=== PATIENT | male | born 1955 | race Caucasian/White ===

== ENCOUNTER 2016-08-01 23:56 | Inpatient (IN) | payer OTHER ==
[~2016-08-01] VITALS: Ht 175.3 cm; Wt 117.5 kg
[~2016-08-01 23:56] MED LIST: ARIP5TAB4 PO; ASPI81TA31 PO; ATOR10TA PO; Acetaminophen PO; CLOT15CR36 TOP; FURO20TA4 PO; ISOS60TA4 PO; METO25TA6 PO; POTA10CA43 PO
[2016-08-02] MEDS ORDERED: IV NORMAL SALINE 500 ML BAG IV ONE (00:15)
[2016-08-02] MEDS ORDERED: MORPHINE SULFATE 2 MG/1 ML DISP.SYRIN IV ONE (00:15)
[2016-08-02] MEDS ORDERED: ASPIRIN 325 MG TABLET PO ONE (00:15)
[2016-08-02 00:48] LABS: CALCIUM 8.4 mg/dL (8.5-10.1); CREATININE 1.1 mg/dL (0.6-1.3); POTASSIUM 3.6 mmol/L (3.5-5.1)
[2016-08-02] MEDS ORDERED: ASPIRIN 325 MG TABLET ONE (00:49)
[2016-08-02] MEDS ORDERED: MORPHINE SULFATE 2 MG/1 ML DISP.SYRIN ONE (00:50)
[2016-08-02 00:52] LABS: BASOPHILS % (AUTO) 0.6 % (0.0-2.0); EOSINOPHILS # (AUTO) 0.2 K/uL (0.0-0.7); EOSINOPHILS % (AUTO) 2.6 % (0.0-7.0); HEMATOCRIT 33.6 % (40.0-50.0); HEMOGLOBIN 11.3 g/dL (14.0-18.0); LYMPHOCYTES # (AUTO) 2.1 K/uL (0.8-4.8); MEAN CORPUSCULAR HGB CONC 34 g/dL (32.0-37.0); MEAN CORPUSCULAR VOLUME 83.6 fL (82.0-92.0); MONOCYTES # (AUTO) 0.7 K/uL (0.1-1.30); MONOCYTES % (AUTO) 9.7 % (0.0-11.0); NEUTROPHILS # (AUTO) 4.6 K/uL (1.8-8.9); NEUTROPHILS % (AUTO) 60.1 % (38.5-71.5); PLATELET COUNT (AUTO) 393 K/uL (150-450); RED BLOOD CELL COUNT(AUTO) 4.02 MIL/uL (4.70-6.10); WHITE BLOOD COUNT (AUTO) 7.6 K/uL (4.0-11.2)
[2016-08-02 01:01] LABS: BILIRUBIN,DIRECT 0.1 mg/dL (0.0-0.2); BILIRUBIN,TOTAL 0.2 mg/dL (0.2-1.0); TOTAL PROTEIN, SERUM 6.7 g/dL (6.4-8.2)
[2016-08-02] MEDS ORDERED: FUROSEMIDE 20 MG/2 ML VIAL IV ONE (01:15)
[2016-08-02] MEDS ORDERED: NITROGLYCERIN OINT 1 GM PACKET TP ONE ×2 (01:15→01:40)
[2016-08-02] MEDS ORDERED: FUROSEMIDE 40 MG/4 ML VIAL ONE (01:40)
--- NOTE | 2016-08-02 01:46 | NUR ---
Pt. admitted to TELE, under care of Dr. Law Belongs List completed
--- NOTE | 2016-08-02 02:18 | NUR ---
Urine Output 1200 ml
--- NOTE | 2016-08-02 02:50 | NUR ---
Urine Output 1000 ml
--- NOTE | 2016-08-02 03:00 | NUR ---
RECEIVED FROM ER VIA [facility]. USHERED TO ROOM AND PLACED COMFORTABLY ON BED. ABLE TO MAKE NEEDS KNOWN. NO COMPLAINTS OF CHEST PAIN AT THIS TIME. TELE WITH SINUS RHYTHM. ABLE TO PROVIDE HISTORY. BODY ASSESSMENT DONE. NEEDS ATTENDED. CALL LIGHT WITHIN REACH. WILL CONTINUE TO MONITOR.
[2016-08-02 03:21] VITALS: BP 157/97
[2016-08-02] MEDS ORDERED: MAGNESIUM HYDROXIDE 30 ML LIQUID UDC PO PRN (03:30)
[2016-08-02] MEDS ORDERED: ZOLPIDEM 5 MG TABLET PO PRN (03:30)
[2016-08-02] MEDS ORDERED: ONDANSETRON 4 MG/2 ML VIAL IV PRN (03:30)
[2016-08-02] MEDS: HYDROCODONE/APAP 5-325MG TABLET PO PRN ×4 (03:58→18:06)
[2016-08-02 04:00] VITALS: BP 154/87
[2016-08-02] MEDS ORDERED: HYDROCODONE/APAP 5-325MG TABLET ONE (04:04)
--- NOTE | 2016-08-02 06:20 | NUR ---
ABLE TO REST WELL DURING THE SHIFT. NEEDS ATTENDED. NO ACUTE DISTRESS NOTED. ABLE TO CHANGE DRESSINGS AND PICTURES TAKEN. TELE WITH SINUS RHYTHM. NO COMPLAINTS OF CHEST PAIN DURING THE SHIFT. CALL LIGHT WITHIN REACH
--- NOTE | 2016-08-02 07:00 | NUR ---
PATIENT RECEIVED IN ROOM ALERT AWAKE IN NO ACUTE DISTRESS. NO C/O PAIN AT THIS TIME. URINAL EMPTIED VOIDED 500CC. URINE YELLOW AND CLEAR. RLE ELEVATED ON PILLOWS WITH DRESSING C/D/I. CALL LIGHT AT REACH.
[2016-08-02] MEDS: ASPIRIN 81 MG TAB.CHEW PO SCH (08:08)
[2016-08-02] MEDS: PANTOPRAZOLE SODIUM 40 MG TABLET.DR PO SCH (08:09)
[2016-08-02] MEDS: METOPROLOL TARTRATE 25 MG TABLET PO SCH ×2 (12:00→20:30)
[2016-08-02] MEDS: ISOSORBIDE MONONITRATE 60 MG TAB.SR.24H PO SCH (12:01)
[2016-08-02 12:29] VITALS: BP 164/104
--- NOTE | 2016-08-02 13:29 | NUR ---
WOUND CARE CONSULT RECEIVED, WOUND CARE WILL DEFER TO PODIATRY DR MURRAY AT THIS TIME FOR TREATMENT. PATIENT WITH CURRENT FEDERICO AT 22. WOUND CARE WILL ASSIST IF REQUESTED. DR MURRAY AWARE OF PATIENT CONSULT.
[2016-08-02 15:54] VITALS: BP 136/87
[2016-08-02] MEDS ORDERED: LIDOCAINE 5% OINT 35.44 GM TUBE TOP PRN (16:00)
[2016-08-02] MEDS ORDERED: MORPHINE SULFATE 4 MG/1 ML DISP.SYRIN IV ONE (16:00)
--- NOTE | 2016-08-02 16:30 | NUR ---
UNABLE TO START IV. DR LISA NOTIFIED. N.O TO DC IV MORPHINE.
[2016-08-02] MEDS ORDERED: MORPHINE SULFATE 2 MG/1 ML DISP.SYRIN IV PRN (17:00)
[2016-08-02 20:00] VITALS: BP 148/90
[2016-08-02] MEDS ORDERED: HYDROMORPHONE HCL 2 MG TABLET PO PRN (20:15)
[2016-08-02] MEDS: ATORVASTATIN 40 MG TABLET PO SCH (20:30)
--- NOTE | 2016-08-02 21:29 | NUR ---
CLINICAL PHARMACY NOTE-VANCOMYCIN DOSING PER PHARMACY TO START VANCOMYCIN DOSING ON THIS PATIENT FOR CELLULITIS BUN 21 SCR 1.1 WBC 7.6 VANCOMYCIN 2 GRAM IV EVERY 14 HRS FOR EXPECTED TROUGH AROUND 15. WILL FOLLOW IN AM.
[2016-08-02] MEDS: PIPERACILLIN/TAZOBACTAM/D5W 3.375 G in PREMIXED 1 EACH IV SCH (21:49)
[2016-08-02] MEDS ORDERED: VANCOMYCIN IV 2,000 MG in IV DEXTROSE 5% 500 ML IV SCH (23:00)
[2016-08-03 05:00] VITALS: BP 169/104
[2016-08-03] MEDS: HYDROMORPHONE 1 MG/1 ML DISP.SYRIN IV PRN ×4 (05:21→19:51)
[2016-08-03] MEDS: PIPERACILLIN/TAZOBACTAM/D5W 3.375 G in PREMIXED 1 EACH IV SCH ×3 (05:21→21:26)
[2016-08-03] MEDS: PANTOPRAZOLE SODIUM 40 MG TABLET.DR PO SCH (06:07)
[2016-08-03 07:10] LABS: BASOPHILS % (AUTO) 0.3 % (0.0-2.0); EOSINOPHILS # (AUTO) 0.2 K/uL (0.0-0.7); EOSINOPHILS % (AUTO) 1.8 % (0.0-7.0); HEMATOCRIT 34.3 % (40.0-50.0); HEMOGLOBIN 11.6 g/dL (14.0-18.0); LYMPHOCYTES # (AUTO) 0.8 K/uL (0.8-4.8); LYMPHOCYTES % (AUTO) 8.8 % (20.5-51.5); MEAN CORPUSCULAR HEMOGLOBIN 28.8 uug (27.0-31.0); MEAN CORPUSCULAR HGB CONC 34 g/dL (32.0-37.0); MEAN CORPUSCULAR VOLUME 84.7 fL (82.0-92.0); MONOCYTES # (AUTO) 0.7 K/uL (0.1-1.30); MONOCYTES % (AUTO) 7.3 % (0.0-11.0); NEUTROPHILS # (AUTO) 7.7 K/uL (1.8-8.9); NEUTROPHILS % (AUTO) 81.8 % (38.5-71.5); PLATELET COUNT (AUTO) 375 K/uL (150-450); RED BLOOD CELL COUNT(AUTO) 4.05 MIL/uL (4.70-6.10); RED CELL DISTRIBUTION WIDTH 15.4 % (11.5-14.5); WHITE BLOOD COUNT (AUTO) 9.4 K/uL (4.0-11.2)
[2016-08-03 07:17] LABS: ALBUMIN 2.9 g/dL (3.4-5.0); BILIRUBIN,TOTAL 0.3 mg/dL (0.2-1.0); CALCIUM 8.8 mg/dL (8.5-10.1); MAGNESIUM 2.2 mg/dL (1.8-2.4); TOTAL PROTEIN, SERUM 6.9 g/dL (6.4-8.2)
[2016-08-03] MEDS: ISOSORBIDE MONONITRATE 60 MG TAB.SR.24H PO SCH (09:09)
[2016-08-03] MEDS: ASPIRIN 81 MG TAB.CHEW PO SCH (09:09)
[2016-08-03] MEDS: SILVER SULFADIAZINE 1% CREAM 50 GM TP SCH (09:10)
[2016-08-03] MEDS: METOPROLOL TARTRATE 25 MG TABLET PO SCH (09:10)
--- NOTE | 2016-08-03 10:00 | NUR ---
wound care provided. wound is draining sarosangunous fluid with odor. wound is red, pink and yellow in color. pt was premedicated with dilaudid as pt reports the wound to be very tender to touch. SS cream applied, ABD pad applied and wound is wrapped with kerlix. Feet are elevated on the pillows.
[2016-08-03] MEDS ORDERED: METOPROLOL TARTRATE 25 MG TABLET PO ONE (10:04)
[2016-08-03 11:50] VITALS: BP 135/74
--- NOTE | 2016-08-03 12:35 | NUR ---
INDUSTRIAL ECOLOGY TECHNICIAN TREATMENT ORDERS FOR RIGHT LOWER LEG ULCER CLARIFIED WITH DR MURRAY AT THIS TIME.
[2016-08-03] MEDS: VANCOMYCIN IV 2,000 MG in IV DEXTROSE 5% 500 ML IV SCH (12:50)
--- NOTE | 2016-08-03 13:41 | NUR ---
Clinical Pharmacy Note: Vancomycin Dosing per Pharmacy Subjective: Vancomycin IV to continue on this patient for cellulitis RLE. 60Yo ht 5' 9'' wt 310 lb Objective: BUN 13/Scr 1.0 WBC 9.4 Temperature 98.2 Assessment/Plan: Since srcr has decreased from 1.1 to 1.0 today, will change dose of vancomycin 2000mg IVPB Q14hr to vancomycin 2000mg IVPB q13hr for predicted vancomycin trough level of 15.5 mcg/ml at steady state. Third dose of this regimen is due on 06/03 at 0100. Will draw a vancomycin trough level prior to the 4th dose of vancomycin (not ordered yet). Will monitor renal function and adjust vancomycin dose, if needed, should renal function change significantly. Will follow daily.
[2016-08-03 15:50] VITALS: BP 113/72
[2016-08-03 20:00] VITALS: BP 133/78
[2016-08-03] MEDS: ATORVASTATIN 40 MG TABLET PO SCH (20:21)
[2016-08-03] MEDS: METOPROLOL TARTRATE 50 MG TABLET PO SCH (20:24)
--- NOTE | 2016-08-03 20:45 | NUR ---
PT'S A/A/O X4 DENIED OF PAIN OR ANY DISCOMFORT.CLEAN AND DRY AT THE RIGHT LEG WOUND:ELEVATED W/PILLOW ,UPDATED THE PLAN OF CARE TO PT;HE VERBALIZED UNDERSTANDING AND COOPERATIVE NOTED.KEPT COMFORT.CALL-LIGHT WITHIN REACH.
[2016-08-03] MEDS ORDERED: METOPROLOL TARTRATE 25 MG TABLET PO SCH (21:00)
[2016-08-04] MEDS: VANCOMYCIN IV 2,000 MG in IV DEXTROSE 5% 500 ML IV SCH ×2 (01:00→14:56)
[2016-08-04] MEDS: HYDROMORPHONE 1 MG/1 ML DISP.SYRIN IV PRN ×6 (01:10→20:50)
[2016-08-04 04:00] VITALS: BP 148/80
[2016-08-04] MEDS: PIPERACILLIN/TAZOBACTAM/D5W 3.375 G in PREMIXED 1 EACH IV SCH ×3 (05:16→22:21)
[2016-08-04] MEDS: PANTOPRAZOLE SODIUM 40 MG TABLET.DR PO SCH (06:14)
--- NOTE | 2016-08-04 06:30 | NUR ---
PT'S COMFORTABLE ON BED;DENIED OF PAIN OR ANY DISCOMFORT.NO DISTRESS NOTED IN THE SHIFT.PAIN'S CONTROLLED( ORDER).
[2016-08-04] MEDS: METOPROLOL TARTRATE 50 MG TABLET PO SCH ×2 (09:15→20:52)
[2016-08-04] MEDS: ISOSORBIDE MONONITRATE 60 MG TAB.SR.24H PO SCH (09:15)
[2016-08-04] MEDS: ASPIRIN 81 MG TAB.CHEW PO SCH (09:16)
[2016-08-04] MEDS: SILVER SULFADIAZINE 1% CREAM 50 GM TP SCH (11:17)
[2016-08-04 11:34] VITALS: BP 147/80
--- NOTE | 2016-08-04 15:20 | NUR ---
Clinical Pharmacy Note: Vancomycin Dosing per Pharmacy Subjective: Vancomycin IV to continue on this patient for cellulitis RLE. 60Yo ht 5' 9'' wt 310 lb Objective: BUN 13/Scr 1.0(08/03) WBC 9.4 (08/03) Temperature 98.3 Vancomycin trough 17 today at 1330 Assessment/Plan: Since trough level is within the therapeutic range, will continue vancomycin 2000mg IVPB q13hr for now. Will monitor renal function and adjust vancomycin dose, if needed, should renal function change significantly. Will follow daily.
[2016-08-04 15:29] VITALS: BP 104/58
[2016-08-04] MEDS: ATORVASTATIN 40 MG TABLET PO SCH (20:51)
[2016-08-04 22:38] VITALS: BP 127/69
[2016-08-05] MEDS: HYDROMORPHONE 1 MG/1 ML DISP.SYRIN IV PRN ×2 (01:36→05:39)
[2016-08-05] MEDS: VANCOMYCIN IV 2,000 MG in IV DEXTROSE 5% 500 ML IV SCH ×2 (02:27→15:03)
[2016-08-05 05:27] VITALS: BP 138/72
[2016-08-05] MEDS: PIPERACILLIN/TAZOBACTAM/D5W 3.375 G in PREMIXED 1 EACH IV SCH ×3 (05:39→21:50)
[2016-08-05] MEDS: PANTOPRAZOLE SODIUM 40 MG TABLET.DR PO SCH (06:00)
--- NOTE | 2016-08-05 07:00 | NUR ---
RECIEVED PT. AWAKE, VERBALLY RESPONSIVE, AGITATED AND IRRITABLE, ARGUMENTATIVE,
[2016-08-05 07:58] LABS: BASOPHILS # (AUTO) 0.1 K/uL (0.0-0.2); BASOPHILS % (AUTO) 0.6 % (0.0-2.0); EOSINOPHILS # (AUTO) 0.3 K/uL (0.0-0.7); EOSINOPHILS % (AUTO) 3.2 % (0.0-7.0); HEMATOCRIT 36.7 % (40.0-50.0); HEMOGLOBIN 12.2 g/dL (14.0-18.0); LYMPHOCYTES # (AUTO) 1.5 K/uL (0.8-4.8); MEAN CORPUSCULAR HEMOGLOBIN 28.3 uug (27.0-31.0); MEAN CORPUSCULAR HGB CONC 33 g/dL (32.0-37.0); MEAN CORPUSCULAR VOLUME 85.1 fL (82.0-92.0); MONOCYTES # (AUTO) 1.1 K/uL (0.1-1.30); NEUTROPHILS # (AUTO) 7.1 K/uL (1.8-8.9); NEUTROPHILS % (AUTO) 70.2 % (38.5-71.5); PLATELET COUNT (AUTO) 378 K/uL (150-450); RED BLOOD CELL COUNT(AUTO) 4.31 MIL/uL (4.70-6.10); RED CELL DISTRIBUTION WIDTH 15.4 % (11.5-14.5); WHITE BLOOD COUNT (AUTO) 10.1 K/uL (4.0-11.2)
[2016-08-05] MEDS: SILVER SULFADIAZINE 1% CREAM 50 GM TP SCH (09:00)
[2016-08-05 09:15] LABS: ALBUMIN 3.1 g/dL (3.4-5.0); BILIRUBIN,TOTAL 0.3 mg/dL (0.2-1.0); CALCIUM 9.3 mg/dL (8.5-10.1); MAGNESIUM 2.2 mg/dL (1.8-2.4); PHOSPHOROUS 3.2 mg/dL (2.5-4.9); POTASSIUM 3.9 mmol/L (3.5-5.1); TOTAL PROTEIN, SERUM 7.5 g/dL (6.4-8.2)
[2016-08-05] MEDS: ASPIRIN 81 MG TAB.CHEW PO SCH (10:21)
[2016-08-05] MEDS: METOPROLOL TARTRATE 50 MG TABLET PO SCH ×2 (10:22→20:29)
[2016-08-05] MEDS: ISOSORBIDE MONONITRATE 60 MG TAB.SR.24H PO SCH (10:23)
[2016-08-05 11:38] VITALS: BP 149/86
--- NOTE | 2016-08-05 12:27 | NUR ---
Clinical Pharmacy Note: Vancomycin Dosing per Pharmacy Subjective: Vancomycin IV to continue on this patient for cellulitis RLE. 60Yo ht 5' 9'' wt 310 lb Objective: BUN 13/Scr 1.0 WBC 10.1 Temperature 97.9 Vancomycin trough 17 (on 08/04 at 1330) Assessment/Plan: Will continue same dose of vancomycin 2000mg IVPB q13hr for today (srcr stable). Will monitor renal function and adjust vancomycin dose, if needed, should renal function change significantly. Will follow daily.
--- NOTE | 2016-08-05 13:00 | NUR ---
RT. FOOT WOUND CARE DONE,
[2016-08-05] MEDS: ACETAMINOPHEN 325 MG TABLET PO PRN ×2 (13:13→18:06)
[2016-08-05 15:09] VITALS: BP 147/82
[2016-08-05] MEDS: ATORVASTATIN 40 MG TABLET PO SCH (20:29)
[2016-08-05] MEDS: LACTOBACILLUS RHAMNOSUS GG 1 EACH CAPSULE PO SCH (20:30)
[2016-08-05 20:49] VITALS: BP 131/73
[2016-08-05] MEDS ORDERED: HYDROCODONE/APAP 5-325MG TABLET ONE ×2 (22:10→22:21)
[2016-08-06] MEDS: VANCOMYCIN IV 2,000 MG in IV DEXTROSE 5% 500 ML IV SCH ×2 (05:01→17:38)
[2016-08-06 05:29] VITALS: BP 116/83
--- NOTE | 2016-08-06 07:00 | NUR ---
PT IS SITTING IN BED COMFORTABLY. NO S/S OF RESPIRATORY DISTRESS NOTED. IV INTACT/PATENT. ALL SAFETY NEEDS ARE MET. WILL CONTINUE TO MONITOR.
[2016-08-06] MEDS: PIPERACILLIN/TAZOBACTAM/D5W 3.375 G in PREMIXED 1 EACH IV SCH ×3 (07:06→21:54)
[2016-08-06] MEDS: PANTOPRAZOLE SODIUM 40 MG TABLET.DR PO SCH (07:06)
[2016-08-06] MEDS: ASPIRIN 81 MG TAB.CHEW PO SCH (09:48)
[2016-08-06] MEDS: LACTOBACILLUS RHAMNOSUS GG 1 EACH CAPSULE PO SCH ×2 (09:49→20:47)
[2016-08-06] MEDS: METOPROLOL TARTRATE 50 MG TABLET PO SCH ×2 (09:49→20:48)
[2016-08-06] MEDS: ISOSORBIDE MONONITRATE 60 MG TAB.SR.24H PO SCH (09:49)
[2016-08-06] MEDS: SILVER SULFADIAZINE 1% CREAM 50 GM TP SCH (09:50)
[2016-08-06] MEDS: HYDROMORPHONE 1 MG/1 ML DISP.SYRIN IV PRN ×4 (10:00→20:49)
[2016-08-06 11:14] VITALS: BP 139/80
--- NOTE | 2016-08-06 12:34 | NUR ---
Clinical Pharmacy Note: Vancomycin Dosing per Pharmacy Subjective: Vancomycin IV to continue on this patient for cellulitis RLE. 60Yo ht 5' 9'' wt 310 lb Objective: BUN 13/Scr 1.0 (08/05) WBC 10.1 (08/05) Temperature 98.6 Vancomycin trough 17 (on 08/04 at 1330) Assessment/Plan: Will continue same dose of vancomycin 2000mg IVPB q13hr for today. Will monitor renal function and adjust vancomycin dose, if needed, should renal function change significantly. Will follow daily.
[2016-08-06 15:35] VITALS: BP 100/56
[2016-08-06] MEDS ORDERED: METOPROLOL TARTRATE 25 MG TABLET PO SCH (17:00)
[2016-08-06 20:00] VITALS: BP 116/65
[2016-08-06] MEDS: ATORVASTATIN 40 MG TABLET PO SCH (20:47)
[2016-08-06] MEDS: ARIPIPRAZOLE 5 MG TABLET PO SCH (20:55)
[2016-08-06] MEDS ORDERED: ATORVASTATIN 10 MG TABLET PO SCH (21:00)
--- NOTE | 2016-08-06 21:30 | NUR ---
PT SEEN BY DR. RAMIREZ.
[2016-08-07] MEDS: HYDROMORPHONE 1 MG/1 ML DISP.SYRIN IV PRN ×7 (01:38→23:56)
[2016-08-07 04:00] VITALS: BP 135/83
--- NOTE | 2016-08-07 05:18 | NUR ---
PT IN BED, SLEPT INTERMITTENTLY. ON PAIN MANAGEMENT FOR R LEG PAIN, AND WAS HELPFUL. SAFETY NEEDS PROVIDED. CALL LIGHT WITHIN REACH.
[2016-08-07] MEDS: PIPERACILLIN/TAZOBACTAM/D5W 3.375 G in PREMIXED 1 EACH IV SCH ×3 (05:37→23:56)
[2016-08-07] MEDS: PANTOPRAZOLE SODIUM 40 MG TABLET.DR PO SCH (06:44)
[2016-08-07] MEDS: VANCOMYCIN IV 2,000 MG in IV DEXTROSE 5% 500 ML IV SCH ×2 (06:56→21:13)
--- NOTE | 2016-08-07 07:38 | NUR ---
WOUND TX DONE. PROCEDURE SHIRA WELL.
--- NOTE | 2016-08-07 08:00 | NUR ---
pt is in no acute distress. Discussed plan of care with patient re: proper pain management and fall precautions. Pt agreeable with plan of care. Call light is within reach. Dressing intact on nanci legs. IV on left ac intact.
[2016-08-07] MEDS: FUROSEMIDE 20 MG TABLET PO SCH (08:11)
[2016-08-07] MEDS: ISOSORBIDE MONONITRATE 60 MG TAB.SR.24H PO SCH (08:12)
[2016-08-07] MEDS: POTASSIUM CHLORIDE 10 MEQ CAPSULE.SA PO SCH (08:12)
[2016-08-07] MEDS: LACTOBACILLUS RHAMNOSUS GG 1 EACH CAPSULE PO SCH ×2 (08:12→20:23)
[2016-08-07] MEDS: METOPROLOL TARTRATE 50 MG TABLET PO SCH ×2 (08:12→21:13)
[2016-08-07] MEDS: ASPIRIN 81 MG TAB.CHEW PO SCH (08:14)
[2016-08-07] MEDS: SILVER SULFADIAZINE 1% CREAM 50 GM TP SCH (08:22)
[2016-08-07] MEDS ORDERED: ISOSORBIDE MONONITRATE 60 MG TAB.SR.24H PO SCH (09:00)
[2016-08-07] MEDS ORDERED: ASPIRIN 81 MG TAB.CHEW PO SCH (09:00)
--- NOTE | 2016-08-07 11:05 | NUR ---
Clinical Pharmacy Note: Vancomycin Dosing per Pharmacy Subjective: Vancomycin IV to continue on this patient for cellulitis RLE. 60Yo ht 5' 9'' wt 310 lb Objective: BUN 13/Scr 1.0 (08/05) WBC 10.1 (08/05) Temperature 98.3 Vancomycin trough 17 (on 08/04 at 1330) Assessment/Plan: Patient on vancomycin 2000mg IVPB q13hr. No labs past few days. Will check vancomycin trough level before 2000 dose tonight (ordered for tonight 1930) to ensure level still within therapeutic range. Pharmacy shall review the level when available & adjust the dose if needed. Will follow daily.
[2016-08-07 12:10] VITALS: BP 145/80
[2016-08-07 16:00] VITALS: BP 102/54
--- NOTE | 2016-08-07 18:25 | NUR ---
Pt is in no acute distress. Plan of care effective. Pain managed with medications and no fall noted this shift. Call light is within reach.
[2016-08-07 19:00] VITALS: BP 136/73
--- NOTE | 2016-08-07 20:15 | NUR ---
called for oweno trough to be drawn
[2016-08-07] MEDS: ARIPIPRAZOLE 5 MG TABLET PO SCH (20:23)
[2016-08-07] MEDS: ATORVASTATIN 40 MG TABLET PO SCH (20:23)
--- NOTE | 2016-08-07 20:29 | NUR ---
vanco trough drawn by lab
[2016-08-08] MEDS: HYDROMORPHONE 1 MG/1 ML DISP.SYRIN IV PRN ×5 (03:11→21:29)
[2016-08-08 05:11] VITALS: BP 136/70
[2016-08-08] MEDS: PIPERACILLIN/TAZOBACTAM/D5W 3.375 G in PREMIXED 1 EACH IV SCH ×4 (06:26→21:34)
[2016-08-08] MEDS: PANTOPRAZOLE SODIUM 40 MG TABLET.DR PO SCH (06:26)
[2016-08-08] MEDS: LACTOBACILLUS RHAMNOSUS GG 1 EACH CAPSULE PO SCH ×2 (08:27→21:28)
[2016-08-08] MEDS: ASPIRIN 81 MG TAB.CHEW PO SCH (08:27)
[2016-08-08] MEDS: ISOSORBIDE MONONITRATE 60 MG TAB.SR.24H PO SCH (08:27)
[2016-08-08] MEDS: FUROSEMIDE 20 MG TABLET PO SCH (08:27)
[2016-08-08] MEDS: POTASSIUM CHLORIDE 10 MEQ CAPSULE.SA PO SCH (08:27)
[2016-08-08] MEDS: SILVER SULFADIAZINE 1% CREAM 50 GM TP SCH (08:28)
[2016-08-08] MEDS: METOPROLOL TARTRATE 50 MG TABLET PO SCH ×2 (08:28→21:29)
[2016-08-08] MEDS: VANCOMYCIN IV 2,000 MG in IV DEXTROSE 5% 500 ML IV SCH (08:31)
--- NOTE | 2016-08-08 10:49 | NUR ---
mateuszco 08/02/16 @404 and [facility] 08/05/16@ 3080 taken out of pyxis by digital marketing apprentice.
[2016-08-08 12:02] VITALS: BP 141/89
[2016-08-08 15:35] VITALS: BP 105/61
[2016-08-08] MEDS: DOXYCYCLINE HYCLATE 100 MG TABLET PO SCH (17:36)
[2016-08-08 19:00] VITALS: BP 137/84
[2016-08-08] MEDS: ATORVASTATIN 40 MG TABLET PO SCH (21:28)
[2016-08-08] MEDS: ARIPIPRAZOLE 5 MG TABLET PO SCH (21:28)
[2016-08-09] MEDS: HYDROMORPHONE 1 MG/1 ML DISP.SYRIN IV PRN ×8 (00:34→22:19)
[2016-08-09 05:00] VITALS: BP 150/85
[2016-08-09] MEDS: PIPERACILLIN/TAZOBACTAM/D5W 3.375 G in PREMIXED 1 EACH IV SCH (05:35)
[2016-08-09] MEDS: DOXYCYCLINE HYCLATE 100 MG TABLET PO SCH (05:35)
[2016-08-09] MEDS: PANTOPRAZOLE SODIUM 40 MG TABLET.DR PO SCH (06:30)
--- NOTE | 2016-08-09 07:03 | NUR ---
no significant change in condition, PRN pain med given as requested Q3H, assessment done as needed. call light within reach.
[2016-08-09] MEDS: POTASSIUM CHLORIDE 10 MEQ CAPSULE.SA PO SCH (08:02)
[2016-08-09] MEDS: METOPROLOL TARTRATE 50 MG TABLET PO SCH ×2 (08:02→21:22)
[2016-08-09] MEDS: LACTOBACILLUS RHAMNOSUS GG 1 EACH CAPSULE PO SCH ×2 (08:02→21:21)
[2016-08-09] MEDS: ISOSORBIDE MONONITRATE 60 MG TAB.SR.24H PO SCH (08:06)
[2016-08-09] MEDS: ASPIRIN 81 MG TAB.CHEW PO SCH (08:07)
[2016-08-09] MEDS: FUROSEMIDE 20 MG TABLET PO SCH (08:07)
--- NOTE | 2016-08-09 10:31 | NUR ---
Patient noted irritable and agitated this morning. Patient took all medications but becomes agitated when protocols are followed. Patient also does not like two nurse in the room. RN doing orientation with new RN. Patient insists only one nurse does the care and was able to change mind about observation.
[2016-08-09] MEDS: SILVER SULFADIAZINE 1% CREAM 50 GM TP SCH (11:21)
[2016-08-09 11:40] VITALS: BP 104/56
[2016-08-09] MEDS ORDERED: DOSING PER PHARMACY-COLISTIN IV XX PRN (13:45)
[2016-08-09] MEDS: MEROPENEM 1 G in IV NORMAL SALINE 100 ML IV SCH ×2 (14:00→22:19)
[2016-08-09] MEDS: COLISTIMETHATE SODIUM 150 MG in IV DEXTROSE 5% 100 ML IV SCH ×3 (14:15→21:23)
--- NOTE | 2016-08-09 14:50 | NUR ---
Pt refused IV antibiotics and requested to have IV antibiotics to run through PICC line. PICC requested and scheduled to come at 2029.
--- NOTE | 2016-08-09 15:58 | NUR ---
Waiting for PICC line nurse to come and assess patient. Waiting to hang IV antibiotics.
--- NOTE | 2016-08-09 16:27 | NUR ---
PICC line nurse Job Dao to arrive at 2030.
[2016-08-09 16:34] VITALS: BP 110/60
[2016-08-09 16:39] VITALS: BP 131/64
[2016-08-09] MEDS: LINEZOLID 600 MG TABLET PO SCH ×2 (16:46→21:24)
[2016-08-09 20:00] VITALS: BP 109/55
--- NOTE | 2016-08-09 20:30 | NUR ---
MIDLINE INSERTED BY PICC LINE NURSE IN PT'S GILL, WITH GOOD BLOOD RETURN.
[2016-08-09] MEDS: ARIPIPRAZOLE 5 MG TABLET PO SCH (21:21)
[2016-08-09] MEDS: ATORVASTATIN 40 MG TABLET PO SCH (21:22)
[2016-08-10] MEDS: HYDROMORPHONE 1 MG/1 ML DISP.SYRIN IV PRN ×7 (02:14→21:48)
[2016-08-10 05:40] VITALS: BP 141/88
[2016-08-10] MEDS: MEROPENEM 1 G in IV NORMAL SALINE 100 ML IV SCH ×3 (05:43→21:47)
[2016-08-10] MEDS: PANTOPRAZOLE SODIUM 40 MG TABLET.DR PO SCH (06:38)
[2016-08-10 07:02] LABS: BASOPHILS % (AUTO) 0.5 % (0.0-2.0); EOSINOPHILS # (AUTO) 0.3 K/uL (0.0-0.7); EOSINOPHILS % (AUTO) 3.4 % (0.0-7.0); HEMATOCRIT 36.6 % (40.0-50.0); HEMOGLOBIN 12.1 g/dL (14.0-18.0); LYMPHOCYTES # (AUTO) 1.8 K/uL (0.8-4.8); LYMPHOCYTES % (AUTO) 19.3 % (20.5-51.5); MEAN CORPUSCULAR HEMOGLOBIN 28.1 uug (27.0-31.0); MEAN CORPUSCULAR HGB CONC 33 g/dL (32.0-37.0); MONOCYTES # (AUTO) 0.8 K/uL (0.1-1.30); MONOCYTES % (AUTO) 8.6 % (0.0-11.0); NEUTROPHILS # (AUTO) 6.3 K/uL (1.8-8.9); NEUTROPHILS % (AUTO) 68.2 % (38.5-71.5); PLATELET COUNT (AUTO) 341 K/uL (150-450); RED BLOOD CELL COUNT(AUTO) 4.31 MIL/uL (4.70-6.10); RED CELL DISTRIBUTION WIDTH 15.2 % (11.5-14.5); WHITE BLOOD COUNT (AUTO) 9.2 K/uL (4.0-11.2)
[2016-08-10 07:06] LABS: CALCIUM 9.1 mg/dL (8.5-10.1); CREATININE 1.2 mg/dL (0.6-1.3); MAGNESIUM 1.9 mg/dL (1.8-2.4); PHOSPHOROUS 3.1 mg/dL (2.5-4.9)
[2016-08-10] MEDS: LACTOBACILLUS RHAMNOSUS GG 1 EACH CAPSULE PO SCH ×2 (08:37→20:30)
[2016-08-10] MEDS: POTASSIUM CHLORIDE 10 MEQ CAPSULE.SA PO SCH (08:37)
[2016-08-10] MEDS: ASPIRIN 81 MG TAB.CHEW PO SCH (08:37)
[2016-08-10] MEDS: METOPROLOL TARTRATE 50 MG TABLET PO SCH ×2 (08:37→20:29)
[2016-08-10] MEDS: FUROSEMIDE 20 MG TABLET PO SCH (08:38)
[2016-08-10] MEDS: LINEZOLID 600 MG TABLET PO SCH ×2 (08:38→20:33)
[2016-08-10] MEDS: ISOSORBIDE MONONITRATE 60 MG TAB.SR.24H PO SCH (08:38)
[2016-08-10] MEDS: COLISTIMETHATE SODIUM 150 MG in IV DEXTROSE 5% 100 ML IV SCH ×2 (08:57→20:28)
--- NOTE | 2016-08-10 08:57 | NUR ---
informed of patient sodium level of 133. No new orders.
[2016-08-10] MEDS: SILVER SULFADIAZINE 1% CREAM 50 GM TP SCH (09:59)
--- NOTE | 2016-08-10 10:52 | NUR ---
Pt alert oriented able to verbalized needs. v/s checked and WNL. All meds given. Wound care done. pt tolerating well, denies distress and discomfort. pain medication given. will continue to monitor
[2016-08-10 11:24] VITALS: BP 110/56
[2016-08-10 15:50] VITALS: BP 92/50
--- NOTE | 2016-08-10 16:03 | NUR ---
Case management is working on discharge plan for the patient. Will go to correction facility. Continuing IV antibiotics for the day. Patient aware of plan of care at this time and is agreeable.
[2016-08-10 20:00] VITALS: BP 111/62
[2016-08-10] MEDS: ATORVASTATIN 40 MG TABLET PO SCH (20:29)
[2016-08-10] MEDS: ARIPIPRAZOLE 5 MG TABLET PO SCH (20:30)
--- NOTE | 2016-08-10 21:30 | NUR ---
PT'S A/A/O X 4 ON BED REST AND HAD VISITED AT THIS TIME AND MD INFORMED A CONSENT TO PT FOR DEBRIDEMENT RIGHT LOWER EXTREMITY ULCERATION AT THIS TIME;PT VERBALIZED UNDERSTANDING ABOUT THE RISK AND BENEFIT. PERFORMED A PROCEDURE ~ 45 MINUTES AND SENT A SPECIMEN FOR WOUND C/S AT THIS TIME,MINIMAL BLOOD LOSS NOTED,APPLIED DRY D/S AND ELEVATED WITH PILLOWS.KEPT COMFORT TO PT.
[2016-08-10] MEDS ORDERED: LIDOCAINE 4% TOPICAL 50 ML BOTTLE TP ONE (22:00)
[2016-08-10] MEDS ORDERED: LIDOCAINE 4% TOPICAL 50 ML BOTTLE ONE (22:15)
[2016-08-10] MEDS ORDERED: LIDOCAINE 2% (UROJET) 10 ML JELLY MM PRN (22:30)
[2016-08-10] MEDS ORDERED: LIDOCAINE 2% 100 MG/5 ML SYRINGE ONE (22:33)
[2016-08-10] MEDS ORDERED: MORPHINE SULFATE 2 MG/1 ML DISP.SYRIN IV ONE (22:45)
[2016-08-10] MEDS ORDERED: MORPHINE SULFATE 2 MG/1 ML DISP.SYRIN ONE (22:46)
[2016-08-11] MEDS: HYDROMORPHONE 1 MG/1 ML DISP.SYRIN IV PRN ×8 (00:45→22:54)
[2016-08-11 04:39] VITALS: BP 117/75
[2016-08-11] MEDS: MEROPENEM 1 G in IV NORMAL SALINE 100 ML IV SCH ×3 (05:31→21:21)
--- NOTE | 2016-08-11 06:30 | NUR ---
PT'S ALREADY GOT AM CARE W/MEMBERSHIP ADVISOR'S ASSISTANCE;PT TOLERATED WELL W/ASSISTANCE:CLEAN AND DRY AT THE RIGHT LEG WOUND SITE W/D/S WAS ON.NO DISTRESS NOTED IN THE SHIFT.KEPT CONTACT ISOLATION;PT VERBALIZED UNDERSTANDING.
[2016-08-11] MEDS: PANTOPRAZOLE SODIUM 40 MG TABLET.DR PO SCH (06:43)
--- NOTE | 2016-08-11 07:37 | NUR ---
PT IS LAYING IN BED COMFORTABLY. NO S/S OF RESPIRATORY DISTRESS NOTED.MIDLINE INTACT/PATENT.ALL SAFETY NEEDS ARE MET. NO PAIN NOTED.
[2016-08-11 07:41] LABS: CALCIUM 9.3 mg/dL (8.5-10.1); CREATININE 1.1 mg/dL (0.6-1.3); POTASSIUM 4.1 mmol/L (3.5-5.1)
[2016-08-11] MEDS: SILVER SULFADIAZINE 1% CREAM 50 GM TP SCH (09:05)
[2016-08-11] MEDS: METOPROLOL TARTRATE 50 MG TABLET PO SCH ×2 (09:10→21:20)
[2016-08-11] MEDS: FUROSEMIDE 20 MG TABLET PO SCH (09:10)
[2016-08-11] MEDS: ASPIRIN 81 MG TAB.CHEW PO SCH (09:11)
[2016-08-11] MEDS: ISOSORBIDE MONONITRATE 60 MG TAB.SR.24H PO SCH (09:11)
[2016-08-11] MEDS: POTASSIUM CHLORIDE 10 MEQ CAPSULE.SA PO SCH (09:11)
[2016-08-11] MEDS: LACTOBACILLUS RHAMNOSUS GG 1 EACH CAPSULE PO SCH ×2 (09:11→21:20)
[2016-08-11] MEDS: LINEZOLID 600 MG TABLET PO SCH ×2 (09:12→21:21)
[2016-08-11] MEDS: COLISTIMETHATE SODIUM 150 MG in IV DEXTROSE 5% 100 ML IV SCH ×2 (09:31→21:32)
[2016-08-11 12:20] VITALS: BP 106/59
[2016-08-11 16:55] VITALS: BP 128/67
[2016-08-11 20:00] VITALS: BP 123/75
[2016-08-11] MEDS: ATORVASTATIN 40 MG TABLET PO SCH (21:20)
[2016-08-11] MEDS: ARIPIPRAZOLE 5 MG TABLET PO SCH (21:20)
[2016-08-12] MEDS: HYDROMORPHONE 1 MG/1 ML DISP.SYRIN IV PRN ×7 (02:03→20:51)
[2016-08-12 04:44] VITALS: BP 137/74
[2016-08-12] MEDS: MEROPENEM 1 G in IV NORMAL SALINE 100 ML IV SCH ×2 (06:18→14:47)
[2016-08-12] MEDS: PANTOPRAZOLE SODIUM 40 MG TABLET.DR PO SCH (06:18)
[2016-08-12] MEDS: COLISTIMETHATE SODIUM 150 MG in IV DEXTROSE 5% 100 ML IV SCH ×2 (09:14→20:51)
[2016-08-12] MEDS: POTASSIUM CHLORIDE 10 MEQ CAPSULE.SA PO SCH (09:14)
[2016-08-12] MEDS: FUROSEMIDE 20 MG TABLET PO SCH (09:14)
[2016-08-12] MEDS: ISOSORBIDE MONONITRATE 60 MG TAB.SR.24H PO SCH (09:23)
[2016-08-12] MEDS: METOPROLOL TARTRATE 50 MG TABLET PO SCH ×2 (09:23→20:58)
[2016-08-12] MEDS: ASPIRIN 81 MG TAB.CHEW PO SCH (09:23)
[2016-08-12] MEDS: LACTOBACILLUS RHAMNOSUS GG 1 EACH CAPSULE PO SCH ×2 (09:23→20:57)
[2016-08-12] MEDS: SILVER SULFADIAZINE 1% CREAM 50 GM TP SCH (09:26)
[2016-08-12] MEDS: LINEZOLID 600 MG TABLET PO SCH ×2 (09:26→21:04)
[2016-08-12 11:57] VITALS: BP 110/61
[2016-08-12 16:58] VITALS: BP 92/49
[2016-08-12 20:00] VITALS: BP 117/71
[2016-08-12] MEDS: ATORVASTATIN 40 MG TABLET PO SCH (20:57)
[2016-08-12] MEDS: ARIPIPRAZOLE 5 MG TABLET PO SCH (21:05)
[2016-08-13] MEDS: HYDROMORPHONE 1 MG/1 ML DISP.SYRIN IV PRN ×8 (00:19→23:33)
[2016-08-13 06:06] VITALS: BP 129/71
[2016-08-13] MEDS: PANTOPRAZOLE SODIUM 40 MG TABLET.DR PO SCH (06:31)
[2016-08-13 06:57] LABS: CALCIUM 9.5 mg/dL (8.5-10.1); CREATININE 1.1 mg/dL (0.6-1.3)
--- NOTE | 2016-08-13 07:30 | NUR ---
patient upset, wanted to speak to charge nurse, wanted his leg dressing with marc bandage. called x 3 consecutively for the change, quieted down after he himself use his own marc bandage in room. breakfast served, didnt bother patient while having breakfast. no respiratory distress noted.
[2016-08-13 07:44] LABS: BASOPHILS # (AUTO) 0.2 K/uL (0.0-0.2); BASOPHILS % (AUTO) 2.5 % (0.0-2.0); EOSINOPHILS # (AUTO) 0.3 K/uL (0.0-0.7); EOSINOPHILS % (AUTO) 3.4 % (0.0-7.0); HEMATOCRIT 36.7 % (40.0-50.0); HEMOGLOBIN 11.8 g/dL (14.0-18.0); LYMPHOCYTES # (AUTO) 1.6 K/uL (0.8-4.8); MEAN CORPUSCULAR HEMOGLOBIN 27.3 uug (27.0-31.0); MEAN CORPUSCULAR HGB CONC 32 g/dL (32.0-37.0); MEAN CORPUSCULAR VOLUME 84.6 fL (82.0-92.0); MONOCYTES # (AUTO) 0.9 K/uL (0.1-1.30); MONOCYTES % (AUTO) 9.3 % (0.0-11.0); NEUTROPHILS # (AUTO) 6.5 K/uL (1.8-8.9); NEUTROPHILS % (AUTO) 67.8 % (38.5-71.5); RED BLOOD CELL COUNT(AUTO) 4.34 MIL/uL (4.70-6.10); RED CELL DISTRIBUTION WIDTH 14.8 % (11.5-14.5); WHITE BLOOD COUNT (AUTO) 9.5 K/uL (4.0-11.2)
[2016-08-13 07:46] LABS: PLATELET COUNT (AUTO) 241 K/uL (150-450)
[2016-08-13] MEDS: POTASSIUM CHLORIDE 10 MEQ CAPSULE.SA PO SCH (08:43)
[2016-08-13] MEDS: LACTOBACILLUS RHAMNOSUS GG 1 EACH CAPSULE PO SCH ×2 (08:43→20:46)
[2016-08-13] MEDS: COLISTIMETHATE SODIUM 150 MG in IV DEXTROSE 5% 100 ML IV SCH ×2 (08:43→20:45)
[2016-08-13] MEDS: FUROSEMIDE 20 MG TABLET PO SCH (08:43)
[2016-08-13] MEDS: ASPIRIN 81 MG TAB.CHEW PO SCH (08:43)
[2016-08-13] MEDS: ISOSORBIDE MONONITRATE 60 MG TAB.SR.24H PO SCH (08:44)
[2016-08-13] MEDS: METOPROLOL TARTRATE 50 MG TABLET PO SCH ×2 (08:45→20:45)
--- NOTE | 2016-08-13 09:20 | NUR ---
med pass done, refused to have dressing change for now. wanted dressing change done exactly 1000. patient easily apprehensive and defensive. stated , "I can change your policy if med s not given in 5 minutes after a call or dressing change not done when requested." Made aware will abide by md order and hospital policy.
[2016-08-13] MEDS: LINEZOLID 600 MG TABLET PO SCH ×2 (09:28→20:45)
--- NOTE | 2016-08-13 09:36 | NUR ---
MED FOR COMPLAINTS OF LEFT LOWER LEG PAIN, AGREED TO HAVE DRESSING CHANGE IN 20 MINUTES.
--- NOTE | 2016-08-13 10:00 | NUR ---
dressing change done per patient meticulous requested. 2 clean bedpad for dressing change, multiple use of 4x4 gauze to dry skin and to dab silvadene cream to wound, without nurse finger touching the wound, abd pad x 2 applied, made aware will use kerlix wrap per md order which on this one he abide. elevated leg x 4 pillow as requested. calmed down after all requested provided, with pain med and dressing change and room arrangement. appreciative a after dressing change.
[2016-08-13] MEDS: SILVER SULFADIAZINE 1% CREAM 50 GM TP SCH (10:13)
[2016-08-13 12:01] VITALS: BP 108/60
[2016-08-13 12:04] LABS: BAND % (MANUAL) 5 % (0-10); BASOPHILS % (MANUAL) 1 % (0-2); EOSINOPHILS % (MANUAL) 6 % (0-8); LYMPHOCYTES % (MANUAL) 14 % (20-40); MONOCYTES % (MANUAL) 6 % (2-10); NEUTROPHILS % (MANUAL) 68 % (42-75)
[2016-08-13 12:05] LABS: ANISOCYTOSIS 1+; PLATELET ESTIMATE ADEQUATE; STOMATOCYTES 1+
--- NOTE | 2016-08-13 14:30 | NUR ---
DR ESPINO CALLED, MADE ORDER FOR SUPPLIES AND CONSENT FOR BEDSIDE, RIGHT LOWER ULCER DEBRIDEMENT.
[2016-08-13] MEDS ORDERED: LIDOCAINE HCL 1% 20 ML VIAL IJ STA (14:34)
[2016-08-13] MEDS ORDERED: LIDOCAINE HCL 1% 20 ML VIAL IJ PRN (15:45)
[2016-08-13] MEDS ORDERED: MORPHINE SULFATE 2 MG/1 ML DISP.SYRIN IV ONE (16:15)
[2016-08-13] MEDS ORDERED: KETOROLAC TROMETHAMINE 30 MG INJ IVP ONE (16:15)
--- NOTE | 2016-08-13 16:15 | NUR ---
DEBRIDEMENT AT BEDSIDE, TOLERATED FAIR. REDRESSED WITH SAME DRESSING ORDER. MED X 1 FOR ONE TIME PAIN MED AFTER DEBRIDEMENT.
--- NOTE | 2016-08-13 18:00 | NUR ---
RELIEF FROM PAIN MED VERBALIZED. COMFORTABLE. DRESSING IN PLACE., REMAINS ELEVATED X 4 PILLOWS
[2016-08-13 20:32] VITALS: BP 144/93
[2016-08-13] MEDS: ATORVASTATIN 40 MG TABLET PO SCH (20:46)
[2016-08-13] MEDS: ARIPIPRAZOLE 5 MG TABLET PO SCH (20:46)
[2016-08-14] MEDS: HYDROMORPHONE 1 MG/1 ML DISP.SYRIN IV PRN ×7 (02:33→22:16)
[2016-08-14 02:35] VITALS: BP 125/82
[2016-08-14 04:00] VITALS: BP 116/67
[2016-08-14] MEDS: PANTOPRAZOLE SODIUM 40 MG TABLET.DR PO SCH (06:33)
[2016-08-14] MEDS: ISOSORBIDE MONONITRATE 60 MG TAB.SR.24H PO SCH (08:26)
[2016-08-14] MEDS: METOPROLOL TARTRATE 50 MG TABLET PO SCH ×2 (08:26→22:17)
[2016-08-14] MEDS: ASPIRIN 81 MG TAB.CHEW PO SCH (08:26)
[2016-08-14] MEDS: LACTOBACILLUS RHAMNOSUS GG 1 EACH CAPSULE PO SCH ×2 (08:26→22:17)
[2016-08-14] MEDS: POTASSIUM CHLORIDE 10 MEQ CAPSULE.SA PO SCH (08:26)
[2016-08-14] MEDS: COLISTIMETHATE SODIUM 150 MG in IV DEXTROSE 5% 100 ML IV SCH ×2 (08:26→23:01)
[2016-08-14] MEDS: FUROSEMIDE 20 MG TABLET PO SCH (08:27)
[2016-08-14] MEDS: SILVER SULFADIAZINE 1% CREAM 50 GM TP SCH (08:27)
[2016-08-14] MEDS: LINEZOLID 600 MG TABLET PO SCH ×2 (09:42→21:00)
[2016-08-14 09:48] LABS: CALCIUM 9.7 mg/dL (8.5-10.1); CREATININE 1.2 mg/dL (0.6-1.3); PHOSPHOROUS 3.9 mg/dL (2.5-4.9); POTASSIUM 4.3 mmol/L (3.5-5.1)
[2016-08-14 09:49] LABS: BASOPHILS # (AUTO) 0.1 K/uL (0.0-0.2); BASOPHILS % (AUTO) 0.6 % (0.0-2.0); EOSINOPHILS # (AUTO) 0.3 K/uL (0.0-0.7); EOSINOPHILS % (AUTO) 3.1 % (0.0-7.0); HEMOGLOBIN 13.4 g/dL (14.0-18.0); LYMPHOCYTES # (AUTO) 1.8 K/uL (0.8-4.8); LYMPHOCYTES % (AUTO) 18.5 % (20.5-51.5); MEAN CORPUSCULAR HEMOGLOBIN 27.1 uug (27.0-31.0); MEAN CORPUSCULAR HGB CONC 32 g/dL (32.0-37.0); MONOCYTES # (AUTO) 0.7 K/uL (0.1-1.30); MONOCYTES % (AUTO) 6.8 % (0.0-11.0); NEUTROPHILS # (AUTO) 6.7 K/uL (1.8-8.9); RED CELL DISTRIBUTION WIDTH 14.8 % (11.5-14.5); WHITE BLOOD COUNT (AUTO) 9.6 K/uL (4.0-11.2)
[2016-08-14 09:50] LABS: HEMATOCRIT 42.4 % (40.0-50.0); RED BLOOD CELL COUNT(AUTO) 4.93 MIL/uL (4.70-6.10)
[2016-08-14 09:51] LABS: PLATELET COUNT (AUTO) 378 K/uL (150-450)
[2016-08-14 12:19] VITALS: BP 90/58
[2016-08-14 15:52] VITALS: BP 103/66
--- NOTE | 2016-08-14 18:59 | NUR ---
DRESSING CHANGED, ALL SAFETY AND COMFORT MEASURES MAINTAINED THROUGHOUT SHIFT, MEDICATED FOR PAIN ORDERED, CALL LIGHT IN REACH
[2016-08-14 20:00] VITALS: BP 158/70
[2016-08-14] MEDS: ATORVASTATIN 40 MG TABLET PO SCH (22:13)
[2016-08-14] MEDS: ARIPIPRAZOLE 5 MG TABLET PO SCH (22:16)
[2016-08-15] MEDS: HYDROMORPHONE 1 MG/1 ML DISP.SYRIN IV PRN ×7 (01:26→21:57)
[2016-08-15 05:08] VITALS: BP 121/71
--- NOTE | 2016-08-15 05:59 | NUR ---
PATIENT ALERT ORIENTED, PATIENT ON HIS LAP TOP MOST OF THE NIGHT, RIGHT LEG ELEVATED WITH PILLOW, DRESSING INTACT, ON PAIN MANAGEMENT, PAIN MEDICATION EFFECTIVE, PATIENT EASILY GET AGITATED, ATTEND ALL NEEDS. NO SOB, NO CHEST PAIN NOTED.
[2016-08-15] MEDS: PANTOPRAZOLE SODIUM 40 MG TABLET.DR PO SCH (06:03)
[2016-08-15 06:14] LABS: BASOPHILS # (AUTO) 0.1 K/uL (0.0-0.2); BASOPHILS % (AUTO) 0.9 % (0.0-2.0); EOSINOPHILS # (AUTO) 0.3 K/uL (0.0-0.7); EOSINOPHILS % (AUTO) 2.6 % (0.0-7.0); HEMATOCRIT 37.5 % (40.0-50.0); LYMPHOCYTES # (AUTO) 1.4 K/uL (0.8-4.8); LYMPHOCYTES % (AUTO) 14.1 % (20.5-51.5); MEAN CORPUSCULAR HGB CONC 32 g/dL (32.0-37.0); MEAN CORPUSCULAR VOLUME 84.3 fL (82.0-92.0); MONOCYTES # (AUTO) 0.9 K/uL (0.1-1.30); MONOCYTES % (AUTO) 8.8 % (0.0-11.0); NEUTROPHILS # (AUTO) 7.4 K/uL (1.8-8.9); NEUTROPHILS % (AUTO) 73.6 % (38.5-71.5); PLATELET COUNT (AUTO) 336 K/uL (150-450); RED BLOOD CELL COUNT(AUTO) 4.45 MIL/uL (4.70-6.10); RED CELL DISTRIBUTION WIDTH 14.7 % (11.5-14.5); WHITE BLOOD COUNT (AUTO) 10.1 K/uL (4.0-11.2)
[2016-08-15 06:45] LABS: CALCIUM 9.4 mg/dL (8.5-10.1); CREATININE 1.2 mg/dL (0.6-1.3); MAGNESIUM 1.9 mg/dL (1.8-2.4); PHOSPHOROUS 3.8 mg/dL (2.5-4.9)
[2016-08-15] MEDS: LACTOBACILLUS RHAMNOSUS GG 1 EACH CAPSULE PO SCH ×2 (08:01→20:28)
[2016-08-15] MEDS: ASPIRIN 81 MG TAB.CHEW PO SCH (08:02)
[2016-08-15] MEDS: FUROSEMIDE 20 MG TABLET PO SCH (08:02)
[2016-08-15] MEDS: POTASSIUM CHLORIDE 10 MEQ CAPSULE.SA PO SCH (08:02)
[2016-08-15] MEDS: LINEZOLID 600 MG TABLET PO SCH ×2 (08:04→20:30)
[2016-08-15] MEDS: ISOSORBIDE MONONITRATE 60 MG TAB.SR.24H PO SCH (08:07)
[2016-08-15] MEDS: METOPROLOL TARTRATE 50 MG TABLET PO SCH ×2 (08:08→20:30)
[2016-08-15] MEDS: SILVER SULFADIAZINE 1% CREAM 50 GM TP SCH (08:19)
[2016-08-15] MEDS: COLISTIMETHATE SODIUM 150 MG in IV DEXTROSE 5% 100 ML IV SCH ×2 (09:42→20:28)
[2016-08-15 11:29] VITALS: BP 100/60
[2016-08-15 15:40] VITALS: BP 118/57
--- NOTE | 2016-08-15 18:47 | NUR ---
pt awake in bed, no signs of distress. MIDLINE IN TACT AND PATENT DRESSING CHANGED, RLE DRESSING CHANGED AND KEPT DRY AND INTACT THROUGHOUT SHIFT, CONTACT PRECAUTIONS MAINTAINED, ALL SAFETY AND COMFORT MEASURES MAINTAINED, CALL LIGHT IN REACH
[2016-08-15 20:00] VITALS: BP 126/68
[2016-08-15] MEDS: ARIPIPRAZOLE 5 MG TABLET PO SCH (20:28)
[2016-08-15] MEDS: ATORVASTATIN 40 MG TABLET PO SCH (20:29)
[2016-08-15] MEDS ORDERED: HYDROMORPHONE 1 MG/1 ML DISP.SYRIN ONE (22:02)
[2016-08-16] MEDS: HYDROMORPHONE 1 MG/1 ML DISP.SYRIN IV PRN ×7 (02:13→23:04)
[2016-08-16] MEDS ORDERED: HYDROMORPHONE 1 MG/1 ML DISP.SYRIN ONE ×2 (02:19→04:51)
[2016-08-16 04:00] VITALS: BP 127/65
[2016-08-16] MEDS: PANTOPRAZOLE SODIUM 40 MG TABLET.DR PO SCH (06:21)
--- NOTE | 2016-08-16 07:32 | NUR ---
PATIENT RESTING COMFORTABLY IN BED. CONTACT PRECAUTIONS MAINTAINED. ALL SAFETY AND COMFORT MEASURES ATTENDED TO. CALL LIGHT IN REACH.
[2016-08-16] MEDS: LACTOBACILLUS RHAMNOSUS GG 1 EACH CAPSULE PO SCH ×2 (08:47→20:06)
[2016-08-16] MEDS: POTASSIUM CHLORIDE 10 MEQ CAPSULE.SA PO SCH (08:48)
[2016-08-16] MEDS: METOPROLOL TARTRATE 50 MG TABLET PO SCH ×2 (08:48→20:07)
[2016-08-16] MEDS: ASPIRIN 81 MG TAB.CHEW PO SCH (08:48)
[2016-08-16] MEDS: FUROSEMIDE 20 MG TABLET PO SCH (08:48)
[2016-08-16] MEDS: ISOSORBIDE MONONITRATE 60 MG TAB.SR.24H PO SCH (08:48)
[2016-08-16] MEDS: SILVER SULFADIAZINE 1% CREAM 50 GM TP SCH (08:53)
[2016-08-16] MEDS: LINEZOLID 600 MG TABLET PO SCH ×2 (09:39→20:16)
[2016-08-16] MEDS: COLISTIMETHATE SODIUM 150 MG in IV DEXTROSE 5% 100 ML IV SCH ×2 (09:39→20:06)
[2016-08-16 11:08] LABS: BASOPHILS % (AUTO) 0.3 % (0.0-2.0); EOSINOPHILS # (AUTO) 0.3 K/uL (0.0-0.7); EOSINOPHILS % (AUTO) 3.2 % (0.0-7.0); HEMATOCRIT 36.5 % (40.0-50.0); HEMOGLOBIN 11.8 g/dL (14.0-18.0); LYMPHOCYTES # (AUTO) 1.1 K/uL (0.8-4.8); LYMPHOCYTES % (AUTO) 13.2 % (20.5-51.5); MEAN CORPUSCULAR HEMOGLOBIN 27.3 uug (27.0-31.0); MEAN CORPUSCULAR HGB CONC 32 g/dL (32.0-37.0); MEAN CORPUSCULAR VOLUME 84.7 fL (82.0-92.0); MONOCYTES # (AUTO) 0.7 K/uL (0.1-1.30); MONOCYTES % (AUTO) 7.6 % (0.0-11.0); NEUTROPHILS # (AUTO) 6.5 K/uL (1.8-8.9); NEUTROPHILS % (AUTO) 75.7 % (38.5-71.5); PLATELET COUNT (AUTO) 354 K/uL (150-450); RED BLOOD CELL COUNT(AUTO) 4.31 MIL/uL (4.70-6.10); RED CELL DISTRIBUTION WIDTH 14.9 % (11.5-14.5); WHITE BLOOD COUNT (AUTO) 8.6 K/uL (4.0-11.2)
[2016-08-16 11:23] VITALS: BP 132/76
[2016-08-16 11:24] LABS: CALCIUM 9.1 mg/dL (8.5-10.1); CREATININE 1.1 mg/dL (0.6-1.3); MAGNESIUM 1.9 mg/dL (1.8-2.4); PHOSPHOROUS 3.5 mg/dL (2.5-4.9); POTASSIUM 3.8 mmol/L (3.5-5.1)
[2016-08-16 15:36] VITALS: BP 120/70
--- NOTE | 2016-08-16 18:46 | NUR ---
DRESSING CHANGED AT 1320, DRY AND INTACT, ALL SAFETY AND COMFORT MEASURES MAINTAINED THROUGHOUT SHIFT. MEDICATED FOR PAIN ORDERED, CALL LIGHT IN REACH. CONTACT PRECAUTIONS MAINTAINED.
[2016-08-16 19:44] VITALS: BP 107/68
[2016-08-16] MEDS: ARIPIPRAZOLE 5 MG TABLET PO SCH (20:06)
[2016-08-16] MEDS: ATORVASTATIN 40 MG TABLET PO SCH (20:06)
[2016-08-17] MEDS: HYDROMORPHONE 1 MG/1 ML DISP.SYRIN IV PRN ×6 (02:10→21:27)
[2016-08-17 04:00] VITALS: BP 145/78
[2016-08-17] MEDS: PANTOPRAZOLE SODIUM 40 MG TABLET.DR PO SCH (06:47)
[2016-08-17] MEDS: ASPIRIN 81 MG TAB.CHEW PO SCH (08:54)
[2016-08-17] MEDS: FUROSEMIDE 20 MG TABLET PO SCH (08:54)
[2016-08-17] MEDS: LACTOBACILLUS RHAMNOSUS GG 1 EACH CAPSULE PO SCH ×2 (08:54→20:49)
[2016-08-17] MEDS: POTASSIUM CHLORIDE 10 MEQ CAPSULE.SA PO SCH (08:54)
[2016-08-17] MEDS: COLISTIMETHATE SODIUM 150 MG in IV DEXTROSE 5% 100 ML IV SCH ×2 (08:55→20:48)
[2016-08-17] MEDS: ISOSORBIDE MONONITRATE 60 MG TAB.SR.24H PO SCH (08:58)
[2016-08-17] MEDS: METOPROLOL TARTRATE 50 MG TABLET PO SCH ×2 (08:58→20:50)
[2016-08-17] MEDS: LINEZOLID 600 MG TABLET PO SCH (09:00)
--- NOTE | 2016-08-17 09:10 | NUR ---
pt. is verbally abusive, refused all his meds, including ivpb, ms sarah tillman charge nurse notified and she said wait for ariela tillman to give your meds.
[2016-08-17 11:14] VITALS: BP 143/82
[2016-08-17 15:42] VITALS: BP 111/63
[2016-08-17] MEDS: SILVER SULFADIAZINE 1% CREAM 50 GM TP SCH (16:00)
--- NOTE | 2016-08-17 16:18 | NUR ---
right foot wound care done
--- NOTE | 2016-08-17 18:29 | NUR ---
pt. is calm and cooperative at this time
--- NOTE | 2016-08-17 19:00 | NUR ---
PATIENT ALERT ORIENTED ABLE TO MAKE NEEDS KNOWN, NO COMPLAIN OF PAIN AT THIS TIME,
[2016-08-17 20:00] VITALS: BP 125/67
[2016-08-17] MEDS: ATORVASTATIN 40 MG TABLET PO SCH (20:50)
[2016-08-17] MEDS: ARIPIPRAZOLE 5 MG TABLET PO SCH (20:52)
[2016-08-18] MEDS: HYDROMORPHONE 1 MG/1 ML DISP.SYRIN IV PRN ×7 (00:28→22:33)
[2016-08-18] MEDS: LINEZOLID 600 MG TABLET PO SCH ×3 (00:39→20:54)
[2016-08-18 05:42] VITALS: BP 106/71
[2016-08-18] MEDS: PANTOPRAZOLE SODIUM 40 MG TABLET.DR PO SCH (06:38)
[2016-08-18] MEDS: FUROSEMIDE 20 MG TABLET PO SCH (08:11)
[2016-08-18] MEDS: ASPIRIN 81 MG TAB.CHEW PO SCH (08:13)
[2016-08-18] MEDS: POTASSIUM CHLORIDE 10 MEQ CAPSULE.SA PO SCH (08:13)
[2016-08-18] MEDS: LACTOBACILLUS RHAMNOSUS GG 1 EACH CAPSULE PO SCH ×2 (08:13→20:44)
[2016-08-18] MEDS: METOPROLOL TARTRATE 50 MG TABLET PO SCH ×2 (08:17→20:44)
[2016-08-18] MEDS: ISOSORBIDE MONONITRATE 60 MG TAB.SR.24H PO SCH (08:17)
[2016-08-18] MEDS: SILVER SULFADIAZINE 1% CREAM 50 GM TP SCH (10:16)
[2016-08-18] MEDS: COLISTIMETHATE SODIUM 150 MG in IV DEXTROSE 5% 100 ML IV SCH ×2 (10:16→20:44)
[2016-08-18 11:50] VITALS: BP 111/60
--- NOTE | 2016-08-18 14:48 | NUR ---
The patient will be done with his antibiotics tomorrow. This clerical associate offered to find a winter custodial for him but he declined and stated that he would like to be discharged to himself once medically cleared. Tried to provide him with a Homeless Resource Addendum: 08/18/16 at 1502 by RAUL PIRES [facility] but he declined and stated that he has enough resources from the [employer].
[2016-08-18 16:05] VITALS: BP 118/67
--- NOTE | 2016-08-18 19:00 | NUR ---
PATIENT SEATED IN BED, NO COMPLAIN OF PAIN AT THIS TIME, NO CHEST PAIN, NO SOB, RIGHT LEG DRESSING INTACT, CALL LIGHT WITHIN REACH.
[2016-08-18 20:00] VITALS: BP 131/64
[2016-08-18] MEDS: ATORVASTATIN 40 MG TABLET PO SCH (20:43)
[2016-08-18] MEDS: ARIPIPRAZOLE 5 MG TABLET PO SCH (20:43)
[2016-08-19] MEDS: HYDROMORPHONE 1 MG/1 ML DISP.SYRIN IV PRN ×5 (02:30→17:43)
[2016-08-19 04:18] VITALS: BP 135/89
--- NOTE | 2016-08-19 05:29 | NUR ---
PATIENT AWAKE, UP MOST OF THE NIGHT, PATIENT ON HIS LAPTOP OR WATCHED TELEVISION, RIGHT LEG DRESSING INTACT, LEGS ELEVATED WITH PILLOW WHILE IN BED, CONTINUE ON PAIN MANAGEMENT EVERY THREE HOURS, WITH HELP WITH THE PAIN, NO SOB, NO CHEST PAIN NOTED. NO S/S OF DISTRESS.
[2016-08-19] MEDS: PANTOPRAZOLE SODIUM 40 MG TABLET.DR PO SCH (06:02)
[2016-08-19] MEDS: FUROSEMIDE 20 MG TABLET PO SCH (08:59)
[2016-08-19] MEDS: LACTOBACILLUS RHAMNOSUS GG 1 EACH CAPSULE PO SCH (08:59)
[2016-08-19] MEDS: METOPROLOL TARTRATE 50 MG TABLET PO SCH (08:59)
[2016-08-19] MEDS: ASPIRIN 81 MG TAB.CHEW PO SCH (08:59)
[2016-08-19] MEDS: ISOSORBIDE MONONITRATE 60 MG TAB.SR.24H PO SCH (08:59)
[2016-08-19] MEDS: POTASSIUM CHLORIDE 10 MEQ CAPSULE.SA PO SCH (08:59)
[2016-08-19] MEDS: LINEZOLID 600 MG TABLET PO SCH (09:10)
[2016-08-19] MEDS: SILVER SULFADIAZINE 1% CREAM 50 GM TP SCH (10:11)
[2016-08-19] MEDS: COLISTIMETHATE SODIUM 150 MG in IV DEXTROSE 5% 100 ML IV SCH (10:11)
[2016-08-19 11:13] VITALS: BP 138/90
[2016-08-19 15:10] VITALS: BP 113/69
--- NOTE | 2016-08-19 16:29 | NUR ---
Patient refusing discharge photos at this time. Patient is being discharged. Patient refusing to go to a senior care at this time.
--- NOTE | 2016-08-19 16:32 | NUR ---
Discharge Plan: Provided patient with a resource packet with [facility] and [facility], as well as a bus token. Patient was thankful and agreeable with discharge plan.
--- NOTE | 2016-08-19 17:08 | NUR ---
Patient educated regarding discharge plans. Patient becoming increasingly irritated. Refused to sign discharge paperwork. Continues to refuse photography of wound.
[2016-08-19 18:00] VITALS: BP 130/65
--- NOTE | 2016-08-19 18:43 | NUR ---
Patient discharged from unit. Assisted by nursing staff. Patient went willingly but continued to refuse signing and photographs. In no noted distress. Ambulating around room. Belongings returned. Patient states, "I will most likely go to a facility once I leave. Patient initially refused removal of midline but with redirecting from charge nurse agreed to remove.
== END 2016-08-19 18:20 | disposition home or self-care (01) | DRG 198 ==
LOC: ER 23:56 → TELE 08-02 01:44 → MED 08-02 12:30
PROVIDERS: ADMIT Nurse Practitioner Acute Care; ATTEND Internal Medicine
PROC: 05H533Z Insertion of Infusion Device into Right Subclavian Vein, Percutaneous Approach (ICD-10-PCS; principal; 2016-08-02)
PROC: 0JBN0ZZ Excision of Right Lower Leg Subcutaneous Tissue and Fascia, Open Approach (ICD-10-PCS; 2016-08-10)
DX: I25.119 Atherosclerotic heart disease of native coronary artery with unspecified angina pectoris (principal); N17.0 Acute kidney failure with tubular necrosis; E44.0 Moderate protein-calorie malnutrition; L03.115 Cellulitis of right lower limb; I50.32 Chronic diastolic (congestive) heart failure; E87.1 Hypo-osmolality and hyponatremia; E66.01 Morbid (severe) obesity due to excess calories; L97.919 Non-pressure chronic ulcer of unspecified part of right lower leg with unspecified severity; D63.8 Anemia in other chronic diseases classified elsewhere; I10 Essential (primary) hypertension; Z59.0 Homelessness; K21.9 Gastro-esophageal reflux disease without esophagitis; E87.6 Hypokalemia; M94.0 Chondrocostal junction syndrome [Tietze]; I89.0 Lymphedema, not elsewhere classified; Z85.72 Personal history of non-Hodgkin lymphomas; Z92.21 Personal history of antineoplastic chemotherapy; Z91.19 Patient's noncompliance with other medical treatment and regimen; Z83.3 Family history of diabetes mellitus; Z82.49 Family history of ischemic heart disease and other diseases of the circulatory system; Z76.5 Malingerer [conscious simulation]; B35.1 Tinea unguium; I87.8 Other specified disorders of veins; Z87.891 Personal history of nicotine dependence; F10.21 Alcohol dependence, in remission; F31.9 Bipolar disorder, unspecified; Z68.38 Body mass index [BMI] 38.0-38.9, adult; E78.5 Hyperlipidemia, unspecified; Z74.09 Other reduced mobility; R73.9 Hyperglycemia, unspecified; I87.2 Venous insufficiency (chronic) (peripheral); I25.2 Old myocardial infarction; M41.9 Scoliosis, unspecified; Z16.35 Resistance to multiple antimicrobial drugs
CPT/HCPCS: 36415; 36569; 70030-TC; 71010; 83735; 84100; 85002; 85025; 85730; 87070; 87077; 93005; A4217; A4663; J0770; J1170; J1885; J1940; J2001; J2185; J2270; J2405; J2543; J3370; J3490; J7030; J7040; J7050; J7060

== ENCOUNTER 2016-09-03 01:06 | Emergency (ER) | payer OTHER ==
[~2016-09-03] VITALS: Ht 175.3 cm; Wt 140.6 kg
[~2016-09-03 01:06] MED LIST changes: -CLOT15CR36 TOP
--- NOTE | 2016-09-03 03:33 | NUR ---
Patient given written and verbal discharge instructions. Patient verbalizes understanding of instructions. Patient is ambulatory with steady gait. Refuses offer of skilled nursing placement. Patient given list of available shelters in surrounding area.
== END 2016-09-03 03:34 | disposition home or self-care (01) ==
LOC: ER 01:08
DX: J06.9 Acute upper respiratory infection, unspecified (principal); I10 Essential (primary) hypertension; I25.10 Atherosclerotic heart disease of native coronary artery without angina pectoris; K21.9 Gastro-esophageal reflux disease without esophagitis; R05 Cough; I25.2 Old myocardial infarction; F31.9 Bipolar disorder, unspecified; Z59.0 Homelessness; Z79.82 Long term (current) use of aspirin
CPT/HCPCS: 71010; A4663

== ENCOUNTER 2016-09-12 18:26 | Emergency (ER) | payer OTHER ==
[~2016-09-12] VITALS: Ht 177.8 cm; Wt 133.8 kg
[2016-09-12] MEDS ORDERED: SILVER SULFADIAZINE 1% CREAM 50 GM TP ONE (19:00)
[2016-09-12] MEDS ORDERED: SILVER SULFADIAZINE 1% CREAM 25 GM TUBE TP ONE ×2 (19:11→19:24)
--- NOTE | 2016-09-12 19:34 | NUR ---
Patient given written and verbal discharge instructions. Patient verbalizes understanding of instructions. Patient is ambulatory with steady gait. Refuses offer of group home placement. Patient given list of available shelters in surrounding area.
== END 2016-09-12 19:35 | disposition home or self-care (01) ==
LOC: ER 18:41
DX: Z76.0 Encounter for issue of repeat prescription (principal); L97.919 Non-pressure chronic ulcer of unspecified part of right lower leg with unspecified severity; I25.10 Atherosclerotic heart disease of native coronary artery without angina pectoris; I10 Essential (primary) hypertension; I25.2 Old myocardial infarction; F31.9 Bipolar disorder, unspecified; K21.9 Gastro-esophageal reflux disease without esophagitis; Z79.82 Long term (current) use of aspirin; Z59.0 Homelessness
CPT/HCPCS: 87070; A4217; A4663

== ENCOUNTER 2016-09-18 22:09 | Emergency (ER) | payer OTHER ==
[~2016-09-18] VITALS: Ht 175.3 cm; Wt 136.1 kg
[2016-09-18] MEDS ORDERED: SILVER SULFADIAZINE 1% CREAM 25 GM TUBE TP ONE ×2 (23:15→23:24)
--- NOTE | 2016-09-18 23:53 | NUR ---
Patient discharged to home in stable conditon. Written and verbal after care instructions given. Patient verbalizes understanding of instructions. Ambulated from ER with stable gait. All belongings with patient.
--- NOTE | 2016-09-18 23:53 | NUR ---
Dressing applied to right lower extremity. CMS WNL. No further distress noted.
[2016-09-18 23:56] VITALS: BP 117/72
== END 2016-09-18 23:56 | disposition home or self-care (01) ==
LOC: ER 22:09
DX: Z48.01 Encounter for change or removal of surgical wound dressing (principal); L03.115 Cellulitis of right lower limb; I25.10 Atherosclerotic heart disease of native coronary artery without angina pectoris; I10 Essential (primary) hypertension; K21.9 Gastro-esophageal reflux disease without esophagitis; I25.2 Old myocardial infarction
CPT/HCPCS: 99282; A4217; A4663

== ENCOUNTER 2016-10-01 01:16 | Emergency (ER) | payer OTHER ==
[~2016-10-01] VITALS: Ht 175.3 cm; Wt 136.1 kg
[2016-10-01] MEDS ORDERED: SILVER SULFADIAZINE 1% CREAM 25 GM TUBE TP ONE (01:53)
--- NOTE | 2016-10-01 01:58 | NUR ---
Patient discharged to home in stable conditon. Written and verbal after care instructions given. Patient verbalizes understanding of instructions. Wound care provided to RLE stasis ulcer. Patient ambulated from ER with stable gait. All belongings with patient.
[2016-10-01] MEDS ORDERED: SILVER SULFADIAZINE 1% CREAM 50 GM TP ONE (02:00)
[2016-10-01 02:06] VITALS: BP 134/76
== END 2016-10-01 02:07 | disposition home or self-care (01) ==
LOC: ER 01:19
DX: Z48.01 Encounter for change or removal of surgical wound dressing (principal); I10 Essential (primary) hypertension; I25.10 Atherosclerotic heart disease of native coronary artery without angina pectoris; K21.9 Gastro-esophageal reflux disease without esophagitis; F31.9 Bipolar disorder, unspecified; I25.2 Old myocardial infarction
CPT/HCPCS: A4217; A4663

== ENCOUNTER 2016-10-04 19:04 | Emergency (ER) | payer OTHER ==
[~2016-10-04] VITALS: Ht 9 cm; Wt 127.0 kg
[2016-10-04] MEDS ORDERED: SILVER SULFADIAZINE 1% CREAM 25 GM TUBE TP ONE (19:46)
[2016-10-04] MEDS ORDERED: SILVER SULFADIAZINE 1% CREAM 50 GM TP ONE (20:00)
--- NOTE | 2016-10-04 20:30 | NUR ---
Patient presents to ER requesting wound dressing changed. He states he was at the "[facility]" where he usually changes his own dressing when he observed excessive wind which is the reason he did not change the bandage. To room 3A, SIDNEY performed MSE. Dressing changed as per ERMD and patient recommendation.
--- NOTE | 2016-10-04 20:34 | NUR ---
Patient given written and verbal discharge instructions. Patient verbalizes understanding of instructions. Patient is ambulatory with steady gait. Refuses offer of [facility] placement. Patient given list of available shelters in surrounding area.
== END 2016-10-04 20:38 | disposition home or self-care (01) ==
LOC: ER 19:04
DX: Z48.01 Encounter for change or removal of surgical wound dressing (principal); F31.9 Bipolar disorder, unspecified; I10 Essential (primary) hypertension; K21.9 Gastro-esophageal reflux disease without esophagitis; Z59.0 Homelessness; Z79.82 Long term (current) use of aspirin
CPT/HCPCS: 99283; A4217; A4663 ×2

== ENCOUNTER 2016-10-12 16:56 | Emergency (ER) | payer OTHER ==
[~2016-10-12] VITALS: Ht 182.9 cm; Wt 127.0 kg
--- NOTE | 2016-10-12 17:15 | NUR ---
DR OLIVARES AT THE BEDSIDE FOR EVAL AND EXAM.
[2016-10-12] MEDS ORDERED: SILVER SULFADIAZINE 1% CREAM 25 GM TUBE TP ONE (17:29)
[2016-10-12] MEDS ORDERED: SILVER SULFADIAZINE 1% CREAM 50 GM TP ONE (17:30)
[2016-10-12 17:53] VITALS: BP 156/70
--- NOTE | 2016-10-12 18:02 | NUR ---
Patient discharged in stable conditon. Written and verbal after care instructions given. Patient verbalizes understanding of instructions.
== END 2016-10-12 18:02 | disposition home or self-care (01) ==
LOC: ER 16:56
DX: Z48.00 Encounter for change or removal of nonsurgical wound dressing (principal); I10 Essential (primary) hypertension; K21.9 Gastro-esophageal reflux disease without esophagitis; F31.9 Bipolar disorder, unspecified; Z59.0 Homelessness; Z91.018 Allergy to other foods
CPT/HCPCS: 99283; A4217; A4663

== ENCOUNTER 2016-10-19 20:45 | Emergency (ER) | payer OTHER ==
[~2016-10-19] VITALS: Ht 172.7 cm; Wt 108.9 kg
[2016-10-20] MEDS ORDERED: SILVER SULFADIAZINE 1% CREAM 50 GM TP ONE (03:30)
[2016-10-20] MEDS ORDERED: SILVER SULFADIAZINE 1% CREAM 25 GM TUBE TP ONE (03:36)
--- NOTE | 2016-10-20 04:10 | NUR ---
Patient given written and verbal discharge instructions. Patient verbalizes understanding of instructions. Patient is ambulatory with steady gait. Refuses offer of snf placement. Patient given list of available shelters in surrounding area.
== END 2016-10-20 04:11 | disposition home or self-care (01) ==
LOC: ER 20:48
DX: Z48.00 Encounter for change or removal of nonsurgical wound dressing (principal); L97.919 Non-pressure chronic ulcer of unspecified part of right lower leg with unspecified severity; I10 Essential (primary) hypertension; K21.9 Gastro-esophageal reflux disease without esophagitis; I25.10 Atherosclerotic heart disease of native coronary artery without angina pectoris; F31.9 Bipolar disorder, unspecified; E78.5 Hyperlipidemia, unspecified; Z79.82 Long term (current) use of aspirin; Z59.0 Homelessness; Z91.018 Allergy to other foods
CPT/HCPCS: 99283; A4217; A4663

== ENCOUNTER 2016-10-20 22:05 | Emergency (ER) | payer OTHER ==
[~2016-10-20] VITALS: Ht 172.7 cm; Wt 108.9 kg
--- NOTE | 2016-10-21 00:30 | NUR ---
Pt walked into ER for request for dressing change on right lower leg. Pt states "It is to windy outside to change."
[2016-10-21] MEDS ORDERED: SILVER SULFADIAZINE 1% CREAM 25 GM TUBE TP ONE (01:45)
[2016-10-21] MEDS ORDERED: SILVER SULFADIAZINE 1% CREAM 50 GM TP ONE (02:30)
--- NOTE | 2016-10-21 02:55 | NUR ---
Patient discharged to home in stable conditon. Written and verbal after care instructions given. Patient verbalizes understanding of instructions. Walked out of ER with steady gait
[2016-10-21 03:02] VITALS: BP 160/82
== END 2016-10-21 03:03 | disposition home or self-care (01) ==
LOC: ER 22:14
DX: Z48.00 Encounter for change or removal of nonsurgical wound dressing (principal); L97.919 Non-pressure chronic ulcer of unspecified part of right lower leg with unspecified severity; I10 Essential (primary) hypertension; K21.9 Gastro-esophageal reflux disease without esophagitis; E78.5 Hyperlipidemia, unspecified; F31.9 Bipolar disorder, unspecified; I25.10 Atherosclerotic heart disease of native coronary artery without angina pectoris; Z79.82 Long term (current) use of aspirin; Z59.0 Homelessness; Z91.018 Allergy to other foods
CPT/HCPCS: A4217; A4663

== ENCOUNTER 2016-11-12 21:39 | Emergency (ER) | payer OTHER ==
[~2016-11-12] VITALS: Ht 172.7 cm; Wt 108.9 kg
--- NOTE | 2016-11-12 21:48 | NUR ---
PT WALKED INTO ER C/O DRESSING CHANGE FOR WOUND IN RIGHT AND LEFT LOWER EXTREMITIES... PT IS ALERT, ORIENTED X 4, NO RESP DISTRESS NOTED OR REPORTED... MD AT BEDSIDE...
[2016-11-12] MEDS ORDERED: SILVER SULFADIAZINE 1% CREAM 25 GM TUBE TP ONE ×2 (22:13→23:10)
[2016-11-12] MEDS ORDERED: HYDROCODONE/APAP 10-325 MG TABLET PO ONE (22:45)
[2016-11-12] MEDS ORDERED: HYDROCODONE/APAP 10-325 MG TABLET ONE (22:51)
[2016-11-12 23:04] LABS: BASOPHILS # (AUTO) 0.1 K/uL (0.0-8.0); BASOPHILS % (AUTO) 0.8 % (0.0-2.0); EOSINOPHILS # (AUTO) 0.2 K/uL (0.0-0.7); HEMATOCRIT 38.7 % (40-50); HEMOGLOBIN 12.8 G/DL (14.0-18.0); LYMPHOCYTES # (AUTO) 1.9 K/UL (0.8-4.8); LYMPHOCYTES % (AUTO) 18.1 % (20.5-51.5); MEAN CORPUSCULAR HEMOGLOBIN 29.3 UUG (27.0-31.0); MEAN CORPUSCULAR HGB CONC 33 g/dL (32.0-37.0); MONOCYTES # (AUTO) 0.8 K/UL (0.1-1.30); MONOCYTES % (AUTO) 7.8 % (0.0-11.0); NEUTROPHILS # (AUTO) 7.4 K/UL (1.8-8.9); NEUTROPHILS % (AUTO) 71.3 % (38.5-71.5); PLATELET COUNT (AUTO) 426 K/UL (150-450); RED BLOOD CELL COUNT(AUTO) 4.34 MIL/UL (4.7-6.1); RED CELL DISTRIBUTION WIDTH 16.2 % (11.5-14.5); WHITE BLOOD COUNT (AUTO) 10.4 K/UL (4.0-11.2)
[2016-11-12 23:11] LABS: ALBUMIN 3.4 g/dL (3.4-5.0); BILIRUBIN,TOTAL 0.3 mg/dL (0.2-1.0); CALCIUM 9.2 mg/dL (8.5-10.1); CREATININE 1.1 mg/dL (0.6-1.3); POTASSIUM 3.6 mmol/L (3.5-5.1)
--- NOTE | 2016-11-12 23:40 | NUR ---
Patient discharged to home in stable conditon. Written and verbal after care instructions given. Patient verbalizes understanding of instructions. pt walked out of ER unassisted with belongings at side...
[2016-11-12] MEDS ORDERED: SILVER SULFADIAZINE 1% CREAM 50 GM TP ONE (23:45)
[2016-11-12 23:48] VITALS: BP 152/36
== END 2016-11-12 23:59 | disposition home or self-care (01) ==
LOC: ER 21:39
DX: L98.499 Non-pressure chronic ulcer of skin of other sites with unspecified severity (principal); I89.0 Lymphedema, not elsewhere classified; I10 Essential (primary) hypertension; Z79.82 Long term (current) use of aspirin; K21.9 Gastro-esophageal reflux disease without esophagitis; E78.5 Hyperlipidemia, unspecified; F31.9 Bipolar disorder, unspecified; Z59.0 Homelessness; Z91.018 Allergy to other foods
CPT/HCPCS: 36415; 80053; 85025; 87070; 99284; A4217; A4663

== ENCOUNTER 2016-11-19 05:57 | Emergency (ER) | payer OTHER ==
[~2016-11-19] VITALS: Ht 172.7 cm; Wt 108.9 kg
[~2016-11-19 05:57] MED LIST changes: +ABILIFY PO; +ABILIFY5 MG PO; -ARIP5TAB4 PO; -ASPI81TA31 PO; +ASPIRIN LOW DOS81 MG PO; +ASPIRIN81 M1 PO; -ATOR10TA PO; +AUGMENTIN 875-1 EACH PO; +BACTRIM 400-801 EACH PO; +BACTRIM DS TAB1 EACH PO; +CLINDAMYCIN HC300 MG PO; +CULTURELLE1 EACH PO; +FISH OIL 1,0001 CAP PO; -FURO20TA4 PO; +FUROSEMIDE20 MG PO; +Gentamicin Sulfate TOP; +HYDROCHLOROTH12.5 M1 PO; -ISOS60TA4 PO; +ISOSORBIDE MONO60 MG PO; +Isosorbide Mononitrate PO; +KEFLEX500 MG PO; +LEVAQUIN500 MG PO; +LIPITOR10 MG PO; +LISINOPRIL; +LOTRISONE15 GM TOP; -METO25TA6 PO; +METOPROLOL TART25 MG PO; +MULTI-VITAMIN1 EAC4 PO; +Metoprolol Tartrate PO; +NORCO 5-325 TA1 EACH PO; -POTA10CA43 PO; +POTASSIUM CHLO10 MEQ PO; +Silver Sulfadiazine TP; +VANCO 1.51.5 GM/500 IV; +VITAMIN C125 MG PO; +ZINC SULFATE220 MG PO; +ZOSYN 3.373.375 GM/5 IV
[2016-11-19] MEDS ORDERED: SILVER SULFADIAZINE 1% CREAM 50 GM TP ONE (07:00)
[2016-11-19] MEDS ORDERED: HYDROMORPHONE 1 MG/1 ML DISP.SYRIN IM ONE (07:00)
[2016-11-19] MEDS ORDERED: diphenhydrAMINE 50 MG/1 ML VIAL IM ONE (07:00)
[2016-11-19] MEDS ORDERED: HYDROMORPHONE 1 MG/1 ML DISP.SYRIN ONE (07:12)
[2016-11-19] MEDS ORDERED: diphenhydrAMINE 50 MG/1 ML VIAL ONE (07:12)
[2016-11-19] MEDS ORDERED: SILVER SULFADIAZINE 1% CREAM 25 GM TUBE TP ONE ×2 (07:18→07:19)
--- NOTE | 2016-11-19 07:33 | NUR ---
Pt to room, c/o increased green drainage large stasis ulcer RLE and increased yellowish-clear drainage to stasis ulcer LLE. Pt seen by MD. Wound cultures collected and sent. Pt medicated for pain, will monitor for effects of medication. Wounds cleansed, silvadine and dry bulky drsg applied. Pt resting in position of comfort for self.
--- NOTE | 2016-11-19 07:36 | NUR ---
Report and care endorsed to FISH [place]
--- NOTE | 2016-11-19 08:18 | NUR ---
PT D/C'D HOME, ACI GIVEN. PT AMBULATED W/O DIFF/TOOK ALL BELONGINGS.
[2016-11-19 08:45] VITALS: BP 122/68; PULSE 68; RESP 18; O2SAT 97
[2016-11-29] MEDS ORDERED: SSD TOP (20:41)
[2016-11-29] MEDS ORDERED: METOPROLOL TART50 MG PO (20:41)
[2016-11-29] MEDS ORDERED: LISINOPRIL40 MG PO (20:41)
[2016-11-29] MEDS ORDERED: CRESTOR40 MG PO (20:41)
[2016-11-29] MEDS ORDERED: GABAPENTIN600 MG PO (20:42)
[2016-12-04] MEDS ORDERED: ASCOCID-500500 MG PO (15:59)
[2016-12-04] MEDS ORDERED: LACTINEX1 TAB.CHEW PO (15:59)
[2016-12-04] MEDS ORDERED: ZINC SULFATE220 M1 PO (15:59)
[2016-12-04] MEDS ORDERED: NORCO 10-325 T1 EACH PO (15:59)
[2016-12-04] MEDS ORDERED: DIFLUCAN200 MG PO (15:59)
== END 2016-11-19 08:20 | disposition home or self-care (01) ==
LOC: ER 06:01
DX: L97.919 Non-pressure chronic ulcer of unspecified part of right lower leg with unspecified severity (principal); I10 Essential (primary) hypertension; F31.9 Bipolar disorder, unspecified; K21.9 Gastro-esophageal reflux disease without esophagitis; E78.5 Hyperlipidemia, unspecified; Z79.82 Long term (current) use of aspirin; Z59.0 Homelessness; Z91.018 Allergy to other foods
CPT/HCPCS: 36415; 80048; 85025; 87070; 96372 ×2; 99284; A4217 ×2; A4663; J1170; J1200

== ENCOUNTER 2016-11-29 20:06 | Inpatient (IN) | payer OTHER ==
[~2016-11-29] VITALS: Ht 175.3 cm; Wt 139.3 kg
[~2016-11-29 20:06] MED LIST changes: -ABILIFY PO; -ABILIFY5 MG PO; +ARIP5TAB10 PO; +ASPI81TA31 PO; -ASPIRIN LOW DOS81 MG PO; -ASPIRIN81 M1 PO; +ATOR10TA PO; -AUGMENTIN 875-1 EACH PO; -BACTRIM 400-801 EACH PO; -BACTRIM DS TAB1 EACH PO; -CLINDAMYCIN HC300 MG PO; -CULTURELLE1 EACH PO; -FISH OIL 1,0001 CAP PO; +FURO20TA4 PO; -FUROSEMIDE20 MG PO; -Gentamicin Sulfate TOP; -HYDROCHLOROTH12.5 M1 PO; +ISOS60TA4 PO; -ISOSORBIDE MONO60 MG PO; -Isosorbide Mononitrate PO; -KEFLEX500 MG PO; -LEVAQUIN500 MG PO; -LIPITOR10 MG PO; -LISINOPRIL; -LOTRISONE15 GM TOP; +METO25TA6 PO; -METOPROLOL TART25 MG PO; -MULTI-VITAMIN1 EAC4 PO; -Metoprolol Tartrate PO; -NORCO 5-325 TA1 EACH PO; +POTA10CA43 PO; -POTASSIUM CHLO10 MEQ PO; -Silver Sulfadiazine TP; -VANCO 1.51.5 GM/500 IV; -VITAMIN C125 MG PO; -ZINC SULFATE220 MG PO; -ZOSYN 3.373.375 GM/5 IV
--- NOTE | 2016-11-29 20:28 | NUR ---
PT WALKED INTO ER C/O CHRONIC BILAT LE PAIN, NOW WORSE WITH MORE DRAINAGE, PT IS ALERT, ORIENTED X 4, NO RESP DISTRESS NOTED OR REPORTED UPON ASSESSMENT... MD AT BEDSIDE..
[2016-11-29] MEDS ORDERED: SILV25CR5 TOP (20:41)
[2016-11-29] MEDS ORDERED: LISI40TA4 PO (20:41)
[2016-11-29] MEDS ORDERED: ROSU40TA PO (20:41)
[2016-11-29] MEDS ORDERED: METO50TA3 PO (20:41)
[2016-11-29] MEDS ORDERED: SILVADINE CREAM TOP (20:41)
[2016-11-29] MEDS ORDERED: GABA600T2 PO (20:42)
[2016-11-29] MEDS ORDERED: SULFAMETH/TRIMETH 800/160 MG TABLET PO ONE (21:15)
[2016-11-29] MEDS ORDERED: HYDROCODONE/APAP 10-325 MG TABLET PO ONE (21:15)
[2016-11-29 21:25] LABS: BASOPHILS % (AUTO) 0.4 % (0.0-2.0); EOSINOPHILS # (AUTO) 0.2 K/uL (0.0-0.7); EOSINOPHILS % (AUTO) 2.1 % (0.0-7.0); HEMATOCRIT 38.5 % (40-50); HEMOGLOBIN 12.9 G/DL (14.0-18.0); LYMPHOCYTES # (AUTO) 1.8 K/UL (0.8-4.8); MEAN CORPUSCULAR HEMOGLOBIN 30.2 UUG (27.0-31.0); MEAN CORPUSCULAR HGB CONC 34 g/dL (32.0-37.0); MEAN CORPUSCULAR VOLUME 89.7 FL (82.0-92.0); MONOCYTES # (AUTO) 0.8 K/UL (0.1-1.30); MONOCYTES % (AUTO) 7.7 % (0.0-11.0); NEUTROPHILS # (AUTO) 7.5 K/UL (1.8-8.9); NEUTROPHILS % (AUTO) 72.8 % (38.5-71.5); PLATELET COUNT (AUTO) 419 K/UL (150-450); RED BLOOD CELL COUNT(AUTO) 4.29 MIL/UL (4.7-6.1); WHITE BLOOD COUNT (AUTO) 10.3 K/UL (4.0-11.2)
[2016-11-29 21:31] LABS: CREATININE 1.4 mg/dL (0.6-1.3); POTASSIUM 3.5 mmol/L (3.5-5.1)
[2016-11-29] MEDS ORDERED: HYDROCODONE/APAP 10-325 MG TABLET ONE (21:34)
[2016-11-29] MEDS ORDERED: SULFAMETH/TRIMETH 800/160 MG TABLET ONE (21:34)
[2016-11-29 21:37] LABS: BILIRUBIN,TOTAL 0.2 mg/dL (0.2-1.0); TOTAL PROTEIN, SERUM 7.8 g/dL (6.4-8.2)
[2016-11-29] MEDS ORDERED: SILVER SULFADIAZINE 1% CREAM 50 GM TP ONE (22:15)
[2016-11-29] MEDS ORDERED: SILVER SULFADIAZINE 1% CREAM 25 GM TUBE TP ONE (22:18)
--- NOTE | 2016-11-29 23:15 | NUR ---
per ermd [facility] contacted, per naval aircrewman operator, will have Toby holt paged....
--- NOTE | 2016-11-29 23:18 | NUR ---
Call placed to [facility], Dr. Babcock will be paged.
--- NOTE | 2016-11-30 00:12 | NUR ---
Pt. admitted to med surg , under care of Dr. Crespo, Belongs List completed, pt is alert, oriented x 4, no resp distrsess noted or reported upon transfer assessment... pt transferred via gurney...
--- NOTE | 2016-11-30 00:20 | NUR ---
RECEIVED FROM ER VIA [facility], USHERED TO ROOM AND PLACED COMFORTABLY ON BED. ALERT AND ORIENTED. ABLE TO MAKE NEEDS KNOWN. ABLE TO PROVIDE HISTORY. BODY ASSESSMENT DONE. REFUSED DRESSING CHANGED, STATED THAT DRESSINGS WERE CHANGED RECENTLY IN ER. SAFETY INITIATED. NEEDS ATTENDED. WITH COMPLAINTS OF 8/10 PAIN OF BLE. WILL REVIEW MEDICATIONS ORDERED, WILL ADMINISTER. INSTRUCTED HOW TO USE CALL LIGHT WHEN IN NEED OF ASSISTANCE. CALL LIGHT WITHIN REACH. WILL CONTINUE TO MONITOR
[2016-11-30] MEDS ORDERED: ONDANSETRON 4 MG/2 ML VIAL IV PRN (00:30)
[2016-11-30] MEDS ORDERED: TEMAZEPAM 15 MG CAPSULE PO PRN (00:30)
[2016-11-30] MEDS ORDERED: ENOXAPARIN SODIUM 40 MG/0.4 ML DISP.SYRIN SQ SCH (00:30)
[2016-11-30] MEDS ORDERED: ACETAMINOPHEN 325 MG TABLET PO PRN (00:30)
--- NOTE | 2016-11-30 00:30 | NUR ---
PATIENT REPORTED PAIN 8/10 IN LOWER EXTREMITIES. ADMINISTERED MORPHINE 2 MG FOR PAIN.
[2016-11-30] MEDS ORDERED: ENOXAPARIN SODIUM 40 MG/0.4 ML DISP.SYRIN SQ ONE (00:44)
[2016-11-30] MEDS: MORPHINE SULFATE 2 MG/1 ML DISP.SYRIN IV PRN ×7 (00:45→20:27)
[2016-11-30] MEDS ORDERED: MORPHINE SULFATE 2 MG/1 ML DISP.SYRIN ONE ×2 (00:53→04:30)
[2016-11-30 04:00] VITALS: BP 115/78
--- NOTE | 2016-11-30 04:23 | NUR ---
PATIENT REPORTED PAIN OF 10/10 IN THE LOWER EXTREMITIES, ADMINISTERED MORPHINE 2 MG IVP FOR PAIN.
--- NOTE | 2016-11-30 05:59 | NUR ---
PATIENT SLEEP INTERMITTENTLY, NO ACUTE DISTRESS, FREQUENTLY ASKS FOR PAIN MEDICATIONS ORDERED FOR BILATERAL LOWER EXTREMITIES PAIN. STATED RELIEF. ALL DUE MEDS GIVEN ORDERED. NEEDS ATTENDED. SLEEP COMFORTABLE AT ALL TIMES. CALL LIGHT IS WITHIN REACH.
[2016-11-30] MEDS: PANTOPRAZOLE SODIUM 40 MG TABLET.DR PO SCH (07:52)
[2016-11-30 08:00] VITALS: BP 109/67
[2016-11-30] MEDS: METOPROLOL TARTRATE 50 MG TABLET PO SCH ×2 (08:59→17:00)
[2016-11-30] MEDS ORDERED: APP TOP SCH (09:00)
[2016-11-30] MEDS ORDERED: SILVER SULFADIAZINE 1% CREAM 50 GM TP SCH (09:00)
[2016-11-30] MEDS: ASPIRIN 81 MG TAB.CHEW PO SCH (09:09)
[2016-11-30] MEDS: POTASSIUM CHLORIDE 10 MEQ CAPSULE.SA PO SCH (09:09)
[2016-11-30] MEDS: ISOSORBIDE MONONITRATE 60 MG TAB.SR.24H PO SCH (09:10)
[2016-11-30] MEDS: FUROSEMIDE 20 MG TABLET PO SCH (09:10)
[2016-11-30] MEDS: VANCOMYCIN IV 2,000 MG in IV DEXTROSE 5% 500 ML IV SCH (10:02)
[2016-11-30 11:08] VITALS: BP 101/51
[2016-11-30 15:40] VITALS: BP 114/66
--- NOTE | 2016-11-30 16:01 | NUR ---
Clinical Pharmacy Note: Vancomycin pharmacy to dose Subjective: To start vancomycin in this 61 yr old gentleman for indication of cellulitis Objective: weight 139 kg height 175cm BMI 45 BUN 31 Scr 1.4 Wbc 10.3 Temp 97.7 Assessment/Plan Will start scheduled regimen of 2gm q17hr for expected trough of 15.73. Will order trough before 4th scheduled dose (not ordered yet). If renal function were to change or becomes unstable, will stop regimen and dose by level. Will continue to monitor.
--- NOTE | 2016-11-30 18:54 | NUR ---
NO CHANGES NOTED. WOUND CARE IS DONE. ALL SAFETY NEEDS ARE MET.
[2016-11-30 20:00] VITALS: BP 94/60
[2016-11-30] MEDS: ATORVASTATIN 10 MG TABLET PO SCH (21:27)
[2016-11-30] MEDS: ARIPIPRAZOLE 5 MG TABLET PO SCH (21:27)
[2016-11-30] MEDS: DOCUSATE SODIUM 250 MG CAPSULE PO SCH (21:27)
[2016-11-30] MEDS: ENOXAPARIN SODIUM 40 MG/0.4 ML DISP.SYRIN SQ SCH (21:28)
[2016-11-30] MEDS ORDERED: HYDROMORPHONE 4 MG/1 ML DISP.SYRIN IV ONE (22:45)
[2016-11-30] MEDS ORDERED: LIDOCAINE 0.5% MPF 50 ML VIAL INJ ONE (22:45)
[2016-11-30] MEDS ORDERED: HYDROMORPHONE 4 MG/1 ML DISP.SYRIN IV PRN (22:45)
--- NOTE | 2016-11-30 22:45 | NUR ---
VISITED PT AT THIS TIME; DISCUSSED THE PLAN OF CARE TO PT AND PERFORMED DEBRIDEMENT BILATERAL EXTREMITIES ULCERATION;PT AGREED.PROCEDURE'S WELL,APPLIED SILVADENE ORDER;ELEVATED BOTH LEGS W/ 3 PILLOWS.NEW ORDER'S GIVEN;CARRIED IT OUT AND UPDATED THE PLAN OF CARE TO PT;PT VERBALIZED UNDERSTANDING AND COOPERATIVE W/ASSISTANCE.KEPT COMFORT.CALL-LIGHT WITHIN REACH.
[2016-11-30 23:00] VITALS: BP 117/80
[2016-11-30] MEDS ORDERED: HYDROMORPHONE 2 MG/1 ML DISP.SYRIN ONE (23:16)
[2016-12-01] MEDS: METRONIDAZOLE 250 MG TABLET PO SCH ×5 (00:05→23:59)
[2016-12-01] MEDS ORDERED: METRONIDAZOLE 250 MG TABLET ONE ×2 (00:15→06:02)
--- NOTE | 2016-12-01 01:40 | NUR ---
PT'S SLEEPING WELL ON BED,UNLABORED BREATHING NOTED.KEPT CALL-LIGHT WITHIN REACH.ENDORSED TO NIKO/RN TO CONTINUE CARE.
[2016-12-01] MEDS: VANCOMYCIN IV 2,000 MG in IV DEXTROSE 5% 500 ML IV SCH ×2 (01:42→18:19)
[2016-12-01] MEDS: MORPHINE SULFATE 2 MG/1 ML DISP.SYRIN IV PRN ×5 (04:25→19:54)
[2016-12-01 04:57] VITALS: BP 129/75
[2016-12-01] MEDS: PANTOPRAZOLE SODIUM 40 MG TABLET.DR PO SCH (06:10)
--- NOTE | 2016-12-01 06:49 | NUR ---
PATIENT SLEPT INTERMITTENTLY THROUGHOUT THE NIGHT. NO ACUTE DISTRESS NOTED. 2L O2 NC. FREQUENTLY ASKS FOR PAIN MEDICATION MORPHINE 2 MG IVP ORDERED. STATED RELIEF. ALL MEDS GIVEN ORDERED. NEEDS MET. CALL LIGHT WITHIN REACH.
[2016-12-01 06:59] LABS: BASOPHILS % (AUTO) 0.5 % (0.0-2.0); EOSINOPHILS # (AUTO) 0.2 K/uL (0.0-0.7); EOSINOPHILS % (AUTO) 2.3 % (0.0-7.0); HEMOGLOBIN 12.1 G/DL (14.0-18.0); LYMPHOCYTES # (AUTO) 0.9 K/UL (0.8-4.8); LYMPHOCYTES % (AUTO) 9.8 % (20.5-51.5); MEAN CORPUSCULAR HEMOGLOBIN 31.1 UUG (27.0-31.0); MEAN CORPUSCULAR HGB CONC 34 g/dL (32.0-37.0); MEAN CORPUSCULAR VOLUME 90.5 FL (82.0-92.0); MONOCYTES % (AUTO) 11.5 % (0.0-11.0); NEUTROPHILS # (AUTO) 6.7 K/UL (1.8-8.9); NEUTROPHILS % (AUTO) 75.9 % (38.5-71.5); PLATELET COUNT (AUTO) 316 K/UL (150-450); RED BLOOD CELL COUNT(AUTO) 3.87 MIL/UL (4.7-6.1); WHITE BLOOD COUNT (AUTO) 8.8 K/UL (4.0-11.2)
[2016-12-01 07:17] LABS: BILIRUBIN,TOTAL 0.4 mg/dL (0.2-1.0); CREATININE 1.2 mg/dL (0.6-1.3); MAGNESIUM 2.3 mg/dL (1.8-2.4); PHOSPHOROUS 3.3 mg/dL (2.5-4.9); POTASSIUM 3.7 mmol/L (3.5-5.1); TOTAL PROTEIN, SERUM 7.8 g/dL (6.4-8.2)
[2016-12-01] MEDS ORDERED: SILVER SULFADIAZINE 1% CREAM 50 GM TP SCH ×2 (07:31→09:00)
--- NOTE | 2016-12-01 08:00 | NUR ---
AWAKE ALERT COOPERATE AT THIS TIME NO SOB STATE PAIN MEDICINE HELP TO RELIEF PAIN EAT BREAKFAST MOD AMT RESTING WELL WITH CALL RILEY IN REACH
[2016-12-01] MEDS: POTASSIUM CHLORIDE 10 MEQ CAPSULE.SA PO SCH (08:29)
[2016-12-01] MEDS: ZINC SULFATE 220 MG CAPSULE PO SCH (08:29)
[2016-12-01] MEDS: METOPROLOL TARTRATE 50 MG TABLET PO SCH ×2 (08:29→17:27)
[2016-12-01] MEDS: FUROSEMIDE 20 MG TABLET PO SCH (08:29)
[2016-12-01] MEDS: ASPIRIN 81 MG TAB.CHEW PO SCH (08:29)
[2016-12-01] MEDS: ASCORBIC ACID 500 MG TABLET PO SCH ×2 (08:29→21:00)
[2016-12-01] MEDS: FLUCONAZOLE 200 MG TABLET PO SCH (08:29)
[2016-12-01] MEDS: ISOSORBIDE MONONITRATE 60 MG TAB.SR.24H PO SCH (08:30)
[2016-12-01] MEDS ORDERED: SODIUM HYPOCHLORITE 0.125% 473 ML BOTTLE TP SCH (09:00)
[2016-12-01] MEDS: CIPROFLOXACIN IV 400 MG in PREMIXED 1 EACH IV SCH ×2 (09:00→21:00)
--- NOTE | 2016-12-01 10:00 | NUR ---
IV LINE INFILTRATE START ON LT HAND #[id number]
[2016-12-01 12:08] VITALS: BP 110/65
--- NOTE | 2016-12-01 12:30 | NUR ---
WOUND CARE DSG CHANGE WILL DO TONIGHT ORDER
--- NOTE | 2016-12-01 14:27 | NUR ---
Clinical Pharmacy Note: Vancomycin pharmacy to dose Subjective: To continue vancomycin in this 61 yr old gentleman for indication of cellulitis Objective: weight 139 kg height 175cm BMI 45 BUN 21 Scr 1.2 Wbc 8.8 Temp 97.7 Assessment/Plan Will continue scheduled regimen of 2gm q17hr for expected trough of 15.73. Will order trough before 4th scheduled dose (due tomorrow 12/02 @1130). Will check level and readjust as appropriate. Will continue to monitor.
[2016-12-01 16:00] VITALS: BP 107/71
--- NOTE | 2016-12-01 17:30 | NUR ---
RESTING WELL HEMODYNAMIC STATUS STABLE PAIN UNDER CONTROL NO RESPIRATORY DISTRESS SAFETY MEASURE PROVIDED CALL LIGHT WITHIN REACH AND REMIND TO CALL WHEN NEEDED
[2016-12-01 20:00] VITALS: BP 141/88
[2016-12-01] MEDS: SODIUM HYPOCHLORITE 0.125% 473 ML BOTTLE TP SCH (21:00)
[2016-12-01] MEDS: DOCUSATE SODIUM 250 MG CAPSULE PO SCH (21:00)
[2016-12-01] MEDS: ARIPIPRAZOLE 5 MG TABLET PO SCH (21:00)
[2016-12-01] MEDS: ENOXAPARIN SODIUM 40 MG/0.4 ML DISP.SYRIN SQ SCH (21:00)
[2016-12-01] MEDS: SILVER SULFADIAZINE 1% CREAM 50 GM TP SCH (21:00)
[2016-12-01] MEDS: ATORVASTATIN 10 MG TABLET PO SCH (21:00)
--- NOTE | 2016-12-02 00:01 | NUR ---
Mid-line this shift by FISH [place]. Pre-medicated; then, changed lower leg dressings. Cleansed with Dakin Solution; applied Silvadene; ABD bandages; then, Kerlix wrapped. Up & about in room, connie well.
[2016-12-02 05:32] VITALS: BP 106/52
[2016-12-02] MEDS: METRONIDAZOLE 250 MG TABLET PO SCH ×4 (06:00→23:58)
[2016-12-02] MEDS: PANTOPRAZOLE SODIUM 40 MG TABLET.DR PO SCH (06:30)
--- NOTE | 2016-12-02 08:00 | NUR ---
NO SIGNS OF DISTRESS, CONTINUE WITH PAIN MANAGEMENT ORDERED. MIDLINE RIGHT UPPER ARM INTACT AND PATENT. CONTINUE WITH PRECAUTION
[2016-12-02] MEDS: MORPHINE SULFATE 2 MG/1 ML DISP.SYRIN IV PRN ×5 (08:08→22:11)
[2016-12-02] MEDS: FUROSEMIDE 20 MG TABLET PO SCH (08:09)
[2016-12-02] MEDS: ASCORBIC ACID 500 MG TABLET PO SCH ×2 (08:10→20:56)
[2016-12-02] MEDS: ZINC SULFATE 220 MG CAPSULE PO SCH (08:10)
[2016-12-02] MEDS: ISOSORBIDE MONONITRATE 60 MG TAB.SR.24H PO SCH (08:10)
[2016-12-02] MEDS: METOPROLOL TARTRATE 50 MG TABLET PO SCH ×2 (08:10→16:30)
[2016-12-02] MEDS: POTASSIUM CHLORIDE 10 MEQ CAPSULE.SA PO SCH (08:10)
[2016-12-02] MEDS: FLUCONAZOLE 200 MG TABLET PO SCH (08:11)
[2016-12-02] MEDS: ASPIRIN 81 MG TAB.CHEW PO SCH (08:11)
[2016-12-02] MEDS: CIPROFLOXACIN IV 400 MG in PREMIXED 1 EACH IV SCH ×2 (08:38→20:55)
[2016-12-02 11:42] VITALS: BP 126/73
--- NOTE | 2016-12-02 13:00 | NUR ---
LEG DRESSING FELL OFF, NEW DRESSING APPLIED. NOTED WOUND WITH MODERATE AMOUNT OF SEROUS DRAINAGE. ELEVATED WITH PILLOW CONTINUE WITH ISOLATION AND IV ANTIBIOTIC ORDERED
[2016-12-02] MEDS: VANCOMYCIN IV 2,000 MG in IV DEXTROSE 5% 500 ML IV SCH (14:32)
--- NOTE | 2016-12-02 15:00 | NUR ---
RESTING IN BED NEEDS ATTENDED, NO SIGNS OF AGITATION
[2016-12-02 16:33] VITALS: BP 117/67
--- NOTE | 2016-12-02 16:45 | NUR ---
Clinical Pharmacy Note: Vancomycin pharmacy to dose Subjective: To continue vancomycin in this 61 yr old gentleman for indication of cellulitis Objective: weight 139 kg height 175cm BMI 45 BUN 21(12/01) Scr 1.2(12/01) Wbc 8.8(12/01) Temp 97.7 Vancomycin trough 11.7 Assessment/Plan Since Vancomycin trough is under 15, will change dose to 2 grams every 14 hrs(first dose today at 1330) and draw trough by 4th dose(not ordered yet) for expected trough around 15. Will check level and readjust as appropriate. Will continue to monitor.
--- NOTE | 2016-12-02 18:39 | NUR ---
CONTINUE WITH PAIN MANAGEMENT AND WOUND CARE, AFEBRILE
[2016-12-02 20:00] VITALS: BP 119/70
[2016-12-02] MEDS: ARIPIPRAZOLE 5 MG TABLET PO SCH (20:56)
[2016-12-02] MEDS: ATORVASTATIN 10 MG TABLET PO SCH (20:56)
[2016-12-02] MEDS: ENOXAPARIN SODIUM 40 MG/0.4 ML DISP.SYRIN SQ SCH (20:58)
[2016-12-02] MEDS: DOCUSATE SODIUM 250 MG CAPSULE PO SCH (21:00)
[2016-12-02] MEDS: SODIUM HYPOCHLORITE 0.125% 473 ML BOTTLE TP SCH (21:02)
[2016-12-02] MEDS: SILVER SULFADIAZINE 1% CREAM 50 GM TP SCH (21:02)
[2016-12-03] MEDS: MORPHINE SULFATE 2 MG/1 ML DISP.SYRIN IV PRN ×7 (00:59→21:55)
[2016-12-03] MEDS: VANCOMYCIN IV 2,000 MG in IV DEXTROSE 5% 500 ML IV SCH ×2 (03:23→17:11)
[2016-12-03 04:00] VITALS: BP 115/74
[2016-12-03 05:00] VITALS: BP 115/74
[2016-12-03] MEDS: PANTOPRAZOLE SODIUM 40 MG TABLET.DR PO SCH (06:03)
[2016-12-03] MEDS: METRONIDAZOLE 250 MG TABLET PO SCH ×3 (06:03→17:11)
--- NOTE | 2016-12-03 08:30 | NUR ---
AWAKE ALERT COOPERATE AT THIS TIME NO PAIN OR SOB IV HL MIDLINE RT UPPER ARM INTACT EAT BREAKFAST WELL ANGEL LEG DSG INTACT STILL SWELLING KEEP UP OMN PILLOW INSTRUCTION
[2016-12-03] MEDS: ZINC SULFATE 220 MG CAPSULE PO SCH (09:08)
[2016-12-03] MEDS: FLUCONAZOLE 200 MG TABLET PO SCH (09:09)
[2016-12-03] MEDS: ISOSORBIDE MONONITRATE 60 MG TAB.SR.24H PO SCH (09:09)
[2016-12-03] MEDS: ASCORBIC ACID 500 MG TABLET PO SCH ×2 (09:09→21:52)
[2016-12-03] MEDS: POTASSIUM CHLORIDE 10 MEQ CAPSULE.SA PO SCH (09:09)
[2016-12-03] MEDS: ASPIRIN 81 MG TAB.CHEW PO SCH (09:09)
[2016-12-03] MEDS: FUROSEMIDE 20 MG TABLET PO SCH (09:09)
[2016-12-03] MEDS: METOPROLOL TARTRATE 50 MG TABLET PO SCH ×2 (09:10→17:12)
[2016-12-03] MEDS: CIPROFLOXACIN IV 400 MG in PREMIXED 1 EACH IV SCH ×2 (10:13→22:12)
[2016-12-03 11:55] VITALS: BP 117/73
--- NOTE | 2016-12-03 15:00 | NUR ---
DR LISA SEE PATIENT TODAY D/C PLANNING POSS TOMORROW PATIENT WAS AWARE
[2016-12-03] MEDS ORDERED: Z GUARD REMEDY PASTE 57 GM TUBE TOP PRN (15:30)
[2016-12-03 15:47] VITALS: BP 132/77
--- NOTE | 2016-12-03 16:29 | NUR ---
Clinical Pharmacy Note: Vancomycin pharmacy to dose Subjective: To continue vancomycin in this 61 yr old gentleman for indication of cellulitis Objective: weight 139 kg height 175cm BMI 45 BUN 21(12/01) Scr 1.2(12/01) Wbc 8.8(12/01) Temp 97.9 Vancomycin trough 11.7 Assessment/Plan Will continue vancomycin 2 grams every 14 hrs(first dose today at 1330) and draw trough by 4th dose(ordered and due tomorrow am @0700) for expected trough around 15. Will check level and readjust as appropriate. Will continue to monitor.
--- NOTE | 2016-12-03 18:00 | NUR ---
STABLE HEMODYNAMIC ,PAIN UNDER CONTROL SAFETY MEASURE PROVIDED CALL RILEY IN REACH AND INSTRUCTION TO CALL WHEN NEEDED
[2016-12-03 20:00] VITALS: BP 120/67
[2016-12-03] MEDS: ATORVASTATIN 10 MG TABLET PO SCH (21:51)
[2016-12-03] MEDS: DOCUSATE SODIUM 250 MG CAPSULE PO SCH (21:51)
[2016-12-03] MEDS: ARIPIPRAZOLE 5 MG TABLET PO SCH (21:52)
[2016-12-03] MEDS: ACIDOPHILUS/BULGARICUS CHEW TAB PO SCH (21:52)
[2016-12-03] MEDS: ENOXAPARIN SODIUM 40 MG/0.4 ML DISP.SYRIN SQ SCH (21:58)
[2016-12-03] MEDS: SODIUM HYPOCHLORITE 0.125% 473 ML BOTTLE TP SCH (22:24)
[2016-12-03] MEDS: SILVER SULFADIAZINE 1% CREAM 50 GM TP SCH (22:25)
--- NOTE | 2016-12-03 22:30 | NUR ---
Pt. complained of 8/10 bilateral lower extremities pain - Morphine given/IV. Pt. complained that medication was late and behavior was nasty/unacceptable. Pt. has diagnosis of Bipolar. Pt. encourage in positive/constructive behavior.
--- NOTE | 2016-12-03 22:30 | NUR ---
Pt. verbalized pain relief and resting comfortably.
[2016-12-04] MEDS: MORPHINE SULFATE 2 MG/1 ML DISP.SYRIN IV PRN ×6 (00:42→17:13)
[2016-12-04] MEDS: METRONIDAZOLE 250 MG TABLET PO SCH ×3 (00:51→12:57)
[2016-12-04 04:32] VITALS: BP 125/73
--- NOTE | 2016-12-04 06:14 | NUR ---
pt continue to have pain in the leg, morphine q 3 hrs given ATC,dressing chaged by pt himself. ambulates, midline intact kept tko for antibiotics.all needs attended,call light at reached.vss,afebrile.
[2016-12-04] MEDS: PANTOPRAZOLE SODIUM 40 MG TABLET.DR PO SCH (06:37)
--- NOTE | 2016-12-04 07:30 | NUR ---
RECEIVED REPORT FROM ASSISTANT VICE PRESIDENT NURSE, PATIENT STANDING AT BEDSIDE, GAIT IS STABLE, PATIENT IS HYPERVERBAL ABOUT CARE NEEDS
[2016-12-04] MEDS: FLUCONAZOLE 200 MG TABLET PO SCH (08:28)
[2016-12-04] MEDS: ACIDOPHILUS/BULGARICUS CHEW TAB PO SCH (08:28)
[2016-12-04] MEDS: POTASSIUM CHLORIDE 10 MEQ CAPSULE.SA PO SCH (08:29)
[2016-12-04] MEDS: ASPIRIN 81 MG TAB.CHEW PO SCH (08:29)
[2016-12-04] MEDS: FUROSEMIDE 20 MG TABLET PO SCH (08:29)
[2016-12-04] MEDS: ISOSORBIDE MONONITRATE 60 MG TAB.SR.24H PO SCH (08:29)
[2016-12-04] MEDS: ASCORBIC ACID 500 MG TABLET PO SCH (08:29)
[2016-12-04] MEDS: METOPROLOL TARTRATE 50 MG TABLET PO SCH (08:30)
[2016-12-04] MEDS: VANCOMYCIN IV 2,000 MG in IV DEXTROSE 5% 500 ML IV SCH (08:40)
[2016-12-04] MEDS: ZINC SULFATE 220 MG CAPSULE PO SCH (08:40)
[2016-12-04] MEDS: CIPROFLOXACIN IV 400 MG in PREMIXED 1 EACH IV SCH (11:09)
[2016-12-04 13:17] VITALS: BP 127/69
[2016-12-04] MEDS ORDERED: HYDR-548 PO (15:59)
[2016-12-04] MEDS ORDERED: ASCO500T9 PO (15:59)
[2016-12-04] MEDS ORDERED: ZINC220C8 PO (15:59)
[2016-12-04] MEDS ORDERED: ACID1TAB4 PO (15:59)
[2016-12-04] MEDS ORDERED: FLUC200T PO (15:59)
--- NOTE | 2016-12-04 16:00 | NUR ---
Clinical Pharmacy Note: Vancomycin pharmacy to dose Subjective: To continue vancomycin in this 61 yr old gentleman for indication of cellulitis Objective: weight 139 kg height 175cm BMI 45 BUN 21(12/01) Scr 1.2(12/01) Wbc 8.8(12/01) Temp 98 Vancomycin trough level 14.5 Assessment/Plan Since vancomycin trough level 14.5 mcg/ml, will continue same dose of vancomycin 2 grams every 14 hrs for now. MD aware of C&S result. Per MD he is discharging patient today on PO antibiotic. Will follow up in am.
[2016-12-04 16:40] VITALS: BP 125/70
--- NOTE | 2016-12-04 17:15 | NUR ---
The patient will be discharged today to himself per his insistence. Offered placement to long-term but he refused stating he has a lot of errands to do. He would like to have dinner first and then be discharged. He stated that he will follow-up with his PCP although he has a history of non-compliance. His RN, Latosha, is aware of his discharge plan.
--- NOTE | 2016-12-04 19:50 | NUR ---
PT WAS DISCHARGED ORDERED, LEFT ON STABLE CONDITION. PER PREVIOUS NURSE, PRESCRIPTION WAS GIVEN, ID BAND REMOVED. GUANACO AND HERVE RN ESCORTED PT TO THE LOBBY VIA WHEELCHAIR. ALL BELONGINGS TAKEN BY PT.
== END 2016-12-04 19:50 | disposition home or self-care (01) | DRG 197 ==
LOC: ER 20:10 → MED 11-30 00:07
PROVIDERS: ADMIT Internal Medicine; ATTEND Internal Medicine
PROC: 0JBP0ZZ Excision of Left Lower Leg Subcutaneous Tissue and Fascia, Open Approach (ICD-10-PCS; principal; 2016-11-30)
PROC: 0JBN0ZZ Excision of Right Lower Leg Subcutaneous Tissue and Fascia, Open Approach (ICD-10-PCS; principal; 2016-11-30)
PROC: 0JBQ0ZZ Excision of Right Foot Subcutaneous Tissue and Fascia, Open Approach (ICD-10-PCS; principal; 2016-11-30)
PROC: 0JBR0ZZ Excision of Left Foot Subcutaneous Tissue and Fascia, Open Approach (ICD-10-PCS; principal; 2016-11-30)
DX: I83.218 Varicose veins of right lower extremity with both ulcer of other part of lower extremity and inflammation (principal); N17.0 Acute kidney failure with tubular necrosis; L03.115 Cellulitis of right lower limb; L03.116 Cellulitis of left lower limb; Z68.42 Body mass index [BMI] 45.0-49.9, adult; L97.919 Non-pressure chronic ulcer of unspecified part of right lower leg with unspecified severity; E66.01 Morbid (severe) obesity due to excess calories; M41.9 Scoliosis, unspecified; I83.228 Varicose veins of left lower extremity with both ulcer of other part of lower extremity and inflammation; K21.9 Gastro-esophageal reflux disease without esophagitis; I10 Essential (primary) hypertension; Z59.0 Homelessness; E78.5 Hyperlipidemia, unspecified; I25.10 Atherosclerotic heart disease of native coronary artery without angina pectoris; I87.8 Other specified disorders of veins; L97.929 Non-pressure chronic ulcer of unspecified part of left lower leg with unspecified severity; E87.6 Hypokalemia; D63.8 Anemia in other chronic diseases classified elsewhere; Z82.49 Family history of ischemic heart disease and other diseases of the circulatory system; Z85.72 Personal history of non-Hodgkin lymphomas; Z83.3 Family history of diabetes mellitus; Z87.891 Personal history of nicotine dependence; Z91.19 Patient's noncompliance with other medical treatment and regimen; F31.9 Bipolar disorder, unspecified; B35.1 Tinea unguium; E78.1 Pure hyperglyceridemia; I89.0 Lymphedema, not elsewhere classified; L97.819 Non-pressure chronic ulcer of other part of right lower leg with unspecified severity; L97.829 Non-pressure chronic ulcer of other part of left lower leg with unspecified severity; Z74.09 Other reduced mobility; B96.5 Pseudomonas (aeruginosa) (mallei) (pseudomallei) as the cause of diseases classified elsewhere; B95.61 Methicillin susceptible Staphylococcus aureus infection as the cause of diseases classified elsewhere
CPT/HCPCS: 36415; 83735; 84100; 85025; 85610; 87070; 87077; A4217; A4663; J0744; J1170; J1650; J2270; J3370; J3490; J7040; J7060

== ENCOUNTER 2016-12-22 19:07 | Emergency (ER) | payer OTHER ==
[~2016-12-22] VITALS: Ht 175.3 cm; Wt 137.0 kg
[~2016-12-22 19:07] MED LIST changes: +ACID1TAB4 PO; +ASCO500T9 PO; -Acetaminophen PO; +FLUC200T PO; +GABA600T2 PO; +HYDR-548 PO; +LISI40TA4 PO; -METO25TA6 PO; +METO50TA3 PO; +SILV25CR5 TOP; +SILVADINE CREAM TOP; +ZINC220C8 PO
[2016-12-22] MEDS: HYDROCODONE/APAP 10-325 MG TABLET PO ONE (19:49)
[2016-12-22] MEDS ORDERED: HYDROCODONE/APAP 10-325 MG TABLET ONE (19:58)
--- NOTE | 2016-12-22 20:50 | NUR ---
Patient discharged to home in stable conditon. Written and verbal after care instructions given. Patient verbalizes understanding of instructions.
== END 2016-12-22 20:50 | disposition home or self-care (01) ==
LOC: ER 19:09
DX: M79.89 Other specified soft tissue disorders (principal); I89.0 Lymphedema, not elsewhere classified; I83.009 Varicose veins of unspecified lower extremity with ulcer of unspecified site; I80.8 Phlebitis and thrombophlebitis of other sites; I10 Essential (primary) hypertension; K21.9 Gastro-esophageal reflux disease without esophagitis; F31.9 Bipolar disorder, unspecified; E78.5 Hyperlipidemia, unspecified; Z59.0 Homelessness; Z79.82 Long term (current) use of aspirin; Z91.018 Allergy to other foods
CPT/HCPCS: A4663

== ENCOUNTER 2017-01-01 06:45 | Emergency (ER) | payer OTHER ==
[~2017-01-01] VITALS: Ht 177.8 cm; Wt 113.4 kg
--- NOTE | 2017-01-01 07:25 | NUR ---
DR OLIVARES AT THE BEDSIDE FOR EVAL AND EXAM.
[2017-01-01] MEDS ORDERED: SILVER SULFADIAZINE 1% CREAM 50 GM TP ONE ×2 (07:30)
[2017-01-01] MEDS ORDERED: HYDROCODONE/APAP 10-325 MG TABLET PO ONE (07:30)
--- NOTE | 2017-01-01 08:06 | NUR ---
Patient given written and verbal discharge instructions. Patient verbalizes understanding of instructions. Patient is ambulatory with steady gait. Refuses offer of intermediate placement. Patient given list of available shelters in surrounding area.
[2017-01-01 08:11] VITALS: BP 144/77
== END 2017-01-01 08:12 | disposition home or self-care (01) ==
LOC: ER 06:45
DX: L97.919 Non-pressure chronic ulcer of unspecified part of right lower leg with unspecified severity (principal); I10 Essential (primary) hypertension; K21.9 Gastro-esophageal reflux disease without esophagitis; F31.9 Bipolar disorder, unspecified; E78.5 Hyperlipidemia, unspecified; Z59.0 Homelessness; Z91.018 Allergy to other foods; Z79.82 Long term (current) use of aspirin
CPT/HCPCS: A4217; A4663

== ENCOUNTER 2017-01-01 21:26 | Emergency (ER) | payer OTHER ==
[~2017-01-01] VITALS: Ht 175.3 cm; Wt 136.1 kg
[~2017-01-01 21:26] MED LIST changes: +HYDROCODONE/APAP 10-325 MG TABLET ONE; +SILVER SULFADIAZINE 1% CREAM 25 GM TUBE TP ONE
--- NOTE | 2017-01-01 21:50 | NUR ---
patient requested dressing change on right lower extremity, pt is alert, oriented x 4, no resp distress noted or reported upon assessment... md at bedside...
[2017-01-01] MEDS ORDERED: SILVER SULFADIAZINE 1% CREAM 50 GM TP ONE (22:45)
[2017-01-01] MEDS ORDERED: HYDROCODONE/APAP 10-325 MG TABLET PO ONE (22:45)
[2017-01-01] MEDS ORDERED: HYDROCODONE/APAP 10-325 MG TABLET ONE (23:00)
[2017-01-01] MEDS ORDERED: SILVER SULFADIAZINE 1% CREAM 25 GM TUBE TP ONE (23:00)
[2017-01-02 00:22] VITALS: BP 143/88
== END 2017-01-02 00:23 | disposition home or self-care (01) ==
LOC: ER 21:27
DX: I89.0 Lymphedema, not elsewhere classified (principal); L97.921 Non-pressure chronic ulcer of unspecified part of left lower leg limited to breakdown of skin; L97.911 Non-pressure chronic ulcer of unspecified part of right lower leg limited to breakdown of skin; E78.5 Hyperlipidemia, unspecified; F31.9 Bipolar disorder, unspecified; I10 Essential (primary) hypertension; K21.9 Gastro-esophageal reflux disease without esophagitis; Z79.82 Long term (current) use of aspirin; Z91.018 Allergy to other foods; Z59.0 Homelessness
CPT/HCPCS: A4217; A4663

== ENCOUNTER 2017-01-24 22:46 | Inpatient (IN) | payer OTHER ==
[~2017-01-24] VITALS: Ht 177.8 cm; Wt 137.9 kg
[~2017-01-24 22:46] MED LIST changes: -HYDROCODONE/APAP 10-325 MG TABLET ONE; -SILVER SULFADIAZINE 1% CREAM 25 GM TUBE TP ONE
[2017-01-24] MEDS ORDERED: IV NORMAL SALINE 1000 ML BAG IV ONE (23:30)
[2017-01-24] MEDS ORDERED: SILVER SULFADIAZINE 1% CREAM 50 GM TP ONE (23:45)
[2017-01-24] MEDS ORDERED: SILVER SULFADIAZINE 1% CREAM 25 GM TUBE TP ONE (23:57)
[2017-01-25 00:01] LABS: CREATININE 1.3 mg/dL (0.6-1.3); POTASSIUM 3.7 mmol/L (3.5-5.1)
[2017-01-25 00:03] LABS: BASOPHILS # (AUTO) 0.2 K/uL (0.0-8.0); BASOPHILS % (AUTO) 1.5 % (0.0-2.0); EOSINOPHILS # (AUTO) 0.2 K/uL (0.0-0.7); EOSINOPHILS % (AUTO) 1.8 % (0.0-7.0); HEMATOCRIT 36.5 % (40-50); LYMPHOCYTES # (AUTO) 2.2 K/UL (0.8-4.8); LYMPHOCYTES % (AUTO) 19.2 % (20.5-51.5); MEAN CORPUSCULAR HEMOGLOBIN 30.3 UUG (27.0-31.0); MEAN CORPUSCULAR HGB CONC 33 g/dL (32.0-37.0); MEAN CORPUSCULAR VOLUME 92.5 FL (82.0-92.0); MONOCYTES % (AUTO) 8.9 % (0.0-11.0); NEUTROPHILS # (AUTO) 7.8 K/UL (1.8-8.9); NEUTROPHILS % (AUTO) 68.6 % (38.5-71.5); PLATELET COUNT (AUTO) 351 K/UL (150-450); RED BLOOD CELL COUNT(AUTO) 3.94 MIL/UL (4.7-6.1); WHITE BLOOD COUNT (AUTO) 11.4 K/UL (4.0-11.2)
[2017-01-25 00:06] LABS: BILIRUBIN,DIRECT 0.1 mg/dL (0.0-0.2); BILIRUBIN,TOTAL 0.2 mg/dL (0.2-1.0); TOTAL PROTEIN, SERUM 7.6 g/dL (6.4-8.2)
--- NOTE | 2017-01-25 00:08 | NUR ---
Epic panel paged for Dr. Serrato for admission
--- NOTE | 2017-01-25 00:10 | NUR ---
Dr. Serrato and primary RN, Bravo notified of pt's lactic acid of 2.2
[2017-01-25] MEDS ORDERED: VANCOMYCIN IV 1,000 MG in IV DEXTROSE 5% 250 ML IV ONE (00:15)
[2017-01-25] MEDS ORDERED: PIPERACILLIN SODIUM/TAZOBACTAM 3.375 G in IV DEXTROSE 5% 50 ML IV ONE (00:15)
--- NOTE | 2017-01-25 00:15 | NUR ---
lactic acid elevated. Dr. Serrato aware, not code sepsis at this time.
[2017-01-25] MEDS ORDERED: ONDANSETRON IV *ER 4 MG/2 ML VIAL IV ONE (00:30)
[2017-01-25] MEDS ORDERED: HYDROMORPHONE 1 MG/1 ML DISP.SYRIN IV ONE (00:30)
[2017-01-25] MEDS ORDERED: PIPERACILLIN/TAZOBACTAM/D5W 50 ML IV ONE (00:35)
[2017-01-25] MEDS ORDERED: HYDROMORPHONE 1 MG/1 ML DISP.SYRIN ONE (00:41)
[2017-01-25] MEDS ORDERED: ONDANSETRON 4 MG/2 ML VIAL ONE (00:41)
[2017-01-25] MEDS ORDERED: IV NS 1000 ML 1,000 ML IV PRN (01:09)
[2017-01-25] MEDS ORDERED: VANCOMYCIN IV 1 G in PREMIXED 0 EACH IV SCH (01:15)
[2017-01-25] MEDS ORDERED: Z GUARD REMEDY PASTE 57 GM TUBE TOP PRN (01:15)
[2017-01-25] MEDS ORDERED: ONDANSETRON 4 MG/2 ML VIAL IV PRN (01:15)
[2017-01-25] MEDS ORDERED: MORPHINE SULFATE 2 MG/1 ML DISP.SYRIN IM PRN (01:15)
[2017-01-25] MEDS ORDERED: ACETAMINOPHEN 325 MG TABLET PO PRN (01:15)
[2017-01-25] MEDS ORDERED: MAGNESIUM HYDROXIDE 30 ML LIQUID UDC PO PRN (01:15)
[2017-01-25] MEDS ORDERED: VANCOMYCIN 1000 MG VIAL ONE (01:18)
--- NOTE | 2017-01-25 01:26 | NUR ---
Pt. admitted to tele 224 , under care of Dr. Mireles Belongs List completed. Report called to FISH Echevarria
[2017-01-25 01:39] LABS: *BILIRUBIN,URIN NEGATIVE (NEGATIVE); *BLOOD, URINE Trace-lysed (NEGATIVE); *CLARITY,URINE CLEAR (CLEAR); *COLOR,URINE YELLOW (YELLOW); *KETONES,URINE NEGATIVE (NEGATIVE); *PROTEIN,URINE NEGATIVE (NEGATIVE); *UROBILINOGEN,URINE 0.2 E.U./dl (NORMAL); LEUKOCYTE ESTERASE ,URINE NEGATIVE (NEGATIVE); NITRITE, URINE NEGATIVE (NEGATIVE); UGLUCOSE NEGATIVE (NEGATIVE)
[2017-01-25 01:46] LABS: RBC,URINE 0-3 /HPF (0-3); WBC,URINE 0-3 /HPF (0-3)
[2017-01-25 01:47] LABS: BACTERIA,URINE FEW /HPF (NONE SEEN); SQUAMOUS EPITHELIAL CELL,UR FEW /HPF (NONE SEEN)
--- NOTE | 2017-01-25 02:03 | NUR ---
[facility] no acute distress at this time.
[2017-01-25 02:09] VITALS: BP 132/71
--- NOTE | 2017-01-25 02:20 | NUR ---
ADMITTED PT TO TELE, PT IS ALERT AND ORIENTED. RESP IS EVEN AND UNLABORED NO SOB NO ACUTE DISTRESS NOTED. PT ON TELE MONITORING WITH SR. PT WITH BILATERAL LE CELLULITIS AND WOUND CURRENTLY COVERED WITH ABDOMINAL DRESSING AND BANDAGES. PT ORIENTED TO FLOOR AND CALL LIGHT. ACKNOWLEDGED UNDERSTANDING. PT WITH IV ON LEFT FA, PATENT AND INTACT, WITH IV VANCOMYCIN RUNNING. WILL CONT TO MONITOR.
--- NOTE | 2017-01-25 03:00 | NUR ---
IV VANCOMYCIN 1GRAM FINISHED INFUSING. NO ASE NOTED. IV IS PATENT AND INTACT.
[2017-01-25] MEDS: MORPHINE SULFATE 2 MG/1 ML DISP.SYRIN IV PRN ×6 (03:24→21:59)
[2017-01-25] MEDS: HYDROCODONE/APAP 5-325MG TABLET PO PRN (05:51)
[2017-01-25] MEDS ORDERED: HYDROCODONE/APAP 5-325MG TABLET ONE (06:03)
--- NOTE | 2017-01-25 06:27 | NUR ---
PT IN BED, RESTING COMFORTABLY C BOTH LE ELEVATED. RESP IS EVEN AND UNLABORED. NO SOB. NO ACUTE DISTRESS. PT WITH LOWER EXTREMITY PAIN MANAGED WITH PRN PAIN MEDICATION. IV ON L FA PATENT AND INTACT C FLUIDS INFUSING. CALL LIGHT WITH IN REACH.
[2017-01-25] MEDS ORDERED: VANCOMYCIN IV 1 G in PREMIXED 0 EACH IV ONE (08:30)
[2017-01-25] MEDS ORDERED: SILVER SULFADIAZINE 1% CREAM 50 GM TP SCH (09:00)
[2017-01-25] MEDS ORDERED: Medication Not On Formulary EA (Gabapentin 600 MG) PO SCH (09:00)
[2017-01-25] MEDS ORDERED: Medication Not On Formulary EA (Lisinopril 40 MG) PO SCH (09:00)
[2017-01-25] MEDS ORDERED: FLUCONAZOLE 200 MG TABLET PO SCH (09:00)
[2017-01-25] MEDS: ASPIRIN 81 MG TAB.CHEW PO SCH (09:46)
[2017-01-25] MEDS: ASCORBIC ACID 500 MG TABLET PO SCH ×2 (09:46→20:38)
[2017-01-25] MEDS: PANTOPRAZOLE SODIUM 40 MG TABLET.DR PO SCH (09:46)
[2017-01-25] MEDS: ACIDOPHILUS/BULGARICUS CHEW TAB PO SCH ×2 (09:46→20:38)
[2017-01-25] MEDS: GABAPENTIN 300 MG CAPSULE PO SCH (09:47)
[2017-01-25] MEDS: ZINC SULFATE 220 MG CAPSULE PO SCH (09:47)
[2017-01-25] MEDS: LISINOPRIL 20 MG TABLET PO SCH (09:47)
[2017-01-25] MEDS: ISOSORBIDE MONONITRATE 60 MG TAB.SR.24H PO SCH (09:48)
[2017-01-25] MEDS: METOPROLOL TARTRATE 50 MG TABLET PO SCH ×2 (09:48→17:00)
[2017-01-25] MEDS ORDERED: PIPERACILLIN/TAZOBACTAM/D5W 50 ML IV SCH (10:00)
--- NOTE | 2017-01-25 10:03 | NUR ---
WOUND CARE CONSULT CAR TOP BOLTER RECEIVED CONSULT FOR BILATERAL LOWER EXTREMITY WOUNDS. WOUND CARE WILL DEFER TO IRON CASTER DR ALLISON MURRAY AT THE TIME. PATIENT WITH CURRENT FEDERICO AT 20.
--- NOTE | 2017-01-25 10:30 | NUR ---
Patient seen by Sol Mathias SEPHORA OPERATIONS CONSULTANT, detailed report given. See new orders.
[2017-01-25 10:38] LABS: BILIRUBIN,TOTAL 0.2 mg/dL (0.2-1.0); CREATININE 1.2 mg/dL (0.6-1.3); MAGNESIUM 2.2 mg/dL (1.8-2.4); POTASSIUM 3.7 mmol/L (3.5-5.1); TOTAL PROTEIN, SERUM 7.4 g/dL (6.4-8.2)
[2017-01-25 10:40] LABS: BASOPHILS % (AUTO) 0.4 % (0.0-2.0); EOSINOPHILS # (AUTO) 0.2 K/uL (0.0-0.7); EOSINOPHILS % (AUTO) 1.7 % (0.0-7.0); HEMATOCRIT 37.1 % (40-50); HEMOGLOBIN 12.1 G/DL (14.0-18.0); LYMPHOCYTES # (AUTO) 1.3 K/UL (0.8-4.8); MEAN CORPUSCULAR HEMOGLOBIN 30.2 UUG (27.0-31.0); MEAN CORPUSCULAR HGB CONC 33 g/dL (32.0-37.0); MEAN CORPUSCULAR VOLUME 92.7 FL (82.0-92.0); MONOCYTES # (AUTO) 0.8 K/UL (0.1-1.30); MONOCYTES % (AUTO) 6.8 % (0.0-11.0); NEUTROPHILS # (AUTO) 9.5 K/UL (1.8-8.9); NEUTROPHILS % (AUTO) 80.1 % (38.5-71.5); PLATELET COUNT (AUTO) 333 K/UL (150-450); RED BLOOD CELL COUNT(AUTO) 4.01 MIL/UL (4.7-6.1); WHITE BLOOD COUNT (AUTO) 11.8 K/UL (4.0-11.2)
[2017-01-25 10:46] LABS: THYROID STIMULATING HORMONE 1.096 mIU/mL (0.358-3.740)
[2017-01-25 11:04] VITALS: BP 145/78
--- NOTE | 2017-01-25 11:50 | NUR ---
Patient seen by Dr. De ID. Detailed report given.
--- NOTE | 2017-01-25 12:00 | NUR ---
IV TO LEFT ARM INFILTRATED. UNABLE TO GET IV SITE AT THIS TIME.
[2017-01-25] MEDS: SILVER SULFADIAZINE 1% CREAM 25 GM TUBE TP SCH (12:47)
--- NOTE | 2017-01-25 13:56 | NUR ---
CLINICAL PHARMACY NOTE: VANCOMYCIN PHARMACY TO DOSE Subjective: To start vancomycin in this 61 y/o gentleman for indication of suspected infection Objective: height: 177 cm weight 142 kg BMI 45 BUN 26 Scr 1.3 wbc 11.4 temp 98.1 1gm vanco given in ER 01/25 @ 0100 Assessment/Plan Due to pt weight, dosed another 1gm vanco this am at 0830 in addition to pt's 1gm dose in ER earlier in morning. Will start regimen of 2gm q16hrs for expected trough of 14.68. First dose is scheduled for tonight at 2000. Will order trough before 4th scheduled dose (not ordered yet). Will follow renal function as well and adjust if were to become unstable. Will continue to monitor
[2017-01-25 15:05] VITALS: BP 96/54
--- NOTE | 2017-01-25 18:22 | NUR ---
END OF SHIFT NOTE: PATIENT IN NO ACUTE DISTRESS THROUGHOUT SHIFT. PAIN MANAGED WITH MEDICATION PRESCRIBED. VSS. NEEDS MET BY STAFF. DRESSING TO BLE C/D/I. IV SITE INTACT AND PATENT.
--- NOTE | 2017-01-25 19:25 | NUR ---
PT IN BED, RESTING COMFORTABLY C BOTH LE ELEVATED. RESP IS EVEN AND UNLABORED. NO SOB. NO ACUTE DISTRESS. CALL LIGHT WITH IN REACH. WILL CONT TO MONITOR.
[2017-01-25] MEDS: ATORVASTATIN 10 MG TABLET PO SCH (20:38)
[2017-01-25] MEDS: PIPERACILLIN/TAZOBACTAM/D5W 50 ML IV SCH (20:38)
[2017-01-25] MEDS: ARIPIPRAZOLE 5 MG TABLET PO SCH (20:38)
[2017-01-25 20:58] VITALS: BP 90/55
[2017-01-25] MEDS: VANCOMYCIN IV 2,000 MG in IV DEXTROSE 5% 500 ML IV SCH (20:58)
[2017-01-26] MEDS: MORPHINE SULFATE 2 MG/1 ML DISP.SYRIN IV PRN ×6 (00:53→23:39)
[2017-01-26] MEDS: PIPERACILLIN/TAZOBACTAM/D5W 50 ML IV SCH ×5 (02:45→20:49)
--- NOTE | 2017-01-26 03:20 | NUR ---
WOUND CARE PROVIDED PER ORDER AND TOLERATED WELL. DRESSING IS CLEAN DRY AND INTACT.
[2017-01-26 04:00] VITALS: BP 111/62
[2017-01-26] MEDS: PANTOPRAZOLE SODIUM 40 MG TABLET.DR PO SCH (06:09)
--- NOTE | 2017-01-26 06:46 | NUR ---
PT IN BED, RESTING COMFORTABLY C BOTH LE ELEVATED. RESP IS EVEN AND UNLABORED. NO SOB. NO ACUTE DISTRESS. PAIN MANAGED WITH PRN MEDICATIONS. DRESSING ON BOTH LE IS DRY CLEAN AND INTACT. CALL LIGHT WITH IN REACH. WILL CONT TO MONITOR.
[2017-01-26 06:49] LABS: BASOPHILS % (AUTO) 0.4 % (0.0-2.0); EOSINOPHILS # (AUTO) 0.2 K/uL (0.0-0.7); HEMOGLOBIN 10.9 G/DL (14.0-18.0); LYMPHOCYTES % (AUTO) 10.3 % (20.5-51.5); MEAN CORPUSCULAR HEMOGLOBIN 30.8 UUG (27.0-31.0); MEAN CORPUSCULAR HGB CONC 33 g/dL (32.0-37.0); MEAN CORPUSCULAR VOLUME 92.6 FL (82.0-92.0); MONOCYTES # (AUTO) 0.9 K/UL (0.1-1.30); MONOCYTES % (AUTO) 8.9 % (0.0-11.0); NEUTROPHILS % (AUTO) 78.4 % (38.5-71.5); PLATELET COUNT (AUTO) 268 K/UL (150-450); WHITE BLOOD COUNT (AUTO) 10.1 K/UL (4.0-11.2)
[2017-01-26 06:57] LABS: CREATININE 1.2 mg/dL (0.6-1.3); MAGNESIUM 2.4 mg/dL (1.8-2.4); PHOSPHOROUS 3.3 mg/dL (2.5-4.9); POTASSIUM 3.5 mmol/L (3.5-5.1)
[2017-01-26 07:00] LABS: HEMATOCRIT 32.8 % (40-50); RED BLOOD CELL COUNT(AUTO) 3.54 MIL/UL (4.7-6.1)
--- NOTE | 2017-01-26 07:15 | NUR ---
PT IS SLEEPING IN BED COMFORTABLY. NO S/S OF RESPIRATORY DISTRESS NOTED. NO PAIN NOTED.
--- NOTE | 2017-01-26 08:51 | NUR ---
CHECKED PT'S IV NO READDRESS NOTED, NS WENT THROUGH. AFTER ADMINISTERING PAIN MEDICATION ALONG WITH NS FLUSH, STARTED HANGING ZOSYN, WHEN ATTEMPTED TO CONNECT THE TUBING TO THE IV SITE PT CLAIMS "THIS IV IS NO GOOD, REMOVE THE IV." IV REMOVED, PT REFUSED TO HAVE ZOSYN OF NOW. WHEN ADVISED THE PT THAT IV WILL BE ATTEMPTED TO START "I'VE BEEN POKED EVERYWHERE". REFUSING IV TO BE STARTED. ADVISED JOSE HERNANDEZ. OK FOR MIDLINE PER JOSE HERNANDEZ. ADVISED NURSE WIDE AREA NETWORK ENGINEER. NURSE WIDE AREA NETWORK ENGINEER PAGE THE MIDLINE NURSE. PER THE PT "I DON'T WANT TO HAVE THE SAME MIDLINE NURSE THAT I HAD IN [place]". ADVISED THE NURSE WIDE AREA NETWORK ENGINEER THAT THE PT MIGHT REFUSE TO HAVE MIDLINE. Addendum: 01/26/17 at 1036 by GHASSAN SANDS RN ADVISED THE PROVIDER AND PHARMACIST THAT MORNING DOSE OF ZOSYN IS SKIPPED DUE TO ABSENCE OF IV. WILL CONTINUE TO MONITOR. ALSO, PER JOSE HERNANDEZ "NO FOR INCREASE OF NORCO PO", WILL ADVISE THE PT.
[2017-01-26] MEDS: ZINC SULFATE 220 MG CAPSULE PO SCH (09:39)
[2017-01-26] MEDS: ACIDOPHILUS/BULGARICUS CHEW TAB PO SCH ×2 (09:39→20:42)
[2017-01-26] MEDS: GABAPENTIN 300 MG CAPSULE PO SCH (09:39)
[2017-01-26] MEDS: ASPIRIN 81 MG TAB.CHEW PO SCH (09:39)
[2017-01-26] MEDS: ASCORBIC ACID 500 MG TABLET PO SCH ×2 (09:39→20:42)
[2017-01-26] MEDS: METOPROLOL TARTRATE 50 MG TABLET PO SCH ×2 (09:40→17:10)
[2017-01-26] MEDS: ISOSORBIDE MONONITRATE 60 MG TAB.SR.24H PO SCH (09:40)
[2017-01-26] MEDS: SILVER SULFADIAZINE 1% CREAM 25 GM TUBE TP SCH (09:41)
[2017-01-26] MEDS: LISINOPRIL 20 MG TABLET PO SCH (09:41)
[2017-01-26 10:30] LABS: IRON, SERUM 34 ug/dL (50-175)
[2017-01-26 11:12] VITALS: BP 133/74
[2017-01-26] MEDS: VANCOMYCIN IV 2,000 MG in IV DEXTROSE 5% 500 ML IV SCH (12:00)
--- NOTE | 2017-01-26 12:22 | NUR ---
AWAITING ON MIDLINE NURSE TO ESTABLISH THE LINE SO PT CAN RECEIVE HIS ANTIBIOTICS. PROVIDER IS AWARE, NO NEW ORDERS
[2017-01-26] MEDS: HYDROCODONE/APAP 5-325MG TABLET PO PRN (13:34)
[2017-01-26] MEDS: FERROUS SULFATE 325 MG TABEC PO SCH (14:53)
--- NOTE | 2017-01-26 15:06 | NUR ---
PT RECEIVED LEFT UA MIDLINE. MIDLINE IS INTACT/PATENT
[2017-01-26 15:12] VITALS: BP 107/52
--- NOTE | 2017-01-26 15:39 | NUR ---
CLINICAL PHARMACY NOTE: VANCOMYCIN PHARMACY TO DOSE Subjective: To continue vancomycin in this 61 y/o gentleman for indication of suspected infection Objective: height: 177 cm weight 142 kg BMI 45 BUN 18 Scr 1.2 wbc 10.1 temp 98.3 1gm vanco given in ER 01/25 @ 0100 Assessment/Plan Renal function seems stable, will continue regimen of 2gm q16hrs for expected trough of 14.68. second dose was given today at 1200. Will order trough before 4th scheduled dose (not ordered yet). Will follow renal function as well and adjust if were to become unstable. Will continue to monitor
--- NOTE | 2017-01-26 19:30 | NUR ---
RECEIVED PATIENT LAYING IN BED COMFORTABLY.A&O X'S 4. ABLE TO MAKE NEEDS KNOWN. BRP. NO ACUTE DISTRESS NOTED. SAFETY INITIATED. CALL LIGHT WITHIN REACH. PATIENT COMPLAINED OF PAIN IN BLE. WILL REVIEW MEDICATIONS. WILL GIVE MEDS ORDERED. NOTED BLE DRESSING. MIDLINE INTACT AND PATENT. WILL CONTINUE TO MONITOR.
--- NOTE | 2017-01-26 19:56 | NUR ---
PT IS LAYING IN BED, NO CHEST PAIN REPORTED. NO PAIN NOTED/REPORTED. NO S/S OF RESPIRATORY DISTRESS NOTED. MIDLINE INTACT/PATENT . ALL SAFETY NEEDS ARE MET.
[2017-01-26 20:00] VITALS: BP 125/63
[2017-01-26] MEDS: ARIPIPRAZOLE 5 MG TABLET PO SCH (20:42)
[2017-01-26] MEDS: ATORVASTATIN 10 MG TABLET PO SCH (20:42)
[2017-01-27] MEDS: MORPHINE SULFATE 2 MG/1 ML DISP.SYRIN IV PRN ×7 (02:50→22:06)
[2017-01-27] MEDS: PIPERACILLIN/TAZOBACTAM/D5W 50 ML IV SCH ×4 (02:51→19:58)
[2017-01-27] MEDS: VANCOMYCIN IV 2,000 MG in IV DEXTROSE 5% 500 ML IV SCH ×2 (04:46→22:35)
[2017-01-27 05:00] VITALS: BP 110/62
[2017-01-27] MEDS: PANTOPRAZOLE SODIUM 40 MG TABLET.DR PO SCH (06:00)
[2017-01-27] MEDS ORDERED: MORPHINE SULFATE 4 MG/1 ML DISP.SYRIN ONE ×2 (06:04→22:10)
--- NOTE | 2017-01-27 06:23 | NUR ---
NO CHANGES T/O SHIFT. NO ACUTE DISTRESS NOTED. FREQUENTLY ASKS FOR PAIN MEDS. MEDS GIVEN ORDERED. STATED RELIEF. DRESSING CHANGE IN BILATERAL LEGS AT 0300. O2 2L NC. APPLIED SILVADENE CREAM, ABD PADDING WRAPPED WITH MARQUEZ BANDAGE. CALL LIGHT WITHIN REACH. WILL CONTINUE TO MONITOR.
[2017-01-27 06:40] LABS: BILIRUBIN,TOTAL 0.3 mg/dL (0.2-1.0); CREATININE 1.2 mg/dL (0.6-1.3); MAGNESIUM 2.2 mg/dL (1.8-2.4); PHOSPHOROUS 3.1 mg/dL (2.5-4.9); POTASSIUM 3.4 mmol/L (3.5-5.1); TOTAL PROTEIN, SERUM 7.2 g/dL (6.4-8.2)
[2017-01-27 06:46] LABS: BASOPHILS % (AUTO) 0.2 % (0.0-2.0); EOSINOPHILS # (AUTO) 0.2 K/uL (0.0-0.7); EOSINOPHILS % (AUTO) 2.6 % (0.0-7.0); HEMATOCRIT 32.6 % (40-50); HEMOGLOBIN 11.1 G/DL (14.0-18.0); LYMPHOCYTES # (AUTO) 1.2 K/UL (0.8-4.8); LYMPHOCYTES % (AUTO) 13.7 % (20.5-51.5); MEAN CORPUSCULAR HEMOGLOBIN 31.4 UUG (27.0-31.0); MEAN CORPUSCULAR HGB CONC 34 g/dL (32.0-37.0); MEAN CORPUSCULAR VOLUME 92.1 FL (82.0-92.0); MONOCYTES # (AUTO) 0.8 K/UL (0.1-1.30); NEUTROPHILS # (AUTO) 6.8 K/UL (1.8-8.9); NEUTROPHILS % (AUTO) 74.5 % (38.5-71.5); PLATELET COUNT (AUTO) 320 K/UL (150-450); RED BLOOD CELL COUNT(AUTO) 3.54 MIL/UL (4.7-6.1); WHITE BLOOD COUNT (AUTO) 8.9 K/UL (4.0-11.2)
--- NOTE | 2017-01-27 07:25 | NUR ---
RECEIVED REPORT FROM OPHTHALMIC MEDICAL TECHNICIAN, PATIENT IN BED AWAKE, BED IN LOW POSITION, SIDE RAILS UPX2, NO EVIDENCE OF DISTRESS NOTED.
[2017-01-27] MEDS: ASCORBIC ACID 500 MG TABLET PO SCH ×2 (08:37→20:02)
[2017-01-27] MEDS: ASPIRIN 81 MG TAB.CHEW PO SCH (08:37)
[2017-01-27] MEDS: FERROUS SULFATE 325 MG TABEC PO SCH (08:37)
[2017-01-27] MEDS: ZINC SULFATE 220 MG CAPSULE PO SCH (08:37)
[2017-01-27] MEDS: ISOSORBIDE MONONITRATE 60 MG TAB.SR.24H PO SCH (08:38)
[2017-01-27] MEDS: ACIDOPHILUS/BULGARICUS CHEW TAB PO SCH ×2 (08:38→20:02)
[2017-01-27] MEDS: GABAPENTIN 300 MG CAPSULE PO SCH (08:38)
[2017-01-27] MEDS: METOPROLOL TARTRATE 50 MG TABLET PO SCH ×2 (08:39→16:01)
[2017-01-27] MEDS: LISINOPRIL 20 MG TABLET PO SCH (08:39)
[2017-01-27] MEDS: SILVER SULFADIAZINE 1% CREAM 25 GM TUBE TP SCH (09:16)
[2017-01-27] MEDS ORDERED: HYDROMORPHONE 1 MG/1 ML DISP.SYRIN IV PRN (09:45)
[2017-01-27] MEDS ORDERED: LIDOCAINE HCL 1% 20 ML VIAL IJ ONE (09:45)
[2017-01-27] MEDS ORDERED: HYDROMORPHONE 1 MG/1 ML DISP.SYRIN IV ONE (10:00)
[2017-01-27] MEDS ORDERED: POTASSIUM CHLORIDE 20 MEQ TAB.PRT.SR PO ONE (10:15)
[2017-01-27 11:04] VITALS: BP 147/74
--- NOTE | 2017-01-27 13:00 | NUR ---
DEBRIDEMENT COMPLETED BY PHYSICIAN, PATIENT HAS BEEN INTERMITTENTLY DOSING AFTER PAIN MEDICATION, NO EVIDENCE OF DISTRESS NOTED. NO SOB, VITALS WNL. PATIENT IS IN BED, BED IN LOW POSITION, WHEELS LOCKED.
[2017-01-27 15:18] VITALS: BP 118/62
--- NOTE | 2017-01-27 15:32 | NUR ---
CLINICAL PHARMACY NOTE: VANCOMYCIN PHARMACY TO DOSE Subjective: To continue vancomycin in this 61 y/o gentleman for indication of cellulitis Objective: height: 177 cm weight 142 kg BMI 45 BUN 15 Scr 1.2 wbc 8.9 temp 98.4 Assessment/Plan Renal function seems stable, will continue regimen of 2gm q16hrs for expected trough of 14.68. third dose was given today at 0446 Will order trough before 4th scheduled dose (ordered tonight at 1930). Will follow renal function as well and adjust if were to become unstable. Will continue to monitor
--- NOTE | 2017-01-27 18:50 | NUR ---
PATIENT IS IN BED, NO DISTRESS NOTED, BED IN LOW POSITION, SIDE RAILS UP X2, BED LOCKED. PATIENT SPOKE WITH DIETARY TODAY IN REGARDS TO MEALS. PATIENT WAS SERVED PORK ON HIS TRAY THIS MORNING, AND SHOULD NOT HAVE BEEN.
[2017-01-27] MEDS: ATORVASTATIN 10 MG TABLET PO SCH (20:02)
[2017-01-27] MEDS: ARIPIPRAZOLE 5 MG TABLET PO SCH (20:02)
[2017-01-27 20:31] VITALS: BP 126/69
--- NOTE | 2017-01-27 21:25 | NUR ---
CALLED DR. RAMIREZ FOR CHANGE OF PAIN MED DOSAGE PER PATIENT'S REQUEST. PT STATED "I AM A 325LB MAN AND THE PAIN MED I AM GETTING NOW IS FOR BABIES. I AM STILL IN PAIN".
--- NOTE | 2017-01-27 21:30 | NUR ---
DR. RAMIREZ GAVE NEW DOSAGE ORDERS FOR MORPHINE, NEW ORDERS CARRIED OUT.
[2017-01-28] MEDS ORDERED: MORPHINE SULFATE 4 MG/1 ML DISP.SYRIN ONE ×3 (00:58→06:59)
[2017-01-28] MEDS: MORPHINE SULFATE 2 MG/1 ML DISP.SYRIN IV PRN ×3 (01:04→06:54)
[2017-01-28] MEDS: PIPERACILLIN/TAZOBACTAM/D5W 50 ML IV SCH ×4 (01:58→20:37)
[2017-01-28 05:36] VITALS: BP 125/62
--- NOTE | 2017-01-28 06:07 | NUR ---
PT SLEPT INTERMITTENTLY, IN NO ACUTE DISTRESS. PAIN MANAGEMENT ORDERED. IV ANTIBIOTICS ADMINISTERED ORDERED, NO ADVERSE REACTION NOTED. DRESSING ON BILATERAL LOWER EXTREMITIES INTACT/CLEAN/DRY. CALL LIGHT WITHIN REACH, WILL CONTINUE TO MONITOR.
[2017-01-28 06:35] LABS: BASOPHILS % (AUTO) 0.4 % (0.0-2.0); EOSINOPHILS # (AUTO) 0.2 K/uL (0.0-0.7); EOSINOPHILS % (AUTO) 2.7 % (0.0-7.0); HEMOGLOBIN 11.1 G/DL (14.0-18.0); LYMPHOCYTES # (AUTO) 1.4 K/UL (0.8-4.8); LYMPHOCYTES % (AUTO) 16.3 % (20.5-51.5); MEAN CORPUSCULAR HEMOGLOBIN 30.4 UUG (27.0-31.0); MEAN CORPUSCULAR HGB CONC 33 g/dL (32.0-37.0); MEAN CORPUSCULAR VOLUME 92.6 FL (82.0-92.0); MONOCYTES # (AUTO) 0.8 K/UL (0.1-1.30); NEUTROPHILS # (AUTO) 6.1 K/UL (1.8-8.9); NEUTROPHILS % (AUTO) 71.6 % (38.5-71.5); PLATELET COUNT (AUTO) 373 K/UL (150-450); RED BLOOD CELL COUNT(AUTO) 3.67 MIL/UL (4.7-6.1); WHITE BLOOD COUNT (AUTO) 8.5 K/UL (4.0-11.2)
[2017-01-28 06:45] LABS: BILIRUBIN,TOTAL 0.5 mg/dL (0.2-1.0); CREATININE 1.2 mg/dL (0.6-1.3); MAGNESIUM 2.2 mg/dL (1.8-2.4); PHOSPHOROUS 3.5 mg/dL (2.5-4.9); POTASSIUM 3.7 mmol/L (3.5-5.1); TOTAL PROTEIN, SERUM 7.8 g/dL (6.4-8.2)
[2017-01-28] MEDS: PANTOPRAZOLE SODIUM 40 MG TABLET.DR PO SCH (06:50)
--- NOTE | 2017-01-28 07:10 | NUR ---
RECEIVED REPORT BY FACILITY SUPERVISOR NURSE, PATIENT IS IN BED SLEEPING, NO EVIDENCE OF DISTRESS NOTED, BED IN LOW POSITION, SIDE RAILS UP X2. NOC NURSE ADMINISTERED MORPHINE SEVERAL TIMES PER NIGHT. NO COMPLAINTS OF PAIN THIS MORNING.
[2017-01-28] MEDS: FERROUS SULFATE 325 MG TABEC PO SCH (08:10)
[2017-01-28] MEDS: ZINC SULFATE 220 MG CAPSULE PO SCH (08:10)
[2017-01-28] MEDS: ACIDOPHILUS/BULGARICUS CHEW TAB PO SCH ×2 (08:10→20:26)
[2017-01-28] MEDS: ASCORBIC ACID 500 MG TABLET PO SCH ×2 (08:10→20:26)
[2017-01-28] MEDS: GABAPENTIN 300 MG CAPSULE PO SCH (08:10)
[2017-01-28] MEDS: ASPIRIN 81 MG TAB.CHEW PO SCH (08:10)
[2017-01-28] MEDS: LISINOPRIL 20 MG TABLET PO SCH (08:11)
[2017-01-28] MEDS: METOPROLOL TARTRATE 50 MG TABLET PO SCH ×2 (08:11→17:03)
[2017-01-28] MEDS: ISOSORBIDE MONONITRATE 60 MG TAB.SR.24H PO SCH (08:11)
[2017-01-28] MEDS: SILVER SULFADIAZINE 1% CREAM 25 GM TUBE TP SCH (08:22)
--- NOTE | 2017-01-28 10:00 | NUR ---
Patient did not want wound care on his legs as he has pain and did not want to be disturbed. Patient went back to sleep after receiving pain medication.
[2017-01-28] MEDS: MORPHINE SULFATE 4 MG/1 ML DISP.SYRIN IV PRN ×5 (10:18→23:35)
[2017-01-28 12:13] VITALS: BP 96/51
--- NOTE | 2017-01-28 12:21 | NUR ---
CLINICAL PHARMACY NOTE: VANCOMYCIN PHARMACY TO DOSE Subjective: To continue vancomycin in this 61 y/o gentleman for indication of cellulitis Objective: height: 177 cm weight 142 kg BMI 45 BUN 15 Scr 1.2 wbc 8.5 temp 98.4 Vanco trough : 10.7 on 01/27 at 1930 Vanco trough: 16 on 01/28 at 1130 Assessment/Plan Since Vanco trough today is 16 mcg/ml, will continue same regimen of 2gm IV q16hrs for today. Next dose is due tomorrow at 0400 0. Will re-order trough in a couple of days to ensure appropriate level. Will follow renal function as well and adjust if were to become unstable. Will continue to monitor
[2017-01-28] MEDS: VANCOMYCIN IV 2,000 MG in IV DEXTROSE 5% 500 ML IV SCH (12:22)
--- NOTE | 2017-01-28 13:20 | NUR ---
Patient was asked if wound care could be perform, and patient continued to deny wound care and stated that it can be done within 24 hours, so there was still time.
--- NOTE | 2017-01-28 17:00 | NUR ---
New peripheral IV line inserted on right arm under ultrasound by supervisor wire rope fabrication as there was no blood return from Midline, and left arm appears to be mildly swollen. Patient was then given IV pain medication. Upon removal of attempt of Midline patient was in too much pain and was instructed to wait for a period of time for the pain medication to work, and was offered his dinner tray.
--- NOTE | 2017-01-28 19:30 | NUR ---
RECEIVED PATIENT LAYING COMFORTABLY IN BED. HOB ELEVATED. BILATERAL FOOT ELEVATED. NO ACUTE DISTRESS NOTED. PATIENT IS ON O2 2L NC. SAFETY INITIATED. CALL LIGHT WITHIN REACH WILL CONTINUE TO MONITOR.
[2017-01-28 20:00] VITALS: BP 129/68
[2017-01-28] MEDS: ARIPIPRAZOLE 5 MG TABLET PO SCH (20:26)
[2017-01-28] MEDS: ATORVASTATIN 10 MG TABLET PO SCH (20:26)
[2017-01-29] MEDS: PIPERACILLIN/TAZOBACTAM/D5W 50 ML IV SCH ×4 (01:42→21:00)
--- NOTE | 2017-01-29 01:59 | NUR ---
WOUND DRESSING CHANGE DONE
[2017-01-29] MEDS: MORPHINE SULFATE 4 MG/1 ML DISP.SYRIN IV PRN ×7 (02:40→21:54)
[2017-01-29 05:15] VITALS: BP 119/61
[2017-01-29] MEDS: PANTOPRAZOLE SODIUM 40 MG TABLET.DR PO SCH (06:04)
--- NOTE | 2017-01-29 06:07 | NUR ---
PATIENT SLEPT INTERMITTENTLY T/O SHIFT. NO ACUTE DISTRESS NOTED. COMFORT AND SAFETY MAINTAINED T/O SHIFT. PATIENT AMBULATORY BUT MILD TO MODERATE WEAKNESS IN THE LOWER EXTREMITIES.FREQUENTLY ASKS FOR PAIN MED. MEDS GIVEN. STATED RELIEF.ALL NEEDS MET. WOUND CARE PROVIDED TODAY.PATIENT IS ON 2L O2 NC.
[2017-01-29 07:38] LABS: BASOPHILS % (AUTO) 0.3 % (0.0-2.0); EOSINOPHILS # (AUTO) 0.2 K/uL (0.0-0.7); HEMATOCRIT 32.5 % (40-50); HEMOGLOBIN 10.8 G/DL (14.0-18.0); LYMPHOCYTES % (AUTO) 10.1 % (20.5-51.5); MEAN CORPUSCULAR HEMOGLOBIN 30.6 UUG (27.0-31.0); MEAN CORPUSCULAR HGB CONC 33 g/dL (32.0-37.0); MEAN CORPUSCULAR VOLUME 91.7 FL (82.0-92.0); MONOCYTES # (AUTO) 1.1 K/UL (0.1-1.30); MONOCYTES % (AUTO) 11.6 % (0.0-11.0); NEUTROPHILS # (AUTO) 7.4 K/UL (1.8-8.9); PLATELET COUNT (AUTO) 367 K/UL (150-450); RED BLOOD CELL COUNT(AUTO) 3.55 MIL/UL (4.7-6.1); WHITE BLOOD COUNT (AUTO) 9.7 K/UL (4.0-11.2)
[2017-01-29 08:05] LABS: BILIRUBIN,TOTAL 0.5 mg/dL (0.2-1.0); CREATININE 1.2 mg/dL (0.6-1.3); MAGNESIUM 2.3 mg/dL (1.8-2.4); PHOSPHOROUS 3.8 mg/dL (2.5-4.9); POTASSIUM 3.8 mmol/L (3.5-5.1); TOTAL PROTEIN, SERUM 7.4 g/dL (6.4-8.2)
[2017-01-29] MEDS: SILVER SULFADIAZINE 1% CREAM 25 GM TUBE TP SCH (09:00)
[2017-01-29] MEDS: ISOSORBIDE MONONITRATE 60 MG TAB.SR.24H PO SCH (09:02)
[2017-01-29] MEDS: ACIDOPHILUS/BULGARICUS CHEW TAB PO SCH ×2 (09:02→21:01)
[2017-01-29] MEDS: ASPIRIN 81 MG TAB.CHEW PO SCH (09:03)
[2017-01-29] MEDS: LISINOPRIL 20 MG TABLET PO SCH (09:03)
[2017-01-29] MEDS: ASCORBIC ACID 500 MG TABLET PO SCH ×2 (09:03→21:01)
[2017-01-29] MEDS: FERROUS SULFATE 325 MG TABEC PO SCH (09:03)
[2017-01-29] MEDS: GABAPENTIN 300 MG CAPSULE PO SCH (09:03)
[2017-01-29] MEDS: METOPROLOL TARTRATE 50 MG TABLET PO SCH ×2 (09:03→16:30)
[2017-01-29] MEDS: ZINC SULFATE 220 MG CAPSULE PO SCH (09:06)
[2017-01-29 12:02] VITALS: BP 113/60
[2017-01-29 15:19] VITALS: BP 100/55
--- NOTE | 2017-01-29 19:45 | NUR ---
PT RECEIVED IN BED, AWAKE. A/OX4. ABLE TO MAKE NEEDS KNOWN. V/S STABLE. NO ACUTE DISTRESS NOTED. NO COMPLAINTS OF PAIN AT THIS TIME. LEGS ELEVATED. DRESSING C/D/I. SAFETY MEASURES IMPLEMENTED. CALL LIGHT WITHIN REACH.
[2017-01-29 20:41] VITALS: BP 111/61
[2017-01-29] MEDS: ATORVASTATIN 10 MG TABLET PO SCH (21:01)
[2017-01-29] MEDS: ARIPIPRAZOLE 5 MG TABLET PO SCH (21:01)
[2017-01-30] MEDS: MORPHINE SULFATE 4 MG/1 ML DISP.SYRIN IV PRN ×3 (01:02→06:54)
[2017-01-30] MEDS: PIPERACILLIN/TAZOBACTAM/D5W 50 ML IV SCH ×2 (01:03→08:58)
[2017-01-30] MEDS ORDERED: SILVER SULFADIAZINE 1% CREAM 25 GM TUBE TP ONE (01:41)
[2017-01-30 04:00] VITALS: BP 110/59
--- NOTE | 2017-01-30 06:03 | NUR ---
END OF SHIFT NOTES. PT WAS AWAKE THROUGHOUT SHIFT. NEEDS ATTENDED. PT IN STABLE CONDITION. NO ACUTE DISTRESS NOTED. ADMINISTERED PAIN MEDICATIONS ORDERED. DRESSING CHANGE DONE ON BILATERAL EXTREMITY. DRESSINGS C/D/I. LEGS ELEVATED. SAFETY MAINTAINED THROUGHOUT SHIFT
[2017-01-30] MEDS: PANTOPRAZOLE SODIUM 40 MG TABLET.DR PO SCH (06:24)
[2017-01-30 07:30] LABS: BASOPHILS % (AUTO) 0.3 % (0.0-2.0); EOSINOPHILS # (AUTO) 0.2 K/uL (0.0-0.7); EOSINOPHILS % (AUTO) 2.4 % (0.0-7.0); HEMATOCRIT 33.5 % (40-50); LYMPHOCYTES % (AUTO) 11.1 % (20.5-51.5); MEAN CORPUSCULAR HEMOGLOBIN 30.4 UUG (27.0-31.0); MEAN CORPUSCULAR HGB CONC 33 g/dL (32.0-37.0); MEAN CORPUSCULAR VOLUME 92.7 FL (82.0-92.0); MONOCYTES # (AUTO) 0.8 K/UL (0.1-1.30); NEUTROPHILS # (AUTO) 7.3 K/UL (1.8-8.9); NEUTROPHILS % (AUTO) 77.2 % (38.5-71.5); PLATELET COUNT (AUTO) 377 K/UL (150-450); RED BLOOD CELL COUNT(AUTO) 3.62 MIL/UL (4.7-6.1); WHITE BLOOD COUNT (AUTO) 9.3 K/UL (4.0-11.2)
[2017-01-30 07:40] LABS: BILIRUBIN,TOTAL 0.4 mg/dL (0.2-1.0); CREATININE 1.2 mg/dL (0.6-1.3); MAGNESIUM 2.2 mg/dL (1.8-2.4); PHOSPHOROUS 3.8 mg/dL (2.5-4.9); POTASSIUM 3.7 mmol/L (3.5-5.1); TOTAL PROTEIN, SERUM 7.7 g/dL (6.4-8.2)
[2017-01-30 08:00] VITALS: BP 137/75
[2017-01-30] MEDS: ACIDOPHILUS/BULGARICUS CHEW TAB PO SCH (08:59)
[2017-01-30] MEDS: GABAPENTIN 300 MG CAPSULE PO SCH (08:59)
[2017-01-30] MEDS: LISINOPRIL 20 MG TABLET PO SCH (08:59)
[2017-01-30] MEDS: ASPIRIN 81 MG TAB.CHEW PO SCH (09:00)
[2017-01-30] MEDS: ISOSORBIDE MONONITRATE 60 MG TAB.SR.24H PO SCH (09:00)
[2017-01-30] MEDS: FERROUS SULFATE 325 MG TABEC PO SCH (09:00)
[2017-01-30] MEDS: ASCORBIC ACID 500 MG TABLET PO SCH (09:00)
[2017-01-30] MEDS: METOPROLOL TARTRATE 50 MG TABLET PO SCH (09:00)
[2017-01-30] MEDS: SILVER SULFADIAZINE 1% CREAM 25 GM TUBE TP SCH (09:03)
[2017-01-30] MEDS: ZINC SULFATE 220 MG CAPSULE PO SCH (09:03)
[2017-01-30 11:40] VITALS: BP 127/85
--- NOTE | 2017-01-30 12:11 | NUR ---
DC Note: The patient will be discharged today to himself. Offered placement to [facility] but he refused stating he has to go wash and will be transporting via bus. He stated that he will follow-up with his PCP, however per chart patient has a history of non-compliance. His RN, Kimo, is aware of his discharge plan. Addendum: 01/30/17 at 1213 by MARY WATSON Patient was provided with a homeless waiver packet/resource manual. Addendum: 01/30/17 at 1230 by MARY WATSON Patient's RNNatalia is aware.
--- NOTE | 2017-01-30 12:16 | NUR ---
Patient refusing to get pictures taken of his lower extremities, at the same time demanding to talk to Dr. Benavides regarding his pain prescription. Also requested to get Dr. Jose called. Patient informed that Dr. Jose is off for today. Patient educated on the importance to get picture taken for follow up care but definitely refused at this time. Stating get out of my room I'm not for pictures. Change rn and Dr. Benavides informed.
[2017-01-30] MEDS ORDERED: LEVO750T21 PO (12:17)
[2017-01-30] MEDS ORDERED: CEPH-570 PO (12:17)
[2017-01-30 13:40] VITALS: BP 127/85
--- NOTE | 2017-01-30 14:07 | NUR ---
At this time patient wheeled down to lobby dcd to self homeless as documented before. Iv line and ID band removed. all belonging and dcd package which include prescription for norco 10/325 as ordered by .and silvadene 400 gram topical included.
== END 2017-01-30 14:05 | disposition home or self-care (01) | DRG 720 ==
LOC: ER 22:46 → TELE 01-25 01:32 → MED 01-25 11:47
PROVIDERS: ADMIT Internal Medicine; ATTEND Internal Medicine
PROC: 05H633Z Insertion of Infusion Device into Left Subclavian Vein, Percutaneous Approach (ICD-10-PCS; principal; 2017-01-26)
PROC: 0JBQ0ZZ Excision of Right Foot Subcutaneous Tissue and Fascia, Open Approach (ICD-10-PCS; 2017-01-27)
PROC: 0JBP0ZZ Excision of Left Lower Leg Subcutaneous Tissue and Fascia, Open Approach (ICD-10-PCS; 2017-01-27)
PROC: 0JBR0ZZ Excision of Left Foot Subcutaneous Tissue and Fascia, Open Approach (ICD-10-PCS; 2017-01-27)
DX: A41.9 Sepsis, unspecified organism (principal); I11.0 Hypertensive heart disease with heart failure; E44.0 Moderate protein-calorie malnutrition; Z68.41 Body mass index [BMI] 40.0-44.9, adult; M41.9 Scoliosis, unspecified; I50.9 Heart failure, unspecified; E11.65 Type 2 diabetes mellitus with hyperglycemia; L03.115 Cellulitis of right lower limb; L03.116 Cellulitis of left lower limb; L97.311 Non-pressure chronic ulcer of right ankle limited to breakdown of skin; B35.1 Tinea unguium; F31.9 Bipolar disorder, unspecified; B96.5 Pseudomonas (aeruginosa) (mallei) (pseudomallei) as the cause of diseases classified elsewhere; B95.2 Enterococcus as the cause of diseases classified elsewhere; B95.61 Methicillin susceptible Staphylococcus aureus infection as the cause of diseases classified elsewhere; I87.2 Venous insufficiency (chronic) (peripheral); L97.811 Non-pressure chronic ulcer of other part of right lower leg limited to breakdown of skin; I89.0 Lymphedema, not elsewhere classified; L97.321 Non-pressure chronic ulcer of left ankle limited to breakdown of skin; E66.01 Morbid (severe) obesity due to excess calories; Z71.3 Dietary counseling and surveillance; Z59.0 Homelessness; I25.2 Old myocardial infarction; Z83.3 Family history of diabetes mellitus; Z82.49 Family history of ischemic heart disease and other diseases of the circulatory system; Z87.01 Personal history of pneumonia (recurrent); K21.9 Gastro-esophageal reflux disease without esophagitis; Z85.72 Personal history of non-Hodgkin lymphomas; M17.0 Bilateral primary osteoarthritis of knee; D50.9 Iron deficiency anemia, unspecified; E78.5 Hyperlipidemia, unspecified; E87.6 Hypokalemia; I25.119 Atherosclerotic heart disease of native coronary artery with unspecified angina pectoris; K59.00 Constipation, unspecified; Z87.828 Personal history of other (healed) physical injury and trauma; F41.9 Anxiety disorder, unspecified; Z79.899 Other long term (current) drug therapy; Z91.018 Allergy to other foods; E78.1 Pure hyperglyceridemia
CPT/HCPCS: 36415; 71010; 83550; 83605; 83735; 84100; 84443; 85025; 87040; 87070; 87077; 87086; 93005; A4217; A4663; J1170; J2270; J2405; J2543; J3370; J3490; J7030; J7060

== ENCOUNTER 2017-01-30 21:19 | Emergency (ER) | payer OTHER ==
[~2017-01-30] VITALS: Ht 175.3 cm; Wt 140.6 kg
[~2017-01-30 21:19] MED LIST changes: +CEPH-570 PO; -FLUC200T PO; +LEVO750T21 PO
--- NOTE | 2017-01-30 21:56 | NUR ---
Call placed to [facility], Dr. Castaneda will be paged.
[2017-01-30] MEDS ORDERED: SILVER SULFADIAZINE 1% CREAM 25 GM TUBE TP ONE (22:28)
[2017-01-30] MEDS ORDERED: SILVER SULFADIAZINE 1% CREAM 50 GM TP ONE (22:30)
--- NOTE | 2017-01-30 22:30 | NUR ---
Patient calm and cooperative during initial dressing change procedure. While discussing his wounds, specifically he stated "there are two different infections now," staff asked about what infections were present. This agitated the patient as he began complaining about the competency of nursing staff and stated "they could not tell me." Patient remained agitated during dressing change and began accusing staff of antagonizing him, ultimately requesting to speak to JUAND. SIDNEY notified.
--- NOTE | 2017-01-30 22:45 | NUR ---
SIDNEY stated OK to finish dressing change at this time. Patient stated "that Doctor did not supervise very well, he shouldn't have told you to come back in." SIDNEY notified, SIDNEY stated that he had informed the patient that staff would be returning to finish the dressing change, to which the patient acknowledged, and was unaware that this would cause further agitation. Patient stated he would complete his dressing change (which was nearly finished aside from a 3 inch area to be dressed). Patient exited the room and requested the ERMD's name, which was provided and identified on his discharge paperwork. Security contacted for safety due to patient's agitation, SIDNEY notified.
== END 2017-01-30 23:30 | disposition home or self-care (01) ==
LOC: ER 21:20
DX: L03.115 Cellulitis of right lower limb (principal); L03.116 Cellulitis of left lower limb; I89.0 Lymphedema, not elsewhere classified; L97.911 Non-pressure chronic ulcer of unspecified part of right lower leg limited to breakdown of skin; I11.0 Hypertensive heart disease with heart failure; I50.9 Heart failure, unspecified; E78.5 Hyperlipidemia, unspecified; K21.9 Gastro-esophageal reflux disease without esophagitis; I25.10 Atherosclerotic heart disease of native coronary artery without angina pectoris; I25.2 Old myocardial infarction; R73.03 Prediabetes; M17.0 Bilateral primary osteoarthritis of knee; E66.9 Obesity, unspecified; Z59.0 Homelessness
CPT/HCPCS: A4217; A4663

== ENCOUNTER 2017-02-14 00:01 | Inpatient (IN) | payer OTHER ==
[~2017-02-14] VITALS: Ht 175.3 cm; Wt 140.2 kg
[2017-02-14] MEDS ORDERED: SILVER SULFADIAZINE 1% CREAM 50 GM TP ONE (01:00)
[2017-02-14] MEDS ORDERED: SILVER SULFADIAZINE 1% CREAM 25 GM TUBE TP ONE (01:33)
--- NOTE | 2017-02-14 02:35 | NUR ---
Call placed to [facility], Dr. Mireles will be paged.
[2017-02-14] MEDS ORDERED: Z GUARD REMEDY PASTE 57 GM TUBE TOP PRN (03:00)
[2017-02-14] MEDS ORDERED: VANCOMYCIN IV 1 G in PREMIXED 0 EACH IV SCH (03:00)
[2017-02-14] MEDS ORDERED: HYDROMORPHONE 1 MG/1 ML DISP.SYRIN IV PRN ×2 (03:00→15:30)
[2017-02-14] MEDS ORDERED: ACETAMINOPHEN 325 MG TABLET PO PRN (03:00)
[2017-02-14] MEDS ORDERED: HYDROCODONE/APAP 5-325MG TABLET PO PRN (03:00)
[2017-02-14] MEDS ORDERED: MORPHINE SULFATE 2 MG/1 ML DISP.SYRIN IV PRN (03:00)
[2017-02-14] MEDS ORDERED: MAGNESIUM HYDROXIDE 30 ML LIQUID UDC PO PRN (03:00)
[2017-02-14] MEDS ORDERED: ONDANSETRON 4 MG/2 ML VIAL IV PRN (03:00)
[2017-02-14 03:40] VITALS: BP 137/66
--- NOTE | 2017-02-14 04:00 | NUR ---
RECEIVED PATIENT VIA GURNEY FROM ER. PATIENT IS A/O X4. C/O PAIN IN BILATERAL LOWER EXTREMITIES. DRESSINGS NOTED TO BILATERAL LOWER LEGS CLEAN, DRY AND INTACT. TX WAS DONE IN ER PRIOR TO ADMISSION TO THE FLOOR. PATIENT REFUSED FOR PICTURES TO BE TAKEN AT THIS TIME SINCE TX WAS JUST DONE AND LEGS ALREADY DRESSED. VSS. NO RESP. DISTRESS NOTED. PATIENT HAS NO IV ACCESS AT THIS TIME. IT WAS REPORTED DURING REPORT FROM ER THAT PATIENT WILL NEED EITHER A MID-LINE OR PICC INSERTION TODAY. PIPE BLANKS CUT OFF SAW OPERATOR NOTIFIED. PATIENT ORIENTED TO ROOM AND CALL LIGHT. MADE COMFORTABLE IN BED WITH BILATERAL LEGS ELEVATED ON 2 PILLOWS REQUESTED PER PATIENT. CALL LIGHT IN REACH. ALL NEEDS ATTENDED. WILL CONTINUE TO MONITOR.
--- NOTE | 2017-02-14 04:20 | NUR ---
RECEIVED MD ORDERS FROM DR. ALEJO. CALLED BACK TO CLARIFY ORDERS. ORDERED IV VANCO BUT PATIENT WAS ADMITTED TO THE FLOOR WITH NO IV ACCESS. INFORMED DR. ALEJO THAT ER STATED THE PLAN FOR HIM IS TO HAVE EITHER A PICC OR MID-LINE INSERTION TODAY. DOES NOT WANT TO ORDER ANYTHING AT THIS TIME. PRODUCTION STAFF WORKER NOTIFIED. BUT MD IS VERY AWARE THAT PATIENT IS NOT ABLE TO RECEIVE ANY IV MEDS AT THIS TIME. MD INFORMED THAT NEXT MD CUSTOMS AGENT THIS MORNING CAN FURTHER DECIDED ON TX PLAN. WILL CONTINUE TO MONITOR. ALL NEEDS ATTENDED.
[2017-02-14] MEDS ORDERED: HYDROCODONE/APAP 10-325 MG TABLET ONE (04:23)
[2017-02-14] MEDS: HYDROCODONE/APAP 10-325 MG TABLET PO PRN ×2 (04:24→09:32)
--- NOTE | 2017-02-14 04:25 | NUR ---
RECEIVED ORDER FOR PATIENT TO HAVE NORCO 10MG PO PRN FOR SEVERE PAIN. C/O 04/03 IN BILATERAL LE. WILL CONTINUE TO MONITOR.
--- NOTE | 2017-02-14 06:46 | NUR ---
PATIENT AWAKE, SITTING AT EDGE OF BED. NO C/O PAIN AT THIS TIME. CALL LIGHT IN REACH. ALL NEEDS ATTENDED.
[2017-02-14] MEDS: PANTOPRAZOLE SODIUM 40 MG TABLET.DR PO SCH (07:27)
--- NOTE | 2017-02-14 07:30 | NUR ---
RECEIVED REPORT FROM EMERGENCY DEPARTMENT DIRECTOR NURSE. PATIENT AT EDGE OF BED SITTING AND MAKING GOOD CONVERSATION, NO EVIDENCE OF DISTRESS NOTED.
[2017-02-14] MEDS ORDERED: Medication Not On Formulary EA (Gabapentin 600 MG) PO SCH (09:00)
[2017-02-14] MEDS ORDERED: SILVER SULFADIAZINE 1% CREAM 50 GM TP SCH (09:00)
[2017-02-14] MEDS: METOPROLOL TARTRATE 50 MG TABLET PO SCH ×2 (09:24→16:28)
[2017-02-14] MEDS: ACIDOPHILUS/BULGARICUS CHEW TAB PO SCH ×2 (09:25→20:57)
[2017-02-14] MEDS: ISOSORBIDE MONONITRATE 60 MG TAB.SR.24H PO SCH (09:25)
[2017-02-14] MEDS: GABAPENTIN 300 MG CAPSULE PO SCH (09:25)
[2017-02-14] MEDS: ASCORBIC ACID 500 MG TABLET PO SCH ×2 (09:25→20:57)
[2017-02-14] MEDS: ASPIRIN 81 MG TAB.CHEW PO SCH (09:25)
[2017-02-14] MEDS: SILVER SULFADIAZINE 1% CREAM 50 GM TP SCH (09:26)
[2017-02-14] MEDS: ZINC SULFATE 220 MG CAPSULE PO SCH (09:26)
[2017-02-14 11:52] VITALS: BP 122/70
--- NOTE | 2017-02-14 12:11 | NUR ---
CLINICAL PHARMACY NOTE: VANCOMYCIN PHARMACY TO DOSE Subjective: To start vancomycin for this previously admitted 61 y/o obese gentleman for ongoing cellulitis Objective: height 175 cm weight 139 kg BMI 45.5 BUN 16 (01/30) Scr 1.2 (01/30) Wbc --- temp 98 Assessment/Plan As patient was recently admitted and has also prior visits with similar renal fxn, will start pt based on previous regimen of 2gm q16hrs for estimated trough of 16. Will check labs in am and adjust if Scr varies significantly from last result on 01/30. Will otherwise check trough before 4th scheduled dose of regimen. will continue to follow
--- NOTE | 2017-02-14 13:00 | NUR ---
MIDLINE IV PLACED IN UPPER RIGHT ARM 18G
[2017-02-14] MEDS: VANCOMYCIN IV 2,000 MG in IV DEXTROSE 5% 500 ML IV SCH (13:50)
--- NOTE | 2017-02-14 15:00 | NUR ---
PATIENTS PAIN IS NOT RELIEVED BY THE 2MG MORPHINE WHICH HAD PREVIOUSLY BEEN ORDERED. CONTACTED DR LISA TO CHANGE PAIN MEDICATION. 1MG DILAUDID Q4HR PRN FOR SEVERE PAIN ORDERED.
[2017-02-14 15:42] VITALS: BP 104/62
[2017-02-14] MEDS: HYDROMORPHONE 2 MG/1 ML DISP.SYRIN IV PRN ×2 (16:30→20:51)
--- NOTE | 2017-02-14 17:00 | NUR ---
BANDAGES CHANGED AND WOUND CARE PERFORMED ON BOTH LOWER EXTREMITIES. PATIENT WAS IN PAIN, AND DID NOT WANT TO TAKE THE TIME TO ALLOW ME TO TAKE PHOTOS OF BOTH LEGS.
--- NOTE | 2017-02-14 18:42 | NUR ---
PATIENT IS IN BED INTERMITTENTLY SLEEPING/AWAKE. NO EVIDENCE OF DISTRESS NOTED AT THIS TIME, NO SHORTNESS OF BREATH, NO PAIN NOTED. BED IN LOW POSITION, SIDE RAILS UPX2.
--- NOTE | 2017-02-14 19:00 | NUR ---
RECEIVED PATIENT IN BED ASLEEP, NO SOB NO CHEST PAIN NOTED, CONT ON PAIN MANAGEMENT OF LEG CELLULITIS, MIDLINE ON R UPPER ARM PATENT, CONT TO MONITOR.
[2017-02-14 20:00] VITALS: BP 102/57
[2017-02-14] MEDS: ARIPIPRAZOLE 5 MG TABLET PO SCH (20:57)
[2017-02-14] MEDS: ATORVASTATIN 10 MG TABLET PO SCH (20:57)
[2017-02-15] MEDS: HYDROMORPHONE 2 MG/1 ML DISP.SYRIN IV PRN ×5 (00:29→18:28)
[2017-02-15] MEDS: VANCOMYCIN IV 2,000 MG in IV DEXTROSE 5% 500 ML IV SCH (04:29)
--- NOTE | 2017-02-15 04:30 | NUR ---
PATIENT REQUESTED PAIN MEDICATIONS BUT THEN REFUSED TO TAKE NOW, WANTED TO TAKE IT LATER ON. RESPECT PATIENT REQUEST.
[2017-02-15 05:30] VITALS: BP 120/71
[2017-02-15] MEDS: PANTOPRAZOLE SODIUM 40 MG TABLET.DR PO SCH (06:50)
--- NOTE | 2017-02-15 07:10 | NUR ---
RECEIVED REPORT FROM METER CHANGES RECORDS CLERK NURSE SHE WAS TAKING PATIENTS BLOOD PRESSURE DUE TO CONCERNS BY THE PATIENT THAT IT IS ELEVATED. BP WAS WITHIN NORMAL LIMITS, PATIENT REPORTS RELIEF OF DISCOMFORT BY REPOSITIONING.
--- NOTE | 2017-02-15 07:18 | NUR ---
PATIENT COMPLAIN OF CHEST HEAVINESS, V/S 130/75. PULSE 89, OXYGEN SAT 96% ROOM AIR, BUT THEN PATIENT SAID THAT CHEST HEAVINESS DOES NOT RADIATES TO LEFT ARM AND SHOULDER, AND RELIEVES WHEN HE SEAT UP, AND HE CLAIMED THAT IT MIGHT BE THE WAY HE SLEEP CAUSING THE CHEST HEAVINESS. CONT TO MONITOR, ENDORSE TO NEXT SHIFT. CONT ON PAIN MANAGEMENT, NO S/S OF DISTRESS.
--- NOTE | 2017-02-15 08:05 | NUR ---
PATIENT IS AT THE EDGE OF THE BED AGITATED AND HAS FLIGHT OF IDEAS AND PARANOID THOUGHT PATTERNS AEB STATING THAT "SOMEONE HAS BEEN PAID TO DELIBERATELY CAUSE ME PAIN" AND "A DIRTY NEEDLE WAS PLACED IN A NEW PACKAGE SO THAT I WOULD GET AN INFECTION". ALL OF PATIENTS REQUESTS FOR NEW BEDDING, FOOD MODIFICATIONS AND BELONGING BAGS HAVE BEEN MET.
[2017-02-15] MEDS: LEVOFLOXACIN 500 MG TABLET PO SCH (09:00)
[2017-02-15] MEDS: ASPIRIN 81 MG TAB.CHEW PO SCH (09:08)
[2017-02-15] MEDS: ASCORBIC ACID 500 MG TABLET PO SCH ×2 (09:09→21:08)
[2017-02-15] MEDS: METOPROLOL TARTRATE 50 MG TABLET PO SCH ×2 (09:09→17:36)
[2017-02-15] MEDS: ACIDOPHILUS/BULGARICUS CHEW TAB PO SCH ×2 (09:09→21:08)
[2017-02-15] MEDS: GABAPENTIN 300 MG CAPSULE PO SCH (09:09)
[2017-02-15] MEDS: ISOSORBIDE MONONITRATE 60 MG TAB.SR.24H PO SCH (09:09)
[2017-02-15] MEDS: ZINC SULFATE 220 MG CAPSULE PO SCH (09:09)
[2017-02-15] MEDS: SILVER SULFADIAZINE 1% CREAM 50 GM TP SCH ×2 (09:10→09:18)
--- NOTE | 2017-02-15 10:10 | NUR ---
Patient reported chest pain, vitals were recorded and WNL, Dr. Babcock notified, orders put in for STAT CBC, BMP, MAG, PHOS, Troponin, and Oxygen. Clinical Research Assistant was unable to draw blood, ER nurse unable to draw blood, but was able to put in an upper arm IV on left side. Midline service called, and reported that they will be here by 12noon.
[2017-02-15 12:12] VITALS: BP 95/51
--- NOTE | 2017-02-15 13:00 | NUR ---
PATIENT REFUSED TO HAVE A NEW MIDLINE INSERTED TO RETRIEVE BLOOD FOR TESTS ORDERED BY DR LISA. AFTER SEVERAL ATTEMPTS AND PATIENT'S NONCOMPLIANCE AND PULLING AWAY FROM NEEDLE STICKS MINIMAL BLOOD WAS RETRIEVED FOR TESTING. PATIENT CONTINUES TO HAVE PARANOID THOUGHTS AND EXPRESSIONS STATING THAT "YOU ARE ALL BEING PAID TO HURT ME".
[2017-02-15 14:27] LABS: BASOPHILS # (AUTO) 0.4 K/uL (0.0-8.0); EOSINOPHILS # (AUTO) 0.1 K/uL (0.0-0.7); EOSINOPHILS % (AUTO) 1.5 % (0.0-7.0); HEMATOCRIT 33.6 % (40-50); HEMOGLOBIN 11.1 G/DL (14.0-18.0); LYMPHOCYTES # (AUTO) 1.1 K/UL (0.8-4.8); LYMPHOCYTES % (AUTO) 11.1 % (20.5-51.5); MEAN CORPUSCULAR HEMOGLOBIN 30.6 UUG (27.0-31.0); MEAN CORPUSCULAR HGB CONC 33 g/dL (32.0-37.0); MEAN CORPUSCULAR VOLUME 92.9 FL (82.0-92.0); MONOCYTES # (AUTO) 0.9 K/UL (0.1-1.30); MONOCYTES % (AUTO) 8.8 % (0.0-11.0); NEUTROPHILS # (AUTO) 7.2 K/UL (1.8-8.9); NEUTROPHILS % (AUTO) 74.6 % (38.5-71.5); PLATELET COUNT (AUTO) 363 K/UL (150-450); RED BLOOD CELL COUNT(AUTO) 3.62 MIL/UL (4.7-6.1); WHITE BLOOD COUNT (AUTO) 9.7 K/UL (4.0-11.2)
[2017-02-15 14:31] LABS: CREATININE 0.9 mg/dL (0.6-1.3); MAGNESIUM 2.4 mg/dL (1.8-2.4); PHOSPHOROUS 3.4 mg/dL (2.5-4.9); POTASSIUM 4.1 mmol/L (3.5-5.1)
--- NOTE | 2017-02-15 14:52 | NUR ---
Clinical pharmacy note-Vancomycin dosing per pharmacy Subjective: To continue Vancomycin dosing on this patient for cellulitis Objective: BUN 22 Scr 0.9 WBC 9.7 Temp 98.7 Assessment/Plan: Since renal function changed significantly(scr 0.9 vs 1.2), will increase dose to 2 gram iv every 12hrs(second dose today at 1600) and draw trough by 4th dose(ordered for tomorrow at 1530) for expected trough around 14.58. Will monitor daily and follow.
[2017-02-15 15:52] VITALS: BP 112/61
[2017-02-15] MEDS ORDERED: VANCOMYCIN IV 2,000 MG in IV DEXTROSE 5% 500 ML IV SCH (16:00)
--- NOTE | 2017-02-15 16:00 | NUR ---
PATIENT REFUSED TO HAVE LEG WOUNDS CLEANSED, TREATED AND WRAPPED. PATIENT ASKED FOR ABD PADS FOR THE LEFT LEG THAT HAD FALLEN OFF, AND A NEW BANDAGE TO WRAP ON HIS OWN.
--- NOTE | 2017-02-15 18:05 | NUR ---
PATIENT REQUESTED PAIN MEDICATION SO THAT WOUND CARE COULD BE PERFORMED A HALF HOUR LATER. PATIENT WAS INFORMED THAT THIS WOULD GO INTO SHIFT CHANGE AND THAT IT WILL NEED TO BE DONE LATER IN THE EVENING BY THE ONCOMING SHIFT.
--- NOTE | 2017-02-15 18:48 | NUR ---
PATIENT HAD SEVERE PAIN IN LEFT ARM IV ALSO AND REQUESTED TO PULL IT OUT BECKI. INFECTIOUS DISEASE DOCTOR IS GOING TO CHANGE ALL IV MEDICATIONS TO PO
--- NOTE | 2017-02-15 19:00 | NUR ---
PATIENT AWAKE ALERT, ABLE TO MAKE NEEDS KNOWN NO SOB NO CHEST PAIN NOTED, TROPONIN LEVEL WNL, CONT ON PAIN MANAGEMENT, CALL LIGHT WITHIN REACH.
[2017-02-15 19:52] VITALS: BP 114/48
[2017-02-15] MEDS: ATORVASTATIN 10 MG TABLET PO SCH (21:08)
[2017-02-15] MEDS: ARIPIPRAZOLE 5 MG TABLET PO SCH (21:08)
[2017-02-15] MEDS: AMOXICILLIN TRIHYDRATE 500 MG CAPSULE PO SCH (21:08)
[2017-02-15] MEDS: HYDROCODONE/APAP 10-325 MG TABLET PO PRN (21:09)
--- NOTE | 2017-02-16 | NUR ---
PATIENT AWAKE VERBALLY RESPONSIVE, CONT ON PAIN MANAGEMENT, WOUND TREATMENT DONE ORDERED, WOUND WITH SEROANGENOUS DRAINING IN MODERATE AMOUNT. CONT TO MONITOR.
[2017-02-16] MEDS: HYDROCODONE/APAP 10-325 MG TABLET PO PRN ×6 (02:19→19:59)
[2017-02-16 05:09] VITALS: BP 123/64
[2017-02-16] MEDS: AMOXICILLIN TRIHYDRATE 500 MG CAPSULE PO SCH ×3 (05:40→22:28)
[2017-02-16] MEDS: ACIDOPHILUS/BULGARICUS CHEW TAB PO SCH ×3 (05:40→22:28)
[2017-02-16] MEDS: PANTOPRAZOLE SODIUM 40 MG TABLET.DR PO SCH (06:01)
--- NOTE | 2017-02-16 06:34 | NUR ---
PATIENT SLEPT ON AND OFF ALL NIGHT, MEDICATED FOR PAIN ORDERED WITH HELP AFTER ONE HOUR, CONSENT OBTAINED FOR WOUND DEBRIDEMENT, PATIENT HAS NO IV LINE AT THIS TIME, PO PAIN MEDS GIVEN ORDERED. NO SOB NO CHEST PAIN. CONT TO MONITOR.
--- NOTE | 2017-02-16 07:04 | NUR ---
PATIENT REFUSED GARAMYCIN OINT TO BE APPLIED TO HIS WOUND, PREFER SILVADENE CREAM, RESPECT PATIENT WISHES. ENDORSED TO NEXT SHIFT.
--- NOTE | 2017-02-16 07:20 | NUR ---
RECEIVED REPORT FROM CONDENSER TUBE TENDER. PATIENT AT THE BEDSIDE, COMPLAINING ABOUT "INTENTIONAL PAIN" CAUSED TO HIM WITH THE MIDLINE INSERTION. PATIENT WAS INFORMED THAT ALL OF HIS MEDICATIONS HAVE BEEN CHANGED TO po.
[2017-02-16] MEDS: METOPROLOL TARTRATE 50 MG TABLET PO SCH ×2 (08:34→17:00)
[2017-02-16] MEDS: LEVOFLOXACIN 500 MG TABLET PO SCH (08:34)
[2017-02-16] MEDS: ISOSORBIDE MONONITRATE 60 MG TAB.SR.24H PO SCH (08:34)
[2017-02-16] MEDS: ASCORBIC ACID 500 MG TABLET PO SCH ×2 (08:34→20:02)
[2017-02-16] MEDS: GABAPENTIN 300 MG CAPSULE PO SCH (08:35)
[2017-02-16] MEDS: ASPIRIN 81 MG TAB.CHEW PO SCH (08:35)
[2017-02-16] MEDS: ZINC SULFATE 220 MG CAPSULE PO SCH (08:35)
[2017-02-16] MEDS ORDERED: GENTAMICIN SULFATE 0.1% OINT 15 GM TUBE TOP SCH (09:00)
[2017-02-16] MEDS ORDERED: SODIUM HYPOCHLORITE 0.125% 473 ML BOTTLE TP SCH (09:00)
[2017-02-16 11:11] VITALS: BP 142/71
[2017-02-16] MEDS ORDERED: KETOROLAC TROMETHAMINE 30 MG INJ IM PRN (15:15)
[2017-02-16 15:24] VITALS: BP 112/74
[2017-02-16 15:26] LABS: BASOPHILS % (AUTO) 0.3 % (0.0-2.0); EOSINOPHILS # (AUTO) 0.2 K/uL (0.0-0.7); EOSINOPHILS % (AUTO) 2.2 % (0.0-7.0); HEMATOCRIT 33.8 % (40-50); HEMOGLOBIN 11.1 G/DL (14.0-18.0); LYMPHOCYTES # (AUTO) 1.4 K/UL (0.8-4.8); LYMPHOCYTES % (AUTO) 17.3 % (20.5-51.5); MEAN CORPUSCULAR HEMOGLOBIN 30.4 UUG (27.0-31.0); MEAN CORPUSCULAR HGB CONC 33 g/dL (32.0-37.0); MEAN CORPUSCULAR VOLUME 92.6 FL (82.0-92.0); MONOCYTES # (AUTO) 0.8 K/UL (0.1-1.30); MONOCYTES % (AUTO) 10.7 % (0.0-11.0); NEUTROPHILS # (AUTO) 5.5 K/UL (1.8-8.9); NEUTROPHILS % (AUTO) 69.5 % (38.5-71.5); PLATELET COUNT (AUTO) 445 K/UL (150-450); RED BLOOD CELL COUNT(AUTO) 3.64 MIL/UL (4.7-6.1); WHITE BLOOD COUNT (AUTO) 7.9 K/UL (4.0-11.2)
[2017-02-16 15:28] LABS: BILIRUBIN,TOTAL 0.2 mg/dL (0.2-1.0); MAGNESIUM 2.3 mg/dL (1.8-2.4); PHOSPHOROUS 3.4 mg/dL (2.5-4.9); POTASSIUM 4.5 mmol/L (3.5-5.1); TOTAL PROTEIN, SERUM 7.3 g/dL (6.4-8.2)
--- NOTE | 2017-02-16 17:43 | NUR ---
PATIENT WAS OFFERED TO CLEANSE AND CHANGE BILATERAL LEG BANDAGE MULTIPLE TIMES THROUGHOUT THE DAY, EACH RESPONSE WAS DIRECTED TOWARD THE NEED FOR A MIDLINE THAT WILL NOT "INTENTIONALLY HURT" HIM, SO THAT HE CAN BE MEDICATED. PATIENT ALSO REFUSED TO HAVE GENTAMICIN AND DAKIN'S USED ON WOUNDS. ORDERS REQUESTED FROM DR JUNG TO CHANGE TOPICAL OINTMENT, AND PATIENT REFUSED DUE TO NO IV PAIN MEDICATION ALTHOUGH HE WAS OFFERED 30MG TORADOL IM.
[2017-02-16 19:00] VITALS: BP 146/65
[2017-02-16] MEDS: ATORVASTATIN 10 MG TABLET PO SCH (20:02)
[2017-02-16] MEDS: ARIPIPRAZOLE 5 MG TABLET PO SCH (20:02)
[2017-02-17] MEDS: HYDROCODONE/APAP 10-325 MG TABLET PO PRN ×6 (00:01→22:56)
[2017-02-17] MEDS ORDERED: SILVER SULFADIAZINE 1% CREAM 25 GM TUBE TP ONE (00:33)
--- NOTE | 2017-02-17 01:30 | NUR ---
SOAKED AND SOILED DRESSING ON BILATERAL EXTREMITIES NOTED. CHANGED DRESSING, WOUND TX ORDERED. PATIENT TOLERATED PROCEDURE WELL, PATIENT IN NO ACUTE DISTRESS. WILL CONTINUE TO MONITOR.
[2017-02-17 04:00] VITALS: BP 165/81
[2017-02-17] MEDS: AMOXICILLIN TRIHYDRATE 500 MG CAPSULE PO SCH ×3 (05:00→21:45)
[2017-02-17] MEDS: ACIDOPHILUS/BULGARICUS CHEW TAB PO SCH ×3 (05:00→21:45)
--- NOTE | 2017-02-17 06:30 | NUR ---
PATIENT SLEPT INTERMITTENTLY, IN NO ACUTE DISTRESS. PAIN MANAGEMENT ORDERED. CALL LIGHT WITHIN REACH, BED ALARM ON. WILL CONTINUE TO MONITOR.
[2017-02-17] MEDS: PANTOPRAZOLE SODIUM 40 MG TABLET.DR PO SCH (06:35)
[2017-02-17] MEDS: HYDROMORPHONE 2 MG/1 ML DISP.SYRIN IV PRN (08:40)
[2017-02-17] MEDS: SILVER SULFADIAZINE 1% CREAM 50 GM TP SCH (09:00)
[2017-02-17] MEDS: LEVOFLOXACIN 500 MG TABLET PO SCH (09:00)
[2017-02-17] MEDS ORDERED: SODIUM HYPOCHLORITE 0.125% 473 ML BOTTLE TP SCH (09:00)
[2017-02-17] MEDS ORDERED: GENTAMICIN SULFATE 0.1% OINT 15 GM TUBE TOP SCH (09:00)
[2017-02-17] MEDS: METOPROLOL TARTRATE 50 MG TABLET PO SCH ×2 (09:00→17:30)
[2017-02-17] MEDS: ISOSORBIDE MONONITRATE 60 MG TAB.SR.24H PO SCH (09:00)
[2017-02-17] MEDS: ZINC SULFATE 220 MG CAPSULE PO SCH (09:12)
[2017-02-17] MEDS: ASCORBIC ACID 500 MG TABLET PO SCH ×2 (09:12→21:45)
[2017-02-17] MEDS: ASPIRIN 81 MG TAB.CHEW PO SCH (09:12)
[2017-02-17] MEDS: GABAPENTIN 300 MG CAPSULE PO SCH (09:14)
[2017-02-17 11:08] VITALS: BP 136/69
[2017-02-17 15:19] VITALS: BP 119/60
--- NOTE | 2017-02-17 20:00 | NUR ---
DR. MURRAY CALLED REGARDING PLAN FOR PATIENT'S INCISION AND DRAINAGE.
[2017-02-17] MEDS ORDERED: LIDOCAINE 1%-EPI 1:100,000 20 ML VIAL TP ONE (20:30)
--- NOTE | 2017-02-17 20:30 | NUR ---
DR. MURRAY SAW PATIENT REGARDING SCHEDULING INCISION AND DRAINAGE OF BILATERAL LEGS TOMORROW MORNING 02/18/17. CONSENT SIGNED AND PLACED IN PATIENT'S CHART.
[2017-02-17 20:43] VITALS: BP 129/60
[2017-02-17] MEDS: ATORVASTATIN 10 MG TABLET PO SCH (21:45)
[2017-02-17] MEDS: ARIPIPRAZOLE 5 MG TABLET PO SCH (21:45)
[2017-02-18] MEDS: HYDROCODONE/APAP 10-325 MG TABLET PO PRN ×4 (02:57→16:09)
[2017-02-18 04:57] VITALS: BP 103/60
[2017-02-18] MEDS: AMOXICILLIN TRIHYDRATE 500 MG CAPSULE PO SCH ×3 (05:03→21:03)
[2017-02-18] MEDS: ACIDOPHILUS/BULGARICUS CHEW TAB PO SCH ×3 (05:03→21:03)
--- NOTE | 2017-02-18 06:27 | NUR ---
PATIENT AWAKE MOST OF THE TIME THROUGHOUT THE SHIFT. PATIENT IS IN NO ACUTE DISTRESS. PAIN MANAGEMENT Q4H ORDERED. NO SIGNIFICANT CHANGE OF CONDITION THROUGHOUT THE SHIFT. CALL LIGHT WITHIN REACH, WILL CONTINUE TO MONITOR.
[2017-02-18] MEDS: PANTOPRAZOLE SODIUM 40 MG TABLET.DR PO SCH (06:36)
--- NOTE | 2017-02-18 08:33 | NUR ---
Prepped for DR Castellanos debridement of Edward LE's today - all equipments needed and ordered are set up. Discussed plan of care with pt re: pain mangement, fall precautions. pt agreeable with plan of care. Call light is within reach. Dressing intact on Edward leg.
[2017-02-18] MEDS: METOPROLOL TARTRATE 50 MG TABLET PO SCH ×2 (09:01→16:09)
[2017-02-18] MEDS: ASCORBIC ACID 500 MG TABLET PO SCH ×2 (09:01→20:13)
[2017-02-18] MEDS: ASPIRIN 81 MG TAB.CHEW PO SCH (09:02)
[2017-02-18] MEDS: ISOSORBIDE MONONITRATE 60 MG TAB.SR.24H PO SCH (09:02)
[2017-02-18] MEDS: LEVOFLOXACIN 500 MG TABLET PO SCH (09:02)
[2017-02-18] MEDS: ZINC SULFATE 220 MG CAPSULE PO SCH (09:02)
[2017-02-18] MEDS: GABAPENTIN 300 MG CAPSULE PO SCH (09:02)
[2017-02-18] MEDS: SILVER SULFADIAZINE 1% CREAM 50 GM TP SCH ×2 (09:08→23:20)
[2017-02-18 11:08] VITALS: BP 127/71
[2017-02-18 15:12] VITALS: BP 134/66
--- NOTE | 2017-02-18 16:30 | NUR ---
Asked pt if ok to change dressing- pt refused change. "Dr Thomson is going to do the debridement today. W will change the dressing after" New IV inserted earlier by Nursing pbx supervisor KATHARINA intact on right f/a 20gauge flushed and intact.
--- NOTE | 2017-02-18 18:30 | NUR ---
Pt is in no acute distress. Plan of care effective. Call light is within reach. Dr Thomson did not come this shift for the debribement.
[2017-02-18] MEDS: ARIPIPRAZOLE 5 MG TABLET PO SCH (20:13)
[2017-02-18] MEDS: ATORVASTATIN 10 MG TABLET PO SCH (20:13)
[2017-02-18 20:24] VITALS: BP 118/69
[2017-02-18] MEDS: HYDROMORPHONE 2 MG/1 ML DISP.SYRIN IV PRN (20:59)
--- NOTE | 2017-02-18 22:00 | NUR ---
DR. MURRAY CALLED FOR DEBRIDEMENT PROCEDURE ON PATIENT'S BILATERAL LOWER EXTREMITIES TO BE DONE TONIGHT. MD TELEPHONE ORDERS TAKEN AND CARRIED OUT. PREMEDICATED PATIENT BEFORE DEBRIDEMENT PROCEDURE. PT IS ALERT, IN NO ACUTE DISTRESS, VS STABLE.
[2017-02-18] MEDS ORDERED: LIDOCAINE HCL 1% 20 ML VIAL ONE (22:11)
[2017-02-18] MEDS ORDERED: HYDROCODONE/APAP 10-325 MG TABLET PO ONE (22:15)
[2017-02-18] MEDS ORDERED: HYDROMORPHONE 2 MG/1 ML DISP.SYRIN IV ONE (22:15)
[2017-02-18] MEDS ORDERED: HYDROMORPHONE 2 MG/1 ML DISP.SYRIN ONE (22:24)
[2017-02-18] MEDS ORDERED: HYDROCODONE/APAP 10-325 MG TABLET ONE (22:25)
[2017-02-18] MEDS ORDERED: LIDOCAINE 2%-EPI 1:100,000 20 ML VIAL MC ONE (22:30)
[2017-02-18] MEDS ORDERED: LIDOCAINE 1%-EPI MPF 1:200,000 30 ML VIAL MC ONE (22:30)
--- NOTE | 2017-02-18 22:30 | NUR ---
ASSISTED DR. MURRAY WITH WOUND DEBRIDEMENT PROCEDURE. PATIENT TOLERATED PROCEDURE WELL, IN NO ACUTE DISTRESS, NO SOB, NO CHEST PAIN.
--- NOTE | 2017-02-18 23:15 | NUR ---
POST DEBRIDEMENT PHOTOGRAPHS TAKEN AND PLACED IN CHART. WOUND DRESSING DONE ORDERED. PATIENT IS COOPERATIVE. WILL CONTINUE TO MONITOR.
[2017-02-19] MEDS: HYDROCODONE/APAP 10-325 MG TABLET PO PRN ×4 (04:37→20:50)
[2017-02-19 05:31] VITALS: BP 125/66
--- NOTE | 2017-02-19 05:49 | NUR ---
PT SLEPT INTERMITTENTLY, IN NO ACUTE DISTRESS, NO SOB, NO CHEST PAIN. DRESSING ON BILATERAL LOWER EXTREMITIES CLEAN/DRY/INTACT. PAIN MANAGEMENT ORDERED. CALL LIGHT WITHIN REACH. WILL CONTINUE TO MONITOR.
[2017-02-19] MEDS: ACIDOPHILUS/BULGARICUS CHEW TAB PO SCH ×3 (06:23→21:48)
[2017-02-19] MEDS: AMOXICILLIN TRIHYDRATE 500 MG CAPSULE PO SCH ×3 (06:23→21:48)
[2017-02-19] MEDS: PANTOPRAZOLE SODIUM 40 MG TABLET.DR PO SCH (06:23)
[2017-02-19] MEDS: HYDROMORPHONE 2 MG/1 ML DISP.SYRIN IV PRN ×5 (06:24→21:37)
[2017-02-19] MEDS: ASCORBIC ACID 500 MG TABLET PO SCH ×2 (08:45→20:49)
[2017-02-19] MEDS: LEVOFLOXACIN 500 MG TABLET PO SCH (08:45)
[2017-02-19] MEDS: GABAPENTIN 300 MG CAPSULE PO SCH (08:45)
[2017-02-19] MEDS: ZINC SULFATE 220 MG CAPSULE PO SCH (08:45)
[2017-02-19] MEDS: METOPROLOL TARTRATE 50 MG TABLET PO SCH ×2 (08:45→17:00)
[2017-02-19] MEDS: ASPIRIN 81 MG TAB.CHEW PO SCH (08:46)
[2017-02-19] MEDS: ISOSORBIDE MONONITRATE 60 MG TAB.SR.24H PO SCH (08:46)
--- NOTE | 2017-02-19 08:50 | NUR ---
Patient is in a pleasant and cooperative mood this morning. Pain med given. Scheduled meds given. Patient will try and rest, reports poor sleep last night.
[2017-02-19 11:50] VITALS: BP 115/59
[2017-02-19 16:12] VITALS: BP 116/62
--- NOTE | 2017-02-19 17:35 | NUR ---
Patient has been pleasant and cooperative all day. No noted distress. Pain well controlled by pain medications. Compliant and cooperative with all care.
--- NOTE | 2017-02-19 20:00 | NUR ---
RECEIVED PATIENT AWAKE IN BED. A/O X4. APPROPRIATE AND PLEASANT WHEN APPROACHED. C/O PAIN IN LOWER LEGS. DRESSING INTACT WITH MINIMAL DRAINAGE NOTED. VSS. CALL LIGHT IN REACH. ALL NEEDS ATTENDED. WILL CONTINUE TO MONITOR.
[2017-02-19] MEDS ORDERED: HYDROMORPHONE 1 MG/1 ML DISP.SYRIN IV PRN (20:30)
[2017-02-19 20:41] VITALS: BP 105/56
[2017-02-19] MEDS: ATORVASTATIN 10 MG TABLET PO SCH (20:49)
[2017-02-19] MEDS: ARIPIPRAZOLE 5 MG TABLET PO SCH (20:49)
[2017-02-19] MEDS: SILVER SULFADIAZINE 1% CREAM 50 GM TP SCH (21:48)
--- NOTE | 2017-02-19 23:00 | NUR ---
DRESSINGS NOTED TO BILATERAL LOWER EXTREMITIES CHANGED. PATIENT IS VERY DETAILED AND PARTICULAR IN HOW HIS DRESSINGS ARE CHANGED. WILL CONTINUE TO MONITOR.
[2017-02-20] MEDS: HYDROMORPHONE 2 MG/1 ML DISP.SYRIN IV PRN ×5 (01:52→16:04)
[2017-02-20] MEDS: HYDROCODONE/APAP 10-325 MG TABLET PO PRN ×2 (03:53→08:05)
[2017-02-20] MEDS: ACIDOPHILUS/BULGARICUS CHEW TAB PO SCH ×2 (05:59→13:10)
[2017-02-20] MEDS: AMOXICILLIN TRIHYDRATE 500 MG CAPSULE PO SCH ×2 (06:00→13:10)
[2017-02-20 06:01] VITALS: BP 125/62
[2017-02-20] MEDS: PANTOPRAZOLE SODIUM 40 MG TABLET.DR PO SCH (06:07)
--- NOTE | 2017-02-20 06:58 | NUR ---
PATIENT AWAKE IN BED. NO C/O PAIN AT THIS TIME. WAS PREVIOUSLY MEDICATED AT 0530. SLEPT AT INTERVALS. DRESSING INTACT. ALL NEEDS ATTENDED.
--- NOTE | 2017-02-20 07:58 | NUR ---
PATIENT RECEIVED IN ROOM ALERT AWAKE IN NO ACUTE DISTRESS. RESPIRATIONS EVEN AND UNLABORED. C/O PAIN TO BLE. CALL LIGHT AT REACH.
[2017-02-20] MEDS: GABAPENTIN 300 MG CAPSULE PO SCH (08:03)
[2017-02-20] MEDS: METOPROLOL TARTRATE 50 MG TABLET PO SCH (08:06)
[2017-02-20] MEDS: ISOSORBIDE MONONITRATE 60 MG TAB.SR.24H PO SCH (08:07)
[2017-02-20] MEDS: LEVOFLOXACIN 500 MG TABLET PO SCH (08:07)
[2017-02-20] MEDS: ASCORBIC ACID 500 MG TABLET PO SCH (08:07)
[2017-02-20] MEDS: ASPIRIN 81 MG TAB.CHEW PO SCH (08:07)
[2017-02-20] MEDS: ZINC SULFATE 220 MG CAPSULE PO SCH (08:08)
[2017-02-20] MEDS: SILVER SULFADIAZINE 1% CREAM 50 GM TP SCH (10:04)
[2017-02-20 11:07] VITALS: BP 108/53
[2017-02-20] MEDS ORDERED: AMOX500T2 PO (13:31)
[2017-02-20 15:07] VITALS: BP 114/79
--- NOTE | 2017-02-20 17:17 | NUR ---
DISCHARGING PATIENT TO SELF IN A STABLE CONDITION. REFUSES FDC. VSS. PAIN MANAGED WITH MEDICATION PRESCRIBED. DISCHARGE INSTRUCTIONS GIVEN TO PATIENT. NEW PRESCRIPTIONS PROVIDED. REFUSED TO TALK TO PHARMACIST REGARDING NEW PRESCRIPTIONS. REFUSED DRESSING TO BLE THEREFOR UNABLE TO TAKE PICTURES. LIST OF BELONGINGS SIGNED AND ALL WAS TAKEN. IV REMOVED, PRESSURE APPLIED AND HEMOSTASIS ACHIEVED.
== END 2017-02-20 18:30 | disposition home or self-care (01) | DRG 383 ==
LOC: ER 00:08 → MED 03:00
PROVIDERS: ADMIT Internal Medicine; ATTEND Internal Medicine
DX: L03.116 Cellulitis of left lower limb (principal); N17.0 Acute kidney failure with tubular necrosis; Z68.42 Body mass index [BMI] 45.0-49.9, adult; M41.9 Scoliosis, unspecified; L97.811 Non-pressure chronic ulcer of other part of right lower leg limited to breakdown of skin; E66.01 Morbid (severe) obesity due to excess calories; L03.115 Cellulitis of right lower limb; I87.2 Venous insufficiency (chronic) (peripheral); L97.821 Non-pressure chronic ulcer of other part of left lower leg limited to breakdown of skin; B96.5 Pseudomonas (aeruginosa) (mallei) (pseudomallei) as the cause of diseases classified elsewhere; B95.2 Enterococcus as the cause of diseases classified elsewhere; I25.119 Atherosclerotic heart disease of native coronary artery with unspecified angina pectoris; R73.9 Hyperglycemia, unspecified; B95.61 Methicillin susceptible Staphylococcus aureus infection as the cause of diseases classified elsewhere; M17.0 Bilateral primary osteoarthritis of knee; Z59.0 Homelessness; I89.0 Lymphedema, not elsewhere classified; F17.210 Nicotine dependence, cigarettes, uncomplicated; I25.2 Old myocardial infarction; F31.9 Bipolar disorder, unspecified; K21.9 Gastro-esophageal reflux disease without esophagitis; I73.9 Peripheral vascular disease, unspecified; Z85.72 Personal history of non-Hodgkin lymphomas; D63.8 Anemia in other chronic diseases classified elsewhere; B35.1 Tinea unguium; E78.5 Hyperlipidemia, unspecified; E87.6 Hypokalemia; G89.29 Other chronic pain; Z71.3 Dietary counseling and surveillance; Z74.09 Other reduced mobility; Z83.3 Family history of diabetes mellitus; Z82.49 Family history of ischemic heart disease and other diseases of the circulatory system
CPT/HCPCS: 36415; 36569; 70030-TC; 83735; 84100; 85025; A4217; A4663; J1170; J1885; J2270; J3370; J3490; J7040; J7050; J7060

== ENCOUNTER 2017-03-25 21:59 | Emergency (ER) | payer OTHER ==
[~2017-03-25] VITALS: Ht 175.3 cm; Wt 139.7 kg
[~2017-03-25 21:59] MED LIST changes: +AMOX500T2 PO; -CEPH-570 PO
[2017-03-25 23:12] LABS: BASOPHILS % (AUTO) 0.5 % (0.0-2.0); EOSINOPHILS # (AUTO) 0.2 K/uL (0.0-0.7); EOSINOPHILS % (AUTO) 1.9 % (0.0-7.0); HEMATOCRIT 35.6 % (40-50); HEMOGLOBIN 11.3 G/DL (14.0-18.0); LYMPHOCYTES # (AUTO) 1.7 K/UL (0.8-4.8); LYMPHOCYTES % (AUTO) 17.3 % (20.5-51.5); MEAN CORPUSCULAR HGB CONC 32 g/dL (32.0-37.0); MEAN CORPUSCULAR VOLUME 91.3 FL (82.0-92.0); NEUTROPHILS # (AUTO) 6.7 K/UL (1.8-8.9); NEUTROPHILS % (AUTO) 70.3 % (38.5-71.5); PLATELET COUNT (AUTO) 443 K/UL (150-450); WHITE BLOOD COUNT (AUTO) 9.6 K/UL (4.0-11.2)
[2017-03-25 23:24] LABS: CREATININE 1.6 mg/dL (0.6-1.3); POTASSIUM 3.2 mmol/L (3.5-5.1)
[2017-03-25 23:37] LABS: BILIRUBIN,DIRECT 0.1 mg/dL (0.0-0.2); BILIRUBIN,TOTAL 0.2 mg/dL (0.2-1.0); TOTAL PROTEIN, SERUM 7.5 g/dL (6.4-8.2)
--- NOTE | 2017-03-26 01:16 | NUR ---
Patient discharged to home in stable conditon. Written and verbal after care instructions given. Patient verbalizes understanding of instructions. Wound care provided per MD instruction. All belongings with patient. Ambulated from ER with stable gait.
[2017-03-26 01:23] VITALS: BP 144/87
== END 2017-03-26 01:24 | disposition home or self-care (01) ==
LOC: ER 22:01
DX: G89.29 Other chronic pain (principal); R07.9 Chest pain, unspecified; E66.01 Morbid (severe) obesity due to excess calories; E87.6 Hypokalemia; I10 Essential (primary) hypertension; K21.9 Gastro-esophageal reflux disease without esophagitis; E78.5 Hyperlipidemia, unspecified; Z79.82 Long term (current) use of aspirin
CPT/HCPCS: 36415; 70030-TC; 71010; 85025; 85730; 93005; A4663

== ENCOUNTER 2017-05-02 01:28 | Inpatient (IN) | payer OTHER ==
[~2017-05-02] VITALS: Ht 175.3 cm; Wt 124.3 kg
[2017-05-02 02:38] LABS: BASOPHILS # (AUTO) 0.1 K/uL (0.0-8.0); BASOPHILS % (AUTO) 0.5 % (0.0-2.0); EOSINOPHILS # (AUTO) 0.3 K/uL (0.0-0.7); EOSINOPHILS % (AUTO) 1.8 % (0.0-7.0); HEMOGLOBIN 9.8 G/DL (14.0-18.0); LYMPHOCYTES # (AUTO) 2.1 K/UL (0.8-4.8); LYMPHOCYTES % (AUTO) 14.5 % (20.5-51.5); MEAN CORPUSCULAR HEMOGLOBIN 28.7 UUG (27.0-31.0); MEAN CORPUSCULAR HGB CONC 33 g/dL (32.0-37.0); MEAN CORPUSCULAR VOLUME 88.3 FL (82.0-92.0); MONOCYTES # (AUTO) 0.8 K/UL (0.1-1.30); MONOCYTES % (AUTO) 5.1 % (0.0-11.0); NEUTROPHILS # (AUTO) 11.5 K/UL (1.8-8.9); NEUTROPHILS % (AUTO) 78.1 % (38.5-71.5); WHITE BLOOD COUNT (AUTO) 14.8 K/UL (4.0-11.2)
[2017-05-02] MEDS ORDERED: SILVER SULFADIAZINE 1% CREAM 25 GM TUBE TP ONE ×2 (02:38→03:05)
[2017-05-02 02:45] LABS: PLATELET COUNT (AUTO) 860 K/UL (150-450)
[2017-05-02 02:46] LABS: CREATININE 1.5 mg/dL (0.6-1.3); POTASSIUM 3.4 mmol/L (3.5-5.1)
[2017-05-02 02:52] LABS: BILIRUBIN,TOTAL 0.2 mg/dL (0.2-1.0); TOTAL PROTEIN, SERUM 7.9 g/dL (6.4-8.2)
--- NOTE | 2017-05-02 03:35 | NUR ---
PT RECEIVED FROM ED, VIA [facility]. PT IS A/OX4. ABLE TO MAKE NEEDS KNOWN. ORIENTED TO ROOM. V/S STABLE. IN NO ACUTE DISTRESS. PT C/O OF LOWER LEG PAIN 01/01. WILL ADMIN PAIN MEDICATION ORDERED. NO IV IN PLACE. PT STATES WANTING A MIDLINE PLACED, REFUSES PERIPHERAL IV. UNABLE TO START IV ABX AT THIS TIME. ON RA, TOLERATING WELL. STATES HE HAS SOB WHEN BED IN LOW POSITION. HOB ELEVATED AT THIS TIME. UNABLE TO PHOTO DOCUMENT BILATERAL LOWER LEG CELLULITIS AT THIS TIME, PT REFUSED. STATES THAT DRESSINGS WERE JUST CHANGED. DRESSING C/D/I. LEGS ELEVATED. SAFETY MEASURES IMPLEMENTED. CALL LIGHT WITHIN REACH.
[2017-05-02] MEDS ORDERED: ZOLPIDEM 5 MG TABLET PO PRN (03:45)
[2017-05-02] MEDS ORDERED: ONDANSETRON 4 MG/2 ML VIAL IV PRN (03:45)
[2017-05-02] MEDS ORDERED: CEFTRIAXONE 1 G in IV DEXTROSE 5% 50 ML IV SCH (03:45)
[2017-05-02] MEDS ORDERED: ACETAMINOPHEN 325 MG TABLET PO PRN (03:45)
[2017-05-02 04:00] VITALS: BP 131/66
--- NOTE | 2017-05-02 04:00 | NUR ---
Pt. admitted to [facility], under care of Dr. Mccall Belongs List completed
[2017-05-02] MEDS ORDERED: SILVER SULFADIAZINE 1% CREAM 50 GM TP SCH (04:15)
[2017-05-02] MEDS: HYDROMORPHONE 1 MG/1 ML DISP.SYRIN IV PRN ×5 (05:43→22:42)
[2017-05-02] MEDS ORDERED: HYDROMORPHONE 1 MG/1 ML DISP.SYRIN ONE (05:50)
[2017-05-02] MEDS ORDERED: CEFTRIAXONE 1 G VIAL ONE (06:06)
--- NOTE | 2017-05-02 06:45 | NUR ---
END OF SHIFT NOTES. PT NEEDS ATTENDED. IV PLACED IN RFA, IV ABX INFUSED. IV KEPT TKO. MIDLINE REQUESTED. PAIN MANAGED. DRESSING C/D/I. BILATERAL LEGS ELEVATED. SAFETY MAINTAINED. CALL LIGHT WITHIN REACH.
[2017-05-02] MEDS: LISINOPRIL 20 MG TABLET PO SCH (08:25)
[2017-05-02] MEDS: FUROSEMIDE 20 MG TABLET PO SCH (08:25)
[2017-05-02] MEDS: ISOSORBIDE MONONITRATE 60 MG TAB.SR.24H PO SCH (08:26)
[2017-05-02] MEDS: ASPIRIN 81 MG TAB.CHEW PO SCH (08:26)
[2017-05-02] MEDS: METOPROLOL TARTRATE 50 MG TABLET PO SCH ×2 (08:26→20:55)
[2017-05-02] MEDS: VANCOMYCIN IV 2,000 MG in IV DEXTROSE 5% 500 ML IV SCH (09:56)
[2017-05-02] MEDS: SILVER SULFADIAZINE 1% CREAM 50 GM TP SCH (09:57)
--- NOTE | 2017-05-02 10:25 | NUR ---
WOUND CARE CONSULT WOUND CARE RECEIVED WOUND CONSULT FOR PATIENT. WOUND CARE WILL DEFER TO DR MURRAY AT THIS TIME FOR TREATMENT PLANS AND POSSIBLE DEBRIDEMENT. DR MURRAY HAS BEEN FOLLOWING PATIENT AT BOTH [facility] AND [facility] WHEN PATIENT IS IN THE HOSPITAL. I PLACED CALL TO DR MURRAY TO LET HIM KNOW PATIENT IS RE-ADMITTED BACK AT [facility] AND HE WILL SEE PATIENT.
[2017-05-02] MEDS ORDERED: POTASSIUM CHLORIDE 10 MEQ CAPSULE.SA PO ONE (11:00)
[2017-05-02 11:14] VITALS: BP 98/40
--- NOTE | 2017-05-02 11:29 | NUR ---
CLINICAL PHARMACY NOTE: VANCOMYCIN PHARMACY TO DOSE Subjective: To start vancomycin in this 61 yo male for cellulitis Objective: height 69'' weight 304 lb BUN 30 Scr 1.5 Wbc 14.8 temp 97.6 Assessment/Plan Will start vanco 2gm IVPB q18h for predicted vanco trough around 17 mcg/ml. Second dose due tomorrow at 0400. Will order trough before 4th scheduled dose (not yet ordered). Will monitor renal function & adjust the dose if needed. Will follow
[2017-05-02 15:09] VITALS: BP 96/42
--- NOTE | 2017-05-02 19:30 | NUR ---
RECEIVED SHIFT REPORT FROM PREVIOUS SHIFT NURSE. PATIENT IS A/OX4. PATIENT'S BILATERAL LETS ELEVATED ON PILLOWS. PREVIOUS SHIFT NURSE INFORMED ME THAT PATIENT REFUSES TO HAVE PHOTOS TAKEN OF BOTH LEGS. PATIENT DID NOT COMPLAIN OF PAIN AT THIS TIME. PATIENT IS SAFE. BED IN LOCKED/LOW POSITION WITH SIDE RAILS UP X2. ADVISED PATIENT TO USE CALL LIGHT WHEN ASSISTANCE IS NEEDED. CALL LIGHT WITHIN REACH OF PATIENT. SAFETY AND COMFORT WILL BE PROVIDED THROUGHOUT SHIFT.
[2017-05-02 20:00] VITALS: BP 112/53
[2017-05-02] MEDS: ARIPIPRAZOLE 5 MG TABLET PO SCH (20:54)
[2017-05-02] MEDS: ATORVASTATIN 10 MG TABLET PO SCH (20:55)
[2017-05-03] MEDS ORDERED: VANCOMYCIN 1000 MG VIAL ONE (05:15)
[2017-05-03] MEDS ORDERED: SILVER SULFADIAZINE 1% CREAM 25 GM TUBE TP ONE (05:16)
[2017-05-03] MEDS: CEFTRIAXONE 2 G in IV DEXTROSE 5% 100 ML IV SCH (05:35)
[2017-05-03 06:11] VITALS: BP 122/45
--- NOTE | 2017-05-03 06:46 | NUR ---
Patient slept intermittently through the night. Catered to all of patient's needs. Wound dressing changed as requested by patient. Patient is AOx3, VSS, no s/s of distress. Fall prevention implemented throughout shift. No falls noted. Safety and comfort will be provided until end of shift.
[2017-05-03] MEDS: HYDROMORPHONE 1 MG/1 ML DISP.SYRIN IV PRN ×5 (06:50→23:23)
--- NOTE | 2017-05-03 06:51 | NUR ---
ADMINISTERED DILAUDID 1 MG AT 0430 BEFORE DRESSING CHANGE BUT FORGOT TO SAVE IT ON EMAR. THE TIME WILL BE OFF ON EMAR BUT WILL ENDORSE TO NEXT SHIFT. AGAIN, DILAUDID 1 MG WAS GIVEN AT 0430.
[2017-05-03] MEDS: PANTOPRAZOLE SODIUM 40 MG TABLET.DR PO SCH (07:07)
[2017-05-03 07:28] LABS: BASOPHILS % (AUTO) 0.4 % (0.0-2.0); EOSINOPHILS # (AUTO) 0.1 K/uL (0.0-0.7)
[2017-05-03 07:47] LABS: HEMATOCRIT 24.5 % (36.7-47.1); MEAN CORPUSCULAR HEMOGLOBIN 29.1 uug (23.8-33.4); MEAN CORPUSCULAR HGB CONC 33 g/dL (32.5-36.3); MEAN CORPUSCULAR VOLUME 88.6 fL (73.0-96.2); MONOCYTES % (AUTO) 8.1 % (0.0-11.0); NEUTROPHILS # (AUTO) 10.1 K/uL (1.8-8.9); NEUTROPHILS % (AUTO) 82.5 % (38.5-71.5); RED BLOOD CELL COUNT(AUTO) 2.76 MIL/uL (4.06-5.63); WHITE BLOOD COUNT (AUTO) 12.2 K/uL (3.6-10.2)
[2017-05-03] MEDS: VANCOMYCIN IV 2,000 MG in IV DEXTROSE 5% 500 ML IV SCH ×2 (07:47→21:16)
[2017-05-03 07:48] LABS: PLATELET COUNT (AUTO) 664 K/uL (152-348)
[2017-05-03 07:52] LABS: CREATININE 1.1 mg/dL (0.6-1.3); MAGNESIUM 2.2 mg/dL (1.8-2.4); PHOSPHOROUS 3.2 mg/dL (2.5-4.9); POTASSIUM 4.2 mmol/L (3.5-5.1)
[2017-05-03] MEDS: SILVER SULFADIAZINE 1% CREAM 50 GM TP SCH (08:00)
--- NOTE | 2017-05-03 08:00 | NUR ---
AWAKE ALERT COOPERATE AT THIS TIME NO SOB DSG D/I CHANGE THIS AM ON FALL PRECAUTION CALL RILEY IN REACH AND INSTRUCTION TO CALL WHEN NEEDED MID LINE INPLACE LT UPPER ARM CONTINUE ANTIBIOTICS ORDER ,EAT WELL
[2017-05-03] MEDS: ASPIRIN 81 MG TAB.CHEW PO SCH (08:26)
[2017-05-03] MEDS: FUROSEMIDE 20 MG TABLET PO SCH (08:26)
[2017-05-03] MEDS: ISOSORBIDE MONONITRATE 60 MG TAB.SR.24H PO SCH (08:28)
[2017-05-03] MEDS: LISINOPRIL 20 MG TABLET PO SCH (08:29)
[2017-05-03] MEDS: METOPROLOL TARTRATE 50 MG TABLET PO SCH ×2 (08:29→21:00)
--- NOTE | 2017-05-03 09:55 | NUR ---
CLINICAL PHARMACY NOTE: VANCOMYCIN PHARMACY TO DOSE Subjective: To continue vancomycin in this 61 yo male for cellulitis Objective: height 69'' weight 304 lb BUN 30 Scr 1.1 Wbc 12.2 temp 98 Assessment/Plan Since srcr has decreased, will change dose from vanco 2gm IVPB q18h to vanco 2gm IVPB q14h for predicted vanco trough around 16.5 mcg/ml. Second dose due today at 2200. Will order trough before 4th scheduled dose (not yet ordered). Will monitor renal function & adjust the dose if needed. Will follow
[2017-05-03] MEDS: Z GUARD REMEDY PASTE 57 GM TUBE TOP PRN (10:01)
[2017-05-03 11:18] VITALS: BP 85/40
[2017-05-03 12:00] VITALS: BP 109/44
--- NOTE | 2017-05-03 12:00 | NUR ---
OOB UP TO BRP SELF WELL VOIDING WELL HAVE 1 BM TODAY
[2017-05-03 13:00] VITALS: BP 119/52
--- NOTE | 2017-05-03 13:14 | NUR ---
C/O PAIN ON BOTH LEG PAIN MED PRN GIVEN ORDER KEEP UP ON PILLOW
[2017-05-03] MEDS ORDERED: LIDOCAINE 5% OINT 35.44 GM TUBE TOP PRN (13:30)
[2017-05-03 15:08] VITALS: BP 90/44
--- NOTE | 2017-05-03 15:30 | NUR ---
PATIENT REMOVED DSG ON RT LEG STATE IT TOO TIED AND DOES NOT WANT TO REWRAP IT WOUND CS AND GRAM STRAIN SENT TO LAB ORDER
--- NOTE | 2017-05-03 18:00 | NUR ---
STABLE HEMODYNAMIC STATUS NO ACUTE DISTRESS PAIN UNDER CONTROL SAFETY MEASURE PROVIDED CALL RILEY IN REACH
[2017-05-03 20:00] VITALS: BP 95/40
[2017-05-03] MEDS: ATORVASTATIN 10 MG TABLET PO SCH (21:15)
[2017-05-03] MEDS: ARIPIPRAZOLE 5 MG TABLET PO SCH (21:15)
[2017-05-04] MEDS: HYDROCODONE/APAP 10-325 MG TABLET PO PRN (02:14)
--- NOTE | 2017-05-04 04:16 | NUR ---
WOUND TX DONE ON BOTH LEGS, DRESSING CHANGED. ON PAIN MANAGEMENT. SAFETY NEEDS RENDERED.
[2017-05-04] MEDS: CEFTRIAXONE 2 G in IV DEXTROSE 5% 100 ML IV SCH (06:13)
[2017-05-04] MEDS: PANTOPRAZOLE SODIUM 40 MG TABLET.DR PO SCH (06:13)
[2017-05-04] MEDS: HYDROMORPHONE 1 MG/1 ML DISP.SYRIN IV PRN ×5 (06:14→23:45)
[2017-05-04 07:06] VITALS: BP 105/69
[2017-05-04 07:12] LABS: BASOPHILS # (AUTO) 0.1 K/uL (0.0-8.0); BASOPHILS % (AUTO) 0.5 % (0.0-2.0); EOSINOPHILS # (AUTO) 0.2 K/uL (0.0-0.7); EOSINOPHILS % (AUTO) 1.5 % (0.0-7.0); LYMPHOCYTES # (AUTO) 1.5 K/UL (0.8-4.8); LYMPHOCYTES % (AUTO) 14.7 % (20.5-51.5); MEAN CORPUSCULAR HEMOGLOBIN 28.8 UUG (27.0-31.0); MEAN CORPUSCULAR HGB CONC 33 g/dL (32.0-37.0); MEAN CORPUSCULAR VOLUME 87.4 FL (82.0-92.0); MONOCYTES % (AUTO) 9.3 % (0.0-11.0); NEUTROPHILS # (AUTO) 7.7 K/UL (1.8-8.9); RED BLOOD CELL COUNT(AUTO) 2.65 MIL/UL (4.7-6.1); WHITE BLOOD COUNT (AUTO) 10.5 K/UL (4.0-11.2)
[2017-05-04 07:21] LABS: POTASSIUM 3.9 mmol/L (3.5-5.1)
[2017-05-04 07:32] LABS: HEMATOCRIT 23.2 % (40-50); HEMOGLOBIN 7.6 G/DL (14.0-18.0); PLATELET COUNT (AUTO) 820 K/UL (150-450)
[2017-05-04] MEDS: ASPIRIN 81 MG TAB.CHEW PO SCH (08:37)
[2017-05-04] MEDS: LISINOPRIL 20 MG TABLET PO SCH (08:39)
[2017-05-04] MEDS: METOPROLOL TARTRATE 50 MG TABLET PO SCH ×2 (08:46→21:46)
[2017-05-04] MEDS: SILVER SULFADIAZINE 1% CREAM 50 GM TP SCH (08:46)
[2017-05-04] MEDS: ISOSORBIDE MONONITRATE 60 MG TAB.SR.24H PO SCH (08:46)
[2017-05-04] MEDS: FUROSEMIDE 20 MG TABLET PO SCH (08:46)
[2017-05-04] MEDS: NITROGLYCERIN 0.4 MG/TAB BOTTLE SL PRN (09:32)
--- NOTE | 2017-05-04 11:18 | NUR ---
THERE'S NO CHLORHEXIDINE BATH IN PYXIS OR CENTRAL SUPPLY PER TECH. CALLED PHARMACY TO PUT THE MEDICATION ORDER INTO EMAR.
[2017-05-04] MEDS: VANCOMYCIN IV 2,000 MG in IV DEXTROSE 5% 500 ML IV SCH (11:31)
[2017-05-04 12:04] VITALS: BP 154/75
--- NOTE | 2017-05-04 14:16 | NUR ---
CLINICAL PHARMACY NOTE: VANCOMYCIN PHARMACY TO DOSE Subjective: To continue vancomycin in this 61 yo male for cellulitis Objective: height 69'' weight 304 lb BUN 16 Scr 1.0 Wbc 10.5 temp 98.6 Trough: pending tomorrow early am at 0130 Assessment/Plan Will continue vanco 2gm IVPB q18h to vanco 2gm IVPB q14h for predicted vanco trough around 16.5 mcg/ml. 3rd dose given today at 1200. Trough ordered before 4th scheduled dose, due at 0130 05/05. Rns endorsed to hold if trough >20. Will check trough in am and adjust regimen as needed. Will continue to follow
[2017-05-04 16:00] LABS: BASOPHILS % (AUTO) 0.6 % (0.0-2.0); EOSINOPHILS # (AUTO) 0.2 K/uL (0.0-0.7); EOSINOPHILS % (AUTO) 2.5 % (0.0-7.0); HEMATOCRIT 24.6 % (40-50); HEMOGLOBIN 8.1 G/DL (14.0-18.0); LYMPHOCYTES # (AUTO) 1.5 K/UL (0.8-4.8); LYMPHOCYTES % (AUTO) 18.5 % (20.5-51.5); MEAN CORPUSCULAR HEMOGLOBIN 28.7 UUG (27.0-31.0); MEAN CORPUSCULAR HGB CONC 33 g/dL (32.0-37.0); MONOCYTES # (AUTO) 0.8 K/UL (0.1-1.30); MONOCYTES % (AUTO) 10.8 % (0.0-11.0); NEUTROPHILS # (AUTO) 5.3 K/UL (1.8-8.9); NEUTROPHILS % (AUTO) 67.6 % (38.5-71.5); PLATELET COUNT (AUTO) 740 K/UL (150-450); RED BLOOD CELL COUNT(AUTO) 2.83 MIL/UL (4.7-6.1); WHITE BLOOD COUNT (AUTO) 7.9 K/UL (4.0-11.2)
[2017-05-04 16:15] VITALS: BP 143/84
[2017-05-04] MEDS ORDERED: CHLORHEXIDINE GLUCONATE 4% TOP SOL 118 ML TP SCH (17:00)
[2017-05-04] MEDS ORDERED: MISCELLANEOUS MED XX SCH (17:00)
[2017-05-04] MEDS ORDERED: MISCELLANEOUS MED XX PRN (17:15)
--- NOTE | 2017-05-04 19:00 | NUR ---
PT IS LAYING IN BED COMFORTABLY. NO S/S OF RESPIRATORY DISTRESS NOTED. NO PAIN REPORTED. IV INTACT/PATENT. ALL SAFETY NEEDS ARE MET. WOUND DRESSING IS REINFORCED.
--- NOTE | 2017-05-04 19:40 | NUR ---
PT RECEIVED IN BED, AWAKE. A/OX4. ABLE TO MAKE NEEDS KNOWN. V/S STABLE. IN NO ACUTE DISTRESS. PT C/O OF BILATERAL LEG PAIN OF 10/10. WILL ADMIN PAIN MEDICATION ORDERED. ZEYAD MIDLINE INTACT/PATENT. PT ON HAS 10L NC PRN, NOT CURRENTLY IN USE. LEGS ELEVATED. SAFETY MEASURES IMPLEMENTED. CALL LIGHT WITHIN REACH.
[2017-05-04 20:00] VITALS: BP 130/79
[2017-05-04] MEDS: ATORVASTATIN 10 MG TABLET PO SCH (21:46)
[2017-05-04] MEDS: ARIPIPRAZOLE 5 MG TABLET PO SCH (21:46)
[2017-05-04] MEDS: LACTOBACILLUS RHAMNOSUS GG 1 EACH CAPSULE PO SCH (21:46)
[2017-05-04] MEDS: CHLORHEXIDINE GLUCONATE 4% TOP SOL 118 ML TP SCH (21:48)
[2017-05-05] MEDS: NITROGLYCERIN 0.4 MG/TAB BOTTLE SL PRN (00:59)
[2017-05-05] MEDS: HYDROCODONE/APAP 10-325 MG TABLET PO PRN ×2 (01:20→13:13)
[2017-05-05] MEDS: VANCOMYCIN IV 2,000 MG in IV DEXTROSE 5% 500 ML IV SCH ×3 (01:28→12:07)
[2017-05-05] MEDS: HYDROMORPHONE 1 MG/1 ML DISP.SYRIN IV PRN ×5 (03:41→20:29)
[2017-05-05 04:00] VITALS: BP 109/56
[2017-05-05] MEDS: CEFTRIAXONE 2 G in IV DEXTROSE 5% 100 ML IV SCH (05:32)
[2017-05-05] MEDS: PANTOPRAZOLE SODIUM 40 MG TABLET.DR PO SCH (06:13)
[2017-05-05 06:27] LABS: BASOPHILS # (AUTO) 0.1 K/uL (0.0-8.0); EOSINOPHILS # (AUTO) 0.2 K/uL (0.0-0.7); EOSINOPHILS % (AUTO) 1.9 % (0.0-7.0); HEMATOCRIT 27.1 % (40-50); HEMOGLOBIN 8.7 G/DL (14.0-18.0); LYMPHOCYTES # (AUTO) 1.3 K/UL (0.8-4.8); LYMPHOCYTES % (AUTO) 14.4 % (20.5-51.5); MEAN CORPUSCULAR HEMOGLOBIN 28.3 UUG (27.0-31.0); MEAN CORPUSCULAR HGB CONC 32 g/dL (32.0-37.0); MEAN CORPUSCULAR VOLUME 88.1 FL (82.0-92.0); MONOCYTES # (AUTO) 0.8 K/UL (0.1-1.30); MONOCYTES % (AUTO) 8.7 % (0.0-11.0); NEUTROPHILS # (AUTO) 6.5 K/UL (1.8-8.9); PLATELET COUNT (AUTO) 852 K/UL (150-450); RED BLOOD CELL COUNT(AUTO) 3.08 MIL/UL (4.7-6.1); WHITE BLOOD COUNT (AUTO) 8.9 K/UL (4.0-11.2)
[2017-05-05 06:36] LABS: CREATININE 1.1 mg/dL (0.6-1.3); POTASSIUM 4.1 mmol/L (3.5-5.1)
--- NOTE | 2017-05-05 06:55 | NUR ---
END OF SHIFT NOTES. PT SLEPT INTERMITTENTLY THROUGHOUT SHIFT. IN STABLE CONDITION. IV VANCO HELD DUE TO VANCO TROUGH LEVEL OF 21.2. MIDLINE INTACT/PATENT. PAIN MANAGED. C/O MILD BURNING AFTER CHLORHEXIDINE WASH. LEGS ELEVATED. DRESSING C/D/I. ALL NEEDS ATTENDED. SAFETY MAINTAINED. CALL LIGHT WITHIN REACH.
--- NOTE | 2017-05-05 07:45 | NUR ---
on bed, resting comfortably. no distress noted.
[2017-05-05] MEDS: ASPIRIN 81 MG TAB.CHEW PO SCH (08:17)
[2017-05-05] MEDS: LACTOBACILLUS RHAMNOSUS GG 1 EACH CAPSULE PO SCH ×2 (08:17→20:25)
[2017-05-05] MEDS: FUROSEMIDE 20 MG TABLET PO SCH (08:17)
[2017-05-05] MEDS: LISINOPRIL 20 MG TABLET PO SCH (08:17)
[2017-05-05] MEDS: ISOSORBIDE MONONITRATE 60 MG TAB.SR.24H PO SCH (08:17)
[2017-05-05] MEDS: METOPROLOL TARTRATE 50 MG TABLET PO SCH ×2 (08:18→20:26)
[2017-05-05] MEDS: CHLORHEXIDINE GLUCONATE 4% TOP SOL 118 ML TP SCH ×2 (09:00→20:28)
--- NOTE | 2017-05-05 09:00 | NUR ---
refused dressing change for now. dressing change done at midnight, requested for 1200.
[2017-05-05 11:47] VITALS: BP 110/52
[2017-05-05] MEDS: SILVER SULFADIAZINE 1% CREAM 50 GM TP SCH (12:21)
--- NOTE | 2017-05-05 13:15 | NUR ---
dressing change done, tolerated fair but needed norco post dressing change. prn O2 use but stated tolerated dressing better today with no need for nitro tab . wound with thick yellow sloughing more on right leg than the left. foul odor without bleeding noted.very particular with dressing change and supplies use. 45 minutes dressing change for both legs with patient satisfaction and appreciation. Addendum: 05/05/17 at 1338 by SOO TRIANA RN abd pads x 5, 1 box 4x4 gauze for light drying, 2 marc bandages and 5 blue pads and 2 white pads for supplies.
--- NOTE | 2017-05-05 15:29 | NUR ---
CLINICAL PHARMACY NOTE: VANCOMYCIN PHARMACY TO DOSE Subjective: To continue vancomycin in this 61 yo male for cellulitis Objective: height 69'' weight 304 lb BUN 16 Scr 1.1 Wbc 8.9 temp 98.1 Vancomycin trough today at 0150 was 21.2 (extrapolated trough was 22) Assessment/Plan Since Vancomycin level was over 20, dose was held last night. Re-dosed Vancomycin to 2 gram IV every 18hrs, starting today at 1200(24 hrs post last dose). Will draw trough by 4th dose(not ordered yet) for expected trough around 15. To monitor daily.
[2017-05-05 15:56] VITALS: BP 102/49
[2017-05-05 20:00] VITALS: BP 114/60
[2017-05-05] MEDS: ATORVASTATIN 10 MG TABLET PO SCH (20:25)
[2017-05-05] MEDS: ARIPIPRAZOLE 5 MG TABLET PO SCH (20:25)
[2017-05-06] MEDS: HYDROMORPHONE 1 MG/1 ML DISP.SYRIN IV PRN ×3 (00:14→09:06)
--- NOTE | 2017-05-06 01:00 | NUR ---
Dressing change done for bilateral lower extremities cellulitis wound per order and patient preference Addendum: 05/06/17 at 0537 by SYLVIA AMEZCUA RN Hibliclens solution not used for dressing change as patient refused it. he stated it causes burning sensation
[2017-05-06 04:00] VITALS: BP 117/74
[2017-05-06] MEDS: CEFTRIAXONE 2 G in IV DEXTROSE 5% 100 ML IV SCH (05:21)
[2017-05-06] MEDS: VANCOMYCIN IV 2,000 MG in IV DEXTROSE 5% 500 ML IV SCH ×2 (05:31→07:32)
--- NOTE | 2017-05-06 05:33 | NUR ---
Vancomycin not given as last vanco trough was 21.2
[2017-05-06] MEDS: PANTOPRAZOLE SODIUM 40 MG TABLET.DR PO SCH (06:04)
[2017-05-06] MEDS: CHLORHEXIDINE GLUCONATE 4% TOP SOL 118 ML TP SCH ×2 (09:00→21:00)
[2017-05-06] MEDS ORDERED: FUROSEMIDE 20 MG TABLET PO SCH (09:00)
[2017-05-06] MEDS: METOPROLOL TARTRATE 50 MG TABLET PO SCH ×2 (09:07→21:29)
[2017-05-06] MEDS: FUROSEMIDE 40 MG TABLET PO SCH (09:07)
[2017-05-06] MEDS: ASPIRIN 81 MG TAB.CHEW PO SCH (09:07)
[2017-05-06] MEDS: LISINOPRIL 20 MG TABLET PO SCH (09:08)
[2017-05-06] MEDS: LACTOBACILLUS RHAMNOSUS GG 1 EACH CAPSULE PO SCH ×2 (09:08→21:29)
[2017-05-06] MEDS: ISOSORBIDE MONONITRATE 60 MG TAB.SR.24H PO SCH (09:08)
--- NOTE | 2017-05-06 11:19 | NUR ---
CLINICAL PHARMACY NOTE: VANCOMYCIN PHARMACY TO DOSE Subjective: To continue vancomycin in this 61 yo male for cellulitis Objective: height 69'' weight 304 lb BUN 16 (05/05) Scr 1.1 (05/05) Wbc 8.9 (05/05) temp 98 Assessment/Plan Will continue same dose of Vancomycin to 2 gram IV every 18hrs. However re-scheduled dose since 0600 dose today was given at 0730. The second dose of this regimen is due on 05/07 at 0200 Will draw trough by 4th dose(not ordered yet) for expected trough around 15. To monitor daily.
[2017-05-06 11:53] VITALS: BP 114/58
[2017-05-06] MEDS: SILVER SULFADIAZINE 1% CREAM 50 GM TP SCH (13:00)
[2017-05-06] MEDS: HYDROMORPHONE 2 MG/1 ML DISP.SYRIN IV PRN ×3 (13:16→21:25)
[2017-05-06 15:33] VITALS: BP 103/46
[2017-05-06 16:11] VITALS: BP 124/64
[2017-05-06] MEDS: HYDROCODONE/APAP 10-325 MG TABLET PO PRN ×2 (16:12→22:14)
[2017-05-06] MEDS: MEROPENEM 1 G in IV NORMAL SALINE 100 ML IV SCH ×2 (16:20→23:19)
[2017-05-06 17:27] VITALS: BP 124/71
--- NOTE | 2017-05-06 17:49 | NUR ---
Patient was given vancomycin this morning, hanged by the night nurse at 0725 am, patient was switched to meropenem IVPB, dressing changed was changed at 1320, patient needed pain IV meds, patient needs all the right dressing change equipment, needs new marc wraps with every dressing. Medicated for pain with dilaudid 1 mg IV push, had one [place] breakthru pain medications, woulnd are lower legs still with purulent drainage. Silverdine applied to lower legs, and cover with ABD dressing.
--- NOTE | 2017-05-06 19:45 | NUR ---
PT RECEIVED IN BED, AWAKE. A/OX4. ABLE TO MAKE NEEDS KNOWN. V/S STABLE. IN NO ACUTE DISTRESS. PT DOES NOT C/O PAIN AT THIS TIME. ON RA, TOLERATING WELL. IVF TKO 3CC/HR. MIDLINE INTACT/PATENT. BILATERAL LOWER EXTREMITY DRESSING C/D/I. SAFETY MEASURES IMPLEMENTED. CALL LIGHT WITHIN REACH.
[2017-05-06 20:17] VITALS: BP 113/66
[2017-05-06] MEDS: ATORVASTATIN 10 MG TABLET PO SCH (21:29)
[2017-05-06] MEDS: ARIPIPRAZOLE 5 MG TABLET PO SCH (21:29)
[2017-05-06] MEDS ORDERED: SILVER SULFADIAZINE 1% CREAM 25 GM TUBE TP ONE (21:38)
--- NOTE | 2017-05-06 22:30 | NUR ---
PT DRESSING CHANGE AND WOUND TREATMENT PERFORMED ON BILATERAL LOWER EXTREMITY. SEEN WITH YELLOW PURULENT DRAINAGE. WOUND HAS REDNESS. DRESSING C/D/I. LEGS ELEVATED. NORCO REQUESTED FOR BREAKTHROUGH PAIN. ADMINISTERED ORDERED.
[2017-05-07] MEDS ORDERED: VANCOMYCIN IV 2,000 MG in IV DEXTROSE 5% 500 ML IV SCH (02:00)
[2017-05-07] MEDS: HYDROMORPHONE 2 MG/1 ML DISP.SYRIN IV PRN ×5 (04:45→22:54)
[2017-05-07 06:13] VITALS: BP 125/70
[2017-05-07] MEDS: PANTOPRAZOLE SODIUM 40 MG TABLET.DR PO SCH (06:13)
--- NOTE | 2017-05-07 06:30 | NUR ---
END OF SHIFT NOTES. PT SLEPT INTERMITTENTLY THROUGHOUT SHIFT. IN STABLE CONDITION. IV ABX INFUSED. IV TKO 10 CC/HR. MIDLINE INTACT/PATENT. LOWER EXTREMITIES ELEVATED. DRESSING INTACT. PAIN MANAGED THROUGHOUT SHIFT. ALL NEEDS ATTENDED. SAFETY MAINTAINED. CALL LIGHT WITHIN REACH
[2017-05-07] MEDS: Z GUARD REMEDY PASTE 57 GM TUBE TOP PRN (08:16)
[2017-05-07] MEDS: ASPIRIN 81 MG TAB.CHEW PO SCH (08:16)
[2017-05-07] MEDS: ISOSORBIDE MONONITRATE 60 MG TAB.SR.24H PO SCH (08:16)
[2017-05-07] MEDS: LISINOPRIL 20 MG TABLET PO SCH (08:16)
[2017-05-07] MEDS: METOPROLOL TARTRATE 50 MG TABLET PO SCH ×2 (08:16→20:38)
[2017-05-07] MEDS: FUROSEMIDE 40 MG TABLET PO SCH (08:16)
[2017-05-07] MEDS: LACTOBACILLUS RHAMNOSUS GG 1 EACH CAPSULE PO SCH ×2 (08:16→20:37)
[2017-05-07] MEDS: SILVER SULFADIAZINE 1% CREAM 50 GM TP SCH (08:17)
[2017-05-07] MEDS: CHLORHEXIDINE GLUCONATE 4% TOP SOL 118 ML TP SCH ×2 (08:17→20:38)
[2017-05-07] MEDS: MEROPENEM 1 G in IV NORMAL SALINE 100 ML IV SCH ×3 (08:20→23:00)
[2017-05-07 11:50] VITALS: BP 128/69
--- NOTE | 2017-05-07 15:39 | NUR ---
DRESSING CHANGE PER MD ORDERS
[2017-05-07] MEDS: HYDROCODONE/APAP 10-325 MG TABLET PO PRN (15:52)
[2017-05-07 15:55] VITALS: BP 97/62
[2017-05-07 16:38] VITALS: BP 102/51
[2017-05-07 20:00] VITALS: BP 96/42
[2017-05-07] MEDS: ATORVASTATIN 10 MG TABLET PO SCH (20:37)
[2017-05-07] MEDS: ARIPIPRAZOLE 5 MG TABLET PO SCH (20:37)
[2017-05-08] MEDS: HYDROCODONE/APAP 10-325 MG TABLET PO PRN ×2 (00:19→05:58)
[2017-05-08] MEDS: HYDROMORPHONE 2 MG/1 ML DISP.SYRIN IV PRN ×5 (03:24→20:04)
--- NOTE | 2017-05-08 04:26 | NUR ---
DRESSING CHANGE ON BILATERAL LEGS DONE PER MD'S ORDER. Addendum: 05/08/17 at 0646 by FRANCES CANO RN ADD: WOUND WITH YELLOWISH/GREENISH, PURULENT DRAINAGE, NO BLEEDING.
[2017-05-08] MEDS: PANTOPRAZOLE SODIUM 40 MG TABLET.DR PO SCH (06:00)
[2017-05-08 06:14] VITALS: BP 114/60
--- NOTE | 2017-05-08 06:36 | NUR ---
PT SLEPT INTERMITTENTLY, IN NO ACUTE DISTRESS. PAIN MANAGEMENT ORDERED. ALL NEEDS MET. SAFETY MEASURES IN PLACE. WILL CONTINUE TO MONITOR.
[2017-05-08] MEDS: MEROPENEM 1 G in IV NORMAL SALINE 100 ML IV SCH ×3 (09:06→23:59)
[2017-05-08] MEDS: FUROSEMIDE 40 MG TABLET PO SCH (09:06)
[2017-05-08] MEDS: METOPROLOL TARTRATE 50 MG TABLET PO SCH ×2 (09:06→20:17)
[2017-05-08] MEDS: LACTOBACILLUS RHAMNOSUS GG 1 EACH CAPSULE PO SCH ×2 (09:06→20:05)
[2017-05-08] MEDS: ISOSORBIDE MONONITRATE 60 MG TAB.SR.24H PO SCH (09:07)
[2017-05-08] MEDS: ASPIRIN 81 MG TAB.CHEW PO SCH (09:07)
--- NOTE | 2017-05-08 09:45 | NUR ---
PT RECEIVED AWAKE IN BED SITTING UP WITH OXYGEN MASK ON AT 10.0 PT IS AOX4 HYPERVERBAL AND COOPERATIVE. NOTED DRESSINGS TO BOTH LOWER EXTREMITIES, NO C/O PAIN AT THIS TIME. ATE BREAKFAST, TOLERATED WELL. MIDLINE IN LEFT UPPER ARM, INTACT AND PATENT. COMPLIANT WITH MEDICATIONS. PT REQUESTED TO TAKE LISINOPRIL "AT A LATER TIME BECAUSE I DO NOT WANT B/P TO DROP BEFORE I TAKE THE DILAUDID'. BED IN LOW AND LOCKED POSITION. CALL LIGHT WITHIN REACH.
[2017-05-08] MEDS: LISINOPRIL 20 MG TABLET PO SCH (10:00)
[2017-05-08] MEDS: SILVER SULFADIAZINE 1% CREAM 50 GM TP SCH (10:00)
[2017-05-08] MEDS: CHLORHEXIDINE GLUCONATE 4% TOP SOL 118 ML TP SCH ×2 (10:00→21:00)
[2017-05-08 11:24] LABS: BASOPHILS % (AUTO) 0.5 % (0.0-2.0); EOSINOPHILS # (AUTO) 0.3 K/uL (0.0-0.7); EOSINOPHILS % (AUTO) 3.5 % (0.0-7.0); HEMATOCRIT 24.7 % (40-50); HEMOGLOBIN 8.1 G/DL (14.0-18.0); LYMPHOCYTES # (AUTO) 1.6 K/UL (0.8-4.8); LYMPHOCYTES % (AUTO) 20.4 % (20.5-51.5); MEAN CORPUSCULAR HEMOGLOBIN 28.1 UUG (27.0-31.0); MEAN CORPUSCULAR HGB CONC 33 g/dL (32.0-37.0); MEAN CORPUSCULAR VOLUME 85.8 FL (82.0-92.0); MONOCYTES # (AUTO) 0.6 K/UL (0.1-1.30); MONOCYTES % (AUTO) 7.4 % (0.0-11.0); NEUTROPHILS # (AUTO) 5.1 K/UL (1.8-8.9); NEUTROPHILS % (AUTO) 68.2 % (38.5-71.5); RED BLOOD CELL COUNT(AUTO) 2.88 MIL/UL (4.7-6.1); WHITE BLOOD COUNT (AUTO) 7.6 K/UL (4.0-11.2)
[2017-05-08 11:26] VITALS: BP 118/62
[2017-05-08 11:35] LABS: BILIRUBIN,TOTAL 0.1 mg/dL (0.2-1.0); CREATININE 1.2 mg/dL (0.6-1.3); IRON, SERUM 18 ug/dL (50-175); MAGNESIUM 2.2 mg/dL (1.8-2.4); PHOSPHOROUS 3.2 mg/dL (2.5-4.9); POTASSIUM 3.7 mmol/L (3.5-5.1); TOTAL PROTEIN, SERUM 6.6 g/dL (6.4-8.2)
--- NOTE | 2017-05-08 11:45 | NUR ---
PT C/O BOTH LEGS, GIVEN DILAUDID PRN ORDERED. NO ACUTE DISTRESS NOTED.
[2017-05-08 11:48] LABS: THYROID STIMULATING HORMONE 0.988 mIU/mL (0.358-3.740)
[2017-05-08 12:39] LABS: PLATELET COUNT (AUTO) 810 K/UL (150-450)
[2017-05-08] MEDS: FERROUS SULFATE 325 MG TABEC PO SCH ×2 (13:39→20:05)
[2017-05-08 15:07] VITALS: BP 100/48
--- NOTE | 2017-05-08 16:26 | NUR ---
PT ASSISTED WITH DRESSING CHANGE TO BILATERAL LOWER EXTREMITIES. BOTH LEGS NOTED TO BE PURULENT, SKIN CLEANES WITH STERILE IRRIGATION AND SILVADENE APPLIED AND COVERED WITH ABDOMINAL PAD AND MARQUEZ BANDAGE PER PT REQUEST. PT IS VERY RUDE AT TIMES AND DEMANDING TOWARDS STAFF DESPITE COMFORT MEASURES PROVIDED.
--- NOTE | 2017-05-08 18:38 | NUR ---
PT SITTING UP IN BED WATCHING TV. PT FEET ELEVATED. NO ACUTE DISTRESS NOTED. ATE DINNER, TOLERATED WELL. COMFORT MEASURES PROVIDED.
--- NOTE | 2017-05-08 19:30 | NUR ---
Received patient laying comfortably in bed. No acute distress noted. No c/o pain or sob. Midline in the left upper arm patent and intact. Noted bilateral leg dressing, C/D/I. Noted dry flaky skin on top of the foot. Safety initiated. Call light within reach. Room is kept clutter free. Bed is in low and locked position. will continue to monitor.
[2017-05-08 20:00] VITALS: BP 106/52
[2017-05-08] MEDS: ARIPIPRAZOLE 5 MG TABLET PO SCH (20:05)
[2017-05-08] MEDS: ATORVASTATIN 10 MG TABLET PO SCH (20:05)
[2017-05-09] MEDS: HYDROMORPHONE 2 MG/1 ML DISP.SYRIN IV PRN ×4 (04:16→13:06)
[2017-05-09] MEDS: HYDROCODONE/APAP 10-325 MG TABLET PO PRN (05:47)
[2017-05-09] MEDS: PANTOPRAZOLE SODIUM 40 MG TABLET.DR PO SCH (06:00)
--- NOTE | 2017-05-09 06:07 | NUR ---
No changes t/o shift. Patient slept intermittently t/o shift. No acute distress noted. Safety and comfort maintained t/o shift. C/O leg pain 02/01, meds given, stated relief. Wound care provided. No OB Stool. All meds given as ordered. All needs met.
[2017-05-09 06:19] VITALS: BP 118/74
--- NOTE | 2017-05-09 07:00 | NUR ---
RECEIVED REPORT FROM ACID PURIFIER NURSE, PATIENT UP AT BEDSIDE. NO EVIDENCE OF DISTRESS NOTED, BED IN LOW POSITION, SIDE RAILS UP X2
[2017-05-09 07:13] LABS: BASOPHILS # (AUTO) 0.1 K/uL (0.0-8.0); BASOPHILS % (AUTO) 1.1 % (0.0-2.0); EOSINOPHILS # (AUTO) 0.2 K/uL (0.0-0.7); EOSINOPHILS % (AUTO) 2.2 % (0.0-7.0); HEMATOCRIT 25.3 % (36.7-47.1); HEMOGLOBIN 8.4 g/dL (12.5-16.3); LYMPHOCYTES # (AUTO) 1.1 K/uL (20.0-40.0); LYMPHOCYTES % (AUTO) 15.1 % (20.5-51.5); MEAN CORPUSCULAR HEMOGLOBIN 28.9 uug (23.8-33.4); MEAN CORPUSCULAR HGB CONC 33 g/dL (32.5-36.3); MEAN CORPUSCULAR VOLUME 86.4 fL (73.0-96.2); MONOCYTES # (AUTO) 0.6 K/uL (2.0-10.0); MONOCYTES % (AUTO) 8.2 % (0.0-11.0); NEUTROPHILS # (AUTO) 5.4 K/uL (1.8-8.9); NEUTROPHILS % (AUTO) 73.4 % (38.5-71.5); PLATELET COUNT (AUTO) 670 K/uL (152-348); RED BLOOD CELL COUNT(AUTO) 2.93 MIL/uL (4.06-5.63); WHITE BLOOD COUNT (AUTO) 7.4 K/uL (3.6-10.2)
[2017-05-09 07:50] LABS: BILIRUBIN,TOTAL 0.2 mg/dL (0.2-1.0); CREATININE 1.1 mg/dL (0.6-1.3); MAGNESIUM 2.2 mg/dL (1.8-2.4); PHOSPHOROUS 2.8 mg/dL (2.5-4.9); POTASSIUM 4.1 mmol/L (3.5-5.1); TOTAL PROTEIN, SERUM 6.8 g/dL (6.4-8.2)
[2017-05-09] MEDS: MEROPENEM 1 G in IV NORMAL SALINE 100 ML IV SCH (08:20)
[2017-05-09] MEDS: FUROSEMIDE 40 MG TABLET PO SCH (08:31)
[2017-05-09] MEDS: ISOSORBIDE MONONITRATE 60 MG TAB.SR.24H PO SCH (08:31)
[2017-05-09] MEDS: LACTOBACILLUS RHAMNOSUS GG 1 EACH CAPSULE PO SCH (08:31)
[2017-05-09] MEDS: LISINOPRIL 20 MG TABLET PO SCH (08:32)
[2017-05-09] MEDS: FERROUS SULFATE 325 MG TABEC PO SCH (08:32)
[2017-05-09] MEDS: METOPROLOL TARTRATE 50 MG TABLET PO SCH (08:32)
[2017-05-09] MEDS: SILVER SULFADIAZINE 1% CREAM 50 GM TP SCH (08:34)
[2017-05-09] MEDS: CHLORHEXIDINE GLUCONATE 4% TOP SOL 118 ML TP SCH (08:34)
[2017-05-09 12:53] VITALS: BP 110/52
[2017-05-09] MEDS ORDERED: FERR325T28 PO (14:16)
[2017-05-09] MEDS ORDERED: Silver Sulfadiazine 1% Cream TP (14:16)
[2017-05-09] MEDS ORDERED: Isosorbide Mononitrate PO (14:16)
[2017-05-09] MEDS ORDERED: MERO1PIG IV ×2 (14:16→14:49)
[2017-05-09] MEDS ORDERED: LACT1CAP57 PO (14:16)
[2017-05-09] MEDS ORDERED: HYDR-548 PO (14:16)
[2017-05-09] MEDS ORDERED: LISI-603 PO (14:16)
[2017-05-09] MEDS ORDERED: METO50TA3 PO (14:16)
[2017-05-09] MEDS ORDERED: ACET325T53 PO (14:16)
[2017-05-09] MEDS ORDERED: LIDO35.4 TOP (14:16)
[2017-05-09] MEDS ORDERED: DOCU100C36 PO (14:16)
[2017-05-09] MEDS ORDERED: FURO40TA5 PO (14:16)
[2017-05-09] MEDS ORDERED: ATOR10TA PO (14:16)
[2017-05-09] MEDS ORDERED: CHLO118L TP (14:16)
[2017-05-09] MEDS ORDERED: ARIP5TAB10 PO (14:16)
[2017-05-09] MEDS ORDERED: PANT40TA2 PO (14:16)
[2017-05-09 15:51] VITALS: BP 115/55
--- NOTE | 2017-05-09 16:30 | NUR ---
cALLED REPORT TO [facility], ALL DISCHARGE TEACHING PERFORMED AND RECONCILED PATIENT BELONGINGS. PATIENT HAS BEEN PICKED UP AND TRANSPORTED TO SNF.
[2017-05-09] MEDS ORDERED: DOCUSATE SODIUM 100 MG CAPSULE PO SCH (21:00)
== END 2017-05-09 16:40 | DRG 383 ==
LOC: ER 01:31 → MED 03:00
PROVIDERS: ADMIT Nurse Practitioner Acute Care; ATTEND Family Medicine
PROC: 05H633Z Insertion of Infusion Device into Left Subclavian Vein, Percutaneous Approach (ICD-10-PCS; principal; 2017-05-02)
DX: L03.116 Cellulitis of left lower limb (principal); E43 Unspecified severe protein-calorie malnutrition; I11.9 Hypertensive heart disease without heart failure; L03.115 Cellulitis of right lower limb; L97.821 Non-pressure chronic ulcer of other part of left lower leg limited to breakdown of skin; L97.811 Non-pressure chronic ulcer of other part of right lower leg limited to breakdown of skin; Z68.41 Body mass index [BMI] 40.0-44.9, adult; I87.2 Venous insufficiency (chronic) (peripheral); B96.5 Pseudomonas (aeruginosa) (mallei) (pseudomallei) as the cause of diseases classified elsewhere; B96.4 Proteus (mirabilis) (morganii) as the cause of diseases classified elsewhere; B95.2 Enterococcus as the cause of diseases classified elsewhere; I89.0 Lymphedema, not elsewhere classified; E66.01 Morbid (severe) obesity due to excess calories; I70.219 Atherosclerosis of native arteries of extremities with intermittent claudication, unspecified extremity; F31.9 Bipolar disorder, unspecified; Z16.11 Resistance to penicillins; Z16.23 Resistance to quinolones and fluoroquinolones; Z16.29 Resistance to other single specified antibiotic; E78.5 Hyperlipidemia, unspecified; I25.10 Atherosclerotic heart disease of native coronary artery without angina pectoris; I70.248 Atherosclerosis of native arteries of left leg with ulceration of other part of lower leg; Z87.01 Personal history of pneumonia (recurrent); Z87.828 Personal history of other (healed) physical injury and trauma; K21.9 Gastro-esophageal reflux disease without esophagitis; M17.0 Bilateral primary osteoarthritis of knee; I25.2 Old myocardial infarction; E87.6 Hypokalemia; E78.1 Pure hyperglyceridemia; D64.9 Anemia, unspecified; J44.9 Chronic obstructive pulmonary disease, unspecified; D50.0 Iron deficiency anemia secondary to blood loss (chronic); D47.3 Essential (hemorrhagic) thrombocythemia; Z85.72 Personal history of non-Hodgkin lymphomas; Z91.19 Patient's noncompliance with other medical treatment and regimen; Z79.82 Long term (current) use of aspirin; Z79.899 Other long term (current) drug therapy
CPT/HCPCS: 36415; 83550; 83735; 84100; 84443; 85025; 85610; 87070; 87077; A4217; A4663; J0696; J1170; J2185; J3370; J3490; J7040; J7050; J7060

== ENCOUNTER 2017-06-10 23:48 | Emergency (ER) | payer OTHER ==
[~2017-06-10] VITALS: Ht 175.3 cm; Wt 137.9 kg
[~2017-06-10 23:48] MED LIST changes: +ACET325T53 PO; -ACID1TAB4 PO; -AMOX500T2 PO; -ASCO500T9 PO; -ASPI81TA31 PO; +CHLO118L TP; +DOCU100C36 PO; +FERR325T28 PO; -FURO20TA4 PO; +FURO40TA5 PO; -GABA600T2 PO; -ISOS60TA4 PO; +Isosorbide Mononitrate PO; +LACT1CAP57 PO; -LEVO750T21 PO; +LIDO35.4 TOP; +LISI-603 PO; -LISI40TA4 PO; +MERO1PIG IV; +PANT40TA2 PO; -POTA10CA43 PO; -SILV25CR5 TOP; -SILVADINE CREAM TOP; +Silver Sulfadiazine 1% Cream TP; -ZINC220C8 PO
[2017-06-11] MEDS ORDERED: SILVER SULFADIAZINE 1% CREAM 50 GM TP ONE (01:45)
[2017-06-11] MEDS ORDERED: HYDROCODONE/APAP 5-325MG TABLET PO ONE (01:45)
[2017-06-11] MEDS ORDERED: HYDROCODONE/APAP 5-325MG TABLET ONE (01:54)
[2017-06-11] MEDS ORDERED: SILVER SULFADIAZINE 1% CREAM 25 GM TUBE TP ONE (02:04)
--- NOTE | 2017-06-11 02:10 | NUR ---
Pt ambulated to room with steady shuffled gait. Pt requesting drsg change to chronic BLE stasis ulcers. Pt seen by Dr. Suarez. Wounds cleansed with normal saline, silvadine and bulky dry drsg applied. Pos CMS s/p application. Pt stable for discharge per MD. Pt given ACI. Pt verbalized understanding of dc instructions. Pt ambulated out of ER with steady shuffled gait to .
--- NOTE | 2017-06-11 02:11 | NUR ---
MD aware of pt's blood pressure at discharge. OK to discharge per MD, no new orders given.
[2017-06-11 02:46] VITALS: BP 136/104
== END 2017-06-11 02:10 | disposition home or self-care (01) ==
LOC: ER 23:51
DX: Z48.00 Encounter for change or removal of nonsurgical wound dressing (principal); I89.0 Lymphedema, not elsewhere classified; Z59.0 Homelessness; I10 Essential (primary) hypertension; K21.9 Gastro-esophageal reflux disease without esophagitis; E78.5 Hyperlipidemia, unspecified; L03.115 Cellulitis of right lower limb
CPT/HCPCS: A4217; A4663

== ENCOUNTER 2017-06-15 00:53 | Emergency (ER) | payer OTHER ==
[~2017-06-15] VITALS: Ht 175.3 cm; Wt 131.5 kg
[~2017-06-15 00:53] MED LIST changes: +METO50TA16 PO; -METO50TA3 PO
--- NOTE | 2017-06-15 01:00 | NUR ---
Pt is received alert, responsive as he came in c/o increased pain to both legs due to Chronic Stasis Dermatitis and also he is s/p admitted here several time for Cellulitis . His care continue as awaits MD orders.
[2017-06-15] MEDS ORDERED: IV NORMAL SALINE 1000 ML BAG IV ONE (01:15)
[2017-06-15] MEDS: IV NORMAL SALINE 1000 ML BAG IV ONE ×2 (01:28→02:04)
[2017-06-15] MEDS ORDERED: VANCOMYCIN IV 1,000 MG in IV DEXTROSE 5% 250 ML IV ONE ×4 (01:30)
[2017-06-15] MEDS ORDERED: SILVER SULFADIAZINE 1% CREAM 50 GM TP ONE (01:30)
--- NOTE | 2017-06-15 01:30 | NUR ---
Pt is been medicated with Dilaudid 2mg IVP , Zofran 4mg IVP , IVF 0.9NS and Antibiotic therapy IVPB Vacom 1mg as wound care done as ordered. His care continue while monitor .
[2017-06-15] MEDS ORDERED: ONDANSETRON 4 MG/2 ML VIAL IV ONE (02:00)
[2017-06-15] MEDS ORDERED: HYDROMORPHONE 1 MG/1 ML DISP.SYRIN IV ONE (02:00)
[2017-06-15] MEDS ORDERED: VANCOMYCIN IV 200 ML ONE (02:11)
[2017-06-15] MEDS ORDERED: SILVER SULFADIAZINE 1% CREAM 25 GM TUBE TP ONE (02:12)
[2017-06-15] MEDS ORDERED: HYDROMORPHONE 2 MG/1 ML DISP.SYRIN ONE (02:16)
[2017-06-15] MEDS ORDERED: ONDANSETRON 4 MG/2 ML VIAL ONE (02:20)
[2017-06-15 03:45] VITALS: BP 143/88
--- NOTE | 2017-06-15 03:45 | NUR ---
Pt is been discharged to home after wound care , pain management, IVF and Antibiotic therapy with all discharged instructions given as ordered and he is stable.
--- NOTE | 2017-06-15 03:45 | NUR ---
Pt EKG order was cellulitis.
== END 2017-06-15 03:45 | disposition home or self-care (01) ==
LOC: ER 02:07
DX: I87.2 Venous insufficiency (chronic) (peripheral) (principal); E78.5 Hyperlipidemia, unspecified; I10 Essential (primary) hypertension; K21.9 Gastro-esophageal reflux disease without esophagitis; Z59.0 Homelessness
CPT/HCPCS: A4217; A4663; J1170; J2405; J3370; J7030

== ENCOUNTER 2018-05-15 23:36 | Inpatient (IN) | payer OTHER ==
[~2018-05-15] VITALS: Ht 172.7 cm; Wt 123.5 kg
[~2018-05-15 23:36] MED LIST changes: +HYDR-4354 PO; -HYDR-548 PO
--- NOTE | 2018-05-16 00:11 | NUR ---
Dr. Kim at bedside for MSE.
[2018-05-16] MEDS ORDERED: ASPIRIN 325 MG TABLET PO ONE (00:45)
[2018-05-16] MEDS ORDERED: ASPIRIN 325 MG TABLET ONE (01:02)
[2018-05-16] MEDS ORDERED: SILVER SULFADIAZINE 1% CREAM 25 GM TUBE TP ONE (01:02)
[2018-05-16] MEDS ORDERED: SILVER SULFADIAZINE 1% CREAM 50 GM TP ONE (01:15)
[2018-05-16 01:29] LABS: BASOPHILS # (AUTO) 0.1 K/uL (0.0-8.0); BASOPHILS % (AUTO) 0.6 % (0.0-2.0); EOSINOPHILS # (AUTO) 0.3 K/uL (0.0-0.7); EOSINOPHILS % (AUTO) 2.4 % (0.0-7.0); HEMATOCRIT 32.5 % (36.7-47.1); HEMOGLOBIN 11.2 g/dL (12.5-16.3); LYMPHOCYTES # (AUTO) 1.9 K/uL (20.0-40.0); LYMPHOCYTES % (AUTO) 18.4 % (20.5-51.5); MEAN CORPUSCULAR HEMOGLOBIN 31.2 uug (23.8-33.4); MEAN CORPUSCULAR HGB CONC 34 g/dL (32.5-36.3); MEAN CORPUSCULAR VOLUME 90.6 fL (73.0-96.2); MONOCYTES # (AUTO) 0.9 K/uL (2.0-10.0); MONOCYTES % (AUTO) 8.5 % (0.0-11.0); NEUTROPHILS # (AUTO) 7.3 K/uL (1.8-8.9); NEUTROPHILS % (AUTO) 70.1 % (38.5-71.5); PLATELET COUNT (AUTO) 362 K/uL (152-348); RED BLOOD CELL COUNT(AUTO) 3.59 MIL/uL (4.06-5.63); WHITE BLOOD COUNT (AUTO) 10.4 K/uL (3.6-10.2)
[2018-05-16 01:30] LABS: CREATININE 1.3 mg/dL (0.6-1.3); POTASSIUM 3.3 mmol/L (3.5-5.1)
--- NOTE | 2018-05-16 01:39 | NUR ---
Xray at bedside.
[2018-05-16 01:42] LABS: BILIRUBIN,DIRECT 0.1 mg/dL (0.0-0.2); BILIRUBIN,TOTAL 0.2 mg/dL (0.2-1.0); TOTAL PROTEIN, SERUM 7.1 g/dL (6.4-8.2)
[2018-05-16] MEDS ORDERED: POTASSIUM BICARBONATE/CIT AC 25 MEQ TABLET.EFF PO ONE (02:00)
[2018-05-16] MEDS ORDERED: POTASSIUM BICARBONATE/CIT AC 25 MEQ TABLET.EFF ONE (02:04)
[2018-05-16] MEDS ORDERED: crestor PO (02:15)
[2018-05-16] MEDS ORDERED: FURO40TA5 PO (02:15)
[2018-05-16] MEDS ORDERED: ROSU5TAB PO (02:15)
[2018-05-16] MEDS ORDERED: GABA600T2 PO (02:15)
--- NOTE | 2018-05-16 02:30 | NUR ---
Dr. Kim on panel call with Dr. Nolan.
[2018-05-16] MEDS ORDERED: Z GUARD REMEDY PASTE 57 GM TUBE TOP PRN (02:45)
[2018-05-16] MEDS ORDERED: ONDANSETRON 4 MG/2 ML VIAL IV PRN (02:45)
[2018-05-16] MEDS ORDERED: MAGNESIUM HYDROXIDE 30 ML LIQUID UDC PO PRN (02:45)
[2018-05-16] MEDS ORDERED: ACETAMINOPHEN 325 MG TABLET PO PRN ×2 (02:45)
--- NOTE | 2018-05-16 02:48 | NUR ---
Report given to Raymon WHITTEN Tele.
[2018-05-16 03:15] VITALS: BP 110/62
--- NOTE | 2018-05-16 03:15 | NUR ---
RECEIVED PATIENT FROM ER IN STABLE CONDITION. NO ACUTE DISTRESS NOTED. NEW ADMIT TO TELE UNDER DR. IRWIN BUNDY OF CHEST PAIN. SINUS RHYTHM ON TELE MONITOR. VITAL SIGNS WITHIN RANGE. A/OX4 & ABLE TO MAKE ALL HIS NEEDS KNOWN. DENYING CHEST PAIN. C/O BILATERAL LOWER EXTREMITY PAIN FROM CELLULITIS. NOTED WITH BLE EDEMA & REDNESS. CURRENTLY WRAPPED WITH DRESSINGS FROM ER. PATIENT REFUSING PICS TO BE TAKEN UPON ADMISSION STATING THAT ER JUST DID WOUND CARE TO BLE. NOTED WITH RIGHT AC 22G IV SITE WHICH LOCKED & FLUSHING WELL. BED IN LOW POSITION. CALL LIGHT IN REACH. WILL CONTINUE TO MONITOR THROUGH SHIFT.
[2018-05-16] MEDS: PANTOPRAZOLE SODIUM 40 MG TABLET.DR PO SCH (06:35)
[2018-05-16] MEDS: HYDROCODONE/APAP 5-325MG TABLET PO PRN ×4 (06:39→21:51)
--- NOTE | 2018-05-16 06:51 | NUR ---
Patient slept intermittently during the night. Stable through shift. Sinus Rhythm on tele monitor with HR of 81. C/O BLE pain 04/03. Administered pain med per MD order. All needs attended to promptly. Dressing on BLE intact, clean, & dry. Legs kept elevated. Safety measures implemented. Call light within reach. Will endorse to oncoming shift.
--- NOTE | 2018-05-16 07:47 | NUR ---
RECEIVED PATIENT IN BED AWAKE ALERT AND ORIENTED SEEMS COMFORTABLE WITH NO C/O AT THIS TIME PATIENT HAD RECEIVED PAIN MEDICATIONS PER REPORT AND SEEMS COMFORTABLE AT THIS TIME. ON ROOM AIR WITH NO S/S OF SOB AT THIS TIME.CALL LIGHTS AND PERSONAL BELONGINGS PLACED WITHIN EASY REACH AND WILL CONTINUE TO OBSERVE.
[2018-05-16] MEDS: GABAPENTIN 300 MG CAPSULE PO SCH ×3 (08:46→16:31)
[2018-05-16] MEDS: LISINOPRIL 20 MG TABLET PO SCH (08:46)
[2018-05-16] MEDS: METOPROLOL TARTRATE 50 MG TABLET PO SCH ×2 (08:47→21:52)
[2018-05-16] MEDS: LACTOBACILLUS RHAMNOSUS GG 1 EACH CAPSULE PO SCH ×2 (08:48→20:38)
[2018-05-16] MEDS ORDERED: FUROSEMIDE 40 MG TABLET PO SCH (09:00)
--- NOTE | 2018-05-16 10:00 | NUR ---
PATIENT REFUSED TO HAVE HIS DRESSING CHANGED OR TO EVEN ASSESS STATED THAT IT WAS TAKEN C/O IN THE ED ABOUT 0300 AND WILL ALLOW TO HAVE IT DONE AGAIN AROUND THAT TIME WANTS IT DONE EVERY 24 HOURS ONLY
[2018-05-16] MEDS ORDERED: POTASSIUM CHLORIDE 20 MEQ TAB.PRT.SR PO ONE (10:15)
[2018-05-16] MEDS: FUROSEMIDE 40 MG/4 ML VIAL IV SCH ×2 (10:34→21:03)
[2018-05-16 11:07] VITALS: BP 125/64
[2018-05-16 15:04] VITALS: BP 99/50
--- NOTE | 2018-05-16 16:59 | NUR ---
CONTINUE TO REQUEST FOR PAIN MEDICATIONS ORDERED WANTED TO GET IV PAIN MEDICATION INFORMED DR DOCKERY WITH NO NEW ORDERS AT THIS TIME.
--- NOTE | 2018-05-16 17:46 | NUR ---
PATIENT STATED WILL ONLY ALLOW DRESSING TO BE CHANGED AT 0300 EVERY 24 HOURS STATED THAT,S WHEN IT WAS CHANGED THIS AM AND THAT IS THE ONLY TIME THAT HE WILL ALLOW IT AT THIS TIME STATED USES SILVERDEN CREAM WITH ABDOMINAL PAD WITH MARQUEZ WRAP DR DOCKERY AWARE WITH ORDERS AND NOTED
--- NOTE | 2018-05-16 19:57 | NUR ---
Received pt awake, sitting up with legs elevated. Pt AxO x4, pleasant. Discussed and reviewed plan of care with pt. Pt cooperative with care. Pt shows no s/s of acute distress. Denies pain, SOB or severe headache. Wound and pain management noted on shift. Safety precautions and comfort measures implemented. Call light within reach. Will continue to monitor.
[2018-05-16 20:00] VITALS: BP 98/56
[2018-05-16] MEDS: ARIPIPRAZOLE 5 MG TABLET PO SCH (20:38)
[2018-05-16] MEDS: ATORVASTATIN 10 MG TABLET PO SCH (20:38)
[2018-05-17] MEDS: SILVER SULFADIAZINE 1% CREAM 50 GM TP SCH (02:08)
[2018-05-17 05:00] VITALS: BP 129/66
[2018-05-17] MEDS: PANTOPRAZOLE SODIUM 40 MG TABLET.DR PO SCH (06:02)
[2018-05-17] MEDS: HYDROCODONE/APAP 5-325MG TABLET PO PRN ×4 (06:02→21:26)
[2018-05-17 06:17] LABS: BASOPHILS # (AUTO) 0.1 K/uL (0.0-8.0); BASOPHILS % (AUTO) 0.6 % (0.0-2.0); EOSINOPHILS # (AUTO) 0.2 K/uL (0.0-0.7); EOSINOPHILS % (AUTO) 2.4 % (0.0-7.0); HEMATOCRIT 34.4 % (36.7-47.1); HEMOGLOBIN 11.5 g/dL (12.5-16.3); LYMPHOCYTES # (AUTO) 1.4 K/uL (20.0-40.0); LYMPHOCYTES % (AUTO) 14.4 % (20.5-51.5); MEAN CORPUSCULAR HGB CONC 34 g/dL (32.5-36.3); MEAN CORPUSCULAR VOLUME 92.4 fL (73.0-96.2); NEUTROPHILS % (AUTO) 72.6 % (38.5-71.5); PLATELET COUNT (AUTO) 327 K/uL (152-348); RED BLOOD CELL COUNT(AUTO) 3.72 MIL/uL (4.06-5.63); WHITE BLOOD COUNT (AUTO) 9.6 K/uL (3.6-10.2)
[2018-05-17 06:38] LABS: CREATININE 1.2 mg/dL (0.6-1.3); MAGNESIUM 2.2 mg/dL (1.8-2.4); POTASSIUM 3.9 mmol/L (3.5-5.1)
--- NOTE | 2018-05-17 06:41 | NUR ---
Pt had no significant changes t/o the shift. Pt cooperative with care. Blood pressure controlled during shift. Pain medication given x1 with effect. Wound care and dressing change provided on bilateral lower extremities. Kept pt clean and dry. Pt has no complaints of pain at this time. Denies SOB, chest pain or severe headache. Safety precautions remained at all times. Call light within reach. Will endorse accordingly.
[2018-05-17 09:21] VITALS: BP 120/57
[2018-05-17] MEDS: FUROSEMIDE 40 MG/4 ML VIAL IV SCH (09:22)
[2018-05-17] MEDS: GABAPENTIN 300 MG CAPSULE PO SCH ×3 (09:22→17:03)
[2018-05-17] MEDS: LACTOBACILLUS RHAMNOSUS GG 1 EACH CAPSULE PO SCH ×2 (09:22→21:22)
[2018-05-17 11:07] VITALS: BP 134/70
[2018-05-17] MEDS: METOPROLOL TARTRATE 50 MG TABLET PO SCH ×2 (11:08→21:00)
[2018-05-17] MEDS: FUROSEMIDE 80 MG TABLET PO SCH ×4 (11:08→18:11)
[2018-05-17] MEDS: LISINOPRIL 20 MG TABLET PO SCH (11:08)
[2018-05-17 14:20] VITALS: BP 101/60
[2018-05-17 15:20] VITALS: BP 104/54
--- NOTE | 2018-05-17 19:30 | NUR ---
Received pt sitting in bed with legs elevated. Pt awake, alert and oriented x4. Discussed and reviewed plan of care with pt. Pt cooperative with care. Made pt aware of wound care during the night, pt verbalizes understanding. Pt shows no s/s of acute distress. Pt states level 8/10 on pain scale. Safety precautions implemented at all times. Bed on low locked position, call light within reach. Will continue to monitor.
[2018-05-17 20:00] VITALS: BP 95/50
[2018-05-17] MEDS: ATORVASTATIN 10 MG TABLET PO SCH (21:23)
[2018-05-17] MEDS: ARIPIPRAZOLE 5 MG TABLET PO SCH (21:23)
[2018-05-18] MEDS: HYDROCODONE/APAP 5-325MG TABLET PO PRN ×2 (01:57→06:21)
[2018-05-18] MEDS: SILVER SULFADIAZINE 1% CREAM 50 GM TP SCH (03:16)
[2018-05-18 05:00] VITALS: BP 109/57
[2018-05-18] MEDS: PANTOPRAZOLE SODIUM 40 MG TABLET.DR PO SCH (06:18)
[2018-05-18] MEDS: METOPROLOL TARTRATE 50 MG TABLET PO SCH ×2 (09:00→21:00)
[2018-05-18] MEDS: GABAPENTIN 300 MG CAPSULE PO SCH ×3 (09:00→17:00)
[2018-05-18] MEDS: FUROSEMIDE 80 MG TABLET PO SCH ×3 (09:00→17:00)
[2018-05-18] MEDS: LISINOPRIL 20 MG TABLET PO SCH (09:00)
[2018-05-18 11:50] VITALS: BP 107/50
[2018-05-18] MEDS ORDERED: LIDOCAINE HCL 1% 20 ML VIAL IJ PRN (12:00)
[2018-05-18] MEDS ORDERED: HYDROMORPHONE 1 MG/1 ML DISP.SYRIN IV ONE (12:00)
[2018-05-18] MEDS ORDERED: HYDROMORPHONE 1 MG/1 ML DISP.SYRIN IM ONE (12:15)
[2018-05-18] MEDS ORDERED: HYDROCODONE/APAP 5-325MG TABLET PO ONE (12:15)
[2018-05-18] MEDS: LACTOBACILLUS RHAMNOSUS GG 1 EACH CAPSULE PO SCH ×2 (15:00→20:06)
[2018-05-18 16:00] VITALS: BP 108/69
[2018-05-18 18:00] VITALS: BP 83/44
--- NOTE | 2018-05-18 19:00 | NUR ---
EASILY UPSET WITH ANYTHING CARE PROVIDED,SPOKE TO CHARGE NURSE AT LENGTH ABOUT CONCERNS.B/P LOW HELD CERTAIN MEDS
--- NOTE | 2018-05-18 19:20 | NUR ---
Pt awake, sitting up in bed. Alert and oriented x4. Discussed and reviewed plan of care with pt, pt cooperative. Pt has small episodes of agitation. Wound and pain management noted on shift. Safety precautions initiated. Call light within reach. Will continue to monitor and carry out all orders.
[2018-05-18 19:56] VITALS: BP 109/61
[2018-05-18] MEDS: ATORVASTATIN 10 MG TABLET PO SCH (20:06)
[2018-05-18] MEDS: ARIPIPRAZOLE 5 MG TABLET PO SCH (20:06)
[2018-05-18] MEDS: HYDROCODONE/APAP 10-325 MG TABLET PO PRN (20:06)
[2018-05-19] MEDS: HYDROCODONE/APAP 10-325 MG TABLET PO PRN ×4 (02:06→20:09)
[2018-05-19] MEDS: SILVER SULFADIAZINE 1% CREAM 50 GM TP SCH (02:36)
--- NOTE | 2018-05-19 02:40 | NUR ---
Wound care not given tonight. Dressing change was given on 05/18 at around noon time by wound care provider. Pt aware and states to "leave it alone tonight." Will continue to monitor and endorse to day shift nurse.
[2018-05-19 06:02] VITALS: BP 101/72
[2018-05-19] MEDS: PANTOPRAZOLE SODIUM 40 MG TABLET.DR PO SCH (06:04)
--- NOTE | 2018-05-19 07:20 | NUR ---
PATIENT AWAKE, ALERT AND ORIENTED IN BED. COMPLAINS OF PAIN TO BLE. PAIN MEDICATION WILL BE GIVEN ORDERED. BILATERAL LOWER EXTREMITY PULSES PALPABLE. ABLE TO MOVE TOES IN BOTH FEET. WILL CONTINUE TO MONITOR FOR SAFETY AND COMFORT. ALL OTHER NEEDS MET AT THIS TIME.
[2018-05-19] MEDS: GABAPENTIN 300 MG CAPSULE PO SCH ×3 (08:04→16:48)
[2018-05-19] MEDS: LACTOBACILLUS RHAMNOSUS GG 1 EACH CAPSULE PO SCH ×2 (08:05→20:08)
[2018-05-19] MEDS: FUROSEMIDE 80 MG TABLET PO SCH ×3 (08:07→16:48)
[2018-05-19] MEDS: SODIUM HYPOCHLORITE 0.125% 473 ML BOTTLE TP SCH (08:27)
[2018-05-19] MEDS: LISINOPRIL 20 MG TABLET PO SCH (08:28)
[2018-05-19] MEDS: METOPROLOL TARTRATE 50 MG TABLET PO SCH ×2 (08:28→21:00)
[2018-05-19] MEDS: THERAHONEY GEL 1.5 OZ TUBE TOP SCH (08:28)
--- NOTE | 2018-05-19 12:00 | NUR ---
WOUND CARE PROVIDED ORDERED. PATIENT ASSISTED IN WOUND CARE AND TOLERATED IT WELL.
[2018-05-19 12:20] VITALS: BP 99/57
[2018-05-19 16:23] VITALS: BP 93/51
--- NOTE | 2018-05-19 19:19 | NUR ---
PATIENT AOX4, IN BED. PATIENT COOPERATIVE THROUGHOUT THE SHIFT. PAIN MANAGEMENT AND SAFETY PRECAUTIONS INITIATED THROUGHOUT THE SHIFT. CALL LIGHT IN REACH.
[2018-05-19 20:00] VITALS: BP 94/52
[2018-05-19] MEDS: ARIPIPRAZOLE 5 MG TABLET PO SCH (20:08)
[2018-05-19] MEDS: ATORVASTATIN 10 MG TABLET PO SCH (20:08)
[2018-05-20] VITALS (7 sets, daily range): BP systolic 102–120; BP diastolic 53–73
[2018-05-20] MEDS: HYDROCODONE/APAP 10-325 MG TABLET PO PRN ×3 (02:05→14:41)
[2018-05-20] MEDS: SILVER SULFADIAZINE 1% CREAM 50 GM TP SCH (03:00)
[2018-05-20] MEDS: PANTOPRAZOLE SODIUM 40 MG TABLET.DR PO SCH (06:23)
--- NOTE | 2018-05-20 07:10 | NUR ---
pt continue to get his pain pill for cellulitis pain, dressing changes this morning . vss,afebrile. no significant changes overnight.
--- NOTE | 2018-05-20 07:15 | NUR ---
PATIENT RECVD AWAKE AND ALERT ABLE TO VERBALIZE NEEDS. PATIENT IS AMBULATORY CALL LIGHT WITHIN REACH NO DISTRESS NOTED CONTINUE TO MONITOR
[2018-05-20] MEDS: GABAPENTIN 300 MG CAPSULE PO SCH ×3 (08:44→16:07)
[2018-05-20] MEDS: FUROSEMIDE 80 MG TABLET PO SCH ×3 (08:45→16:07)
[2018-05-20] MEDS: LACTOBACILLUS RHAMNOSUS GG 1 EACH CAPSULE PO SCH ×2 (08:45→20:13)
[2018-05-20] MEDS: LISINOPRIL 20 MG TABLET PO SCH (09:00)
[2018-05-20] MEDS: METOPROLOL TARTRATE 50 MG TABLET PO SCH ×2 (09:00→20:13)
[2018-05-20] MEDS: SODIUM HYPOCHLORITE 0.125% 473 ML BOTTLE TP SCH (09:48)
[2018-05-20] MEDS: THERAHONEY GEL 1.5 OZ TUBE TOP SCH (09:48)
[2018-05-20] MEDS: MAGNESIUM HYDROXIDE 30 ML LIQUID UDC PO PRN (18:33)
--- NOTE | 2018-05-20 19:20 | NUR ---
Received patient lying in bed. AAOX4. In no acute distress. VS WNL. Denies any pain or SOB at this time. No chest pain. Needs assessed and attended to. Safety measure initiated and call arechiga within reach.
[2018-05-20] MEDS: ARIPIPRAZOLE 5 MG TABLET PO SCH (20:13)
[2018-05-20] MEDS: ATORVASTATIN 10 MG TABLET PO SCH (20:13)
[2018-05-21] MEDS: SILVER SULFADIAZINE 1% CREAM 50 GM TP SCH (03:06)
[2018-05-21 03:46] VITALS: BP 111/45
[2018-05-21] MEDS: PANTOPRAZOLE SODIUM 40 MG TABLET.DR PO SCH (06:03)
[2018-05-21] MEDS: HYDROCODONE/APAP 10-325 MG TABLET PO PRN ×3 (06:04→18:16)
[2018-05-21] MEDS: MAGNESIUM HYDROXIDE 30 ML LIQUID UDC PO PRN (06:13)
--- NOTE | 2018-05-21 06:33 | NUR ---
AAOX4. In no acute distress. VS WNL. Denies any SOB at this time. Hydrocodone PRN per order given for complain of pain on BLE. Treatment done to wound on BLE per order. No chest pain. Needs assessed and attended to. Safety measure maintained and call arechiga within reach.
[2018-05-21] MEDS: FUROSEMIDE 80 MG TABLET PO SCH (08:59)
[2018-05-21] MEDS: LACTOBACILLUS RHAMNOSUS GG 1 EACH CAPSULE PO SCH ×2 (08:59→20:45)
[2018-05-21] MEDS: GABAPENTIN 300 MG CAPSULE PO SCH ×3 (08:59→18:15)
[2018-05-21] MEDS: LISINOPRIL 20 MG TABLET PO SCH (09:00)
[2018-05-21] MEDS: SODIUM HYPOCHLORITE 0.125% 473 ML BOTTLE TP SCH (09:00)
[2018-05-21] MEDS: THERAHONEY GEL 1.5 OZ TUBE TOP SCH (09:00)
[2018-05-21] MEDS: METOPROLOL TARTRATE 50 MG TABLET PO SCH ×2 (09:00→20:46)
[2018-05-21 11:03] VITALS: BP 108/62
[2018-05-21] MEDS ORDERED: LIDOCAINE HCL 1% 20 ML VIAL IJ PRN (12:45)
[2018-05-21] MEDS ORDERED: FUROSEMIDE 40 MG TABLET PO SCH (13:12)
[2018-05-21] MEDS: FUROSEMIDE 40 MG TABLET PO SCH ×2 (13:13→18:15)
[2018-05-21 15:06] VITALS: BP 112/68
[2018-05-21] MEDS: ARIPIPRAZOLE 5 MG TABLET PO SCH (20:45)
[2018-05-21] MEDS: ATORVASTATIN 10 MG TABLET PO SCH (20:45)
[2018-05-21 20:46] VITALS: BP 135/60
[2018-05-22] MEDS: HYDROCODONE/APAP 10-325 MG TABLET PO PRN ×3 (00:02→17:14)
--- NOTE | 2018-05-22 00:12 | NUR ---
Received patient lying in bed. AAOX4. In no acute distress. VS WNL. Denies any pain or SOB at this time. O2 sat at 100% on RA. No chest pain. Needs assessed and attended to. Safety measure initiated and call arechiga within reach.
[2018-05-22] MEDS: SILVER SULFADIAZINE 1% CREAM 50 GM TP SCH (03:00)
[2018-05-22] MEDS: PANTOPRAZOLE SODIUM 40 MG TABLET.DR PO SCH (06:09)
[2018-05-22 06:25] VITALS: BP 120/68
--- NOTE | 2018-05-22 06:29 | NUR ---
AAOX4. In no acute distress. VS WNL. Denies any SOB. O2 sat at 99% on RA. Hydrocodone PRN per order given for complain of pain on BLE. BLE dressing intact. Denies any chest pain. Safety measure maintained and call arechiga within reach.
[2018-05-22 06:46] LABS: BASOPHILS # (AUTO) 0.2 K/uL (0.0-8.0); BASOPHILS % (AUTO) 1.3 % (0.0-2.0); EOSINOPHILS # (AUTO) 0.3 K/uL (0.0-0.7); EOSINOPHILS % (AUTO) 2.6 % (0.0-7.0); HEMOGLOBIN 12.1 g/dL (12.5-16.3); LYMPHOCYTES # (AUTO) 1.8 K/uL (20.0-40.0); MEAN CORPUSCULAR HEMOGLOBIN 30.5 uug (23.8-33.4); MEAN CORPUSCULAR HGB CONC 34 g/dL (32.5-36.3); MEAN CORPUSCULAR VOLUME 91.3 fL (73.0-96.2); MONOCYTES # (AUTO) 0.8 K/uL (2.0-10.0); MONOCYTES % (AUTO) 6.6 % (0.0-11.0); NEUTROPHILS # (AUTO) 8.4 K/uL (1.8-8.9); NEUTROPHILS % (AUTO) 73.5 % (38.5-71.5); PLATELET COUNT (AUTO) 431 K/uL (152-348); RED BLOOD CELL COUNT(AUTO) 3.95 MIL/uL (4.06-5.63); WHITE BLOOD COUNT (AUTO) 11.5 K/uL (3.6-10.2)
[2018-05-22 06:57] LABS: BILIRUBIN,TOTAL 0.3 mg/dL (0.2-1.0); CREATININE 1.4 mg/dL (0.6-1.3); MAGNESIUM 2.6 mg/dL (1.8-2.4); PHOSPHOROUS 3.5 mg/dL (2.5-4.9); POTASSIUM 3.8 mmol/L (3.5-5.1); TOTAL PROTEIN, SERUM 7.8 g/dL (6.4-8.2)
--- NOTE | 2018-05-22 07:30 | NUR ---
RECIEVED PT LYING IN BED, BOTH FEET ELEVATED ON HIGH PILLOWS. DRESSINGS ON BOTH LEG IS CLEAN AND INTACT. PT IS AWAKE AND ALERT AND ORIENTEDX3. SLIGHTLY OBESED AND HEAVY. VERY HUNTER, UNCOOPERATIVE. NO APPARENT DISTRESS NOTED AT THIS TIME.
[2018-05-22] MEDS ORDERED: SILVER SULFADIAZINE 1% CREAM 50 GM TP SCH (09:00)
--- NOTE | 2018-05-22 09:00 | NUR ---
PT C/O PAIN ON BOTH CELLULITIS LEGS LEVEL 8. MEDICATED WITH NORCO 1 TAB PO GIVEN REQUESTED. AFEBRILE.
[2018-05-22] MEDS: LACTOBACILLUS RHAMNOSUS GG 1 EACH CAPSULE PO SCH ×2 (09:21→20:42)
[2018-05-22] MEDS: GABAPENTIN 300 MG CAPSULE PO SCH ×3 (09:22→17:13)
[2018-05-22] MEDS: METOPROLOL TARTRATE 50 MG TABLET PO SCH ×2 (09:22→20:42)
[2018-05-22] MEDS: FUROSEMIDE 40 MG TABLET PO SCH ×4 (09:22→17:14)
[2018-05-22] MEDS: HYDROCODONE/APAP 5-325MG TABLET PO PRN (09:23)
[2018-05-22] MEDS: LISINOPRIL 20 MG TABLET PO SCH (09:23)
--- NOTE | 2018-05-22 11:00 | NUR ---
PT IS DIURESING WELL. PT HAS EDEMA BOTH LEGS BUT ABLE AMBULATE TO THE BATHROOM.
[2018-05-22 12:00] VITALS: BP 105/65
[2018-05-22] MEDS: SODIUM HYPOCHLORITE 0.125% 473 ML BOTTLE TP SCH (14:00)
[2018-05-22] MEDS: THERAHONEY GEL 1.5 OZ TUBE TOP SCH (14:00)
--- NOTE | 2018-05-22 14:30 | NUR ---
WOUND DRESSING AND TREATMENT DONE ON BOTH LEGS AND PHOTOS TAKEN.
[2018-05-22 15:48] VITALS: BP 80/47
[2018-05-22 16:30] VITALS: BP 91/41
--- NOTE | 2018-05-22 18:00 | NUR ---
CONDITION IS UNCHANGED.
--- NOTE | 2018-05-22 18:30 | NUR ---
WOUND CULTURE RESULT IS INFORMED TO DR RAMIREZ. STATED HE WILL ORDER ANTIBIOTIC LATER.
--- NOTE | 2018-05-22 19:20 | NUR ---
Received patient lying in bed. AAOX4. In no acute distress. Denies any chest pain or SOB at this time. Appears calm and comfortable. Needs assessed and attended to. Safety measure initiated and call arechiga within reach.
[2018-05-22 20:00] VITALS: BP 98/52
[2018-05-22] MEDS: ATORVASTATIN 10 MG TABLET PO SCH (20:42)
[2018-05-22] MEDS: ARIPIPRAZOLE 5 MG TABLET PO SCH (20:42)
[2018-05-22] MEDS ORDERED: CEFEPIME HCL 1 G in IV DEXTROSE 5% 50 ML IV SCH (21:30)
[2018-05-22] MEDS ORDERED: DOXYCYCLINE HYCLATE 100 MG TABLET ONE (22:37)
--- NOTE | 2018-05-22 22:40 | NUR ---
STARTED NEW IV LINE ON RIGHT WRIST #22 GAUGE.
[2018-05-22] MEDS: DOXYCYCLINE HYCLATE 100 MG TABLET PO SCH (22:43)
[2018-05-22] MEDS ORDERED: CEFEPIME HCL 1 G VIAL ONE (22:46)
[2018-05-22] MEDS: MORPHINE SULFATE 2 MG/1 ML DISP.SYRIN IV PRN (22:53)
--- NOTE | 2018-05-23 00:30 | NUR ---
PATIENT IV LEAKING. PLACE NEW IV ON LEFT WRIST #22 GAUGE
[2018-05-23] MEDS: SILVER SULFADIAZINE 1% CREAM 50 GM TP SCH (03:00)
[2018-05-23 05:00] VITALS: BP 92/54
[2018-05-23] MEDS: MORPHINE SULFATE 2 MG/1 ML DISP.SYRIN IV PRN (05:15)
--- NOTE | 2018-05-23 05:15 | NUR ---
Patient requested Morphine for severe pain on BLE 03/04. While pushing Morphine via IV patient stated that it was painful and told this nurse to stop pushing the meds. Assess IV site, still appears intact, no signs of infiltration or leakage. Able to provide only 1/2 dose (1mg =0.5ml) Other half of medication wasted and witness by nurse Feliciano. Charge nurse Susan also made aware.
[2018-05-23] MEDS: PANTOPRAZOLE SODIUM 40 MG TABLET.DR PO SCH (06:01)
--- NOTE | 2018-05-23 06:03 | NUR ---
AAOX4. In no acute distress. Denies any chest pain or SOB at this time. No adverse effect noted from IV and PO ABX. Needs assessed and attended to. Safety measure maintained and call arechiga within reach.
--- NOTE | 2018-05-23 07:10 | NUR ---
Received patient in bed, asleep, in no acute distress. IV site on RH in place. No s/s of pain or SOB noted. Fall precaution in place. Will continue to monitor
[2018-05-23] MEDS: FUROSEMIDE 80 MG TABLET PO SCH ×2 (08:30→17:34)
[2018-05-23] MEDS: HYDROCODONE/APAP 10-325 MG TABLET PO PRN ×3 (08:30→21:19)
[2018-05-23] MEDS: GABAPENTIN 300 MG CAPSULE PO SCH ×3 (08:31→17:34)
[2018-05-23] MEDS: LACTOBACILLUS RHAMNOSUS GG 1 EACH CAPSULE PO SCH ×2 (08:31→21:19)
[2018-05-23] MEDS: DOXYCYCLINE HYCLATE 100 MG TABLET PO SCH (08:31)
[2018-05-23] MEDS: THERAHONEY GEL 1.5 OZ TUBE TOP SCH (08:35)
[2018-05-23] MEDS: SODIUM HYPOCHLORITE 0.125% 473 ML BOTTLE TP SCH (08:36)
[2018-05-23] MEDS: LISINOPRIL 20 MG TABLET PO SCH (09:00)
[2018-05-23] MEDS: METOPROLOL TARTRATE 50 MG TABLET PO SCH ×3 (09:00→21:19)
--- NOTE | 2018-05-23 09:00 | NUR ---
Patient's IV infiltrated, c/o pain at the site. Patient requested for the IV to be taken out. Patient also refused to have a new PIV inserted, also refusing midline and PICC line placement. Risks and benefits explained, however, patient still continue to refuse. CN made aware. made aware. Will continue to monitor
[2018-05-23 10:25] VITALS: BP 106/45
[2018-05-23] MEDS: CEFEPIME HCL 1 G in IV DEXTROSE 5% 50 ML IV SCH ×2 (11:00→23:00)
[2018-05-23 11:50] VITALS: BP 100/39
--- NOTE | 2018-05-23 12:20 | NUR ---
Received a call from Lab, patient's wound culture on left leg positive for MRSA. made aware. Contact isolation initiated.
[2018-05-23 15:50] VITALS: BP 103/54
--- NOTE | 2018-05-23 18:20 | NUR ---
End of shift note: patient is alert and oriented x4, in no acute distress. Wound care treatment done as ordered, patient able to tolerate the procedure well. Medicated for pain as needed and was effective. Denies chest pain or SOB. Patient continues to refuse IV insertion. Remains on contact isolation. No acute change of condition noted. Will continue to monitor
--- NOTE | 2018-05-23 19:20 | NUR ---
RECEIVED PT AWAKE, ALERT, AND ORIENTEDX4. PT SHOWS NO SIGNS OF DISTRESS. PT HAVE NO IV ACCESS BECAUSE PT REFUSED. DOCTOR AWARE OF THE SITUATION. CALL LIGHT WITHIN REACH. SAFETY AND COMFORT PROVIDED. WILL CONTINUE TO MONITOR.
[2018-05-23 20:00] VITALS: BP 100/59
[2018-05-23] MEDS: ATORVASTATIN 10 MG TABLET PO SCH (21:19)
[2018-05-23] MEDS: ARIPIPRAZOLE 5 MG TABLET PO SCH (21:19)
--- NOTE | 2018-05-23 21:45 | NUR ---
PT REFUSED HIS LOPRESSOR BECAUSE HE STATED" SINCE MY BLOOD PRESSURE IS 100/59. I DON'T NEED THAT MEDICATION." I WASTED THE MEDICATION WITH JIM WHITTEN MY WITNESS.
[2018-05-23] MEDS: CLINDAMYCIN PHOSPHATE IV 600 MG in IV DEXTROSE 5% 100 ML IV SCH (22:00)
--- NOTE | 2018-05-23 22:00 | NUR ---
ER NURSE TRY TO PUT AN IV ACCESS ON HIM BUT PT REFUSED. TOLD DR. LISA AT 2130H THAT THE PT DOESN'T REALLY WANT TO HAVE IV ACCESS SO PT REFUSED ALL HIS IV MEDICATION. DOCTOR AWARE. CHARGE NURSE AWARE OF SITUATION.
[2018-05-24] MEDS: HYDROCODONE/APAP 5-325MG TABLET PO PRN (01:54)
[2018-05-24] MEDS: SILVER SULFADIAZINE 1% CREAM 50 GM TP SCH (04:50)
[2018-05-24 05:12] VITALS: BP 127/60
[2018-05-24] MEDS: CLINDAMYCIN PHOSPHATE IV 600 MG in IV DEXTROSE 5% 100 ML IV SCH (06:00)
[2018-05-24] MEDS: PANTOPRAZOLE SODIUM 40 MG TABLET.DR PO SCH (06:39)
--- NOTE | 2018-05-24 06:49 | NUR ---
PT SLEPT INTERMITTENTLY. PT SHOWS NO SIGNS OF DISTRESS. PRESCRIBED MEDICATION GIVEN AND PT TOLERATED IT WELL. WOUND CARE DONE.. PT REFUSED TO PUT THE DAKIN'S SOLUTION AND INSISTED TO PUT HYDROGEN PEROXIDE WITH THERAHONEY. CHARGE NURSE AWARE. PT REFUSED IV INSERTION SO ALL IV MEDICATION FOR MY SHIFT NOT GIVEN. DOCTOR AWARE OF THE SITUATION. SAFETY AND COMFORT PROVIDED. WILL ENDORSE TO INCOMING NURSE FOR CONTINUITY OF CARE.
--- NOTE | 2018-05-24 07:15 | NUR ---
RECEIVED PATIENT ON BED, AWAKE, AAOX4 NO ACUTE DISTRESS NOTED. ON CONTACT ISOLATION FOR MRSA IN WOUND BLE NO IV ACCESS. CONTINUES TO REFUSE MIDLINE/PICC LINE INSERTIONS, MD AWARE. WOUND DRESSING ON BLE INTACT AND DRY. COMFORT MEASURES PROVIDED. CALL LIGHT WITHIN REACH WILL CONTINUE TO MONITOR CLOSELY
[2018-05-24] MEDS: HYDROCODONE/APAP 10-325 MG TABLET PO PRN ×2 (08:05→15:53)
[2018-05-24] MEDS: METOPROLOL TARTRATE 50 MG TABLET PO SCH (09:00)
[2018-05-24] MEDS: LISINOPRIL 20 MG TABLET PO SCH (09:00)
[2018-05-24] MEDS: LACTOBACILLUS RHAMNOSUS GG 1 EACH CAPSULE PO SCH (09:15)
[2018-05-24] MEDS: FUROSEMIDE 80 MG TABLET PO SCH ×2 (09:15→16:35)
[2018-05-24] MEDS: GABAPENTIN 300 MG CAPSULE PO SCH ×3 (09:15→16:35)
[2018-05-24] MEDS: SODIUM HYPOCHLORITE 0.125% 473 ML BOTTLE TP SCH (09:17)
[2018-05-24] MEDS: THERAHONEY GEL 1.5 OZ TUBE TOP SCH (09:17)
[2018-05-24] MEDS: CLINDAMYCIN HCL 300 MG CAPSULE PO SCH ×2 (10:27→16:35)
[2018-05-24] MEDS: CEFEPIME HCL 1 G in IV DEXTROSE 5% 50 ML IV SCH (10:29)
[2018-05-24 11:20] VITALS: BP 100/49
[2018-05-24 15:40] VITALS: BP 94/41
[2018-05-24] MEDS ORDERED: HYDR-4354 PO (17:12)
[2018-05-24] MEDS ORDERED: ASCO500C18 PO (17:12)
[2018-05-24] MEDS ORDERED: FURO80TA3 PO (17:12)
[2018-05-24] MEDS ORDERED: MENT71OI TOP (17:12)
[2018-05-24] MEDS ORDERED: MAGN400O6 PO (17:12)
[2018-05-24] MEDS ORDERED: SODI473S8 TP (17:12)
[2018-05-24] MEDS ORDERED: ZINC220C8 PO (17:12)
[2018-05-24] MEDS ORDERED: CLIN300C3 PO (17:12)
--- NOTE | 2018-05-24 18:57 | NUR ---
PATIENT IN ROOM AAOX4 WILL BE DISCHARGED TO [facility], AWAITING BUYER ASSISTANT FROM AMBULANCE. DISCHARGE PAPERS/PICTURES DONE, [facility]. WILL ENDORSE ACCORDINGLY.
== END 2018-05-24 19:10 | DRG 198 ==
LOC: ER 23:40 → TELE 05-16 02:20 → MED 05-16 12:26
PROVIDERS: ADMIT Internal Medicine; ATTEND Internal Medicine
PROC: 0JBN0ZZ Excision of Right Lower Leg Subcutaneous Tissue and Fascia, Open Approach (ICD-10-PCS; principal; 2018-05-18)
PROC: 0JBP0ZZ Excision of Left Lower Leg Subcutaneous Tissue and Fascia, Open Approach (ICD-10-PCS; principal; 2018-05-18)
PROC: 0JBP0ZZ Excision of Left Lower Leg Subcutaneous Tissue and Fascia, Open Approach (ICD-10-PCS; 2018-05-21)
PROC: 0JBN0ZZ Excision of Right Lower Leg Subcutaneous Tissue and Fascia, Open Approach (ICD-10-PCS; 2018-05-21)
DX: I25.110 Atherosclerotic heart disease of native coronary artery with unstable angina pectoris (principal); N17.0 Acute kidney failure with tubular necrosis; I50.33 Acute on chronic diastolic (congestive) heart failure; E43 Unspecified severe protein-calorie malnutrition; E66.01 Morbid (severe) obesity due to excess calories; L03.115 Cellulitis of right lower limb; E11.51 Type 2 diabetes mellitus with diabetic peripheral angiopathy without gangrene; E11.622 Type 2 diabetes mellitus with other skin ulcer; L03.116 Cellulitis of left lower limb; Z68.42 Body mass index [BMI] 45.0-49.9, adult; M41.9 Scoliosis, unspecified; I11.0 Hypertensive heart disease with heart failure; E78.5 Hyperlipidemia, unspecified; Z59.0 Homelessness; Z71.3 Dietary counseling and surveillance; Z91.19 Patient's noncompliance with other medical treatment and regimen; Z85.72 Personal history of non-Hodgkin lymphomas; K21.9 Gastro-esophageal reflux disease without esophagitis; I89.0 Lymphedema, not elsewhere classified; B95.62 Methicillin resistant Staphylococcus aureus infection as the cause of diseases classified elsewhere; B96.5 Pseudomonas (aeruginosa) (mallei) (pseudomallei) as the cause of diseases classified elsewhere; I25.2 Old myocardial infarction; I87.2 Venous insufficiency (chronic) (peripheral); L97.828 Non-pressure chronic ulcer of other part of left lower leg with other specified severity; L97.818 Non-pressure chronic ulcer of other part of right lower leg with other specified severity; D63.8 Anemia in other chronic diseases classified elsewhere; F41.9 Anxiety disorder, unspecified; F31.9 Bipolar disorder, unspecified; E87.6 Hypokalemia; B35.1 Tinea unguium; E78.1 Pure hyperglyceridemia; M17.0 Bilateral primary osteoarthritis of knee
CPT/HCPCS: 36415; 70030-TC; 71045; 83735; 84100; 85025; 85730; 87070; 87077; 93005; A4217; A4663; G0378; J0692; J1170; J1940; J2270; J3490; J7050; J7060

== ENCOUNTER 2018-07-25 10:21 | Inpatient (IN) | payer OTHER ==
[~2018-07-25] VITALS: Ht 175.3 cm; Wt 120.7 kg
[~2018-07-25 10:21] MED LIST changes: +ASCO500C18 PO; -ATOR10TA PO; -CHLO118L TP; +CLIN300C3 PO; -DOCU100C36 PO; -FERR325T28 PO; -FURO40TA5 PO; +FURO80TA3 PO; +GABA600T12 PO; -Isosorbide Mononitrate PO; -LIDO35.4 TOP; +MAGN400O6 PO; +MENT71OI TOP; -MERO1PIG IV; +ROSU5TAB PO; +SODI473S8 TP; +ZINC220C8 PO
[2018-07-25] MEDS ORDERED: HYDROCODONE/APAP 10-325 MG TABLET PO ONE (11:15)
[2018-07-25] MEDS ORDERED: HYDROCODONE/APAP 10-325 MG TABLET ONE (11:22)
[2018-07-25 11:29] LABS: BASOPHILS # (AUTO) 0.2 K/uL (0.0-8.0); BASOPHILS % (AUTO) 1.2 % (0.0-2.0); EOSINOPHILS # (AUTO) 0.1 K/uL (0.0-0.7); EOSINOPHILS % (AUTO) 0.7 % (0.0-7.0); HEMATOCRIT 34.5 % (36.7-47.1); HEMOGLOBIN 11.2 g/dL (12.5-16.3); LYMPHOCYTES # (AUTO) 1.3 K/uL (20.0-40.0); LYMPHOCYTES % (AUTO) 9.9 % (20.5-51.5); MEAN CORPUSCULAR HGB CONC 33 g/dL (32.5-36.3); MONOCYTES # (AUTO) 0.8 K/uL (2.0-10.0); MONOCYTES % (AUTO) 5.8 % (0.0-11.0); NEUTROPHILS % (AUTO) 82.4 % (38.5-71.5); PLATELET COUNT (AUTO) 454 K/uL (152-348); RED BLOOD CELL COUNT(AUTO) 4.01 MIL/uL (4.06-5.63); WHITE BLOOD COUNT (AUTO) 13.4 K/uL (3.6-10.2)
[2018-07-25] MEDS ORDERED: BUME2TAB3 PO (11:32)
[2018-07-25 11:36] LABS: POTASSIUM 3.8 mmol/L (3.5-5.1)
[2018-07-25] MEDS ORDERED: PIPERACILLIN SODIUM/TAZOBACTAM 3.375 G in IV DEXTROSE 5% 50 ML IV ONE (11:45)
[2018-07-25] MEDS ORDERED: VANCOMYCIN IV 200 ML IV ONE (11:45)
[2018-07-25 11:54] LABS: BILIRUBIN,DIRECT 0.1 mg/dL (0.0-0.2); BILIRUBIN,TOTAL 0.3 mg/dL (0.2-1.0); TOTAL PROTEIN, SERUM 8.1 g/dL (6.4-8.2)
[2018-07-25] MEDS ORDERED: PIPERACILLIN/TAZOBACTAM/D5W 50 ML IV ONE (11:54)
[2018-07-25] MEDS ORDERED: VANCOMYCIN IV 200 ML ONE (11:54)
--- NOTE | 2018-07-25 12:37 | NUR ---
hospital lunch tray at bedside. pt eating with good apetite.
--- NOTE | 2018-07-25 12:47 | NUR ---
Call recieved from patient's insurance, OK to admit to [facility], Authorization #[id number].
--- NOTE | 2018-07-25 12:50 | NUR ---
Call placed to [facility], Dr. Babcock has been paged.
--- NOTE | 2018-07-25 13:51 | NUR ---
pt transfered to floor instable condition.
--- NOTE | 2018-07-25 13:55 | NUR ---
RECEIVED PATIENT A/O 4, ON RA, NO DISTRESS NOTED, ADMIT TO TELE IV ON LEFT HAND 22 INTACT SAFETY REINFORCED CAREPLAN WILL BE INITIATED
[2018-07-25 15:15] VITALS: BP 136/87
[2018-07-25] MEDS ORDERED: ONDANSETRON 4 MG/2 ML VIAL IV PRN (16:30)
[2018-07-25] MEDS ORDERED: Medication Not On Formulary EA (Gabapentin 600 MG) PO SCH (17:00)
[2018-07-25] MEDS: HYDROCODONE/APAP 10-325 MG TABLET PO PRN ×2 (18:10→22:28)
--- NOTE | 2018-07-25 18:38 | NUR ---
PHARMACY CLINICAL NOTES: S: 62 YO male, admitted for cellulitis, s/p I & D now here for infected wound on BLE ordered Vanco and Zosyn empirically. O: BUN/SCR 14/1.0, WBC 13.4, TEMP 98.4 , DOSING WT 270 LBS A/P: PT received one dose of vancomycin 1 gm in ER ~ 12:30. Will dose Vanco as 2000 mg q13h first dose to start tonight @ 2000. estimated peak 37 and trough of 17. Will order trough prior to 4th dose and will continue monitoring renal fxn and adjust the dose if necessary.
[2018-07-25] MEDS: GABAPENTIN 300 MG CAPSULE PO SCH (19:01)
[2018-07-25] MEDS: PIPERACILLIN/TAZOBACTAM/D5W 50 ML IV SCH (19:02)
--- NOTE | 2018-07-25 19:40 | NUR ---
PATIENT A/O 4, ON RA, NO DISTRESS NOTED, pain controlled w norco second dose was effective patient is sleeping IV ON LEFT HAND 22 INTACT, ZOCYN STARTED SAFETY REINFORCED
--- NOTE | 2018-07-25 19:45 | NUR ---
Received patient awake on moderate high back rest, not in any form of distress. With IV access at right hand to ongoing IVF infusing well. Noted swelling on both legs which are covered with abdominal pads and kerlix, reinforced. With complaints of pain, prn pain medications given. Bed in low position, side rails up x 2, call light within reach. Noise and lights subdued. Will continue to monitor.
[2018-07-25 20:15] VITALS: BP 115/62
[2018-07-25] MEDS: METOPROLOL TARTRATE 50 MG TABLET PO SCH (20:30)
[2018-07-25] MEDS: ACETAMINOPHEN 325 MG TABLET PO PRN (20:30)
[2018-07-25] MEDS: CULTURELLE CAPSULE PO SCH (20:30)
[2018-07-25] MEDS: ARIPIPRAZOLE 5 MG TABLET PO SCH (20:30)
[2018-07-25] MEDS: VANCOMYCIN IV 2,000 MG in IV DEXTROSE 5% 500 ML IV SCH (20:31)
[2018-07-25] MEDS: ENOXAPARIN SODIUM 40 MG/0.4 ML DISP.SYRIN SQ SCH (20:37)
[2018-07-26] VITALS: BP 102/53
[2018-07-26] MEDS: PIPERACILLIN/TAZOBACTAM/D5W 50 ML IV SCH ×3 (00:03→12:00)
[2018-07-26] MEDS: HYDROCODONE/APAP 10-325 MG TABLET PO PRN ×5 (02:15→18:40)
[2018-07-26 04:00] VITALS: BP 110/57
[2018-07-26] MEDS: ACETAMINOPHEN 325 MG TABLET PO PRN (04:16)
[2018-07-26] MEDS: PANTOPRAZOLE SODIUM 40 MG TABLET.DR PO SCH (06:12)
[2018-07-26 06:26] LABS: EOSINOPHILS # (AUTO) 0.3 K/uL (0.0-0.7); EOSINOPHILS % (AUTO) 2.3 % (0.0-7.0); HEMATOCRIT 32.2 % (36.7-47.1); HEMOGLOBIN 10.4 g/dL (12.5-16.3); LYMPHOCYTES # (AUTO) 1.6 K/uL (20.0-40.0); LYMPHOCYTES % (AUTO) 13.2 % (20.5-51.5); MEAN CORPUSCULAR HEMOGLOBIN 28.3 uug (23.8-33.4); MEAN CORPUSCULAR HGB CONC 32 g/dL (32.5-36.3); MEAN CORPUSCULAR VOLUME 87.3 fL (73.0-96.2); MONOCYTES # (AUTO) 0.9 K/uL (2.0-10.0); MONOCYTES % (AUTO) 7.4 % (0.0-11.0); NEUTROPHILS # (AUTO) 9.2 K/uL (1.8-8.9); NEUTROPHILS % (AUTO) 77.1 % (38.5-71.5); PLATELET COUNT (AUTO) 364 K/uL (152-348); RED BLOOD CELL COUNT(AUTO) 3.69 MIL/uL (4.06-5.63)
--- NOTE | 2018-07-26 06:51 | NUR ---
Patient slept intermittently throughout the night. With IV access at right hand intact. Noted swelling on both legs which are covered with abdominal pads and kerlix, reinforced. With complaints of pain, prn pain medications given. Ensured safety and comfort.
[2018-07-26 06:53] LABS: BILIRUBIN,TOTAL 0.3 mg/dL (0.2-1.0); CREATININE 1.1 mg/dL (0.6-1.3); MAGNESIUM 2.3 mg/dL (1.8-2.4); PHOSPHOROUS 3.5 mg/dL (2.5-4.9); POTASSIUM 4.1 mmol/L (3.5-5.1); TOTAL PROTEIN, SERUM 7.2 g/dL (6.4-8.2)
--- NOTE | 2018-07-26 08:12 | NUR ---
PATIENT A/O 4, ON RA, NO DISTRESS NOTED, pain controlled w [place] and Tylenol; IV ON LEFT HAND 22 INTACT CARE PLAN DISCUSSED SAFETY REINFORCED
[2018-07-26] MEDS ORDERED: Medication Not On Formulary EA (Ascorbic Acid (Vitamin C) 500 MG) PO SCH (09:00)
[2018-07-26] MEDS ORDERED: FUROSEMIDE 20 MG/2 ML VIAL IV SCH (09:00)
[2018-07-26] MEDS ORDERED: GENTAMICIN SULFATE 0.1% CREAM 15 GM TUBE TOP SCH (09:00)
[2018-07-26] MEDS: FUROSEMIDE 20 MG/2 ML VIAL IV SCH (09:49)
[2018-07-26] MEDS: METOPROLOL TARTRATE 50 MG TABLET PO SCH ×2 (09:50→21:03)
[2018-07-26] MEDS: CULTURELLE CAPSULE PO SCH ×2 (09:50→20:59)
[2018-07-26] MEDS: ZINC SULFATE 220 MG CAPSULE PO SCH (09:50)
--- NOTE | 2018-07-26 09:50 | NUR ---
Vanco was started and iv got infiltrated. tried new IV X3 without success. Midline was refused by the patient
[2018-07-26] MEDS: LISINOPRIL 20 MG TABLET PO SCH (09:51)
[2018-07-26] MEDS: ASCORBIC ACID 500 MG TABLET PO SCH (09:51)
[2018-07-26] MEDS: GABAPENTIN 300 MG CAPSULE PO SCH ×3 (09:52→17:47)
[2018-07-26] MEDS: VANCOMYCIN IV 2,000 MG in IV DEXTROSE 5% 500 ML IV SCH (09:52)
[2018-07-26] MEDS ORDERED: LIDOCAINE 1%-EPI 1:100,000 20 ML VIAL TP ONE (11:15)
[2018-07-26] MEDS ORDERED: LIDOCAINE HCL 1% 20 ML VIAL IJ PRN (11:45)
[2018-07-26 11:50] VITALS: BP 106/55
--- NOTE | 2018-07-26 12:06 | NUR ---
PHARMACY CLINICAL NOTES: S: 62 YO male, admitted for cellulitis, s/p I & D now here for infected wound on MD AUGIE ordered Vanco and Zosyn empirically. O: BUN/SCR 15/1.1, WBC 12 TEMP 98.2 , DOSING WT 270 LBS A/P:Will continue Vanco as 2000 mg q13h, third dose tonight at @ 2200. Estimated peak 37 and trough of 17. Will order trough prior to 4th dose (ordered for tomorrow at 1030) and will continue monitoring renal fxn and adjust the dose if necessary. Addendum: 07/26/18 at 1722 by CELY DANG ADM LINE GOT INFILTRATED. VANCOMYCIN WASN'T GIVEN AT 0900. RESTARTED AT 1700. WILL CANCEL VANCOMYCIN TROUGH AND RESCHEDULE DOSE. SECOND DOSE TOMORROW AT 0600
[2018-07-26] MEDS: GENTAMICIN SULFATE 0.1% OINT 15 GM TUBE TP SCH (14:01)
[2018-07-26 16:20] VITALS: BP 96/52
--- NOTE | 2018-07-26 16:45 | NUR ---
MIDLINE HAS BEEN PLACED, CONSENT SIGNED, FISH WYNN DID THE PROCEDURE Addendum: 07/26/18 at 1834 by THOMAS GAGNON RN PICCLINE HAS BEEN PLACED, CONSENT SIGNED, FISH WYNN DID THE PROCEDURE
--- NOTE | 2018-07-26 17:00 | NUR ---
TALKED TO THE PHARMACY ABOUT CONT VANCO IV, THEY OKEYD TO CONT INFUSION OF THE EXISTING BAG THEY WILL RESCHEDULE OTHER ABX ACCORDANTLY
--- NOTE | 2018-07-26 18:33 | NUR ---
END OF SHIFT PATIENT A/O 4, NO RESP DISTRESS, NO COMPLAINS AT THE MOMENT, ABX INFUSING, DEBRIDEMENT DONE TODAY AND PIC IN CHART, SAFETY REINFORCED
[2018-07-26 19:28] VITALS: BP 98/50
[2018-07-26] MEDS: ARIPIPRAZOLE 5 MG TABLET PO SCH (20:59)
[2018-07-26] MEDS: ENOXAPARIN SODIUM 40 MG/0.4 ML DISP.SYRIN SQ SCH (21:01)
[2018-07-26 23:31] VITALS: BP 109/68
[2018-07-27] MEDS: PIPERACILLIN/TAZOBACTAM/D5W 50 ML IV SCH ×6 (00:21→23:57)
[2018-07-27] MEDS: HYDROCODONE/APAP 10-325 MG TABLET PO PRN ×3 (00:29→10:06)
[2018-07-27 03:53] VITALS: BP 90/45
[2018-07-27] MEDS: VANCOMYCIN IV 2,000 MG in IV DEXTROSE 5% 500 ML IV SCH ×2 (06:13→19:11)
[2018-07-27] MEDS: PANTOPRAZOLE SODIUM 40 MG TABLET.DR PO SCH (06:35)
--- NOTE | 2018-07-27 07:00 | NUR ---
BEGINNING OF SHIFT PATIENT A/O 4, NO RESP DISTRESS, NO COMPLAINS AT THE MOMENT, ABX INFUSING, PICC INTACT SALINE FLUSH, SAFETY REINFORCED
[2018-07-27] MEDS ORDERED: GENTAMICIN SULFATE 0.1% CREAM 15 GM TUBE TOP SCH (09:00)
--- NOTE | 2018-07-27 09:58 | NUR ---
PHARMACY CLINICAL NOTES: S: To continue vanco mycin dsoing for this 62 yo male for cellulitis (s/p I & D now here for infected wound on BLE). O: BUN/SCR 15/1.1 (07/26), WBC 12 (05/25) TEMP 98.1 wt 122 kg ht 175 cm A/P:Will continue Vanco as 2000 mg q13h, third dose tonight at @ 1900. Will order trough prior to 4th dose (ordered for tomorrow at 0730). Pharmacist shall review the level in am & adjust the dose if needed
[2018-07-27] MEDS: FUROSEMIDE 20 MG/2 ML VIAL IV SCH (10:05)
[2018-07-27] MEDS: LISINOPRIL 20 MG TABLET PO SCH (10:11)
[2018-07-27] MEDS: ZINC SULFATE 220 MG CAPSULE PO SCH (10:11)
[2018-07-27] MEDS: ASCORBIC ACID 500 MG TABLET PO SCH (10:11)
[2018-07-27] MEDS: GABAPENTIN 300 MG CAPSULE PO SCH ×3 (10:12→16:39)
[2018-07-27] MEDS: METOPROLOL TARTRATE 50 MG TABLET PO SCH ×2 (10:13→20:36)
[2018-07-27] MEDS: CULTURELLE CAPSULE PO SCH ×2 (10:13→20:36)
[2018-07-27] MEDS: SODIUM HYPOCHLORITE 0.125% 473 ML BOTTLE TP SCH (10:15)
--- NOTE | 2018-07-27 11:00 | NUR ---
PATIENT BECAME VERY UNRESECTABLY WITH HIS COMMUNICATION "GET OUT OF MY ROOM, YOU ARE A LIER YOU NEVER SAID YOU WERE "
[2018-07-27 11:47] VITALS: BP 105/51
[2018-07-27] MEDS ORDERED: MORPHINE SULFATE 2 MG/1 ML DISP.SYRIN IV PRN (12:45)
[2018-07-27] MEDS: MORPHINE SULFATE 4 MG/1 ML DISP.SYRIN IV PRN ×3 (13:08→20:37)
--- NOTE | 2018-07-27 15:21 | NUR ---
CALLED DR DARBY OFFICE NUMBER TO FOLLOW UP WITH JOSÉ. TREATMENT, NO ANSWER
[2018-07-27 15:58] VITALS: BP 113/53
[2018-07-27] MEDS: GENTAMICIN SULFATE 0.1% OINT 15 GM TUBE TP SCH (16:40)
[2018-07-27] MEDS: ACETAMINOPHEN 325 MG TABLET PO PRN (18:09)
--- NOTE | 2018-07-27 19:01 | NUR ---
END OF SHIFT PATIENT A/O 3, NO RESP DISTRESS, ON RA, PICC LINE INTACT AND FLASHED , ABX GIVEN PER ORDERS, WOUND CARE IS DONE AT 5PM PER PATIENT REQUEST, MORPHINE WAS GIVEN BEFORE WOUND CARE, PAIN TREATED WITH NORCO AND THE WITH MORPHINE. SAFETY REINFORCED
[2018-07-27 19:40] VITALS: BP 110/61
--- NOTE | 2018-07-27 19:52 | NUR ---
Received patient awake on moderate high back rest. With Mid-line at right upper arm. Noted swelling on both legs with dressing, intact. With complaints of pain, prn pain medications given. Bed in low position, side rails up x 2, call light within reach. Noise and lights subdued. Will continue to monitor.
[2018-07-27] MEDS: ARIPIPRAZOLE 5 MG TABLET PO SCH (20:36)
[2018-07-27] MEDS: ENOXAPARIN SODIUM 40 MG/0.4 ML DISP.SYRIN SQ SCH (20:38)
[2018-07-28] MEDS: MORPHINE SULFATE 4 MG/1 ML DISP.SYRIN IV PRN ×5 (01:34→20:38)
[2018-07-28 03:41] VITALS: BP 111/59
[2018-07-28] MEDS: PIPERACILLIN/TAZOBACTAM/D5W 50 ML IV SCH ×4 (05:35→23:13)
[2018-07-28] MEDS: PANTOPRAZOLE SODIUM 40 MG TABLET.DR PO SCH (06:07)
--- NOTE | 2018-07-28 06:49 | NUR ---
Patient slept intermittently. With Mid-line at right upper arm. Noted swelling on both legs with dressing, intact. With complaints of pain, prn pain medications given. Ensured safety and comfort.
[2018-07-28] MEDS: ASCORBIC ACID 500 MG TABLET PO SCH (08:41)
[2018-07-28] MEDS: ZINC SULFATE 220 MG CAPSULE PO SCH (08:41)
[2018-07-28] MEDS: CULTURELLE CAPSULE PO SCH ×2 (08:41→21:53)
[2018-07-28] MEDS: FUROSEMIDE 20 MG/2 ML VIAL IV SCH (08:41)
[2018-07-28] MEDS: GABAPENTIN 300 MG CAPSULE PO SCH ×3 (08:41→16:20)
[2018-07-28] MEDS: LISINOPRIL 20 MG TABLET PO SCH (08:44)
[2018-07-28] MEDS: METOPROLOL TARTRATE 50 MG TABLET PO SCH ×2 (08:44→21:00)
[2018-07-28] MEDS: SODIUM HYPOCHLORITE 0.125% 473 ML BOTTLE TP SCH (08:52)
[2018-07-28] MEDS: GENTAMICIN SULFATE 0.1% OINT 15 GM TUBE TP SCH (09:53)
--- NOTE | 2018-07-28 10:00 | NUR ---
PATIENT REQUESTED TO RECEIVE WOUND TREATMENT AFTER MORPHINE ADMINISTRATION TO HELP WITH THE PAIN. PATIENT ALSO REFUSE TO USE THE DAKINS SOLUTION FOR WOUND TREATMENT FOR BOTH LEGS. AFTER DISCUSSING THE RISKS AND BENEFITS, PATIENT STILL DID NOT WANT TO APPLY THE DAKINS SOLUTION. PATIENT REQUESTED THAT I IRRIGATE WITH STERILE WATER, APPLY GENTAMICIN CREAM AND COVER WITH ABD AND KRELIX. PATIENT HAS GOOD UNDERSTAND OF TREATMENT AND WISHES TO HAVE TREATMENT DONE A CERTAIN WAY WITHOUT THE DAKINS SOLUTION.
[2018-07-28 11:05] VITALS: BP 124/64
--- NOTE | 2018-07-28 12:23 | NUR ---
PHARMACY CLINICAL NOTES: S: To continue vanco mycin dsoing for this 62 yo male for cellulitis (s/p I & D now here for infected wound on BLE). O: BUN/SCR 15/1.1 (07/26), WBC 12 (05/25) TEMP 97.7 wt 122 kg ht 175 cm Trough: 26.9 today at 0730 A/P:Based on trough, adjusted vanco regimen to 2gm q18h for new estimated trough of 17, second dose todya at 1300. Will order trough before 4th shceduled dose (not ordered yet). Will follow
[2018-07-28] MEDS: VANCOMYCIN IV 2,000 MG in IV DEXTROSE 5% 500 ML IV SCH (13:47)
[2018-07-28 15:19] VITALS: BP 106/49
[2018-07-28 19:00] VITALS: BP 119/67
--- NOTE | 2018-07-28 19:30 | NUR ---
Received pt sitting up in bed, alert and oriented x4. Discussed and reviewed plan of care with pt, pt verbalizes understanding. Pt complains of pain on lower extremities 9/10 on pain scale. Denies dizziness, SOB or chills. Antibiotic therapy noted on shift. IV line intact and patent. No acute distress noted. Safety precautions and comfort measures in place, call light within reach. Will continue to monitor.
--- NOTE | 2018-07-28 20:17 | NUR ---
patient has been resting in his room through out the shift. Patient is able to verbalize needs. Needs have been met and pain has been addressed and managed. Patient received wound treatment today but refused some of the treatment orders. Patient is compliant with medication administration. Patient is alert and oriented x4. Patient denies any pain/discomfort at this time and has no signs or symptoms of respiratory distress. Patient will be monitored closely. Will endorse plan of care to retail shift manager nurse.
[2018-07-28] MEDS: ARIPIPRAZOLE 5 MG TABLET PO SCH (21:52)
[2018-07-28] MEDS: ENOXAPARIN SODIUM 40 MG/0.4 ML DISP.SYRIN SQ SCH (22:05)
[2018-07-29] MEDS: MORPHINE SULFATE 4 MG/1 ML DISP.SYRIN IV PRN ×6 (02:17→23:34)
[2018-07-29 04:00] VITALS: BP 138/76
[2018-07-29] MEDS: PIPERACILLIN/TAZOBACTAM/D5W 50 ML IV SCH ×3 (05:05→19:14)
[2018-07-29] MEDS: VANCOMYCIN IV 2,000 MG in IV DEXTROSE 5% 500 ML IV SCH (06:07)
[2018-07-29] MEDS: PANTOPRAZOLE SODIUM 40 MG TABLET.DR PO SCH (06:07)
--- NOTE | 2018-07-29 07:08 | NUR ---
Pt awake most of the night. Pain med given x3 with effect. Pt cooperative with care. All meds carried out. Pt denies pain at this time, afebrile. No acute distress noted. Comfort measures in place. Call light within reach, will continue to monitor.
[2018-07-29] MEDS: METOPROLOL TARTRATE 50 MG TABLET PO SCH ×2 (09:00→22:23)
[2018-07-29] MEDS ORDERED: GENTAMICIN SULFATE 0.1% CREAM 15 GM TUBE TOP ONE (09:00)
[2018-07-29] MEDS: SODIUM HYPOCHLORITE 0.125% 473 ML BOTTLE TP SCH (09:00)
[2018-07-29] MEDS: LISINOPRIL 20 MG TABLET PO SCH (09:00)
[2018-07-29 11:04] VITALS: BP 123/53
[2018-07-29] MEDS: CULTURELLE CAPSULE PO SCH ×2 (11:14→22:23)
[2018-07-29] MEDS: ZINC SULFATE 220 MG CAPSULE PO SCH (11:14)
[2018-07-29] MEDS: ASCORBIC ACID 500 MG TABLET PO SCH (11:14)
[2018-07-29] MEDS: GABAPENTIN 300 MG CAPSULE PO SCH ×3 (11:15→19:13)
[2018-07-29] MEDS: FUROSEMIDE 20 MG/2 ML VIAL IV SCH (11:16)
--- NOTE | 2018-07-29 12:44 | NUR ---
PHARMACY CLINICAL NOTES: S: To continue vanco mycin dsoing for this 62 yo male for cellulitis (s/p I & D now here for infected wound on BLE). O: BUN/SCR 15/1.1 (07/26), WBC 12 (05/25) TEMP 97.7 wt 122 kg ht 175 cm Trough: 26.9 yesterday at 0730 A/P:Based on trough, adjusted vanco regimen to 2gm q18h for new estimated trough of 17, third dose today at 0600. Will order trough before 4th scheduled dose (ordered for tomorrow at 0030, will endorse nurse to hold for over 20). Will follow.
[2018-07-29] MEDS ORDERED: LIDOCAINE HCL 1% 20 ML VIAL IJ PRN (12:45)
[2018-07-29] MEDS: GENTAMICIN SULFATE 0.1% OINT 15 GM TUBE TP SCH (13:00)
[2018-07-29 15:00] VITALS: BP 120/63
[2018-07-29] MEDS: HYDROCODONE/APAP 10-325 MG TABLET PO PRN ×2 (15:26→22:29)
[2018-07-29 19:00] VITALS: BP 124/74
[2018-07-29] MEDS: ARIPIPRAZOLE 5 MG TABLET PO SCH (22:23)
[2018-07-29] MEDS: ENOXAPARIN SODIUM 40 MG/0.4 ML DISP.SYRIN SQ SCH (22:29)
[2018-07-30] MEDS: PIPERACILLIN/TAZOBACTAM/D5W 50 ML IV SCH ×2 (00:16→05:04)
[2018-07-30] MEDS: MORPHINE SULFATE 4 MG/1 ML DISP.SYRIN IV PRN ×4 (03:36→20:10)
[2018-07-30 04:00] VITALS: BP 125/76
[2018-07-30] MEDS: HYDROCODONE/APAP 10-325 MG TABLET PO PRN ×3 (05:10→15:13)
[2018-07-30] MEDS: PANTOPRAZOLE SODIUM 40 MG TABLET.DR PO SCH (06:41)
[2018-07-30 07:45] LABS: BASOPHILS # (AUTO) 0.1 K/uL (0.0-8.0); BASOPHILS % (AUTO) 0.7 % (0.0-2.0); EOSINOPHILS # (AUTO) 0.2 K/uL (0.0-0.7); EOSINOPHILS % (AUTO) 2.5 % (0.0-7.0); HEMATOCRIT 32.5 % (36.7-47.1); HEMOGLOBIN 10.9 g/dL (12.5-16.3); LYMPHOCYTES # (AUTO) 1.2 K/uL (20.0-40.0); LYMPHOCYTES % (AUTO) 15.2 % (20.5-51.5); MEAN CORPUSCULAR HEMOGLOBIN 28.8 uug (23.8-33.4); MEAN CORPUSCULAR HGB CONC 33 g/dL (32.5-36.3); MEAN CORPUSCULAR VOLUME 86.3 fL (73.0-96.2); MONOCYTES # (AUTO) 0.6 K/uL (2.0-10.0); MONOCYTES % (AUTO) 7.8 % (0.0-11.0); NEUTROPHILS # (AUTO) 5.8 K/uL (1.8-8.9); NEUTROPHILS % (AUTO) 73.8 % (38.5-71.5); PLATELET COUNT (AUTO) 392 K/uL (152-348); RED BLOOD CELL COUNT(AUTO) 3.77 MIL/uL (4.06-5.63); WHITE BLOOD COUNT (AUTO) 7.9 K/uL (3.6-10.2)
[2018-07-30 08:26] LABS: CREATININE 1.2 mg/dL (0.6-1.3); MAGNESIUM 2.4 mg/dL (1.8-2.4); PHOSPHOROUS 3.1 mg/dL (2.5-4.9); POTASSIUM 3.7 mmol/L (3.5-5.1)
[2018-07-30] MEDS: METOPROLOL TARTRATE 50 MG TABLET PO SCH ×2 (09:00→20:49)
[2018-07-30] MEDS: SODIUM HYPOCHLORITE 0.125% 473 ML BOTTLE TP SCH (09:00)
[2018-07-30] MEDS: LISINOPRIL 20 MG TABLET PO SCH (09:00)
[2018-07-30] MEDS: FUROSEMIDE 20 MG/2 ML VIAL IV SCH (09:51)
[2018-07-30] MEDS: ASCORBIC ACID 500 MG TABLET PO SCH (09:51)
[2018-07-30] MEDS: CULTURELLE CAPSULE PO SCH ×2 (09:51→20:10)
[2018-07-30] MEDS: GABAPENTIN 300 MG CAPSULE PO SCH ×3 (09:51→17:51)
[2018-07-30] MEDS: ZINC SULFATE 220 MG CAPSULE PO SCH (09:52)
[2018-07-30 11:53] VITALS: BP 114/61
[2018-07-30] MEDS: GENTAMICIN SULFATE 0.1% OINT 15 GM TUBE TP SCH (13:49)
[2018-07-30] MEDS ORDERED: PIPERACILLIN/TAZOBACTAM/D5W 3.375 G in PREMIXED 1 EACH IV SCH (14:00)
[2018-07-30 15:47] VITALS: BP 106/65
--- NOTE | 2018-07-30 19:20 | NUR ---
RECEIVED PATIENT LYING IN BED. AAOX4. IN NO ACUTE DISTRESS. COMPLAINED ON PAIN ON RIGHT FOOT. WILL PROVIDE MORPHINE 2MG IV PER ORDER. DENIES ANY SOB. PICC LINE ON RIGHT UPPER ARM INTACT AND PATENT. NEEDS ASSESSED AND ATTENDED TO. SAFETY MEASURE INITIATED AND CALL RILEY WITHIN REACH.
[2018-07-30 19:36] VITALS: BP 107/58
[2018-07-30] MEDS: ARIPIPRAZOLE 5 MG TABLET PO SCH (20:10)
[2018-07-30] MEDS: ENOXAPARIN SODIUM 40 MG/0.4 ML DISP.SYRIN SQ SCH (20:11)
[2018-07-30] MEDS: CEFEPIME HCL 2 G in IV DEXTROSE 5% 100 ML IV SCH (20:59)
[2018-07-30] MEDS ORDERED: CEFEPIME HCL 1 G in IV DEXTROSE 5% 50 ML IV SCH (22:00)
[2018-07-31] MEDS: MORPHINE SULFATE 4 MG/1 ML DISP.SYRIN IV PRN ×5 (00:12→20:34)
[2018-07-31 03:38] VITALS: BP 121/61
[2018-07-31] MEDS: PANTOPRAZOLE SODIUM 40 MG TABLET.DR PO SCH (06:21)
--- NOTE | 2018-07-31 06:37 | NUR ---
AAOX4. IN NO ACUTE DISTRESS. PICC LINE ON RIGHT UPPER ARM INTACT AND PATENT. NO ADVERSE REACTION FORM IV ABX. NEEDS ASSESSED AND ATTENDED TO. SAFETY MEASURE MAINTAINED AND CALL RILEY WITHIN REACH.
[2018-07-31] MEDS: CEFEPIME HCL 2 G in IV DEXTROSE 5% 100 ML IV SCH ×2 (08:26→20:34)
[2018-07-31] MEDS: FUROSEMIDE 20 MG/2 ML VIAL IV SCH (08:27)
[2018-07-31] MEDS: ZINC SULFATE 220 MG CAPSULE PO SCH (08:31)
[2018-07-31] MEDS: ASCORBIC ACID 500 MG TABLET PO SCH (08:31)
[2018-07-31] MEDS: CULTURELLE CAPSULE PO SCH ×2 (08:31→20:35)
[2018-07-31] MEDS: GABAPENTIN 300 MG CAPSULE PO SCH ×3 (08:32→16:05)
[2018-07-31] MEDS: LISINOPRIL 20 MG TABLET PO SCH (08:32)
[2018-07-31] MEDS: METOPROLOL TARTRATE 50 MG TABLET PO SCH ×2 (08:33→20:35)
[2018-07-31] MEDS: SODIUM HYPOCHLORITE 0.125% 473 ML BOTTLE TP SCH (09:00)
[2018-07-31] MEDS: GENTAMICIN SULFATE 0.1% OINT 15 GM TUBE TP SCH (10:01)
[2018-07-31 11:29] VITALS: BP 127/66
[2018-07-31 15:32] VITALS: BP 119/71
--- NOTE | 2018-07-31 19:20 | NUR ---
RECEIVED PATIENT LYING IN BED. AAOX4. IN NO ACUTE DISTRESS. DENIES ANY PAIN OR SOB AT THIS TIME. PICC LINE ON RIGHT UPPER ARM INTACT AND PATENT. NEEDS ASSESSED AND ATTENDED TO. SAFETY MEASURE INITIATED AND CALL RILEY WITHIN REACH.
[2018-07-31 19:33] VITALS: BP 129/66
[2018-07-31] MEDS: ARIPIPRAZOLE 5 MG TABLET PO SCH (20:34)
[2018-07-31] MEDS: ENOXAPARIN SODIUM 40 MG/0.4 ML DISP.SYRIN SQ SCH (20:41)
[2018-08-01 03:54] VITALS: BP 136/94
[2018-08-01] MEDS: PANTOPRAZOLE SODIUM 40 MG TABLET.DR PO SCH (06:34)
--- NOTE | 2018-08-01 06:50 | NUR ---
AAOX4. IN NO ACUTE DISTRESS. MORPHINE 2MG IV GIVEN PRN PER ORDER FOR COMPLAIN OF PAIN AND EFFECTIVE. PICC LINE ON RIGHT UPPER ARM INTACT AND PATENT. NO ADVERSE REACTION FORM IV ABX. NEEDS ASSESSED AND ATTENDED TO. DRESSING ON BOTH LE REMAINS INTACT. SAFETY MEASURE MAINTAINED AND CALL RILEY WITHIN REACH.
--- NOTE | 2018-08-01 07:25 | NUR ---
RECEIVED PATIENT ON BED, AWAKE NO ACUTE DISTRESS NOTED. PICC LINE ON RIGHT UPPER ARM INTACT AND PATENT. DRESSING ON BOTH LOWER EXTREMITIES INTACT. NO COMPLAINTS OF PAIN AT THIS TIME. WILL CONTINUE TO MONITOR CLOSELY.
[2018-08-01] MEDS: MORPHINE SULFATE 4 MG/1 ML DISP.SYRIN IV PRN ×4 (09:01→23:46)
[2018-08-01] MEDS: FUROSEMIDE 20 MG/2 ML VIAL IV SCH (09:12)
[2018-08-01] MEDS: ZINC SULFATE 220 MG CAPSULE PO SCH (09:12)
[2018-08-01] MEDS: GABAPENTIN 300 MG CAPSULE PO SCH ×3 (09:12→16:47)
[2018-08-01] MEDS: LISINOPRIL 20 MG TABLET PO SCH (09:13)
[2018-08-01] MEDS: CULTURELLE CAPSULE PO SCH ×2 (09:13→20:41)
[2018-08-01] MEDS: ASCORBIC ACID 500 MG TABLET PO SCH (09:13)
[2018-08-01] MEDS: METOPROLOL TARTRATE 50 MG TABLET PO SCH ×2 (09:13→20:42)
[2018-08-01] MEDS: GENTAMICIN SULFATE 0.1% OINT 15 GM TUBE TP SCH (09:18)
[2018-08-01] MEDS: SODIUM HYPOCHLORITE 0.125% 473 ML BOTTLE TP SCH (09:19)
[2018-08-01] MEDS: CEFEPIME HCL 2 G in IV DEXTROSE 5% 100 ML IV SCH ×2 (09:27→20:41)
[2018-08-01 11:13] VITALS: BP 115/68
[2018-08-01 15:21] VITALS: BP 102/55
[2018-08-01] MEDS: HYDROCODONE/APAP 10-325 MG TABLET PO PRN (16:47)
--- NOTE | 2018-08-01 18:23 | NUR ---
PATIENT IN STABLE CONDITION KEPT COMFORTABLE. ALL NEEDS ATTENDED AND ANTICIPATED. WOUND DRESSING CHANGE DONE WELL TOLERATED. WILL ENDORSE TO ONCOMING RN.
--- NOTE | 2018-08-01 19:20 | NUR ---
PATIENT LYING IN BED. AAOX4. IN NO ACUTE DISTRESS. DENIES ANY SOB. COMPLAINED OF PAIN ON BOTH LEGS, WILL GIVE MORPHINE 2MG PRN PER ORDER. PICC LINE ON RIGHT UPPER ARM INTACT AND PATENT. NEEDS ATTENDED TO AND MET. SAFETY MEASURE INITIATED AND CALL RILEY WITHIN REACH.
[2018-08-01 19:36] VITALS: BP 100/54
[2018-08-01] MEDS: ARIPIPRAZOLE 5 MG TABLET PO SCH (20:42)
[2018-08-01] MEDS: ENOXAPARIN SODIUM 40 MG/0.4 ML DISP.SYRIN SQ SCH (20:49)
[2018-08-02] MEDS: MORPHINE SULFATE 4 MG/1 ML DISP.SYRIN IV PRN ×4 (03:53→21:12)
[2018-08-02 04:30] VITALS: BP 114/65
--- NOTE | 2018-08-02 05:28 | NUR ---
Patient endorsed by FISH Enciso. Noted patient alert and oriented x 4, not in any form of distress. Still with PICC line at right upper arm intact. With complaints of pain on both legs, noted FISH Enciso gave morphine IV at 3:53am. Ensured safety and comfort. Attended all needs. Will continue to monitor. Noted with discharge plans, however awaiting placement.
[2018-08-02] MEDS: PANTOPRAZOLE SODIUM 40 MG TABLET.DR PO SCH (06:31)
[2018-08-02] MEDS: GABAPENTIN 300 MG CAPSULE PO SCH ×3 (08:50→16:25)
[2018-08-02] MEDS: CULTURELLE CAPSULE PO SCH ×2 (08:50→21:10)
[2018-08-02] MEDS: ASCORBIC ACID 500 MG TABLET PO SCH (08:50)
[2018-08-02] MEDS: ZINC SULFATE 220 MG CAPSULE PO SCH (08:51)
[2018-08-02] MEDS: LISINOPRIL 20 MG TABLET PO SCH (08:53)
[2018-08-02] MEDS: METOPROLOL TARTRATE 50 MG TABLET PO SCH ×2 (08:53→21:11)
[2018-08-02] MEDS: FUROSEMIDE 20 MG/2 ML VIAL IV SCH (08:56)
[2018-08-02] MEDS: SODIUM HYPOCHLORITE 0.125% 473 ML BOTTLE TP SCH (09:00)
[2018-08-02] MEDS: CEFEPIME HCL 2 G in IV DEXTROSE 5% 100 ML IV SCH ×2 (09:15→21:17)
[2018-08-02 11:34] VITALS: BP 107/58
[2018-08-02] MEDS: GENTAMICIN SULFATE 0.1% OINT 15 GM TUBE TP SCH (12:02)
--- NOTE | 2018-08-02 13:25 | NUR ---
SBAR report received this morning. Pt assessed AAOx4, pain reported this morning to be relieved from PRN Morphine administered per MD orders. Wound care provided to TREVOR OLMSTEAD as ordered. PICC line double lumen flushed, intact. Pt compliant with routine medication administration, only refusing Metoprolol. VSS. Bed in locked and lowest position. All safety and comfort needs met at this time. Call light and personal items placed within reach. PT seen by MD, plan of care regarding placed discussed. Will continue to monitor.
[2018-08-02 15:28] VITALS: BP 103/60
[2018-08-02] MEDS: ENOXAPARIN SODIUM 40 MG/0.4 ML DISP.SYRIN SQ SCH (21:13)
[2018-08-02] MEDS: ARIPIPRAZOLE 5 MG TABLET PO SCH (21:17)
[2018-08-03] MEDS: MORPHINE SULFATE 4 MG/1 ML DISP.SYRIN IV PRN ×4 (02:17→21:32)
--- NOTE | 2018-08-03 06:09 | NUR ---
pt slept intermittently through the night and was easily awoken, pt complained of lower bilateral extremity pain, pain medication was given and was effective. pt's lower legs dressing is intact, slight amount of betadine noted on the edge of the dressing, otherwise clean. all needs met, safety measures are in place, call light within reach, bed alarm is on. plan of care reported to the incoming nurse.
[2018-08-03] MEDS: PANTOPRAZOLE SODIUM 40 MG TABLET.DR PO SCH (06:25)
[2018-08-03] MEDS: CULTURELLE CAPSULE PO SCH ×2 (09:10→21:08)
[2018-08-03] MEDS: ZINC SULFATE 220 MG CAPSULE PO SCH (09:10)
[2018-08-03] MEDS: ASCORBIC ACID 500 MG TABLET PO SCH (09:10)
[2018-08-03] MEDS: CEFEPIME HCL 2 G in IV DEXTROSE 5% 100 ML IV SCH ×2 (09:10→21:00)
[2018-08-03] MEDS: GABAPENTIN 300 MG CAPSULE PO SCH ×3 (09:11→17:48)
[2018-08-03] MEDS: METOPROLOL TARTRATE 50 MG TABLET PO SCH ×2 (09:11→21:09)
[2018-08-03] MEDS: FUROSEMIDE 20 MG/2 ML VIAL IV SCH (09:11)
[2018-08-03] MEDS: LISINOPRIL 20 MG TABLET PO SCH (09:11)
[2018-08-03] MEDS: SODIUM HYPOCHLORITE 0.125% 473 ML BOTTLE TP SCH (09:18)
[2018-08-03] MEDS: GENTAMICIN SULFATE 0.1% OINT 15 GM TUBE TP SCH (09:19)
[2018-08-03 11:15] VITALS: BP 120/74
[2018-08-03 15:27] VITALS: BP 94/40
--- NOTE | 2018-08-03 18:36 | NUR ---
PATIENT REMAINED STABLE THROUGHOUT SHIFT PICC LINE STILL INTACT AND PATENT. WOUND DRESSING CHANGED, WELL TOLERATED. NO COMPLAINTS OF PAIN AT THIS TIME, CALL LIGHT WITHIN REACH.WILL ENDORSE ACCORDINGLY
[2018-08-03 20:27] VITALS: BP 107/60
[2018-08-03] MEDS: ARIPIPRAZOLE 5 MG TABLET PO SCH (21:08)
[2018-08-03] MEDS: ENOXAPARIN SODIUM 40 MG/0.4 ML DISP.SYRIN SQ SCH (21:11)
[2018-08-04] MEDS: MORPHINE SULFATE 4 MG/1 ML DISP.SYRIN IV PRN ×4 (00:06→10:49)
[2018-08-04 06:12] VITALS: BP 106/60
[2018-08-04] MEDS: PANTOPRAZOLE SODIUM 40 MG TABLET.DR PO SCH (06:29)
[2018-08-04] MEDS: FUROSEMIDE 20 MG/2 ML VIAL IV SCH (09:00)
[2018-08-04] MEDS: CEFEPIME HCL 2 G in IV DEXTROSE 5% 100 ML IV SCH ×3 (09:00→21:18)
[2018-08-04] MEDS: ASCORBIC ACID 500 MG TABLET PO SCH (09:00)
[2018-08-04] MEDS: GENTAMICIN SULFATE 0.1% OINT 15 GM TUBE TP SCH (09:00)
[2018-08-04] MEDS: CULTURELLE CAPSULE PO SCH ×2 (09:00→22:32)
[2018-08-04] MEDS: METOPROLOL TARTRATE 50 MG TABLET PO SCH ×3 (09:00→21:00)
[2018-08-04] MEDS: ZINC SULFATE 220 MG CAPSULE PO SCH (09:00)
[2018-08-04] MEDS: LISINOPRIL 20 MG TABLET PO SCH (09:00)
[2018-08-04] MEDS: SODIUM HYPOCHLORITE 0.125% 473 ML BOTTLE TP SCH (09:00)
[2018-08-04] MEDS: GABAPENTIN 300 MG CAPSULE PO SCH ×3 (09:00→17:22)
--- NOTE | 2018-08-04 10:07 | NUR ---
UPON RECEIVING SHIFT REPORT AND ENTERING THE PATIENTS ROOM TO UPDATE WHITE BOARD PATIENT BECAME VERY AGGRESSIVE. STEPPED OUT OF THE ROOM AND TOLD THE PATIENT THAT I WOULD GIVE HIM SOME TIME TO COOL DOWN. RETURNED AT 9AM FOR MEDICATIONS AND MORNING VITALS AND PATIENT STATED A LATER TIME WOULD BE BEST, STILL VERY ANGRY. RETURNED CLOSER TO 10AM FOR MEDICATIONS, WOUND CARE AND MORNING VITALS. PATIENT REFUSED MORNING MEDICATIONS EVEN AFTER EDUCATION ABOUT IMPORTANCE. PATIENT REFUSED VITAL SIGNS. PATIENT STATED LAST VITALS WERE TAKEN BY FOOD TASTER HEAD BANQUET WAITER/WAITRESS AND STATES THEY WERE FINE ACCORDING TO HIM. HE SAYS HE HIMSELF IS OKAY NOT TO TAKE THEM, EVEN AFTER ADVISING WE AT LEAST DO A VITAL SIGN CHECK. PATIENT REFUSED. REMINDED PATIENT THIS IS A PROFESSIONAL RELATIONSHIP BETWEEN A PATIENT AND A NURSE SINCE HE IS ACTING HOSTILE. PATIENT ALSO REFUSED WOUND DRESSING. PATIENT REFUSED ALL MORNING CARE.
--- NOTE | 2018-08-04 10:55 | NUR ---
PATIENT REQUESTED PAIN MEDICATION FOR 03/04 PAIN, UNABLE TO GIVE MORPHINE R/T PICC LINE NOT BEING PATENT. CHARGE NURSE NOTIFIED AND WILL VISIT PATIENT TO ASSESS PICC LINE. WILL GIVE PO MEDICATIONS FOR PAIN PER PATIENTS REQUEST.
[2018-08-04] MEDS: HYDROCODONE/APAP 10-325 MG TABLET PO PRN ×3 (11:02→22:32)
[2018-08-04 11:58] VITALS: BP 115/62
--- NOTE | 2018-08-04 14:38 | NUR ---
INFORMED ABOUT PATIENT BEHAVIOR AND REFUSAL OF CARE WELL CHARGE NURSE.
[2018-08-04 15:37] VITALS: BP 116/70
--- NOTE | 2018-08-04 18:07 | NUR ---
WOUND DRESSING CHANGE DONE. Addendum: 08/04/18 at 1834 by JIM ALSTON RN PATIENT HAS A PREFERENCE FOR DRESSING CHANGE. IRRIGATE WITH NS, BETADINE GAUZE WITH GENTAMICIN OINTMENT AND KERLIX OVER IT.
--- NOTE | 2018-08-04 18:34 | NUR ---
PATIENT REQUESTED BLOOD PRESSURE MEDICATION, GAVE UNSCHEDULED ADMINISTRATION OF METROPOLOL. PATIENT'S VITAL SIGNS DOCUMENTED.
--- NOTE | 2018-08-04 18:36 | NUR ---
MULTIPLE NURSES TRIED TO ENTER ROOM AND TEST PATENCY OF PICC LINE AND PATIENT REFUSED CARE AND KICKED THEM OUT, NO PICC LINE ACCESS.
--- NOTE | 2018-08-04 18:52 | NUR ---
PATIENT IS LYING IN BED. PICC LINE IS OCCLUDED, MULTIPLE NURSES TRIED TO UNCLOG AND PATIENT REFUSES. PATIENT HAS IDEATIONS AND IS NONCOMPLIANT WITH CARE. PATIENT REFUSED MORNING CARE. WOUND CARE DONE LATER ON IN THE SHIFT. PAIN CONTROLLED. PATIENT DENIES PAIN AT THE MOMENT.
[2018-08-04 20:20] VITALS: BP 116/65
--- NOTE | 2018-08-04 21:00 | NUR ---
Patient refused 2100 ABX Maxepime because there was a resistance on his midline during flush. Will closely monitor.
[2018-08-04 22:15] VITALS: BP 119/73
[2018-08-04] MEDS: ARIPIPRAZOLE 5 MG TABLET PO SCH (22:33)
[2018-08-04] MEDS: ENOXAPARIN SODIUM 40 MG/0.4 ML DISP.SYRIN SQ SCH (22:54)
[2018-08-05] VITALS (7 sets, daily range): BP systolic 113–140; BP diastolic 62–90
[2018-08-05] MEDS: HYDROCODONE/APAP 10-325 MG TABLET PO PRN ×2 (02:55→10:07)
[2018-08-05] MEDS: PANTOPRAZOLE SODIUM 40 MG TABLET.DR PO SCH (07:28)
--- NOTE | 2018-08-05 07:40 | NUR ---
PATIENT RECEIVED IN BED RESTING , RECVD REPORT PATIENT CONTINUES TO BE MED SELECTIVE AND SELECTIVE WITH CARE. PATIENT REFUSES WOUND CARE AND LINE CARE PER SHIFT REPORT. PATIENT IN NO DISTRESS THIS AM, CALL LIGHT WITHIN REACH SIDE RAILS UP X2, LOW POSITION.
--- NOTE | 2018-08-05 07:55 | NUR ---
DAILY WEIGHT REFUSED THIS AM.
--- NOTE | 2018-08-05 09:30 | NUR ---
PATIENT SEEN BY DR DOCKERY, DISCUSSED CURRENT PICC LINE NOT FUNCTIONING, CONSENTED TO HAVE NEW LINE PLACED. FAMILY PARTNER NOTIFIED.
[2018-08-05] MEDS: CULTURELLE CAPSULE PO SCH ×2 (10:07→20:46)
[2018-08-05] MEDS: ZINC SULFATE 220 MG CAPSULE PO SCH (10:07)
[2018-08-05] MEDS: ASCORBIC ACID 500 MG TABLET PO SCH (10:07)
[2018-08-05] MEDS: GABAPENTIN 300 MG CAPSULE PO SCH ×3 (10:07→17:00)
[2018-08-05] MEDS: CEFEPIME HCL 2 G in IV DEXTROSE 5% 100 ML IV SCH ×2 (10:08→15:05)
[2018-08-05] MEDS: METOPROLOL TARTRATE 50 MG TABLET PO SCH ×2 (10:08→20:52)
[2018-08-05] MEDS: LISINOPRIL 20 MG TABLET PO SCH (10:08)
[2018-08-05] MEDS: FUROSEMIDE 20 MG/2 ML VIAL IV SCH ×2 (10:09→15:03)
[2018-08-05] MEDS: SODIUM HYPOCHLORITE 0.125% 473 ML BOTTLE TP SCH (10:09)
[2018-08-05] MEDS: GENTAMICIN SULFATE 0.1% OINT 15 GM TUBE TP SCH (10:09)
[2018-08-05] MEDS: MORPHINE SULFATE 4 MG/1 ML DISP.SYRIN IV PRN ×2 (12:46→17:11)
--- NOTE | 2018-08-05 15:23 | NUR ---
PATIENT REFUSING TO HAVE DRESSING CHANGE, REQUESTED IT DONE LATER. PATIENT REDIRECTED CONTINUE TO REFUSE DRESSING AT THIS TIME FOR BLE WOUNDS.
--- NOTE | 2018-08-05 18:50 | NUR ---
PATIENT ALLOWED WOUND CARE, PHOTOS TAKEN, PATIENT SCHEDULED FOR DISCHARGE TO [facility].
--- NOTE | 2018-08-05 19:20 | NUR ---
RECEIVED PATIENT IN HIS ROOM. AAOX4. INNO ACUTE DISTRESS. GETTING READY TO BE DISCHARGE TONIGHT. DENIES ANY PAIN OR SOB. NEEDS ASSESSED AND ATTENDED TO. SAFETY MEASURE INITIATED AND CALL RILEY WITHIN REACH.
--- NOTE | 2018-08-05 19:30 | NUR ---
PATIENT INSTRUCTED ON DISCHARGE, PATIENT VERBALIZED UNDERSTANDING, PATIENT TO CONTINUE WITH IV ANTIBIOTICS AT FACILITY PICC LINE REMAINS IN PLACE. INSTRUCTED ON COMPLIANCE WITH CARE AND MEDS. PATIENT CONTINUES HYPERVERBAL, DELUSIONAL. REQUIRES REDIRECTION. BELONGINGS RETURNED AND ACCOUNTED FOR. REPORT PROVIDED TO E/M ENGINEER PATIENT SCHEDULED FOR DISCHARGE BETWEEN 730-8PM.
--- NOTE | 2018-08-05 20:00 | NUR ---
TELEPHONE CALL TO LUIS LONGO AND GAVE REPORT TO ARMAND WHITTEN.
[2018-08-05] MEDS: ARIPIPRAZOLE 5 MG TABLET PO SCH (20:46)
[2018-08-05] MEDS: ENOXAPARIN SODIUM 40 MG/0.4 ML DISP.SYRIN SQ SCH (20:46)
--- NOTE | 2018-08-05 20:55 | NUR ---
PATIENT REMAINS AAOX4. IN NO ACUTE DISTRESS. VS WNL. DENIES ANY PAIN OR SOB. PICKED UP BY 2 PARAMEDICS VIA [facility] AND DISCHARGE TO [facility]. ALL BELONGINGS TAKEN BY PATIENT. DISCONTINUE IV FLUID DRIP AND REMOVED NAME TAG.
[2018-08-06] MEDS ORDERED: CEFEPIME HCL 2 G in IV DEXTROSE 5% 100 ML IV SCH (03:00)
== END 2018-08-05 20:55 | DRG 383 ==
LOC: ER 10:21 → TELE 13:37 → MED 07-27 21:59
PROVIDERS: ADMIT Internal Medicine; ATTEND Internal Medicine
PROC: 0JBN0ZZ Excision of Right Lower Leg Subcutaneous Tissue and Fascia, Open Approach (ICD-10-PCS; principal; 2018-07-26)
PROC: 02HV33Z Insertion of Infusion Device into Superior Vena Cava, Percutaneous Approach (ICD-10-PCS; principal; 2018-07-26)
PROC: 02PYX3Z Removal of Infusion Device from Great Vessel, External Approach (ICD-10-PCS; 2018-08-05)
PROC: 02HV33Z Insertion of Infusion Device into Superior Vena Cava, Percutaneous Approach (ICD-10-PCS; 2018-08-05)
DX: L03.116 Cellulitis of left lower limb (principal); I50.33 Acute on chronic diastolic (congestive) heart failure; E66.01 Morbid (severe) obesity due to excess calories; L97.811 Non-pressure chronic ulcer of other part of right lower leg limited to breakdown of skin; M41.9 Scoliosis, unspecified; I87.2 Venous insufficiency (chronic) (peripheral); L03.115 Cellulitis of right lower limb; L97.821 Non-pressure chronic ulcer of other part of left lower leg limited to breakdown of skin; B96.5 Pseudomonas (aeruginosa) (mallei) (pseudomallei) as the cause of diseases classified elsewhere; F17.210 Nicotine dependence, cigarettes, uncomplicated; B35.1 Tinea unguium; F31.9 Bipolar disorder, unspecified; Z16.24 Resistance to multiple antibiotics; Z59.0 Homelessness; I25.2 Old myocardial infarction; K21.9 Gastro-esophageal reflux disease without esophagitis; I25.10 Atherosclerotic heart disease of native coronary artery without angina pectoris; M17.0 Bilateral primary osteoarthritis of knee; Z86.14 Personal history of Methicillin resistant Staphylococcus aureus infection; Z83.3 Family history of diabetes mellitus; Z82.49 Family history of ischemic heart disease and other diseases of the circulatory system; Z87.01 Personal history of pneumonia (recurrent); Z68.39 Body mass index [BMI] 39.0-39.9, adult; Z71.3 Dietary counseling and surveillance; I89.0 Lymphedema, not elsewhere classified; Z75.1 Person awaiting admission to adequate facility elsewhere; Z85.72 Personal history of non-Hodgkin lymphomas; E78.5 Hyperlipidemia, unspecified; B35.3 Tinea pedis; D63.8 Anemia in other chronic diseases classified elsewhere; I70.213 Atherosclerosis of native arteries of extremities with intermittent claudication, bilateral legs; I11.0 Hypertensive heart disease with heart failure
CPT/HCPCS: 36415; 36569; 70030-TC; 71045; 83605; 83735; 84100; 85025; 87040; 87070; 87077; 93005; A4217; A4663; C1751; G0378; J0692; J1650; J1940; J2270; J2543; J3370; J3490; J7030; J7040; J7050; J7060

== ENCOUNTER 2018-08-23 08:03 | Emergency (ER) | payer OTHER ==
[~2018-08-23] VITALS: Ht 175.3 cm; Wt 122.5 kg
[~2018-08-23 08:03] MED LIST changes: +BUME2TAB3 PO; -CLIN300C3 PO; -FURO80TA3 PO; -LACT1CAP57 PO; -MAGN400O6 PO; -MENT71OI TOP; -PANT40TA2 PO; -SODI473S8 TP
--- NOTE | 2018-08-23 08:23 | NUR ---
Breakfast tray offered.
--- NOTE | 2018-08-23 09:07 | NUR ---
CALLED HEALTH AND SOCIAL CARE TEACHER FOR HOMELESS CONSULT.
--- NOTE | 2018-08-23 09:15 | NUR ---
collision worker is now here in ER.
[2018-08-23] MEDS ORDERED: HYDROCODONE/APAP 10-325 MG TABLET PO ONE (10:30)
--- NOTE | 2018-08-23 10:32 | NUR ---
Patient is eating now with very good appetite. The food tray from dietary dept came@1031am.
[2018-08-23] MEDS ORDERED: HYDROCODONE/APAP 10-325 MG TABLET ONE (10:37)
--- NOTE | 2018-08-23 10:38 | NUR ---
Patient ate 2 eggs, apple sauce & the fruit cup. Patient wants more (e.g. tuna sandwich). Dietary was called again.
--- NOTE | 2018-08-23 11:25 | NUR ---
Patient is resting comfortably on gurney, intermittently sleeping and using his cellphone, NAD.
--- NOTE | 2018-08-23 11:45 | NUR ---
Patient is eating lunch with good appetite.
--- NOTE | 2018-08-23 12:08 | NUR ---
Patient given written and verbal discharge instructions. Patient verbalizes understanding of instructions. Patient is ambulatory with steady gait. Patient was given list of available shelters in surrounding area. Please social media analyst's notes for details.
--- NOTE | 2018-08-23 12:18 | NUR ---
Patient will wait in the waiting room (ER vs main hospital) for "Winter program homeless chart picker". Patient also added that he will try to call & get his PMD clinic for follow-up today.
--- NOTE | 2018-08-23 13:53 | NUR ---
9:15am: SW arrived to the ED for SS consultation. SW met with Dr. Serarto to discuss patient's needs. SW then met with patient in his assigned ED bed. Patient was receptive to meeting with this SW, and was cooperative throughout interview. Patient is a 62 year old male, homeless. Patient stated being homeless for many years, sometimes staying in shelters but mostly on the streets. Patient seen by Dr. Serrato for his medical needs. SW generated a discussion with the patient regarding his discharge plans. SW stated that SW could assist patient with going to a [facility], which he expressed hesitance with. Patient inquired about assisted living facilities, which SW provided him with education on and also provided him with a copy of the New Lifestyle book which includes housing options through [facility] for all different levels of care (ex. SNF, CHCF, independent living, board and care, etc.). Patient stated he has a cell phone and would make inquiries himself. Patient had warm and clean clothes on, and had a suitcase full of clothes, and stated that he did not want any additional clothes. Patient waiting for his meal tray. SW stated that she will return to discuss further homeless resources and discharge plan after patient is done eating his meal. Patient agreed. Dr. Serrato and FISH Rosales informed of above.
--- NOTE | 2018-08-23 13:59 | NUR ---
11:50pm: SW returned to the ED and met with patient. SW discussed the option of transporting the patient to a winter half-way pick-up location of his choice, but patient stated he may want to go visit his primary physician. SW stated that the transport can be arranged for either the winter half-way pick-up location or the doctor's office, if patient could provide SW with an exact address. Patient stated he would call his physician's office (Dr. Marga Russell in [place]) to see if he was in the office, and let SW know what he decides. SW agreed to return in 5 minutes. 12:05: SW returned to meet with patient. Patient stated that his physician was not in the office, and wanted more time to think about what he wanted to do. In the meantime, SW reviewed the homeless resource packet with the patient, which includes a list of all [facility] with their pick-up locations and times, the [facility] Homeless Resource Directory which includes a list of places for homeless individuals to go get hot meals, showers, and sack lunches during the week, and a list of food pantries throughout the [facility]. Patient stated that he receives over $1000 in social security income, but was still expressed appreciation for the resources on meals/food. Also included in the homeless resource packet were a list of medical and mental health clinics, along with drug and alcohol treatment programs, and a list of pharmacies throughout the [facility]. Necessary prescriptions provided by Dr. Serrato to the patient. Patient stated that he would like to get discharged to himself, and then sit in the waiting room for a bit and think about what he wants to do. SHIRLEY was in agreement, and FISH Rosales made aware. Patient signed the Homeless Waiver Form. Copies of resources provided, along with the signed Homeless Waiver Form, were filed in patient's ED chart.
--- NOTE | 2018-08-23 14:10 | NUR ---
1:10pm: SW returned to check in with patient, who was still in the ED waiting room. Patient stated that he had not changed his mind and that he will be discharging to himself. Patient stated not wanting to be transported by the hospital, and would leave the hospital on his own. FISH Rosales and Dr. Serrato informed.
== END 2018-08-23 12:18 | disposition home or self-care (01) ==
LOC: ER 08:03
DX: T39.1X1A Poisoning by 4-Aminophenol derivatives, accidental (unintentional), initial encounter (principal); L97.821 Non-pressure chronic ulcer of other part of left lower leg limited to breakdown of skin; L97.811 Non-pressure chronic ulcer of other part of right lower leg limited to breakdown of skin; I25.10 Atherosclerotic heart disease of native coronary artery without angina pectoris; I50.9 Heart failure, unspecified; K21.9 Gastro-esophageal reflux disease without esophagitis; Z91.018 Allergy to other foods; Z59.0 Homelessness; Z79.899 Other long term (current) drug therapy; Y92.89 Other specified places as the place of occurrence of the external cause
CPT/HCPCS: 36415; 99283; G0480; A4663

== ENCOUNTER 2018-08-28 17:02 | Emergency (ER) | payer OTHER ==
[~2018-08-28] VITALS: Ht 177.8 cm; Wt 122.5 kg
[2018-08-28] MEDS ORDERED: LIDOCAINE 4% TOPICAL 50 ML BOTTLE TP ONE ×2 (19:15→20:45)
[2018-08-28] MEDS ORDERED: HYDROCODONE/APAP 5-325MG TABLET PO ONE (20:15)
[2018-08-28] MEDS ORDERED: HYDROCODONE/APAP 5-325MG TABLET ONE (20:35)
[2018-08-28] MEDS ORDERED: SILVER SULFADIAZINE 1% CREAM 25 GM TUBE TP ONE (20:37)
[2018-08-28] MEDS ORDERED: LIDOCAINE 4% TOPICAL 50 ML BOTTLE ONE (20:40)
[2018-08-28] MEDS ORDERED: CEphaleXIN 500 MG CAPSULE PO ONE (20:45)
[2018-08-28] MEDS ORDERED: SILVER SULFADIAZINE 1% CREAM 50 GM TP ONE (20:45)
[2018-08-28] MEDS ORDERED: CEphaleXIN 500 MG CAPSULE ONE (20:52)
--- NOTE | 2018-08-28 21:42 | NUR ---
Patient given written and verbal discharge instructions. Patient verbalizes understanding of instructions. Patient is ambulatory with steady gait. Refuses offer of half-way placement. Patient given list of available shelters in surrounding area. Provided pt turkey sandwich. Pt ambulated out of ER
== END 2018-08-28 21:44 | disposition home or self-care (01) ==
LOC: ER 17:02
DX: I83.009 Varicose veins of unspecified lower extremity with ulcer of unspecified site (principal); I89.0 Lymphedema, not elsewhere classified; E66.01 Morbid (severe) obesity due to excess calories; I25.110 Atherosclerotic heart disease of native coronary artery with unstable angina pectoris; I11.0 Hypertensive heart disease with heart failure; I50.9 Heart failure, unspecified; K21.9 Gastro-esophageal reflux disease without esophagitis; E78.5 Hyperlipidemia, unspecified; Z79.891 Long term (current) use of opiate analgesic; Z79.899 Other long term (current) drug therapy; Z59.0 Homelessness; Z91.018 Allergy to other foods
CPT/HCPCS: A4217; A4663

== ENCOUNTER 2018-09-07 16:53 | Emergency (ER) | payer OTHER ==
[~2018-09-07] VITALS: Ht 177.8 cm; Wt 122.5 kg
[~2018-09-07 16:53] MED LIST changes: -BUME2TAB3 PO; +BUME2TAB7 PO
[2018-09-07] MEDS ORDERED: SILVER SULFADIAZINE 1% CREAM 25 GM TUBE TP ONE ×2 (17:25→18:40)
[2018-09-07] MEDS ORDERED: HYDROCODONE/APAP 10-325 MG TABLET ONE (17:29)
[2018-09-07] MEDS ORDERED: HYDROCODONE/APAP 10-325 MG TABLET PO ONE (17:45)
[2018-09-07] MEDS ORDERED: SILVER SULFADIAZINE 1% CREAM 50 GM TP ONE (17:45)
--- NOTE | 2018-09-07 18:50 | NUR ---
dressing changed on BLE wound as orders
--- NOTE | 2018-09-07 19:02 | NUR ---
Patient given written and verbal discharge instructions. Patient verbalizes understanding of instructions. Patient is ambulatory with steady gait. Refuses offer of assisted placement. Patient given list of available shelters in surrounding area.
== END 2018-09-07 19:05 | disposition home or self-care (01) ==
LOC: ER 16:58
DX: L97.929 Non-pressure chronic ulcer of unspecified part of left lower leg with unspecified severity (principal); L97.919 Non-pressure chronic ulcer of unspecified part of right lower leg with unspecified severity; K21.9 Gastro-esophageal reflux disease without esophagitis; Z91.018 Allergy to other foods; Z59.0 Homelessness; Z79.899 Other long term (current) drug therapy
CPT/HCPCS: A4217; A4663

== ENCOUNTER 2018-09-12 15:36 | Emergency (ER) | payer OTHER ==
[~2018-09-12] VITALS: Ht 177.8 cm; Wt 122.5 kg
[~2018-09-12 15:36] MED LIST changes: +BUME2TAB3 PO; -BUME2TAB7 PO
--- NOTE | 2018-09-12 16:46 | NUR ---
BOYD KC AT BEDSIDE FOR MSE.
[2018-09-12] MEDS ORDERED: SILVER SULFADIAZINE 1% CREAM 25 GM TUBE TP ONE (16:52)
[2018-09-12 17:20] LABS: BASOPHILS # (AUTO) 0.1 K/uL (0.0-8.0); BASOPHILS % (AUTO) 1.2 % (0.0-2.0); EOSINOPHILS # (AUTO) 0.2 K/uL (0.0-0.7); EOSINOPHILS % (AUTO) 1.5 % (0.0-7.0); HEMATOCRIT 34.8 % (36.7-47.1); HEMOGLOBIN 11.4 g/dL (12.5-16.3); LYMPHOCYTES # (AUTO) 1.9 K/uL (20.0-40.0); LYMPHOCYTES % (AUTO) 18.7 % (20.5-51.5); MEAN CORPUSCULAR HEMOGLOBIN 27.9 uug (23.8-33.4); MEAN CORPUSCULAR HGB CONC 33 g/dL (32.5-36.3); MEAN CORPUSCULAR VOLUME 84.9 fL (73.0-96.2); MONOCYTES # (AUTO) 0.9 K/uL (2.0-10.0); MONOCYTES % (AUTO) 8.7 % (0.0-11.0); NEUTROPHILS # (AUTO) 7.1 K/uL (1.8-8.9); NEUTROPHILS % (AUTO) 69.9 % (38.5-71.5); PLATELET COUNT (AUTO) 400 K/uL (152-348); WHITE BLOOD COUNT (AUTO) 10.1 K/uL (3.6-10.2)
[2018-09-12 17:28] LABS: CARBON DIOXIDE 27 mmol/L (21-32); CHLORIDE 105 mmol/L (98-107); CREATININE 1.1 mg/dL (0.6-1.3); GLUCOSE 112 mg/dL (74-106); POTASSIUM 3.6 mmol/L (3.5-5.1); UREA NITROGEN, BLOOD 26 mg/dL (7-18)
[2018-09-12 17:40] LABS: ALANINE AMINOTRANSFERASE 25 U/L (16-63); ALKALINE PHOSPHATASE 98 U/L (50-136); ASPARTATE AMINOTRANSFERASE 16 U/L (15-37); BILIRUBIN,DIRECT < 0.1 mg/dL (0.0-0.2); BILIRUBIN,TOTAL 0.2 mg/dL (0.2-1.0); TOTAL PROTEIN, SERUM 7.5 g/dL (6.4-8.2)
[2018-09-12] MEDS ORDERED: FURO-151 PO (17:42)
--- NOTE | 2018-09-12 18:07 | NUR ---
BOYD CK AT BEDSIDE FOR PT UPDATE.
--- NOTE | 2018-09-12 18:15 | NUR ---
Patient given written and verbal discharge instructions. Patient verbalizes understanding of instructions. Patient is ambulatory with steady gait. Refuses offer of penitentiary placement. Patient given list of available shelters in surrounding area. PT D/C W/ PRESCRIPTIONS. ALL BELONGINGS W/ PT. PT SELF-AMBULATED W/O DIFFICULTY.
[2018-09-16] MEDS ORDERED: SILVER SULFADIAZINE 1% CREAM 50 GM TP ONE (15:35)
== END 2018-09-12 18:17 | disposition home or self-care (01) ==
LOC: ER 15:41
DX: Z48.01 Encounter for change or removal of surgical wound dressing (principal); R60.9 Edema, unspecified; I25.10 Atherosclerotic heart disease of native coronary artery without angina pectoris; I50.9 Heart failure, unspecified; K21.9 Gastro-esophageal reflux disease without esophagitis; Z91.018 Allergy to other foods; Z79.891 Long term (current) use of opiate analgesic; Z79.899 Other long term (current) drug therapy; Z59.0 Homelessness
CPT/HCPCS: 36415; 70030-TC; 71045; 85025; 85730; 93005; A4217; A4663

== ENCOUNTER 2018-09-29 10:43 | Emergency (ER) | payer OTHER ==
[~2018-09-29] VITALS: Ht 177.8 cm; Wt 122.5 kg
[~2018-09-29 10:43] MED LIST changes: -BUME2TAB3 PO; +FURO-151 PO
[2018-09-29] MEDS ORDERED: HYDROCODONE/APAP 10-325 MG TABLET ONE (11:27)
[2018-09-29] MEDS ORDERED: SILVER SULFADIAZINE 1% CREAM 25 GM TUBE TP ONE (11:28)
[2018-09-29] MEDS ORDERED: HYDROCODONE/APAP 10-325 MG TABLET PO ONE (11:30)
[2018-09-29] MEDS ORDERED: SILVER SULFADIAZINE 1% CREAM 50 GM TP ONE (11:30)
--- NOTE | 2018-09-29 11:37 | NUR ---
PATIENT WAS SEEN BY MD FOR DRESSING CHANGE OF BILATERAL FEET... NORCO WAS GIVEN FOR PAIN. AREA WASHED WITH NS AND DRESSED WITH SILVADENE AND STERILE KERLIX...
--- NOTE | 2018-09-29 12:29 | NUR ---
PATIENT STATES HE DOES NOT "WANT OR NEED" ANY RESOURCES FOR HOMELESSNESS. STATES HE IS ON DISABILITY AND "GETS MONEY TO LIVE" FROM DISABILITY AND "IM FINE".
[2018-09-29 12:31] VITALS: BP 144/79
== END 2018-09-29 12:32 | disposition home or self-care (01) ==
LOC: ER 10:43
DX: L97.921 Non-pressure chronic ulcer of unspecified part of left lower leg limited to breakdown of skin (principal); L97.911 Non-pressure chronic ulcer of unspecified part of right lower leg limited to breakdown of skin; I50.9 Heart failure, unspecified; I25.10 Atherosclerotic heart disease of native coronary artery without angina pectoris; K21.9 Gastro-esophageal reflux disease without esophagitis; Z91.018 Allergy to other foods; Z79.899 Other long term (current) drug therapy; Z59.0 Homelessness
CPT/HCPCS: A4217; A4663

== ENCOUNTER 2018-10-04 18:20 | Emergency (ER) | payer OTHER ==
[~2018-10-04] VITALS: Ht 177.8 cm; Wt 122.5 kg
[2018-10-04] MEDS ORDERED: SILVER SULFADIAZINE 1% CREAM 50 GM TP ONE (19:45)
[2018-10-04] MEDS ORDERED: HYDROCODONE/APAP 5-325MG TABLET PO ONE (19:45)
[2018-10-04] MEDS ORDERED: HYDROCODONE/APAP 5-325MG TABLET ONE (19:53)
[2018-10-04] MEDS ORDERED: SILVER SULFADIAZINE 1% CREAM 25 GM TUBE TP ONE (19:53)
--- NOTE | 2018-10-04 21:04 | NUR ---
Patient given written and verbal discharge instructions. Patient verbalizes understanding of instructions. Patient is ambulatory with steady gait. Patient exited the dept door and refused offer of assisted placement. Patient given list of available shelters in surrounding area.
== END 2018-10-04 21:10 | disposition home or self-care (01) ==
LOC: ER 18:21
DX: L97.921 Non-pressure chronic ulcer of unspecified part of left lower leg limited to breakdown of skin (principal); L97.911 Non-pressure chronic ulcer of unspecified part of right lower leg limited to breakdown of skin; I25.10 Atherosclerotic heart disease of native coronary artery without angina pectoris; I50.9 Heart failure, unspecified; K21.9 Gastro-esophageal reflux disease without esophagitis; Z91.018 Allergy to other foods; Z59.0 Homelessness; Z79.899 Other long term (current) drug therapy
CPT/HCPCS: A4217; A4663

== ENCOUNTER 2018-10-13 15:11 | Emergency (ER) | payer OTHER ==
[~2018-10-13] VITALS: Ht 175.3 cm; Wt 127.0 kg
[2018-10-13] MEDS ORDERED: SILVER SULFADIAZINE 1% CREAM 25 GM TUBE TP ONE (15:41)
[2018-10-13] MEDS ORDERED: SILVER SULFADIAZINE 1% CREAM 50 GM TP ONE (15:45)
[2018-10-13] MEDS ORDERED: SULF1TAB48 PO (15:46)
[2018-10-13] MEDS ORDERED: NITR0.4T48 SL (15:46)
--- NOTE | 2018-10-13 15:55 | NUR ---
Patient wants narcotic medicine before dressing change, MD notified.
[2018-10-13] MEDS ORDERED: HYDROCODONE/APAP 10-325 MG TABLET PO ONE (16:00)
[2018-10-13] MEDS ORDERED: HYDROCODONE/APAP 10-325 MG TABLET ONE (16:04)
--- NOTE | 2018-10-13 16:06 | NUR ---
Extensive nursing time (approx 45-60 minutes) for patient's dressing change was used 2/2 large skin areas & patient's preferences. Patient was given written and verbal discharge instructions. Patient verbalizes understanding of instructions. Patient is ambulatory with steady gait using his own walker. Patient refuses offer of long-term placement@this time. Patient was also given a list of available shelters in surrounding area.
--- NOTE | 2018-10-13 16:39 | NUR ---
Patient signed the HOMELESS waiver form.
== END 2018-10-13 16:40 | disposition home or self-care (01) ==
LOC: ER 15:13
DX: L97.921 Non-pressure chronic ulcer of unspecified part of left lower leg limited to breakdown of skin (principal); L97.911 Non-pressure chronic ulcer of unspecified part of right lower leg limited to breakdown of skin; I25.10 Atherosclerotic heart disease of native coronary artery without angina pectoris; K21.9 Gastro-esophageal reflux disease without esophagitis; I50.9 Heart failure, unspecified; Z91.018 Allergy to other foods; Z79.899 Other long term (current) drug therapy
CPT/HCPCS: A4217; A4663

== ENCOUNTER 2018-10-27 15:23 | Emergency (ER) | payer OTHER ==
[~2018-10-27] VITALS: Ht 175.3 cm; Wt 127.0 kg
[~2018-10-27 15:23] MED LIST changes: +NITR0.4T48 SL; +SULF1TAB48 PO
--- NOTE | 2018-10-27 15:40 | NUR ---
DR OLIVARES AT THE BEDSIDE FOR MSE.
[2018-10-27] MEDS ORDERED: SILVER SULFADIAZINE 1% CREAM 25 GM TUBE TP ONE (15:59)
[2018-10-27] MEDS ORDERED: SILVER SULFADIAZINE 1% CREAM 50 GM TP ONE (16:00)
[2018-10-27] MEDS ORDERED: HYDROCODONE/APAP 10-325 MG TABLET ONE (16:07)
[2018-10-27] MEDS ORDERED: HYDROCODONE/APAP 10-325 MG TABLET PO ONE (16:15)
[2018-10-27 16:34] VITALS: BP 147/94
--- NOTE | 2018-10-27 16:35 | NUR ---
Patient discharged to home in stable conditon. Written and verbal after care instructions given. Patient verbalizes understanding of instructions. Pt left ER w/ steady gait.
== END 2018-10-27 16:37 | disposition home or self-care (01) ==
LOC: ER 15:25
DX: L97.921 Non-pressure chronic ulcer of unspecified part of left lower leg limited to breakdown of skin (principal); L97.911 Non-pressure chronic ulcer of unspecified part of right lower leg limited to breakdown of skin; I25.10 Atherosclerotic heart disease of native coronary artery without angina pectoris; K21.9 Gastro-esophageal reflux disease without esophagitis; I11.0 Hypertensive heart disease with heart failure; I50.9 Heart failure, unspecified; Z91.018 Allergy to other foods; Z79.899 Other long term (current) drug therapy
CPT/HCPCS: A4217; A4663

== ENCOUNTER 2018-11-01 19:47 | Emergency (ER) | payer OTHER ==
[~2018-11-01] VITALS: Ht 175.3 cm; Wt 137.0 kg
--- NOTE | 2018-11-01 20:15 | NUR ---
Dr. Buck at bedside for MSE.
[2018-11-01] MEDS ORDERED: HYDROCODONE/APAP 10-325 MG TABLET PO ONE (20:30)
[2018-11-01] MEDS ORDERED: HYDROCODONE/APAP 10-325 MG TABLET ONE (20:30)
[2018-11-01] MEDS ORDERED: SILVER SULFADIAZINE 1% CREAM 50 GM TP ONE (20:30)
[2018-11-01] MEDS ORDERED: SILVER SULFADIAZINE 1% CREAM 25 GM TUBE TP ONE (20:31)
[2018-11-01 21:15] VITALS: BP 140/70
--- NOTE | 2018-11-01 21:16 | NUR ---
Patient given written and verbal discharge instructions. Patient verbalizes understanding of instructions. Refuses offer of nursing home placement. Patient given list of available shelters in surrounding area. Pt ambulated out of ER with steady gait, no acute signs of distress, VSS, all belongings taken.
== END 2018-11-01 21:19 | disposition home or self-care (01) ==
LOC: ER 19:48
DX: Z48.01 Encounter for change or removal of surgical wound dressing (principal); I25.10 Atherosclerotic heart disease of native coronary artery without angina pectoris; K21.9 Gastro-esophageal reflux disease without esophagitis; I11.0 Hypertensive heart disease with heart failure; I50.9 Heart failure, unspecified; Z91.018 Allergy to other foods; Z79.899 Other long term (current) drug therapy
CPT/HCPCS: A4217; A4663

== ENCOUNTER 2018-11-18 | Emergency (ER) | payer OTHER ==
[~2018-11-18] VITALS: Ht 175.3 cm; Wt 131.5 kg
--- NOTE | 2018-11-18 00:20 | NUR ---
Pedro hernández in ED - 11/18/18 at 0025 by ELLIS Patient arrived at the Ert
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
--- NOTE | 2018-11-18 00:25 | NUR ---
BOYD KC at bedside.
--- NOTE | 2018-11-18 00:33 | NUR ---
Specimen obtained from right leg for wound culture.
--- NOTE | 2018-11-18 00:51 | NUR ---
ER MD at bedside to evaluate BLE wound.
[2018-11-18] MEDS ORDERED: HYDROCODONE/APAP 10-325 MG TABLET ONE (01:09)
[2018-11-18] MEDS ORDERED: SILVER SULFADIAZINE 1% CREAM 25 GM TUBE TP ONE ×2 (01:10→01:30)
[2018-11-18] MEDS ORDERED: HYDROCODONE/APAP 10-325 MG TABLET PO ONE (01:15)
[2018-11-18 01:18] VITALS: BP 148/77
== END 2018-11-18 01:20 | disposition home or self-care (01) ==
LOC: ER 00:02
DX: L03.115 Cellulitis of right lower limb (principal); L03.116 Cellulitis of left lower limb; R59.0 Localized enlarged lymph nodes; I25.10 Atherosclerotic heart disease of native coronary artery without angina pectoris; K21.9 Gastro-esophageal reflux disease without esophagitis; I50.9 Heart failure, unspecified; Z91.018 Allergy to other foods; Z79.899 Other long term (current) drug therapy
CPT/HCPCS: 87070; 87077; A4217; A4663

== ENCOUNTER 2018-11-25 14:38 | Emergency (ER) | payer OTHER ==
[~2018-11-25] VITALS: Ht 175.3 cm; Wt 127.0 kg
--- NOTE | 2018-11-25 14:55 | NUR ---
DR LOZOYA AT THE BEDSIDE FOR MSE.
[2018-11-25] MEDS ORDERED: ONDANSETRON 4 MG/2 ML VIAL IV ONE (15:00)
[2018-11-25] MEDS ORDERED: HYDROMORPHONE 1 MG/1 ML DISP.SYRIN IV ONE (15:00)
[2018-11-25 15:43] LABS: BASOPHILS # (AUTO) 0.1 K/uL (0.0-8.0); EOSINOPHILS # (AUTO) 0.2 K/uL (0.0-0.7); EOSINOPHILS % (AUTO) 2.3 % (0.0-7.0); HEMATOCRIT 33.2 % (36.7-47.1); HEMOGLOBIN 10.9 g/dL (12.5-16.3); LYMPHOCYTES # (AUTO) 1.6 K/uL (20.0-40.0); LYMPHOCYTES % (AUTO) 21.2 % (20.5-51.5); MEAN CORPUSCULAR HEMOGLOBIN 29.2 uug (23.8-33.4); MEAN CORPUSCULAR HGB CONC 33 g/dL (32.5-36.3); MEAN CORPUSCULAR VOLUME 88.9 fL (73.0-96.2); MONOCYTES # (AUTO) 0.7 K/uL (2.0-10.0); MONOCYTES % (AUTO) 8.4 % (0.0-11.0); NEUTROPHILS # (AUTO) 5.2 K/uL (1.8-8.9); NEUTROPHILS % (AUTO) 67.1 % (38.5-71.5); PLATELET COUNT (AUTO) 403 K/uL (152-348); RED BLOOD CELL COUNT(AUTO) 3.74 MIL/uL (4.06-5.63); WHITE BLOOD COUNT (AUTO) 7.8 K/uL (3.6-10.2)
[2018-11-25] MEDS ORDERED: OXYCODONE/APAP 5-325 MG TABLET PO ONE (15:45)
[2018-11-25] MEDS ORDERED: OXYCODONE/APAP 5-325 MG TABLET ONE (15:47)
[2018-11-25 15:58] LABS: POTASSIUM 4.1 mmol/L (3.5-5.1)
[2018-11-25 16:10] LABS: BILIRUBIN,DIRECT 0.1 mg/dL (0.0-0.2); BILIRUBIN,TOTAL 0.2 mg/dL (0.2-1.0); TOTAL PROTEIN, SERUM 7.4 g/dL (6.4-8.2)
[2018-11-25] MEDS ORDERED: VANCOMYCIN IV 1,000 MG in IV DEXTROSE 5% 250 ML IV ONE (16:45)
[2018-11-25] MEDS ORDERED: SILVER SULFADIAZINE 1% CREAM 50 GM TP ONE (16:45)
[2018-11-25] MEDS ORDERED: VANCOMYCIN IV 200 ML ONE (16:51)
[2018-11-25] MEDS ORDERED: SILVER SULFADIAZINE 1% CREAM 25 GM TUBE TP ONE (16:54)
[2018-11-25 19:06] VITALS: BP 149/79
== END 2018-11-25 19:07 | disposition home or self-care (01) ==
LOC: ER 14:38
DX: L97.921 Non-pressure chronic ulcer of unspecified part of left lower leg limited to breakdown of skin (principal); L97.911 Non-pressure chronic ulcer of unspecified part of right lower leg limited to breakdown of skin; L03.115 Cellulitis of right lower limb; L03.116 Cellulitis of left lower limb; R60.9 Edema, unspecified; I25.10 Atherosclerotic heart disease of native coronary artery without angina pectoris; I25.2 Old myocardial infarction; K21.9 Gastro-esophageal reflux disease without esophagitis; Z91.018 Allergy to other foods; Z79.899 Other long term (current) drug therapy
CPT/HCPCS: 36415; 71045; 71046; 73030; 73590 ×2; 80048; 80076; 83605; 83880; 84484; 85025; 85730; 87040 ×2; 93005; 96365; 96366; 99284; J3370; 70030-TC; A4217; A4663

== ENCOUNTER 2018-12-15 13:08 | Emergency (ER) | payer OTHER ==
[~2018-12-15] VITALS: Ht 175.3 cm; Wt 127.0 kg
[2018-12-15] MEDS ORDERED: SILVER SULFADIAZINE 1% CREAM 50 GM TP ONE (14:30)
[2018-12-15] MEDS ORDERED: SILVER SULFADIAZINE 1% CREAM 25 GM TUBE TP ONE (14:37)
[2018-12-15] MEDS ORDERED: HYDROCODONE/APAP 5-325MG TABLET ONE (14:37)
[2018-12-15] MEDS ORDERED: HYDROCODONE/APAP 5-325MG TABLET PO ONE (14:45)
--- NOTE | 2018-12-15 15:18 | NUR ---
Patient discharged with wound dressing intact. Homeless checklist reviewed and signed by patient. RONDA Berry
== END 2018-12-15 15:24 | disposition home or self-care (01) ==
LOC: ER 13:11
DX: Z48.01 Encounter for change or removal of surgical wound dressing (principal); L03.115 Cellulitis of right lower limb; L03.116 Cellulitis of left lower limb; L97.921 Non-pressure chronic ulcer of unspecified part of left lower leg limited to breakdown of skin; L97.911 Non-pressure chronic ulcer of unspecified part of right lower leg limited to breakdown of skin; I25.10 Atherosclerotic heart disease of native coronary artery without angina pectoris; I25.2 Old myocardial infarction; K21.9 Gastro-esophageal reflux disease without esophagitis; I11.0 Hypertensive heart disease with heart failure; I50.9 Heart failure, unspecified; Z91.018 Allergy to other foods; Z79.899 Other long term (current) drug therapy
CPT/HCPCS: A4217; A4663

== ENCOUNTER 2019-01-12 15:19 | Emergency (ER) | payer OTHER ==
[~2019-01-12] VITALS: Ht 170.2 cm; Wt 127.0 kg
[2019-01-12] MEDS ORDERED: HYDROCODONE/APAP 10-325 MG TABLET PO ONE (16:00)
[2019-01-12] MEDS ORDERED: SULFAMETH/TRIMETH 800/160 MG TABLET PO ONE (16:00)
[2019-01-12] MEDS ORDERED: SULFAMETH/TRIMETH 800/160 MG TABLET ONE (16:03)
[2019-01-12] MEDS ORDERED: HYDROCODONE/APAP 10-325 MG TABLET ONE (16:03)
[2019-01-12] MEDS ORDERED: SILVER SULFADIAZINE 1% CREAM 25 GM TUBE TP ONE ×2 (16:18)
[2019-01-12] MEDS ORDERED: SILVER SULFADIAZINE 1% CREAM 50 GM TP ONE (17:00)
--- NOTE | 2019-01-12 17:24 | NUR ---
Patient discharged to home in stable conditon. Written and verbal after care instructions given. Patient verbalizes understanding of instructions.PT WALKS IN STEADY GAIT.
== END 2019-01-12 17:24 | disposition home or self-care (01) ==
LOC: ER 15:19
DX: Z48.01 Encounter for change or removal of surgical wound dressing (principal); S81.802D Unspecified open wound, left lower leg, subsequent encounter; S81.801D Unspecified open wound, right lower leg, subsequent encounter; I89.0 Lymphedema, not elsewhere classified; I25.10 Atherosclerotic heart disease of native coronary artery without angina pectoris; I25.2 Old myocardial infarction; K21.9 Gastro-esophageal reflux disease without esophagitis; F31.9 Bipolar disorder, unspecified; F12.10 Cannabis abuse, uncomplicated; I11.0 Hypertensive heart disease with heart failure; I50.9 Heart failure, unspecified; N17.9 Acute kidney failure, unspecified; F41.9 Anxiety disorder, unspecified; Z76.0 Encounter for issue of repeat prescription; Z79.899 Other long term (current) drug therapy; X58.XXXD Exposure to other specified factors, subsequent encounter
CPT/HCPCS: A4217; A4663

== ENCOUNTER 2019-02-02 18:57 | Emergency (ER) | payer OTHER ==
[~2019-02-02] VITALS: Ht 175.3 cm; Wt 136.1 kg
--- NOTE | 2019-02-02 19:19 | NUR ---
Patient is AOx4, speaking in complete sentences, speech is clear. Able to follow /comprehend directions. Gait is stable. No cardiovascular distress noted. Rate/rhythm regular. No CP. No respiratory distress noted. Respirations even , unlabored, symmetrical chest rise. No adventitious sounds noted. +RECURRENT CELLULITIS, STATIS DERMATITIS OF BLE +P. AERUGINOSA, +P.MIRABILUS, +E. FAECALIS CHRONIC VENOUS STASIS UCERATIONS, +EDEMA HERE FOR WOUND CHECK, REQUESTING BACTRIM AND ANDREIA KC AT BEDSIDE FOR HX AND PHYSICAL Denies Fever/Chills. No recent travel. No pertinent medical history/NKDA. + ETOH (2tall cans of beer/ -recreational drug use/ +5cigarettes per day. LBM- yesterday. Continent of bowel and bladder function. SAFETY Patient in bed, bed in lowest position. Siderails up x 2. Call light within reach. Will continue to monitor accordingly
[2019-02-02] MEDS ORDERED: SILVER SULFADIAZINE 1% CREAM 25 GM TUBE TP ONE (19:40)
[2019-02-02] MEDS ORDERED: SILVER SULFADIAZINE 1% CREAM 50 GM TP ONE (19:45)
[2019-02-02] MEDS ORDERED: HYDROCODONE/APAP 10-325 MG TABLET PO ONE (20:00)
[2019-02-02] MEDS ORDERED: HYDROCODONE/APAP 10-325 MG TABLET ONE (20:22)
--- NOTE | 2019-02-02 20:30 | NUR ---
Wound check, irrigation and re-dress done. assessed by RN and MD prior to re-dress. non healing 5cm -10cm all around b/ lower leg, +drainage and pus, irregular borders, +erythema on surrounding tissue. Silvadeine applied as ordered wrapped with abd dressing and marc bandage for support Pt verbalized home instructions. Patient discharged to home in stable conditon. Written and verbal after care instructions given. Patient verbalizes understanding of instructions. Addendum: 02/02/19 at 2037 by MARLON homeless discharge waive signed,.
[2019-02-02 20:34] VITALS: BP 144/75
== END 2019-02-02 20:39 | disposition home or self-care (01) ==
LOC: ER 19:02
DX: I83.209 Varicose veins of unspecified lower extremity with both ulcer of unspecified site and inflammation (principal); L97.919 Non-pressure chronic ulcer of unspecified part of right lower leg with unspecified severity; L97.929 Non-pressure chronic ulcer of unspecified part of left lower leg with unspecified severity; I25.10 Atherosclerotic heart disease of native coronary artery without angina pectoris; I25.2 Old myocardial infarction; K21.9 Gastro-esophageal reflux disease without esophagitis; F31.9 Bipolar disorder, unspecified; Z91.018 Allergy to other foods; Z79.899 Other long term (current) drug therapy
CPT/HCPCS: A4217; A4663

== ENCOUNTER 2019-02-16 18:16 | Emergency (ER) | payer OTHER ==
[~2019-02-16] VITALS: Ht 177.8 cm; Wt 136.1 kg
[2019-02-16] MEDS ORDERED: HYDROCODONE/APAP 10-325 MG TABLET PO ONE (18:45)
[2019-02-16] MEDS ORDERED: SILVER SULFADIAZINE 1% CREAM 50 GM TP ONE (18:45)
[2019-02-16] MEDS ORDERED: HYDROCODONE/APAP 10-325 MG TABLET ONE (18:50)
[2019-02-16] MEDS ORDERED: SILVER SULFADIAZINE 1% CREAM 25 GM TUBE TP ONE (18:50)
--- NOTE | 2019-02-16 19:00 | NUR ---
RONDA Stinson at bedside performing wound care for bilateral stasis ulcers.
--- NOTE | 2019-02-16 19:26 | NUR ---
Patient discharged to home in stable conditon. Written and verbal after care instructions given. Patient verbalizes understanding of instructions. Patient ambulated with stable gait.
[2019-02-16 19:47] VITALS: BP 138/81
== END 2019-02-16 19:26 | disposition home or self-care (01) ==
LOC: ER 18:21
DX: Z48.01 Encounter for change or removal of surgical wound dressing (principal); L97.919 Non-pressure chronic ulcer of unspecified part of right lower leg with unspecified severity; R60.9 Edema, unspecified; E66.01 Morbid (severe) obesity due to excess calories; I25.10 Atherosclerotic heart disease of native coronary artery without angina pectoris; I25.2 Old myocardial infarction; K21.9 Gastro-esophageal reflux disease without esophagitis; F31.9 Bipolar disorder, unspecified; I11.0 Hypertensive heart disease with heart failure; I50.9 Heart failure, unspecified; F41.9 Anxiety disorder, unspecified; Z76.0 Encounter for issue of repeat prescription; Z59.0 Homelessness; Z91.018 Allergy to other foods; Z79.899 Other long term (current) drug therapy
CPT/HCPCS: A4217; A4663

== ENCOUNTER 2019-03-02 19:00 | Emergency (ER) | payer OTHER ==
[~2019-03-02] VITALS: Ht 175.3 cm; Wt 133.8 kg
[2019-03-02] MEDS ORDERED: HYDROCODONE/APAP 10-325 MG TABLET PO ONE (19:15)
[2019-03-02] MEDS ORDERED: SILVER SULFADIAZINE 1% CREAM 50 GM TP ONE (19:15)
[2019-03-02] MEDS ORDERED: HYDROCODONE/APAP 10-325 MG TABLET ONE (19:24)
[2019-03-02] MEDS ORDERED: SILVER SULFADIAZINE 1% CREAM 25 GM TUBE TP ONE (19:27)
--- NOTE | 2019-03-02 20:01 | NUR ---
Patient discharged to home in stable conditon. Written and verbal after care instructions given. Patient verbalizes understanding of instructions. Pt walked out of ER in stable gait with all belongings. No acute distress noted. Vital signs stable. Respirations even + unlabored.
--- NOTE | 2019-03-02 20:02 | NUR ---
Patient given written and verbal discharge instructions. Patient verbalizes understanding of instructions. Patient is ambulatory with steady gait. Refuses offer of nursing home placement. Patient given list of available shelters in surrounding area.
== END 2019-03-02 20:04 | disposition home or self-care (01) ==
LOC: ER 19:05
DX: Z48.01 Encounter for change or removal of surgical wound dressing (principal); I25.10 Atherosclerotic heart disease of native coronary artery without angina pectoris; I25.2 Old myocardial infarction; K21.9 Gastro-esophageal reflux disease without esophagitis; I10 Essential (primary) hypertension; Z76.0 Encounter for issue of repeat prescription; Z91.018 Allergy to other foods; Z59.0 Homelessness; Z79.899 Other long term (current) drug therapy
CPT/HCPCS: A4217; A4663

== ENCOUNTER 2019-03-09 18:15 | Emergency (ER) | payer OTHER ==
[~2019-03-09] VITALS: Ht 175.3 cm; Wt 133.8 kg
[2019-03-09] MEDS ORDERED: HYDROCODONE/APAP 10-325 MG TABLET ONE (19:24)
[2019-03-09] MEDS ORDERED: HYDROCODONE/APAP 10-325 MG TABLET PO ONE (19:30)
[2019-03-09] MEDS ORDERED: SILVER SULFADIAZINE 1% CREAM 25 GM TUBE TP ONE (19:34)
[2019-03-09] MEDS ORDERED: SILVER SULFADIAZINE 1% CREAM 50 GM TP ONE (20:15)
--- NOTE | 2019-03-09 20:25 | NUR ---
MD AT BEDSIDE FOR HX AND PHYSICAL
--- NOTE | 2019-03-09 20:42 | NUR ---
PT ABLE TO TOLERATE PO PAIN MEDS ORDRED. PN ON LEFT LOWER LEG AT 610 REMOVEDDRESSING (ABD DRESSINGS+6IN MARQUEZ BANDAGE) ON B/L LEG REVEALED CIRCUMFERENTIAL SKIN ULCERS APPROX 12CM IN WIDTH. +PUS AND SEROUS DRAINAGE, MINIMAL ODOR, PINK EDGES ARE IRREGULAR WITH SOME GRANULATION, +PEDAL PULSES, DENIES PARESTHESIAS NOR RADICULOPATHIES WOUND CARE IRRIGATION DONE PT ABLE TO TOLERATE IRRIGATION APPLIED SILVADENE ORDERED COVERED WITH ABD DRESSING WRAPPED WITH 6IN MARQUEZ BANDAGE EACH LOWER LEG SOCKS PROVIDED
--- NOTE | 2019-03-09 20:49 | NUR ---
Patient discharged to home in stable conditon. Written and verbal after care instructions given. Patient verbalizes understanding of instructions. AMBULATORY WITH ANTALGIC GAIT, ALL BELONGINGS W/ PT
[2019-03-09 21:21] VITALS: BP 155/80
== END 2019-03-09 20:10 | disposition home or self-care (01) ==
LOC: ER 18:18
DX: L97.929 Non-pressure chronic ulcer of unspecified part of left lower leg with unspecified severity (principal); L97.919 Non-pressure chronic ulcer of unspecified part of right lower leg with unspecified severity; R60.9 Edema, unspecified; I89.0 Lymphedema, not elsewhere classified; I25.10 Atherosclerotic heart disease of native coronary artery without angina pectoris; I25.2 Old myocardial infarction; K21.9 Gastro-esophageal reflux disease without esophagitis; F31.9 Bipolar disorder, unspecified; Z48.01 Encounter for change or removal of surgical wound dressing; Z76.0 Encounter for issue of repeat prescription; Z59.0 Homelessness; Z91.018 Allergy to other foods; Z79.899 Other long term (current) drug therapy
CPT/HCPCS: A4217; A4663

== ENCOUNTER 2019-03-23 14:17 | Emergency (ER) | payer OTHER ==
[~2019-03-23] VITALS: Ht 175.3 cm; Wt 133.8 kg
--- NOTE | 2019-03-23 14:20 | NUR ---
ADMIT A 63YO MALE IN RM 2B, AMBULATORY FOR WOUNDCARE DRESSING OF HIS LOWER EXTREMETIES.
[2019-03-23] MEDS ORDERED: HYDROCODONE/APAP 10-325 MG TABLET PO ONE (15:00)
--- NOTE | 2019-03-23 15:00 | NUR ---
PT MEDICATED WITH NORCO 10-325MG 1 TAB PO PRIOR TO WOUND DRESSING ORDERED
[2019-03-23] MEDS ORDERED: HYDROCODONE/APAP 10-325 MG TABLET ONE (15:04)
[2019-03-23] MEDS ORDERED: SILVER SULFADIAZINE 1% CREAM 50 GM TP ONE (15:15)
[2019-03-23] MEDS ORDERED: SILVER SULFADIAZINE 1% CREAM 25 GM TUBE TP ONE (15:22)
--- NOTE | 2019-03-23 15:45 | NUR ---
WOUND CARE DRESSING DONE AT BEDSIDE. APPLIED SILVADENE CREAM 1% ORDERED, CLEANSED WOUND WITH NS AND PAT DRY. APPLIED THE SILVADENE CREAM AND COVERED WITH ABD PADS AND WRAP WITH MARQUEZ BANDAGE. PT IS COOPERATIVE AND TOLERATED WELL.
--- NOTE | 2019-03-23 16:15 | NUR ---
DISCHARGE INSTRUCTIONS AND PRESCRIPTION GIVEN WITH GOOD UNDERSTANDING. PT IS DISCHARGED AMBULATORY. CONDITION IS STABLE.
[2019-03-23 17:44] VITALS: BP 130/80
== END 2019-03-23 16:15 | disposition home or self-care (01) ==
LOC: ER 14:17
DX: L97.921 Non-pressure chronic ulcer of unspecified part of left lower leg limited to breakdown of skin (principal); L97.911 Non-pressure chronic ulcer of unspecified part of right lower leg limited to breakdown of skin; I25.10 Atherosclerotic heart disease of native coronary artery without angina pectoris; I10 Essential (primary) hypertension; I25.2 Old myocardial infarction; K21.9 Gastro-esophageal reflux disease without esophagitis; F31.9 Bipolar disorder, unspecified; Z91.018 Allergy to other foods; Z79.899 Other long term (current) drug therapy
CPT/HCPCS: A4217; A4663

== ENCOUNTER 2019-04-06 17:06 | Emergency (ER) | payer OTHER ==
[~2019-04-06] VITALS: Ht 175.3 cm; Wt 133.4 kg
[2019-04-06] MEDS ORDERED: HYDROCODONE/APAP 10-325 MG TABLET PO ONE (17:30)
[2019-04-06] MEDS ORDERED: SILVER SULFADIAZINE 1% CREAM 50 GM TP ONE (17:30)
[2019-04-06] MEDS ORDERED: HYDROCODONE/APAP 10-325 MG TABLET ONE (17:38)
[2019-04-06] MEDS ORDERED: SILVER SULFADIAZINE 1% CREAM 25 GM TUBE TP ONE (17:39)
[2019-04-06 18:52] VITALS: BP 150/95
--- NOTE | 2019-04-06 18:54 | NUR ---
Pt medicated for pain as ordered.Wound care provided to pt as ordered.Pt refused half-way.Nursing supervisor remelt Tanesha was informed.
== END 2019-04-06 18:53 | disposition home or self-care (01) ==
LOC: ER 17:06
DX: I83.009 Varicose veins of unspecified lower extremity with ulcer of unspecified site (principal); I25.10 Atherosclerotic heart disease of native coronary artery without angina pectoris; I25.2 Old myocardial infarction; K21.9 Gastro-esophageal reflux disease without esophagitis; F31.9 Bipolar disorder, unspecified; I11.0 Hypertensive heart disease with heart failure; I50.9 Heart failure, unspecified; Z91.018 Allergy to other foods; Z79.899 Other long term (current) drug therapy
CPT/HCPCS: A4217; A4663

== ENCOUNTER 2019-04-13 17:22 | Emergency (ER) | payer OTHER ==
[~2019-04-13] VITALS: Ht 175.3 cm; Wt 133.8 kg
[2019-04-13] MEDS ORDERED: HYDROCODONE/APAP 10-325 MG TABLET PO ONE (17:45)
[2019-04-13] MEDS ORDERED: SILVER SULFADIAZINE 1% CREAM 50 GM TP ONE (18:00)
[2019-04-13] MEDS ORDERED: SILVER SULFADIAZINE 1% CREAM 25 GM TUBE TP ONE (18:06)
[2019-04-13] MEDS ORDERED: HYDROCODONE/APAP 10-325 MG TABLET ONE (18:07)
--- NOTE | 2019-04-13 18:30 | NUR ---
DRESSING CHANGED BY JACKIE RANDALL LVN.
--- NOTE | 2019-04-13 19:12 | NUR ---
Patient discharged to home in stable conditon. Written and verbal after care instructions given. Patient verbalizes understanding of instructions.PT WALKS IN STEADY GAIT.
== END 2019-04-13 19:13 | disposition home or self-care (01) ==
LOC: ER 17:22
DX: Z48.01 Encounter for change or removal of surgical wound dressing (principal); I25.10 Atherosclerotic heart disease of native coronary artery without angina pectoris; I25.2 Old myocardial infarction; J45.909 Unspecified asthma, uncomplicated; F31.9 Bipolar disorder, unspecified; K21.9 Gastro-esophageal reflux disease without esophagitis; Z91.018 Allergy to other foods; Z79.899 Other long term (current) drug therapy; Z79.891 Long term (current) use of opiate analgesic
CPT/HCPCS: A4217; A4663

== ENCOUNTER 2019-04-20 18:00 | Emergency (ER) | payer OTHER ==
[~2019-04-20] VITALS: Ht 172.7 cm; Wt 136.1 kg
--- NOTE | 2019-04-20 18:53 | NUR ---
Dr Kim at the bedside for MSE.
--- NOTE | 2019-04-20 19:00 | NUR ---
HAND OFF AND SBAR RECEIVED FROM OUTGOING DAY SHIFT RN PT IS ON [place] HIGH GALE'S MARQUEZ BANDAGES ON BOTH LOWER LEGS SMILING, NAD CALM AND COMPLIANT
[2019-04-20] MEDS ORDERED: HYDROCODONE/APAP 10-325 MG TABLET ONE (19:02)
[2019-04-20] MEDS ORDERED: SILVER SULFADIAZINE 1% CREAM 25 GM TUBE TP ONE (19:10)
--- NOTE | 2019-04-20 19:10 | NUR ---
WOUND CHECK, IRRIGATION AND DRESSING CHANGE DONE WOUND ASSESSMENT REVEALED: B/L NON HEALING WOUNDS WITH COPIOUS PUS DRAINING, NO ODOR, APPROX 15CM IN LENGTH EXTENDING AROUND BOTH LOWER LEGS PT ABLE TO TOLERATE PO MEDS ORDERED PT ABLE TO TOLERATE PROCEDURE HOMELESS WAIVER FORM SIGNED CHECKLIST COMPLETED MONITORED ACCORDINGLY
[2019-04-20] MEDS ORDERED: SILVER SULFADIAZINE 1% CREAM 50 GM TP ONE (19:15)
[2019-04-20] MEDS ORDERED: HYDROCODONE/APAP 10-325 MG TABLET PO ONE (19:15)
--- NOTE | 2019-04-20 20:31 | NUR ---
PT AMBULATORY WITH STABLE GAIT Patient discharged to home in stable conditon. Written and verbal after care instructions given. Patient verbalizes understanding of instructions. ALL BELONGINGS W/ PT
[2019-04-20 20:46] VITALS: BP 146/88
== END 2019-04-20 20:30 | disposition home or self-care (01) ==
LOC: ER 18:02
DX: L03.113 Cellulitis of right upper limb (principal); R60.9 Edema, unspecified; L97.919 Non-pressure chronic ulcer of unspecified part of right lower leg with unspecified severity; I25.10 Atherosclerotic heart disease of native coronary artery without angina pectoris; I25.2 Old myocardial infarction; J45.909 Unspecified asthma, uncomplicated; F31.9 Bipolar disorder, unspecified; K21.9 Gastro-esophageal reflux disease without esophagitis; I10 Essential (primary) hypertension; Z91.018 Allergy to other foods; Z79.899 Other long term (current) drug therapy
CPT/HCPCS: A4217; A4663

== ENCOUNTER 2019-04-27 18:31 | Emergency (ER) | payer OTHER ==
[~2019-04-27] VITALS: Ht 175.3 cm; Wt 136.1 kg
--- NOTE | 2019-04-27 19:05 | NUR ---
PATIENT ARRIVED AT THE ER WITH CHIEF COMPLAINT OF PAIN TO FEET AND BILATERAL LOWER EXTREMITIES SKIN WOUNDS. PATIENT AAOX4. NO CARDIOPULMONARY CONCERN. NO /GI CONCERN.
--- NOTE | 2019-04-27 19:10 | NUR ---
Dr. Kim on bedside for MSE.
[2019-04-27] MEDS ORDERED: HYDROCODONE/APAP 10-325 MG TABLET PO ONE (19:15)
[2019-04-27] MEDS ORDERED: HYDROCODONE/APAP 10-325 MG TABLET ONE (19:17)
--- NOTE | 2019-04-27 19:37 | NUR ---
Dr. Kim on bedside for wound assessment.
[2019-04-27] MEDS ORDERED: SILVER SULFADIAZINE 1% CREAM 25 GM TUBE TP ONE (19:51)
[2019-04-27] MEDS ORDERED: SILVER SULFADIAZINE 1% CREAM 50 GM TP ONE (20:00)
--- NOTE | 2019-04-27 20:20 | NUR ---
Treatment done to wound on bilateral feet per order.
--- NOTE | 2019-04-27 20:22 | NUR ---
Dr. Kim on bedside.
[2019-04-27 20:40] VITALS: BP 156/88
--- NOTE | 2019-04-27 20:41 | NUR ---
Patient discharged to home in stable conditon. Written and verbal after care instructions given. Patient verbalizes understanding of instructions. Pt ambulated out of the ER with steady gait. All belongings with pt.
== END 2019-04-27 20:42 | disposition home or self-care (01) ==
LOC: ER 18:31
DX: Z48.01 Encounter for change or removal of surgical wound dressing (principal); R60.9 Edema, unspecified; I25.10 Atherosclerotic heart disease of native coronary artery without angina pectoris; F31.9 Bipolar disorder, unspecified; I10 Essential (primary) hypertension; K21.9 Gastro-esophageal reflux disease without esophagitis; Z76.0 Encounter for issue of repeat prescription; Z91.018 Allergy to other foods; Z79.899 Other long term (current) drug therapy
CPT/HCPCS: A4217; A4663

== ENCOUNTER 2019-05-04 17:01 | Emergency (ER) | payer OTHER ==
[~2019-05-04] VITALS: Ht 175.3 cm; Wt 136.1 kg
[2019-05-04] MEDS ORDERED: SILVER SULFADIAZINE 1% CREAM 25 GM TUBE TP ONE (17:46)
[2019-05-04] MEDS ORDERED: SILVER SULFADIAZINE 1% CREAM 50 GM TP ONE (18:00)
--- NOTE | 2019-05-04 18:18 | NUR ---
Patient given written and verbal discharge instructions. Patient verbalizes understanding of instructions. Patient is ambulatory with steady gait. Refuses offer of half-way placement. Patient given list of available shelters in surrounding area.
== END 2019-05-04 18:19 | disposition home or self-care (01) ==
LOC: ER 17:01
DX: I87.8 Other specified disorders of veins (principal); I25.10 Atherosclerotic heart disease of native coronary artery without angina pectoris; I25.2 Old myocardial infarction; I11.0 Hypertensive heart disease with heart failure; I50.9 Heart failure, unspecified; K21.9 Gastro-esophageal reflux disease without esophagitis; Z91.018 Allergy to other foods; Z79.899 Other long term (current) drug therapy
CPT/HCPCS: A4217; A4663

== ENCOUNTER 2019-05-11 19:15 | Inpatient (IN) | payer OTHER ==
[~2019-05-11] VITALS: Ht 175.3 cm; Wt 127.9 kg
[~2019-05-11 19:15] MED LIST changes: +ZINC1CAP2 PO; -ZINC220C8 PO
--- NOTE | 2019-05-11 19:30 | NUR ---
Patient arrived at the ER for wound check and dressing change on bilat low ext.
[2019-05-11] MEDS ORDERED: SILVER SULFADIAZINE 1% CREAM 25 GM TUBE TP ONE ×2 (19:45→19:46)
[2019-05-11] MEDS ORDERED: HYDROCODONE/APAP 10-325 MG TABLET ONE (19:45)
[2019-05-11] MEDS ORDERED: HYDROCODONE/APAP 10-325 MG TABLET PO ONE (19:45)
--- NOTE | 2019-05-11 19:53 | NUR ---
Dr. Kim on bedside for MSE.
[2019-05-11] MEDS ORDERED: VANCOMYCIN IV 1,000 MG in IV DEXTROSE 5% 250 ML IV ONE (20:15)
[2019-05-11 20:26] LABS: BASOPHILS # (AUTO) 0.1 K/uL (0.0-8.0); BASOPHILS % (AUTO) 0.9 % (0.0-2.0); EOSINOPHILS # (AUTO) 0.2 K/uL (0.0-0.7); EOSINOPHILS % (AUTO) 2.1 % (0.0-7.0); HEMATOCRIT 29.4 % (36.7-47.1); HEMOGLOBIN 9.5 g/dL (12.5-16.3); LYMPHOCYTES # (AUTO) 1.8 K/uL (20.0-40.0); LYMPHOCYTES % (AUTO) 20.9 % (20.5-51.5); MEAN CORPUSCULAR HEMOGLOBIN 27.1 uug (23.8-33.4); MEAN CORPUSCULAR HGB CONC 32 g/dL (32.5-36.3); MONOCYTES # (AUTO) 0.7 K/uL (2.0-10.0); MONOCYTES % (AUTO) 7.9 % (0.0-11.0); NEUTROPHILS # (AUTO) 5.8 K/uL (1.8-8.9); NEUTROPHILS % (AUTO) 68.2 % (38.5-71.5); PLATELET COUNT (AUTO) 542 K/uL (152-348); WHITE BLOOD COUNT (AUTO) 8.5 K/uL (3.6-10.2)
[2019-05-11 20:33] LABS: CREATININE 1.5 mg/dL (0.6-1.3)
[2019-05-11 20:39] LABS: BILIRUBIN,DIRECT 0.1 mg/dL (0.0-0.2); BILIRUBIN,TOTAL 0.2 mg/dL (0.2-1.0); TOTAL PROTEIN, SERUM 7.8 g/dL (6.4-8.2)
[2019-05-11] MEDS ORDERED: VANCOMYCIN IV 200 ML ONE (20:58)
[2019-05-11] MEDS ORDERED: DEXTROSE 50% 50 ML DISP.SYRIN IV PRN (21:00)
[2019-05-11] MEDS ORDERED: ACETAMINOPHEN 325 MG TABLET PO PRN (21:00)
[2019-05-11] MEDS ORDERED: INSULIN REGULAR, HUMAN 300 UNIT/3 ML VIAL SQ PRN (21:00)
[2019-05-11] MEDS ORDERED: MAGNESIUM HYDROXIDE 30 ML LIQUID UDC PO PRN (21:00)
[2019-05-11] MEDS ORDERED: ONDANSETRON 4 MG/2 ML VIAL IV PRN (21:00)
[2019-05-11] MEDS ORDERED: Z GUARD REMEDY PASTE 57 GM TUBE TOP PRN (21:00)
[2019-05-11] MEDS ORDERED: HYDROCODONE/APAP 5-325MG TABLET PO PRN (21:00)
--- NOTE | 2019-05-11 21:31 | NUR ---
Report given to Taylor Rosales. Patient will be admitied on room #316.
[2019-05-11] MEDS: BLOOD SUGAR DIAGNOSTIC 1 EACH STRIP VI SCH (22:00)
--- NOTE | 2019-05-11 22:00 | NUR ---
Patient admitted to Medr unit, room 316. Transported via gurney by RONDA Herbert. All belongings with patient. Vancomycin via IV still running, informed FISH Rosales to end IV ABX.
--- NOTE | 2019-05-11 22:00 | NUR ---
Admitted 63 y/o Male under the care of Yobani GARCIA. Dx: Non-healing wounds on BLE. Patient is A&Ox4, noted ambulatory. IV on R shoulder intact and patent. Oriented patient to his room and w/ the use of call light. Admission protocol initiated. Safety measures observed. Call light in reach
[2019-05-11 22:41] VITALS: BP 131/59
[2019-05-11] MEDS: IV NS 1000 ML 1,000 ML IV PRN (22:44)
--- NOTE | 2019-05-12 02:15 | NUR ---
Patient complaining of pain on his BLE, [place] 5-325mg 1 tab PRN given but patient stated it's not working for him and wanted it to be changed to Morphine. Informed contour grinder Jessica SELECTOR PACKER w/ n.o for Morphine 2mg IV Q4 PRN, noted and carried out
[2019-05-12] MEDS: MORPHINE SULFATE 2 MG/1 ML DISP.SYRIN IV PRN ×4 (02:30→21:49)
[2019-05-12 05:08] VITALS: BP 142/84
[2019-05-12] MEDS: BLOOD SUGAR DIAGNOSTIC 1 EACH STRIP VI SCH ×4 (06:33→20:26)
[2019-05-12 06:49] LABS: BASOPHILS % (AUTO) 0.4 % (0.0-2.0); CREATININE 1.1 mg/dL (0.6-1.3); EOSINOPHILS # (AUTO) 0.2 K/uL (0.0-0.7); EOSINOPHILS % (AUTO) 1.5 % (0.0-7.0); HEMATOCRIT 27.7 % (36.7-47.1); HEMOGLOBIN 8.8 g/dL (12.5-16.3); LYMPHOCYTES # (AUTO) 0.9 K/uL (20.0-40.0); LYMPHOCYTES % (AUTO) 8.2 % (20.5-51.5); MAGNESIUM 2.2 mg/dL (1.8-2.4); MEAN CORPUSCULAR HEMOGLOBIN 27.4 uug (23.8-33.4); MEAN CORPUSCULAR HGB CONC 32 g/dL (32.5-36.3); MEAN CORPUSCULAR VOLUME 86.2 fL (73.0-96.2); MONOCYTES # (AUTO) 0.9 K/uL (2.0-10.0); MONOCYTES % (AUTO) 8.8 % (0.0-11.0); NEUTROPHILS # (AUTO) 8.6 K/uL (1.8-8.9); NEUTROPHILS % (AUTO) 81.1 % (38.5-71.5); PHOSPHOROUS 2.9 mg/dL (2.5-4.9); PLATELET COUNT (AUTO) 474 K/uL (152-348); RED BLOOD CELL COUNT(AUTO) 3.21 MIL/uL (4.06-5.63); WHITE BLOOD COUNT (AUTO) 10.6 K/uL (3.6-10.2)
--- NOTE | 2019-05-12 08:00 | NUR ---
received pt. in bed resting alert oriented x4. Pt. denies sob/ difficulty breathing. pt c/o pain to bilateral lower extremities. will provide pt. with prn pain medication when due. bilateral lower legs elevated on pillows. Pt. has IV in R shoulder 22 gauge intact patent running fluids. Pt. states he wants to have photos taken of bilateral lower extremities when wound nurse comes in. all belongings near pt. call light within reach. safety measures in place. will continue to monitor pt.
--- NOTE | 2019-05-12 09:46 | NUR ---
CLINICAL PHARMACY NOTE: VANCOMYCIN PHARMACY TO DOSE Subjective: To start vancomycin dosing for this 63 y/o male for indication of cellulitis Objective: weight 132kg height 132cm BUN/SCr 17/1.1 wbc 10.6 temp 98.6 Assessment/Plan Patient received vanco 1gm IVPB x1 on 05/11 at 2100. As renal function improving, will start vancomycin regimen of 2000mg q14hr for estimated trough of 16 mcg/ml, 1st dose today at 1000. Will check trough before 4th scheduled dose (not ordered yet). Will also follow renal function and adjust if needed. Will monitor
[2019-05-12] MEDS ORDERED: ACETAMINOPHEN 325 MG TABLET PO PRN (10:30)
[2019-05-12] MEDS ORDERED: NITROGLYCERIN 0.4 MG/TAB BOTTLE SL SCH (10:30)
[2019-05-12] MEDS: VANCOMYCIN IV 2,000 MG in IV DEXTROSE 5% 500 ML IV SCH ×2 (10:45→23:15)
[2019-05-12] MEDS ORDERED: NITROGLYCERIN 0.4 MG/TAB BOTTLE SL PRN (11:00)
--- NOTE | 2019-05-12 11:25 | NUR ---
Provided pt. with PRN morphine for pain management. Pt. c/o of IV feeling irritated/ itchy. Upon assessment of IV infiltration has occurred. Removed IV and applied ice pack on IV site. urologist physician aware and ordered MID line for pt as pt is hard stick. Will continue vancomycin once IV access available
[2019-05-12] MEDS: GABAPENTIN 300 MG CAPSULE PO SCH ×2 (12:14→17:28)
[2019-05-12] MEDS: FUROSEMIDE 40 MG TABLET PO SCH ×2 (12:14→17:28)
[2019-05-12 12:15] VITALS: BP 121/67
[2019-05-12] MEDS ORDERED: Medication Not On Formulary EA (Gabapentin 600 MG) PO SCH (13:00)
--- NOTE | 2019-05-12 13:40 | NUR ---
WOUND CARE CONSULT: PT FOLLOWED BY PODIATRY FOR WOUNDS. DEFER TO PODIATRY TEAM FOR WOUND TREATMENT PLAN. WILL SEE PRN.
[2019-05-12] MEDS: HYDROCODONE/APAP 10-325 MG TABLET PO PRN ×2 (13:46→20:22)
[2019-05-12 16:00] VITALS: BP 94/64
--- NOTE | 2019-05-12 18:31 | NUR ---
Medical Receptionist saw pt. for bilateral leg wounds. Pt will have bilateral lower extremity excisional debridement tomorrow at 10 AM. Pt. aware of procedure and signed consent form in [facility]. Pt. did not want midline when RN came to insert midline; however, pt. wanted PICC line. Dr. Cornejo aware and agreed to PICC line for pt. also aware pt. has not had IV Vancomycin today as no IV site available. Waiting on PICC line nurse to come back to perform procedure
[2019-05-12 19:30] VITALS: BP 130/66
--- NOTE | 2019-05-12 19:30 | NUR ---
Received patient in bed, A/Ox4. No signs of distress noted. Complains of pain to BLE, will administer PRN pain medication. no complaints of SOB. PICC line is to be inserted. Patient is ambulatory with a steady gait, dressing to BLE is intact. Safety measures initiated. Bed is low and locked, call light within reach. Will continue to monitor.
[2019-05-12] MEDS: METOPROLOL TARTRATE 50 MG TABLET PO SCH (20:19)
[2019-05-12] MEDS: ARIPIPRAZOLE 5 MG TABLET PO SCH (20:19)
--- NOTE | 2019-05-12 22:22 | NUR ---
PICC line nurse was not able to insert line. Attempted x1, was unsuccessful and offered to try again or to put a midline, but patient refused. Milad from ER was able to insert peripheral line #20 gauge to the left AC. The Vanco that was due at 1400 was not given due to patient not having a line, but was already scanned. Restarted Vanco as per pharmacy, it was good to use for up to 24 hours per morning shift nurse. Spoke to out side pharmacy right now and asked if I should still give the 0000 scheduled Vanco and pharmacist said to skip that dose and continue with the next dose. Will continue to monitor. Addendum: 05/12/19 at 2250 by SYLVIA KIRK RN Morning Vanco was scanned at 1045, not 1400.
[2019-05-13] MEDS: MORPHINE SULFATE 2 MG/1 ML DISP.SYRIN IV PRN ×3 (03:32→18:40)
[2019-05-13 05:00] VITALS: BP 138/79
[2019-05-13] MEDS: HYDROCODONE/APAP 10-325 MG TABLET PO PRN ×2 (05:40→21:12)
[2019-05-13] MEDS: IV NS 1000 ML 1,000 ML IV PRN ×2 (06:29→21:14)
[2019-05-13] MEDS: BLOOD SUGAR DIAGNOSTIC 1 EACH STRIP VI SCH ×4 (06:38→21:29)
--- NOTE | 2019-05-13 07:30 | NUR ---
Patient calm and comfortable resting in bed with no signs of distress; patient will continue to be monitored
[2019-05-13] MEDS ORDERED: POLYMYXIN B SULFATE 500,000 UNITS, BACITRACIN 50,000 UNITS, NORMAL SALINE 20 ML MC ONE ×3 (08:45)
--- NOTE | 2019-05-13 08:45 | NUR ---
Computer received by night time nurse Sukhi; RN forgot to log off ; Morphine 2mg recorded under his name at 0845am but given by Lesli Jackson.
[2019-05-13] MEDS: ASCORBIC ACID 500 MG TABLET PO SCH (08:58)
[2019-05-13] MEDS: GABAPENTIN 300 MG CAPSULE PO SCH ×3 (08:58→16:46)
[2019-05-13] MEDS ORDERED: Medication Not On Formulary EA (Ascorbic Acid (Vitamin C) 500 MG) PO SCH (09:00)
[2019-05-13] MEDS: LISINOPRIL 20 MG TABLET PO SCH (09:01)
[2019-05-13] MEDS ORDERED: BACITRACIN 50,000 UNITS VIAL ONE (09:01)
[2019-05-13] MEDS: METOPROLOL TARTRATE 50 MG TABLET PO SCH ×2 (09:01→21:08)
[2019-05-13] MEDS ORDERED: LIDOCAINE HCL 1% 20 ML VIAL ONE (09:01)
[2019-05-13] MEDS: FUROSEMIDE 40 MG TABLET PO SCH ×3 (09:01→16:50)
[2019-05-13] MEDS: ZINC SULFATE 220 MG CAPSULE PO SCH (09:04)
[2019-05-13] MEDS: SODIUM HYPOCHLORITE 0.125% 473 ML BOTTLE TP SCH (09:05)
[2019-05-13] MEDS ORDERED: FENTANYL CITRATE 250 MCG/5 ML AMPUL ONE (09:10)
[2019-05-13] MEDS ORDERED: MIDAZOLAM HCL 2 MG/2 ML VIAL ONE (09:10)
[2019-05-13 12:00] VITALS: BP 104/61
[2019-05-13] MEDS: VANCOMYCIN IV 2,000 MG in IV DEXTROSE 5% 500 ML IV SCH (12:48)
--- NOTE | 2019-05-13 13:13 | NUR ---
CLINICAL PHARMACY NOTE: VANCOMYCIN PHARMACY TO DOSE Subjective: To start vancomycin dosing for this 63 y/o male for indication of cellulitis Objective: weight 132kg height 132cm BUN/SCr 17/1.1(05/12) wbc 10.6(05/12) temp 98 Assessment/Plan Vancomycin 2gram IV q14hrs was scheduled for yesterday at 1000 am but was not given due to no IV access. First dose given at 2200 (see nursing note). Will continue same dose and draw trough by 4th dose(ordered for tomorrow at 1530) for expected trough around 16. Will monitor daily.
[2019-05-13] MEDS: ATORVASTATIN 10 MG TABLET PO SCH ×2 (14:51→21:07)
[2019-05-13 15:55] VITALS: BP_SYST 108; BP_SYST 81; BP_DIAS 38; BP_DIAS 43
--- NOTE | 2019-05-13 18:00 | NUR ---
Patient due to have debridement procedure but patient refused procedure with out picc line placement ; placement attempted yesterday but attempt unsuccessful on first try patient refused second attempt; new Picc line nurse arrived and patient refused nurse as he is requesting for it to be a specific picc line nurse he trust; picc line nurse that is being requested is only available tomorrow afternoon; new surgery schedule for tomorrow morning; Dr. Cameron surgeon contacted requesting if procedure can be reschedule for after picc placement . Awaiting orders; patient otherwise medication compliant through out shift with stable vital signs. Report given to oncoming nurse.
--- NOTE | 2019-05-13 19:21 | NUR ---
MD Cameron number called notified that patient is requesting a specific nurse to place picc line in which nurse is only available hollie afternoon ; stated that surgery will be cancelled completely. Attending MD Notified of Surgeons orders.
[2019-05-13 21:02] VITALS: BP 109/54
[2019-05-13] MEDS: ARIPIPRAZOLE 5 MG TABLET PO SCH (21:08)
--- NOTE | 2019-05-13 22:00 | NUR ---
patient refusing insulin tonight despite education. will continue to monitor.
[2019-05-14] MEDS: VANCOMYCIN IV 2,000 MG in IV DEXTROSE 5% 500 ML IV SCH (02:47)
[2019-05-14] MEDS: MORPHINE SULFATE 2 MG/1 ML DISP.SYRIN IV PRN ×4 (03:15→21:13)
[2019-05-14 05:33] VITALS: BP 110/61
--- NOTE | 2019-05-14 05:45 | NUR ---
patient slept intermittently. no signs of acute distress and v/s stable throughout shift. safety and comfort measures provided at all times. will continue plan of care and continue to monitor.
[2019-05-14] MEDS: BLOOD SUGAR DIAGNOSTIC 1 EACH STRIP VI SCH ×4 (06:56→21:41)
--- NOTE | 2019-05-14 08:11 | NUR ---
RECEIVED PT RESTING COMFORTABLY IN BED. PT DENIES PAIN AT THIS TIME. NO ACUTE DISTRESS NOTED. NO SOB NOTED. WILL CONTINUE TO MONITOR.
[2019-05-14] MEDS: LISINOPRIL 20 MG TABLET PO SCH (09:00)
[2019-05-14] MEDS: METOPROLOL TARTRATE 50 MG TABLET PO SCH ×2 (09:00→21:00)
[2019-05-14] MEDS: FUROSEMIDE 40 MG TABLET PO SCH ×4 (09:00→16:17)
[2019-05-14] MEDS: ASCORBIC ACID 500 MG TABLET PO SCH (09:00)
[2019-05-14] MEDS: GABAPENTIN 300 MG CAPSULE PO SCH ×4 (09:00→16:17)
[2019-05-14] MEDS: ZINC SULFATE 220 MG CAPSULE PO SCH (09:00)
[2019-05-14] MEDS: SODIUM HYPOCHLORITE 0.125% 473 ML BOTTLE TP SCH (09:00)
[2019-05-14 09:01] LABS: *BILIRUBIN,URIN NEGATIVE (NEGATIVE); *BLOOD, URINE NEGATIVE (NEGATIVE); *CLARITY,URINE CLEAR (CLEAR); *COLOR,URINE YELLOW (YELLOW); *KETONES,URINE NEGATIVE (NEGATIVE); *UROBILINOGEN,URINE 0.2 E.U./dl (NORMAL); LEUKOCYTE ESTERASE ,URINE NEGATIVE (NEGATIVE); NITRITE, URINE NEGATIVE (NEGATIVE); PH,URINE 6.5 (5.0-8.0); UGLUCOSE NEGATIVE (NEGATIVE)
[2019-05-14] MEDS ORDERED: LIDOCAINE HCL 1% 20 ML VIAL ONE (09:05)
[2019-05-14] MEDS ORDERED: BACITRACIN 50,000 UNITS VIAL ONE (09:06)
[2019-05-14 09:10] LABS: BACTERIA,URINE NONE SEEN /HPF (NONE SEEN); RBC,URINE 0-3 /HPF (0-3); SQUAMOUS EPITHELIAL CELL,UR NONE SEEN /HPF (NONE SEEN); WBC,URINE 0-3 /HPF (0-3)
[2019-05-14] MEDS ORDERED: MIDAZOLAM HCL 2 MG/2 ML VIAL ONE (10:21)
[2019-05-14] MEDS ORDERED: FENTANYL CITRATE 250 MCG/5 ML AMPUL ONE (10:21)
--- NOTE | 2019-05-14 10:35 | NUR ---
PT TAKEN TO SURGERY. IV STOPPED REDNESS NOTED ON IV SITE. LUMBER PLANER INFORMED. PT'S VITALS FOLLOWS:BP 157/57, HR 90, RR 18, TEMP 97.9, SATS 94 ON RA. NO ACUTE DISTRESS NOTED. NO SOB NOTED.
[2019-05-14] MEDS ORDERED: BUPIVACAINE PF 0.5% 30 ML VIAL ONE (11:07)
[2019-05-14 11:17] VITALS: BP 157/57
[2019-05-14] MEDS ORDERED: HEPARIN SODIUM,PORCINE 5,000 UNITS/ML VIAL ONE ×2 (12:11→12:53)
[2019-05-14] MEDS ORDERED: HEPARIN SODIUM,PORCINE 1,000 UNITS/ML VIAL ONE (12:11)
--- NOTE | 2019-05-14 12:13 | NUR ---
PT IN SURGERY.
[2019-05-14] MEDS ORDERED: BACITRACIN ZINC OINT 15 GM TUBE ONE (12:21)
[2019-05-14] MEDS ORDERED: LIDOCAINE-MPF 2% 5 ML VIAL IJ ONE (13:26)
[2019-05-14] MEDS ORDERED: METOCLOPRAMIDE HCL 10 MG/2 ML VIAL IV ONE (13:26)
[2019-05-14] MEDS ORDERED: PROPOFOL 200 MG/20 ML BOTTLE IV ONE (13:26)
[2019-05-14] MEDS ORDERED: SEVOFLURANE 250 ML BOTTLE IH ONE (13:26)
[2019-05-14] MEDS ORDERED: IV NORMAL SALINE 1000 ML BAG IV ONE ×2 (13:26)
[2019-05-14] MEDS ORDERED: EPHEDRINE SULFATE 50 MG/ML AMPUL IM ONE (13:26)
[2019-05-14] MEDS ORDERED: ONDANSETRON 4 MG/2 ML VIAL IV ONE (13:26)
[2019-05-14] MEDS ORDERED: CEFAZOLIN 1 G VIAL IM ONE (13:26)
[2019-05-14] MEDS ORDERED: FENTANYL CITRATE 100 MCG/2 ML AMPUL ONE (13:46)
[2019-05-14] MEDS ORDERED: HYDROMORPHONE 1 MG/1 ML DISP.SYRIN IV PRN (14:30)
--- NOTE | 2019-05-14 15:00 | NUR ---
RECEIVED PT FROM SURGERY AFTER LOWER LEGS R+L WOUND DEBRIDEMENT. PT TRANSPORTED VIA BED. NO ACUTE DISTRESS NOTED. NO SOB NOTED. VS STABLE. PAIN MANAGED WITH MORPHINE. PT ALERT AND ORIENTED X3. PLEASANT AND COOPERATIVE. PT'S IV LINE CHANGED TO IJ CENTRAL LINE WHILE IN THE OR. WILL CONTINUE TO MONITOR FOR PAIN AND COMFORT.
[2019-05-14] MEDS: IV NS 1000 ML 1,000 ML IV PRN (15:07)
[2019-05-14 15:15] VITALS: BP 107/60
[2019-05-14 15:30] VITALS: BP 110/65
[2019-05-14] MEDS: CEFEPIME HCL 2 G in IV DEXTROSE 5% 100 ML IV SCH (16:16)
--- NOTE | 2019-05-14 18:36 | NUR ---
PT SLEEPING COMFORTABLY IN BED. NO ACUTE DISTRESS OR SOB NOTED AT THIS TIME. BED LOCKED AND IN LOW POSITION. IVF RUNNING. PT HAS RIGHT IJ CENTRAL LINE PATENT. WILL GIVE REPORT ACCORDINGLY.
--- NOTE | 2019-05-14 20:00 | NUR ---
Patient received into care sitting up in bed awake, resting comfortably. Patient is alert/oriented x3 and has no complaints of pain or discomfort at this time. Patient has a 3 lumen IJ Central line that is running NS @ 100mL/hr. Patient also has Left AC 20g saline lock which is not being used. Call light and personal items are within reach. All safety and fall precaution measures are in place. Will continue to monitor.
[2019-05-14 20:55] VITALS: BP 101/55
[2019-05-14] MEDS: ARIPIPRAZOLE 5 MG TABLET PO SCH (21:12)
[2019-05-14] MEDS: ATORVASTATIN 10 MG TABLET PO SCH (21:13)
--- NOTE | 2019-05-14 22:30 | NUR ---
Nurse removed left AC IV catheter.
--- NOTE | 2019-05-14 23:59 | NUR ---
Nurse titrated oxygen to 1L/min
[2019-05-15] MEDS: HYDROCODONE/APAP 10-325 MG TABLET PO PRN (00:27)
[2019-05-15] MEDS: MORPHINE SULFATE 2 MG/1 ML DISP.SYRIN IV PRN ×4 (01:41→20:21)
[2019-05-15] MEDS: CEFEPIME HCL 2 G in IV DEXTROSE 5% 100 ML IV SCH ×2 (03:36→15:01)
[2019-05-15 05:10] VITALS: BP 107/52
[2019-05-15] MEDS: IV NS 1000 ML 1,000 ML IV PRN (06:31)
[2019-05-15] MEDS: BLOOD SUGAR DIAGNOSTIC 1 EACH STRIP VI SCH ×4 (06:42→21:04)
--- NOTE | 2019-05-15 07:30 | NUR ---
Received patient in bed resting No signs/symptoms of acute distress or pain at this time. Piccline on the right jugular and is patent and intact running NS. Call light are within reach. Safety and comfort provided at all times. Will continue to monitor
[2019-05-15] MEDS: ZINC SULFATE 220 MG CAPSULE PO SCH (08:23)
[2019-05-15] MEDS: GABAPENTIN 300 MG CAPSULE PO SCH ×3 (08:23→16:42)
[2019-05-15] MEDS: FUROSEMIDE 40 MG TABLET PO SCH ×3 (08:23→16:47)
[2019-05-15] MEDS: ASCORBIC ACID 500 MG TABLET PO SCH (08:23)
[2019-05-15] MEDS: LISINOPRIL 20 MG TABLET PO SCH (08:29)
[2019-05-15] MEDS: METOPROLOL TARTRATE 50 MG TABLET PO SCH ×3 (08:39→21:00)
[2019-05-15] MEDS: SODIUM HYPOCHLORITE 0.125% 473 ML BOTTLE TP SCH (09:00)
[2019-05-15 12:15] VITALS: BP 113/63
--- NOTE | 2019-05-15 19:28 | NUR ---
Patient in bed resting No signs/symptoms of acute distress or pain at this time. Piccline on the right jugular and is patent and intact running NS. Call light are within reach. Safety and comfort provided at all times. Will continue to monitor
[2019-05-15 19:43] VITALS: BP 128/77
[2019-05-15] MEDS: ATORVASTATIN 10 MG TABLET PO SCH (20:21)
[2019-05-15] MEDS: ARIPIPRAZOLE 5 MG TABLET PO SCH (20:21)
[2019-05-16] MEDS: MORPHINE SULFATE 2 MG/1 ML DISP.SYRIN IV PRN ×6 (00:37→21:03)
[2019-05-16] MEDS: IV NS 1000 ML 1,000 ML IV PRN (00:37)
[2019-05-16] MEDS: CEFEPIME HCL 2 G in IV DEXTROSE 5% 100 ML IV SCH ×2 (04:15→16:29)
[2019-05-16 05:14] VITALS: BP 109/60
[2019-05-16] MEDS: BLOOD SUGAR DIAGNOSTIC 1 EACH STRIP VI SCH (06:31)
--- NOTE | 2019-05-16 06:52 | NUR ---
patient slept well last night, pain managed by morphine, and was well managed. in no acute distress. endorsed to am shift.
[2019-05-16] MEDS: GABAPENTIN 300 MG CAPSULE PO SCH ×3 (08:39→16:29)
[2019-05-16] MEDS: ZINC SULFATE 220 MG CAPSULE PO SCH (08:40)
[2019-05-16] MEDS: ASCORBIC ACID 500 MG TABLET PO SCH (08:40)
[2019-05-16] MEDS: SODIUM HYPOCHLORITE 0.125% 473 ML BOTTLE TP SCH (08:43)
[2019-05-16] MEDS: LISINOPRIL 20 MG TABLET PO SCH (09:00)
[2019-05-16] MEDS: FUROSEMIDE 40 MG TABLET PO SCH ×2 (09:00→16:29)
[2019-05-16] MEDS: METOPROLOL TARTRATE 50 MG TABLET PO SCH ×2 (09:00→20:31)
--- NOTE | 2019-05-16 09:00 | NUR ---
Received pt. A/OX4 verbally responsive and able to make his needs known. On RA with SpO@ of 96%, no respiratory distress. RIJ 3x lumen patent and intact. All due AM meds as ordered and tolerated well. No s/sx of hypo/hyperglycemia. D/C IV fluids per provider order. Encourage to elevate BLE as tolerated. Ambulatory with standby assist. Safety measures in place. Call light and all frequently used items within pt. reach.
[2019-05-16 11:16] VITALS: BP 128/77
[2019-05-16 15:28] VITALS: BP 130/75
--- NOTE | 2019-05-16 18:26 | NUR ---
EOS: No significant changed during this shift. Pt. A/Ox4 with no changes in mentation. RIJ 3x lumen patent and intact. Received IV ABX, no ASE noted. Wound care rendered on BLE, pt. tolerated procedure well. Safety measures in place. All frequently used items within pt. reach.
[2019-05-16] MEDS: HYDROCODONE/APAP 10-325 MG TABLET PO PRN (18:57)
[2019-05-16 20:17] VITALS: BP 115/58
[2019-05-16] MEDS: ARIPIPRAZOLE 5 MG TABLET PO SCH (20:31)
[2019-05-16] MEDS: ATORVASTATIN 10 MG TABLET PO SCH (20:31)
[2019-05-17] MEDS: MORPHINE SULFATE 2 MG/1 ML DISP.SYRIN IV PRN ×6 (02:16→23:15)
[2019-05-17] MEDS: CEFEPIME HCL 2 G in IV DEXTROSE 5% 100 ML IV SCH ×2 (03:53→16:18)
[2019-05-17 04:28] VITALS: BP 109/63
--- NOTE | 2019-05-17 08:00 | NUR ---
PT RESTING IN BED. PT ALERT X3 AND COOPERATIVE. NO ACUTE DISTRESS OR SOB NOTED AT THIS TIME. BED LOCKED AND IN LOW POSITION. WILL ADMINISTER PAIN MEDS SCHEDULED AND NEEDED FOR PATIENT'S COMFORT. WILL CONTINUE TO MONITOR.
[2019-05-17] MEDS: ASCORBIC ACID 500 MG TABLET PO SCH (08:47)
[2019-05-17] MEDS: ZINC SULFATE 220 MG CAPSULE PO SCH (08:47)
[2019-05-17] MEDS: GABAPENTIN 300 MG CAPSULE PO SCH ×3 (08:47→18:47)
[2019-05-17] MEDS: LISINOPRIL 20 MG TABLET PO SCH (08:47)
[2019-05-17] MEDS: METOPROLOL TARTRATE 50 MG TABLET PO SCH ×2 (08:48→21:41)
[2019-05-17] MEDS: FUROSEMIDE 40 MG TABLET PO SCH ×2 (08:48→16:18)
[2019-05-17 11:30] VITALS: BP 139/67
[2019-05-17] MEDS: SODIUM HYPOCHLORITE 0.125% 473 ML BOTTLE TP SCH (11:46)
--- NOTE | 2019-05-17 12:00 | NUR ---
PT RESTING COMFORTABLY IN BED. NO ACUTE DISTRESS NOTED. NO SOB NOTED. PATIENT'S PAIN MANAGED WITH PRESCRIBED MEDICATIONS. WOUND CARE TREATMENT DONE TO LOWER EXTREMITIES ORDERED ALONG SIDE CHAEGE NURSE. PICS TAKEN. WILL CONTINUE TO MONITOR.
--- NOTE | 2019-05-17 15:00 | NUR ---
NURSE SPECIALIST INSERTED PICC LINE DOUBLE LUMEN ON RIGHT BRACHIAL 5F DUAL LUMEN PICC CATH TRIMMED TO 39CM.
[2019-05-17 16:00] VITALS: BP 135/66
[2019-05-17] MEDS: HYDROCODONE/APAP 10-325 MG TABLET PO PRN (16:18)
--- NOTE | 2019-05-17 17:20 | NUR ---
IJ CENTRAL LINE REMOVED. NO ADVERSE EFFECTS NOTED. MINIMAL BLEEDING FROM INSERTION LINE. DRESSING PLACED WITH PRESSURE FOR 5 MINUTES. LINE REMOVED BY MELY RN. STAT CRX ORDERED FOR INSERTION OF PICC LINE AND REMOVAL OF CENTRAL LINE.
--- NOTE | 2019-05-17 18:15 | NUR ---
PT RESTING COMFORTABLY IN BED. NO SOB OR ACUTE DISTRESS NOTED. PAIN MEDS ADMINISTERED ORDERED. PT ALERT AND ORIENTED X3. WILL GIVE REPORT ACCORDINGLY.
[2019-05-17] MEDS ORDERED: QUETIAPINE FUMARATE 25 MG TABLET PO PRN (20:00)
[2019-05-17] MEDS ORDERED: CLOTRIMAZOLE/BETAMET DIPROP CREAM 15 GM TUBE TOP SCH (20:00)
[2019-05-17 20:50] VITALS: BP 115/64
[2019-05-17] MEDS: ARIPIPRAZOLE 5 MG TABLET PO SCH (21:40)
[2019-05-17] MEDS: ATORVASTATIN 10 MG TABLET PO SCH (21:40)
--- NOTE | 2019-05-18 01:28 | NUR ---
05/17/191929: Received bedside report from AM nurse. Patient is awake, alert and verbally responsive. Fully aware of his plan of care. Wound dressings on bilateral legs intact. PICC Line on GILL in place. No fluids running at this time, but veins kept open with normal saline. With orders for IV ATB, no adverse reactions noted from last dose. Will give one later on the shift. Initial assessment done. Pt requesting for rashes on groin area, stating that he is using a specific cream for it: Clotrimazole. Informed him that MD will be notified. No signs of acute distress at this time. Morphine 2mg IV just given 10 minutes ago, and appears to be slowly effective. Pain has decreased at this time. 1939: Received verbal orders from Dr. Damon Babcock for Clotrimazole cream. Placed in system and informed patient. 2300: Pt complained of pain again 10/10 on bilateral legs, BP checked: 115/78. 2315: Morphine 2 mg given as ordered. 0000: Pt with no signs of pain, resting in bed, verbalizes to be a 2/10. 0115: Patient is complaining of breakthrough pain, 5/10 and requesting Baxter 5/325 mg. BP checked: 92/46 on R arm and 80/56 on L arm. Informed him that taking Baxter could decrease BP further. Pt agreed for non pharmacological measures of pain in the time being. Pt given comfortable blankets, kept legs elevated with a pillow, and gave cold drinks as requested. 0125: Patient states that he is comfortable at the time being and agreed to monitoring pain and will call as needed. Will recheck BP before administering next pain medication.
[2019-05-18] MEDS: CEFEPIME HCL 2 G in IV DEXTROSE 5% 100 ML IV SCH ×2 (03:43→16:23)
[2019-05-18 05:24] VITALS: BP 108/50
[2019-05-18] MEDS: MORPHINE SULFATE 2 MG/1 ML DISP.SYRIN IV PRN ×4 (07:00→20:27)
--- NOTE | 2019-05-18 07:30 | NUR ---
Patient calm and comfortable resting in bed with no signs of distress; patient will continue to be monitored.
[2019-05-18] MEDS: FUROSEMIDE 40 MG TABLET PO SCH ×2 (09:00→16:23)
[2019-05-18] MEDS: LISINOPRIL 20 MG TABLET PO SCH (09:00)
[2019-05-18] MEDS: GABAPENTIN 300 MG CAPSULE PO SCH ×3 (09:01→16:23)
[2019-05-18] MEDS: ASCORBIC ACID 500 MG TABLET PO SCH (09:01)
[2019-05-18] MEDS: ZINC SULFATE 220 MG CAPSULE PO SCH (09:06)
[2019-05-18] MEDS: METOPROLOL TARTRATE 50 MG TABLET PO SCH ×2 (09:07→20:28)
[2019-05-18] MEDS: SODIUM HYPOCHLORITE 0.125% 473 ML BOTTLE TP SCH (09:09)
[2019-05-18] MEDS: CLOTRIMAZOLE/BETAMET DIPROP CREAM 15 GM TUBE TOP SCH ×2 (09:58→20:28)
--- NOTE | 2019-05-18 10:00 | NUR ---
Patient yelling and screaming ; stating that had said statements I had never said. I was very uncomfortable and requested to have patient removed from my list. Report given talia WHITTEN on shift.
--- NOTE | 2019-05-18 10:15 | NUR ---
Report received from prior shift. Pt sleeping at bedside. Pt unkempt and disheveled.
[2019-05-18 11:14] VITALS: BP 119/45
[2019-05-18 15:00] VITALS: BP 94/49
[2019-05-18 19:58] VITALS: BP 119/68
--- NOTE | 2019-05-18 20:00 | NUR ---
Received bedside report from AM nurse. No distress entire shift. Came in to introduce self to patient, but patient is very upset after nurse asked, "How are you today". Patient states that the nurse has to be more specific question in a yelling and aggressive manner. Nurse politely excused herself from patient and asked to come back after a few minutes. Returned to patient's room, patient is in a better and compliant state. Patient is awake, alert and verbally responsive. Fully aware of his plan of care. Wound dressings on bilateral legs intact. PICC Line on GILL in place. No fluids running at this time, but veins kept open with normal saline. With orders for IV ATB, no adverse reactions noted from last dose. Will give one later on the shift. Initial assessment done. No signs of acute distress at this time. Morphine 2mg IV just given 3 hours ago, and patient verbalized that pain is slowly increasing, informed him that pain will be addressed right away. Will continue to monitor and manage symptoms as needed.
[2019-05-18] MEDS: ATORVASTATIN 10 MG TABLET PO SCH (20:27)
[2019-05-18] MEDS: ARIPIPRAZOLE 5 MG TABLET PO SCH (20:27)
--- NOTE | 2019-05-18 22:57 | NUR ---
Report given to nurse taking over care. All questions answered. Pt in stable condition.
--- NOTE | 2019-05-18 23:21 | NUR ---
REPORT RECEIVED FROM NIGHT NURSE
[2019-05-19] MEDS: MORPHINE SULFATE 2 MG/1 ML DISP.SYRIN IV PRN ×5 (00:29→20:19)
[2019-05-19] MEDS: CEFEPIME HCL 2 G in IV DEXTROSE 5% 100 ML IV SCH ×2 (03:48→16:33)
[2019-05-19 04:59] VITALS: BP 110/56
--- NOTE | 2019-05-19 05:48 | NUR ---
Patient received in bed. no signs of acute distress and v/s stable throughout shift. safety and comfort measures provided at all times. morphine administered x2. tolerated well. will continue to monitor and endorse accordingly to morning nurse.
[2019-05-19] MEDS: GABAPENTIN 300 MG CAPSULE PO SCH ×3 (08:22→16:19)
[2019-05-19] MEDS: FUROSEMIDE 40 MG TABLET PO SCH ×2 (08:22→16:19)
[2019-05-19] MEDS: ASCORBIC ACID 500 MG TABLET PO SCH (08:22)
[2019-05-19] MEDS: ZINC SULFATE 220 MG CAPSULE PO SCH (08:23)
[2019-05-19] MEDS: METOPROLOL TARTRATE 50 MG TABLET PO SCH ×2 (08:24→20:22)
[2019-05-19] MEDS: LISINOPRIL 20 MG TABLET PO SCH (08:24)
[2019-05-19] MEDS: SODIUM HYPOCHLORITE 0.125% 473 ML BOTTLE TP SCH (08:26)
[2019-05-19] MEDS: CLOTRIMAZOLE/BETAMET DIPROP CREAM 15 GM TUBE TOP SCH ×2 (08:26→20:29)
[2019-05-19 11:20] VITALS: BP 121/44
[2019-05-19 15:20] VITALS: BP 115/47
--- NOTE | 2019-05-19 19:40 | NUR ---
Received patient awake and alert in bed, no distress noted. Complains of some pain to BLE, patient aware of next scheduled dose of pain medication. IVF running on right upper arm midline, no s/s of infection or infiltration noted. Dressing intact on BLE. Safety measures initiated. Bed is low and locked, call light within reach. Will continue to monitor.
[2019-05-19 20:21] VITALS: BP 113/69
[2019-05-19] MEDS: ATORVASTATIN 10 MG TABLET PO SCH (20:21)
[2019-05-19] MEDS: ARIPIPRAZOLE 5 MG TABLET PO SCH (20:21)
--- NOTE | 2019-05-19 21:20 | NUR ---
Patient complaining of pain an hour after PRN morphine was given, requesting Flynn to be given, prior to dressing change. Vitals are WNL BP 114/66 HR 81. Will administer PRN Flynn
[2019-05-19] MEDS: HYDROCODONE/APAP 10-325 MG TABLET PO PRN (21:22)
[2019-05-20] MEDS: MORPHINE SULFATE 2 MG/1 ML DISP.SYRIN IV PRN ×5 (00:24→20:42)
[2019-05-20] MEDS: HYDROCODONE/APAP 10-325 MG TABLET PO PRN ×3 (03:17→23:55)
[2019-05-20] MEDS: CEFEPIME HCL 2 G in IV DEXTROSE 5% 100 ML IV SCH ×2 (04:49→17:01)
[2019-05-20 06:41] VITALS: BP 122/62
[2019-05-20] MEDS: ZINC SULFATE 220 MG CAPSULE PO SCH (08:02)
[2019-05-20] MEDS: GABAPENTIN 300 MG CAPSULE PO SCH ×3 (08:02→17:01)
[2019-05-20] MEDS: ASCORBIC ACID 500 MG TABLET PO SCH (08:03)
[2019-05-20] MEDS: SODIUM HYPOCHLORITE 0.125% 473 ML BOTTLE TP SCH (08:04)
[2019-05-20] MEDS: CLOTRIMAZOLE/BETAMET DIPROP CREAM 15 GM TUBE TOP SCH ×2 (08:04→21:55)
[2019-05-20] MEDS: LISINOPRIL 20 MG TABLET PO SCH (08:08)
[2019-05-20] MEDS: METOPROLOL TARTRATE 50 MG TABLET PO SCH ×2 (08:09→20:56)
[2019-05-20] MEDS: FUROSEMIDE 40 MG TABLET PO SCH ×2 (08:10→17:01)
[2019-05-20 12:15] VITALS: BP 104/53
--- NOTE | 2019-05-20 14:35 | NUR ---
Dr. Gamez here to see pt for BLE dressing change. Pictures taken and placed in the chart.
[2019-05-20 15:34] VITALS: BP 138/74
[2019-05-20 20:36] VITALS: BP 132/69
[2019-05-20] MEDS: ARIPIPRAZOLE 5 MG TABLET PO SCH (20:41)
[2019-05-20] MEDS: ATORVASTATIN 10 MG TABLET PO SCH (20:41)
[2019-05-21] MEDS: MORPHINE SULFATE 2 MG/1 ML DISP.SYRIN IV PRN ×5 (01:20→17:38)
[2019-05-21] MEDS: CEFEPIME HCL 2 G in IV DEXTROSE 5% 100 ML IV SCH ×2 (04:57→15:35)
--- NOTE | 2019-05-21 05:15 | NUR ---
patient received lying in bed. a/ox4. no signs of acute distress and v/s stable throughout shift. safety and comfort measures provided. bed in lowest position, side rails up x2 and bed alarm on. c/o of pain. morphine administered 3x. [place] administered x1. tolerated well. will continue to monitor and endorse accordingly to morning nurse.
[2019-05-21 06:33] LABS: BASOPHILS # (AUTO) 0.1 K/uL (0.0-8.0); BASOPHILS % (AUTO) 0.6 % (0.0-2.0); EOSINOPHILS # (AUTO) 0.1 K/uL (0.0-0.7); EOSINOPHILS % (AUTO) 0.8 % (0.0-7.0); HEMATOCRIT 29.4 % (36.7-47.1); HEMOGLOBIN 9.3 g/dL (12.5-16.3); LYMPHOCYTES # (AUTO) 1.1 K/uL (20.0-40.0); MEAN CORPUSCULAR HEMOGLOBIN 26.9 uug (23.8-33.4); MEAN CORPUSCULAR HGB CONC 32 g/dL (32.5-36.3); MEAN CORPUSCULAR VOLUME 85.5 fL (73.0-96.2); MONOCYTES # (AUTO) 0.8 K/uL (2.0-10.0); MONOCYTES % (AUTO) 7.4 % (0.0-11.0); NEUTROPHILS # (AUTO) 8.6 K/uL (1.8-8.9); NEUTROPHILS % (AUTO) 81.2 % (38.5-71.5); PLATELET COUNT (AUTO) 512 K/uL (152-348); RED BLOOD CELL COUNT(AUTO) 3.44 MIL/uL (4.06-5.63); WHITE BLOOD COUNT (AUTO) 10.6 K/uL (3.6-10.2)
[2019-05-21 06:46] LABS: CREATININE 0.9 mg/dL (0.6-1.3); MAGNESIUM 2.2 mg/dL (1.8-2.4); PHOSPHOROUS 2.7 mg/dL (2.5-4.9); POTASSIUM 4.1 mmol/L (3.5-5.1)
[2019-05-21] MEDS: GABAPENTIN 300 MG CAPSULE PO SCH ×3 (08:48→16:09)
[2019-05-21] MEDS: ASCORBIC ACID 500 MG TABLET PO SCH (08:48)
[2019-05-21] MEDS: FUROSEMIDE 40 MG TABLET PO SCH ×2 (08:48→16:09)
[2019-05-21] MEDS: ZINC SULFATE 220 MG CAPSULE PO SCH (08:48)
[2019-05-21] MEDS: LISINOPRIL 20 MG TABLET PO SCH (08:48)
[2019-05-21] MEDS: METOPROLOL TARTRATE 50 MG TABLET PO SCH ×2 (08:49→20:42)
[2019-05-21] MEDS: CLOTRIMAZOLE/BETAMET DIPROP CREAM 15 GM TUBE TOP SCH ×2 (08:56→20:42)
[2019-05-21] MEDS: SODIUM HYPOCHLORITE 0.125% 473 ML BOTTLE TP SCH (08:56)
[2019-05-21 11:39] VITALS: BP 121/55
[2019-05-21] MEDS ORDERED: LIDOCAINE HCL 1% 20 ML VIAL IJ PRN (13:15)
[2019-05-21] MEDS ORDERED: ALTEPLASE 2 MG VIAL XX ONE (13:15)
[2019-05-21] MEDS ORDERED: ALTEPLASE 2 MG VIAL IVP ONE (13:15)
[2019-05-21 15:40] VITALS: BP 143/72
[2019-05-21] MEDS: HYDROCODONE/APAP 10-325 MG TABLET PO PRN (16:09)
--- NOTE | 2019-05-21 17:08 | NUR ---
Patient alert and oriented, ambulatory. No distress noted. Pain managed with PRN morphine 2mg and norco. Wound care done on BLE per orders, elevated. Continues on antibiotic treatment via IV. Right upper arm PICC double lumen in place, red side occlusion cleared today by PICC nurse.
--- NOTE | 2019-05-21 19:30 | NUR ---
Received patient awake and alert in bed, no distress noted. Complains of some pain with PRN pain medication already given and is effective. No SOB. PICC line to the right upper arm is intact and patent. Patient ambulatory. Dressing change was done during morning shift. Safety measures initiated. Bed is low and locked, call light within reach. Will continue to monitor.
[2019-05-21 20:31] VITALS: BP 127/72
[2019-05-21] MEDS: ATORVASTATIN 10 MG TABLET PO SCH (20:41)
[2019-05-21] MEDS: ARIPIPRAZOLE 5 MG TABLET PO SCH (20:41)
[2019-05-22] MEDS: MORPHINE SULFATE 2 MG/1 ML DISP.SYRIN IV PRN ×5 (00:46→20:52)
[2019-05-22] MEDS: CEFEPIME HCL 2 G in IV DEXTROSE 5% 100 ML IV SCH ×2 (04:03→16:03)
[2019-05-22 04:49] VITALS: BP 139/55
--- NOTE | 2019-05-22 06:31 | NUR ---
patient slept intermittently. No distress noted. Complained of pain with PRN pain medication given and was effective. Dressing is intact to bilateral lower extremities. all needs were met. Will endorse to next shift.
--- NOTE | 2019-05-22 07:30 | NUR ---
Received patient in Bed, awake and verbally responsive. No signs of distress noted. No SOB. No complain of Pain/discomfort at this time. Will continue to monitor.
[2019-05-22] MEDS: FUROSEMIDE 40 MG TABLET PO SCH ×3 (08:55→16:19)
[2019-05-22] MEDS: METOPROLOL TARTRATE 50 MG TABLET PO SCH ×2 (08:55→20:52)
[2019-05-22] MEDS: GABAPENTIN 300 MG CAPSULE PO SCH ×3 (08:55→16:10)
[2019-05-22] MEDS: LISINOPRIL 20 MG TABLET PO SCH (08:55)
[2019-05-22] MEDS: ASCORBIC ACID 500 MG TABLET PO SCH (08:56)
[2019-05-22] MEDS: ZINC SULFATE 220 MG CAPSULE PO SCH (08:56)
[2019-05-22] MEDS: CLOTRIMAZOLE/BETAMET DIPROP CREAM 15 GM TUBE TOP SCH ×2 (09:00→21:01)
[2019-05-22] MEDS: SODIUM HYPOCHLORITE 0.125% 473 ML BOTTLE TP SCH (09:00)
[2019-05-22 09:05] LABS: BASOPHILS # (AUTO) 0.1 K/uL (0.0-8.0); BASOPHILS % (AUTO) 0.5 % (0.0-2.0); EOSINOPHILS % (AUTO) 0.3 % (0.0-7.0); HEMOGLOBIN 9.8 g/dL (12.5-16.3); LYMPHOCYTES # (AUTO) 1.2 K/uL (20.0-40.0); LYMPHOCYTES % (AUTO) 9.5 % (20.5-51.5); MEAN CORPUSCULAR HGB CONC 32 g/dL (32.5-36.3); MEAN CORPUSCULAR VOLUME 85.6 fL (73.0-96.2); MONOCYTES # (AUTO) 0.6 K/uL (2.0-10.0); MONOCYTES % (AUTO) 4.4 % (0.0-11.0); NEUTROPHILS # (AUTO) 10.9 K/uL (1.8-8.9); NEUTROPHILS % (AUTO) 85.3 % (38.5-71.5); PLATELET COUNT (AUTO) 511 K/uL (152-348); RED BLOOD CELL COUNT(AUTO) 3.62 MIL/uL (4.06-5.63); WHITE BLOOD COUNT (AUTO) 12.8 K/uL (3.6-10.2)
[2019-05-22 09:11] LABS: CREATININE 0.9 mg/dL (0.6-1.3); PHOSPHOROUS 2.7 mg/dL (2.5-4.9); POTASSIUM 3.6 mmol/L (3.5-5.1)
[2019-05-22] MEDS: HYDROCODONE/APAP 10-325 MG TABLET PO PRN ×2 (09:52→17:29)
[2019-05-22 11:17] VITALS: BP 134/64
[2019-05-22 15:30] VITALS: BP 100/50
--- NOTE | 2019-05-22 18:15 | NUR ---
patient in bed, awake and verbally responsive. No signs of distress noted. No SOB. Pain Medications given as ordered. Wound care done. All needs attended. Lasix for 9Am and 5PM was refused by patient. Kept comfortable. Will endorse to Oncoming Nurse.
--- NOTE | 2019-05-22 20:00 | NUR ---
Patient received into care sitting up on the side of bed listening to the tv. Patient is alert/oriented x3 and has complaint of pain 8/10. PICC line double lumen on GILL is patent and intact. All safety and fall precaution measures are in place. Call light and personal items are within reach. Will continue to monitor.
[2019-05-22 20:23] VITALS: BP 122/72
[2019-05-22] MEDS: ATORVASTATIN 10 MG TABLET PO SCH (20:51)
[2019-05-22] MEDS: ARIPIPRAZOLE 5 MG TABLET PO SCH (20:51)
[2019-05-23] MEDS: MORPHINE SULFATE 2 MG/1 ML DISP.SYRIN IV PRN ×4 (02:32→21:21)
[2019-05-23] MEDS: CEFEPIME HCL 2 G in IV DEXTROSE 5% 100 ML IV SCH ×2 (04:09→16:09)
[2019-05-23 05:32] VITALS: BP 125/63
--- NOTE | 2019-05-23 06:18 | NUR ---
Patient slept intermittently throughout night with complaints of pain addressed with prescribed analgesics. All prescribed medications were provided as ordered and tolerated well by patient, with no adverse side effects verbalized by patient or observed by nurse. Prescribed IV antibiotic infused via PICC line with no adverse side effects verbalized by patient or observed by nurse. All Safety and fall precaution measures remain in place. Call light and personal items remain within reach at all times.
--- NOTE | 2019-05-23 07:30 | NUR ---
Received report from shift production supervisor nurse, patient in bed dosing intermittently. Picc line in right upper arm. Call light in reach. All needs met. no distress noted at this time.
[2019-05-23 08:32] LABS: BASOPHILS # (AUTO) 0.1 K/uL (0.0-8.0); BASOPHILS % (AUTO) 1.3 % (0.0-2.0); EOSINOPHILS # (AUTO) 0.1 K/uL (0.0-0.7); EOSINOPHILS % (AUTO) 1.1 % (0.0-7.0); HEMATOCRIT 30.2 % (36.7-47.1); HEMOGLOBIN 9.4 g/dL (12.5-16.3); LYMPHOCYTES # (AUTO) 1.7 K/uL (20.0-40.0); MEAN CORPUSCULAR HEMOGLOBIN 26.5 uug (23.8-33.4); MEAN CORPUSCULAR HGB CONC 31 g/dL (32.5-36.3); MEAN CORPUSCULAR VOLUME 85.1 fL (73.0-96.2); MONOCYTES # (AUTO) 0.7 K/uL (2.0-10.0); MONOCYTES % (AUTO) 6.5 % (0.0-11.0); NEUTROPHILS # (AUTO) 8.7 K/uL (1.8-8.9); NEUTROPHILS % (AUTO) 76.1 % (38.5-71.5); PLATELET COUNT (AUTO) 469 K/uL (152-348); RED BLOOD CELL COUNT(AUTO) 3.55 MIL/uL (4.06-5.63); WHITE BLOOD COUNT (AUTO) 11.5 K/uL (3.6-10.2)
[2019-05-23 08:45] LABS: MAGNESIUM 2.3 mg/dL (1.8-2.4); POTASSIUM 4.4 mmol/L (3.5-5.1)
[2019-05-23] MEDS: FUROSEMIDE 40 MG TABLET PO SCH ×2 (09:26→16:21)
[2019-05-23] MEDS: ZINC SULFATE 220 MG CAPSULE PO SCH (09:26)
[2019-05-23] MEDS: GABAPENTIN 300 MG CAPSULE PO SCH ×3 (09:26→16:08)
[2019-05-23] MEDS: LISINOPRIL 20 MG TABLET PO SCH (09:27)
[2019-05-23] MEDS: ASCORBIC ACID 500 MG TABLET PO SCH (09:27)
[2019-05-23] MEDS: METOPROLOL TARTRATE 50 MG TABLET PO SCH ×2 (09:27→21:00)
[2019-05-23 11:14] VITALS: BP 125/56
[2019-05-23 15:48] VITALS: BP 113/59
[2019-05-23] MEDS: HYDROCODONE/APAP 10-325 MG TABLET PO PRN ×2 (16:09→22:38)
[2019-05-23] MEDS: CLOTRIMAZOLE/BETAMET DIPROP CREAM 15 GM TUBE TOP SCH ×2 (16:21→21:22)
[2019-05-23] MEDS: SODIUM HYPOCHLORITE 0.125% 473 ML BOTTLE TP SCH (17:30)
--- NOTE | 2019-05-23 18:24 | NUR ---
PATIENT IN BED, AOX4. DRESSING CHANGED ORDERED. PATIENT DENIES SOB OR CHEST PAIN. SAFETY AND FALL PREVENTION IN PLACE. CALL LIGHT IN REACH, BED IN LOW POSITION AND LOCKED.
[2019-05-23 20:00] VITALS: BP 104/57
--- NOTE | 2019-05-23 20:00 | NUR ---
Hand off report received from [facility]. Patient received into care sitting in bed, resting comfortably. Patient is alert/oriented x3. Patient has complaint of pain at 8-9/10 and would like his morphine. All safety and fall precaution measures are in place. Call light and personal items are within reach at all times. Will continue to monitor.
[2019-05-23] MEDS: ATORVASTATIN 10 MG TABLET PO SCH (21:20)
[2019-05-23] MEDS: ARIPIPRAZOLE 5 MG TABLET PO SCH (21:20)
[2019-05-24] MEDS: MORPHINE SULFATE 2 MG/1 ML DISP.SYRIN IV PRN ×5 (01:26→20:20)
[2019-05-24] MEDS: CEFEPIME HCL 2 G in IV DEXTROSE 5% 100 ML IV SCH ×2 (03:45→16:03)
--- NOTE | 2019-05-24 06:00 | NUR ---
Patient slept intermittently throughout night with complaints of pain addressed with prescribed analgesics. All prescribed medications and IV fluids provided as ordered and tolerated well, with no adverse side effects verbalized by patient or observed by nurse. All nursing needs met promptly. Call light and personal items remain within reach at all times. All safety and fall precaution measures remain in place.
[2019-05-24 06:08] VITALS: BP 115/54
[2019-05-24] MEDS: HYDROCODONE/APAP 10-325 MG TABLET PO PRN ×2 (07:31→17:46)
--- NOTE | 2019-05-24 07:45 | NUR ---
Received patient sitting at edge of the bed, No signs of distress noted. No SOB. Pain medication given as ordered. All needs attended. Kept comfortable. Will continue to monitor.
[2019-05-24] MEDS: METOPROLOL TARTRATE 50 MG TABLET PO SCH ×2 (08:44→20:20)
[2019-05-24] MEDS: GABAPENTIN 300 MG CAPSULE PO SCH ×3 (08:44→16:14)
[2019-05-24] MEDS: FUROSEMIDE 40 MG TABLET PO SCH ×2 (08:44→16:15)
[2019-05-24] MEDS: ZINC SULFATE 220 MG CAPSULE PO SCH (08:45)
[2019-05-24] MEDS: LISINOPRIL 20 MG TABLET PO SCH (08:45)
[2019-05-24] MEDS: ASCORBIC ACID 500 MG TABLET PO SCH (08:45)
[2019-05-24] MEDS: SODIUM HYPOCHLORITE 0.125% 473 ML BOTTLE TP SCH (09:11)
[2019-05-24] MEDS: CLOTRIMAZOLE/BETAMET DIPROP CREAM 15 GM TUBE TOP SCH ×2 (09:11→20:29)
[2019-05-24 10:00] LABS: BASOPHILS # (AUTO) 0.1 K/uL (0.0-8.0); BASOPHILS % (AUTO) 0.5 % (0.0-2.0); EOSINOPHILS # (AUTO) 0.1 K/uL (0.0-0.7); EOSINOPHILS % (AUTO) 0.6 % (0.0-7.0); HEMATOCRIT 32.6 % (36.7-47.1); HEMOGLOBIN 10.2 g/dL (12.5-16.3); LYMPHOCYTES # (AUTO) 1.6 K/uL (20.0-40.0); LYMPHOCYTES % (AUTO) 12.3 % (20.5-51.5); MEAN CORPUSCULAR HEMOGLOBIN 26.3 uug (23.8-33.4); MEAN CORPUSCULAR HGB CONC 31 g/dL (32.5-36.3); MEAN CORPUSCULAR VOLUME 84.5 fL (73.0-96.2); MONOCYTES # (AUTO) 0.9 K/uL (2.0-10.0); MONOCYTES % (AUTO) 6.6 % (0.0-11.0); NEUTROPHILS # (AUTO) 10.7 K/uL (1.8-8.9); PLATELET COUNT (AUTO) 559 K/uL (152-348); RED BLOOD CELL COUNT(AUTO) 3.86 MIL/uL (4.06-5.63); WHITE BLOOD COUNT (AUTO) 13.4 K/uL (3.6-10.2)
[2019-05-24 10:06] LABS: CREATININE 0.9 mg/dL (0.6-1.3); MAGNESIUM 2.2 mg/dL (1.8-2.4); PHOSPHOROUS 3.1 mg/dL (2.5-4.9); POTASSIUM 4.3 mmol/L (3.5-5.1)
[2019-05-24 11:45] VITALS: BP 127/66
[2019-05-24 15:19] VITALS: BP 115/52
--- NOTE | 2019-05-24 18:26 | NUR ---
Patient in bed, awake and verbally responsive. No signs of distress noted. No SOB. Pain Medication given as Ordered. Seen and Examined by SERVICE DESK DIRECTOR Stefany and adjusted the Pain Medications and Neurontin. Wound care/Dressing Change on BLE wound was done. All needs attended and met. Kept Comfortable. Will endorse to Oncoming Nurse.
[2019-05-24 20:00] VITALS: BP 121/68
[2019-05-24] MEDS: ARIPIPRAZOLE 5 MG TABLET PO SCH (20:19)
[2019-05-24] MEDS: ATORVASTATIN 10 MG TABLET PO SCH (20:19)
[2019-05-25] MEDS: MORPHINE SULFATE 2 MG/1 ML DISP.SYRIN IV PRN ×2 (00:42→04:38)
[2019-05-25] MEDS: CEFEPIME HCL 2 G in IV DEXTROSE 5% 100 ML IV SCH ×2 (04:19→16:55)
[2019-05-25 04:56] VITALS: BP 115/52
--- NOTE | 2019-05-25 06:25 | NUR ---
Patient slept intermittently. No SOB noted. PICC line on GILL intact and patent. Patient wanted the dressing on his BLE loose, offered to fix it but patient refused. PRN pain medication given as ordered. All needs attended. Will endorse accordingly
--- NOTE | 2019-05-25 07:30 | NUR ---
Patient resting in bed with no signs of distress and stable vital signs; patient will continue to be monitored.
[2019-05-25] MEDS: MORPHINE SULFATE 4 MG/1 ML DISP.SYRIN IV PRN ×5 (08:39→21:30)
[2019-05-25] MEDS: GABAPENTIN 300 MG CAPSULE PO SCH ×3 (08:40→16:55)
[2019-05-25] MEDS: LISINOPRIL 20 MG TABLET PO SCH (08:40)
[2019-05-25] MEDS: ASCORBIC ACID 500 MG TABLET PO SCH (08:41)
[2019-05-25] MEDS: ZINC SULFATE 220 MG CAPSULE PO SCH (08:41)
[2019-05-25] MEDS: FUROSEMIDE 40 MG TABLET PO SCH ×2 (08:41→16:55)
[2019-05-25] MEDS: METOPROLOL TARTRATE 50 MG TABLET PO SCH ×2 (08:42→21:50)
[2019-05-25] MEDS: SODIUM HYPOCHLORITE 0.125% 473 ML BOTTLE TP SCH (08:43)
[2019-05-25] MEDS: CLOTRIMAZOLE/BETAMET DIPROP CREAM 15 GM TUBE TOP SCH ×2 (08:43→21:29)
--- NOTE | 2019-05-25 18:02 | NUR ---
Patient medication complaint through out shift with no signs of distress; Patient with stable vital signs ; Report given to oncoming nurse.
[2019-05-25 20:57] VITALS: BP 113/71
[2019-05-25] MEDS: ATORVASTATIN 10 MG TABLET PO SCH (21:29)
[2019-05-25] MEDS: ARIPIPRAZOLE 5 MG TABLET PO SCH (21:29)
[2019-05-26] MEDS: MORPHINE SULFATE 4 MG/1 ML DISP.SYRIN IV PRN ×7 (01:36→23:49)
--- NOTE | 2019-05-26 02:00 | NUR ---
Wound care done. Dakin's solution is not available at the moment. Betadine used instead. patient is resting, pain is managed with Morphine.
[2019-05-26] MEDS: CEFEPIME HCL 2 G in IV DEXTROSE 5% 100 ML IV SCH ×2 (03:27→16:44)
--- NOTE | 2019-05-26 08:00 | NUR ---
PT RESTING COMFORTABLY IN BED. PT ALERT AND ORIENTED X3. NO ACUTE DISTRESS OR SOB NOTED. BED LOCKED AND IN LOW POSITION. CALL LIGHT WITHIN REACH. WILL CONTINUE TO MONITOR PATIENT FOR SAFETY AND COMFORT.
[2019-05-26] MEDS: METOPROLOL TARTRATE 50 MG TABLET PO SCH ×2 (09:00→20:38)
[2019-05-26] MEDS: FUROSEMIDE 40 MG TABLET PO SCH ×2 (09:00→17:00)
[2019-05-26] MEDS: LISINOPRIL 20 MG TABLET PO SCH (09:00)
[2019-05-26] MEDS: SODIUM HYPOCHLORITE 0.125% 473 ML BOTTLE TP SCH (09:04)
[2019-05-26] MEDS: CLOTRIMAZOLE/BETAMET DIPROP CREAM 15 GM TUBE TOP SCH ×2 (09:04→20:45)
[2019-05-26] MEDS: ZINC SULFATE 220 MG CAPSULE PO SCH (09:11)
[2019-05-26] MEDS: GABAPENTIN 300 MG CAPSULE PO SCH ×3 (09:11→17:15)
[2019-05-26] MEDS: ASCORBIC ACID 500 MG TABLET PO SCH (09:11)
--- NOTE | 2019-05-26 12:00 | NUR ---
PT RESTING COMFORTABLY IN BED. NO ACUTE DISTRESS OR SOB NOTED. CALL LIGHT WITHIN REACH. PAIN MANAGED WITH MEDICATION. PT PLEASANT AND COOPERATIVE. PT IS DIET AND MEDICATION COMPLIANT. WILL CONTINUE TO MONITOR FOR SAFETY AND COMFORT.
[2019-05-26 12:20] VITALS: BP 136/66
[2019-05-26 17:03] VITALS: BP 124/65
[2019-05-26] MEDS: ARGININE/GLUTAMINE/CALCIUM BMB 1 EACH POWD.PACK PO SCH (17:33)
--- NOTE | 2019-05-26 18:00 | NUR ---
PT RESTING COMFORTABLY IN BED. NO ACUTE DISTRESS OR SOB NOTED. WOUND CARE DONE ORDERED. WILL ENDORSE ACCORDINGLY.
[2019-05-26 20:30] VITALS: BP 122/74
[2019-05-26] MEDS: ATORVASTATIN 10 MG TABLET PO SCH (20:38)
[2019-05-26] MEDS: ARIPIPRAZOLE 5 MG TABLET PO SCH (20:38)
[2019-05-27] MEDS: MORPHINE SULFATE 4 MG/1 ML DISP.SYRIN IV PRN ×7 (02:56→23:15)
[2019-05-27] MEDS: CEFEPIME HCL 2 G in IV DEXTROSE 5% 100 ML IV SCH ×2 (04:03→16:11)
[2019-05-27 04:14] VITALS: BP 125/78
--- NOTE | 2019-05-27 05:55 | NUR ---
Patient slept intermittently throughout the night. Pain medication given as needed. Attended all needs. Ensured safety and comfort. No other complaints were made throughout the shift. Will endorse accordingly.
--- NOTE | 2019-05-27 08:00 | NUR ---
PT is in no acute distress. Discussed plan with pt re pain management. Pt agreeable with plan.
[2019-05-27] MEDS: GABAPENTIN 300 MG CAPSULE PO SCH ×3 (09:24→16:10)
[2019-05-27] MEDS: FUROSEMIDE 40 MG TABLET PO SCH ×2 (09:25→16:10)
[2019-05-27] MEDS: ZINC SULFATE 220 MG CAPSULE PO SCH (09:25)
[2019-05-27] MEDS: ASCORBIC ACID 500 MG TABLET PO SCH (09:25)
[2019-05-27] MEDS: METOPROLOL TARTRATE 50 MG TABLET PO SCH ×2 (09:26→20:18)
[2019-05-27] MEDS: LISINOPRIL 20 MG TABLET PO SCH (09:26)
[2019-05-27] MEDS: CLOTRIMAZOLE/BETAMET DIPROP CREAM 15 GM TUBE TOP SCH ×2 (09:27→20:18)
[2019-05-27] MEDS: SODIUM HYPOCHLORITE 0.125% 473 ML BOTTLE TP SCH (09:27)
[2019-05-27] MEDS: ARGININE/GLUTAMINE/CALCIUM BMB 1 EACH POWD.PACK PO SCH ×2 (09:37→16:11)
[2019-05-27 17:11] VITALS: BP 126/60
--- NOTE | 2019-05-27 18:30 | NUR ---
Pt's pain managed with morphine as ordered.
--- NOTE | 2019-05-27 19:45 | NUR ---
Received patient asleep in bed. Respirations normal. PICC line with double lumen patent and intact. No IV fluids running. Immediate needs attended, safety precautions in place. Will continue to monitor.
[2019-05-27 20:14] VITALS: BP 125/67
[2019-05-27] MEDS: ATORVASTATIN 10 MG TABLET PO SCH (20:18)
[2019-05-27] MEDS: ARIPIPRAZOLE 5 MG TABLET PO SCH (20:18)
[2019-05-28] MEDS: MORPHINE SULFATE 4 MG/1 ML DISP.SYRIN IV PRN ×7 (02:46→23:55)
[2019-05-28] MEDS: CEFEPIME HCL 2 G in IV DEXTROSE 5% 100 ML IV SCH ×2 (05:01→16:30)
[2019-05-28 05:25] VITALS: BP 122/74
--- NOTE | 2019-05-28 07:20 | NUR ---
RECEIVED PATIENT IN BED ALERT AND AWAKE, PICC LINE INTACT A ND PATENT, NO S/S OF ACUTE DISTRESS NOTED AND C/O OF PAIN A DN PRN PAIN MEDICATIONS GIVEN EARLIER. KEPT CLEAN AND DRY AT ALL TIMES. CALL LIGHT WITHIN REACH. SAFETY AND COMFORT PROVIDED AT ALL TIMES. WILL CONTINUE TO MONITOR.
[2019-05-28] MEDS: ARGININE/GLUTAMINE/CALCIUM BMB 1 EACH POWD.PACK PO SCH ×2 (08:47→17:00)
[2019-05-28] MEDS: ZINC SULFATE 220 MG CAPSULE PO SCH (09:04)
[2019-05-28] MEDS: ASCORBIC ACID 500 MG TABLET PO SCH (09:04)
[2019-05-28] MEDS: GABAPENTIN 300 MG CAPSULE PO SCH ×3 (09:04→16:31)
[2019-05-28] MEDS: FUROSEMIDE 40 MG TABLET PO SCH ×2 (09:05→16:31)
[2019-05-28] MEDS: METOPROLOL TARTRATE 50 MG TABLET PO SCH ×2 (09:05→20:56)
[2019-05-28] MEDS: LISINOPRIL 20 MG TABLET PO SCH (09:06)
[2019-05-28] MEDS: CLOTRIMAZOLE/BETAMET DIPROP CREAM 15 GM TUBE TOP SCH ×2 (09:07→20:56)
[2019-05-28] MEDS: SODIUM HYPOCHLORITE 0.125% 473 ML BOTTLE TP SCH (09:07)
[2019-05-28 11:12] VITALS: BP 104/56
[2019-05-28 15:15] VITALS: BP 103/50
--- NOTE | 2019-05-28 18:49 | NUR ---
PATIENT IN BED ALERT AND AWAKE, PICC LINE INTACT AND PATENT, NO S/S OF ACUTE DISTRESS NOTED AND PAIN MEDICATIONS GIVEN EARLIER. KEPT CLEAN AND DRY AT ALL TIMES. CALL LIGHT WITHIN REACH. SAFETY AND COMFORT PROVIDED AT ALL TIMES. WILL CONTINUE TO MONITOR.
--- NOTE | 2019-05-28 19:30 | NUR ---
RECEIVED PT AWAKE, ALERT AND ORIENTEDX4. PT SHOWS NO SIGNS OF ACUTE DISTRESS. PT IV INTACT. SAFETY AND COMFORT PROVIDED. WILL CONTINUE TO MONITOR.
[2019-05-28] MEDS: ATORVASTATIN 10 MG TABLET PO SCH (20:55)
[2019-05-28] MEDS: ARIPIPRAZOLE 5 MG TABLET PO SCH (20:55)
[2019-05-28 21:00] VITALS: BP 99/52
--- NOTE | 2019-05-29 | NUR ---
Wound care done and dressing changed on BLE, tolerated well Addendum: 05/30/19 at 8492 by SHAUNNA SCOTT RN wrong date
[2019-05-29] MEDS: MORPHINE SULFATE 4 MG/1 ML DISP.SYRIN IV PRN ×8 (03:06→22:40)
[2019-05-29] MEDS: CEFEPIME HCL 2 G in IV DEXTROSE 5% 100 ML IV SCH ×2 (03:18→16:01)
[2019-05-29 05:10] VITALS: BP 133/72
--- NOTE | 2019-05-29 06:16 | NUR ---
PT SLEPT INTERMITTENTLY. PT SHOWS NO SIGNS OF ACUTE DISTRESS.IV INTACT. PT PRN PAIN MEDICATION GIVEN AND PT TOLERATED IT WELL. DRESSING CHANGE DONE. SAFETY AND COMFORT PROVIDED. ALL NEEDS ARE MET. WILL ENDORSE TO INCOMING NURSE FOR CONTINUITY OF CARE.
--- NOTE | 2019-05-29 07:20 | NUR ---
Received patient in bed alert and awake. No distress noted. Piccline intact and patent, Safety measures and comfort provided. Call light within reach, bed alarm on. Will continue to monitor.
[2019-05-29] MEDS: CLOTRIMAZOLE/BETAMET DIPROP CREAM 15 GM TUBE TOP SCH ×2 (09:00→21:43)
[2019-05-29] MEDS: SODIUM HYPOCHLORITE 0.125% 473 ML BOTTLE TP SCH (09:00)
[2019-05-29] MEDS: METOPROLOL TARTRATE 50 MG TABLET PO SCH ×2 (09:00→21:00)
[2019-05-29] MEDS: LISINOPRIL 20 MG TABLET PO SCH (09:00)
[2019-05-29] MEDS: FUROSEMIDE 40 MG TABLET PO SCH ×2 (09:00→16:02)
[2019-05-29] MEDS: ZINC SULFATE 220 MG CAPSULE PO SCH (09:00)
[2019-05-29] MEDS: ARGININE/GLUTAMINE/CALCIUM BMB 1 EACH POWD.PACK PO SCH ×2 (09:48→17:29)
[2019-05-29] MEDS: GABAPENTIN 300 MG CAPSULE PO SCH ×3 (10:03→16:02)
[2019-05-29] MEDS: ASCORBIC ACID 500 MG TABLET PO SCH (10:03)
[2019-05-29 11:39] VITALS: BP 91/53
[2019-05-29 15:44] VITALS: BP 107/62
--- NOTE | 2019-05-29 18:29 | NUR ---
Patient in bed alert and awake. No distress noted. Piccline intact and patent, prn pain medication given earlier.Safety measures and comfort provided. Call light within reach, Will continue to monitor.
[2019-05-29 19:45] VITALS: BP 102/47
[2019-05-29] MEDS: ARIPIPRAZOLE 5 MG TABLET PO SCH (21:42)
[2019-05-29] MEDS: ATORVASTATIN 10 MG TABLET PO SCH (21:42)
--- NOTE | 2019-05-30 | NUR ---
Wound care done and dressing changed on BLE, tolerated well
[2019-05-30] MEDS: MORPHINE SULFATE 4 MG/1 ML DISP.SYRIN IV PRN ×7 (01:40→23:03)
[2019-05-30] MEDS: CEFEPIME HCL 2 G in IV DEXTROSE 5% 100 ML IV SCH ×2 (04:34→17:02)
[2019-05-30 06:25] VITALS: BP 134/68
--- NOTE | 2019-05-30 06:54 | NUR ---
Patient slept intermittently. PRN pain medication given as ordered for BLE pain. Patient on NPO for excisional debridement of BLE scheduled for today at 7:30am. Consent signed at the chart. Patient requesting for EKG prior to surgery, informed Damaris GARCIA but she denied the request. All needs attended. Will endorse accordingly
[2019-05-30] MEDS ORDERED: MIDAZOLAM HCL 2 MG/2 ML VIAL ONE (07:05)
[2019-05-30] MEDS ORDERED: FENTANYL CITRATE 250 MCG/5 ML AMPUL ONE (07:06)
[2019-05-30] MEDS ORDERED: FENTANYL CITRATE 100 MCG/2 ML AMPUL ONE (07:06)
--- NOTE | 2019-05-30 08:10 | NUR ---
PATIENT AWAKE AND ALERT. PATIENT REQUESTING EKG BEFORE GOING DOWN TO DEBRIDEMENT. DR DARBY CONTACTED FOR VERBAL ORDER. PATIENT DENIES PAIN AND DISCOMFORT. NO ACUTE DISTRESS NOTED. BED IN LOWEST POSITION SIDE RAILS UP X2, CALL LIGHT WITHIN REACH. WILL CONTINUE TO MONITOR.
[2019-05-30] MEDS ORDERED: LIDOCAINE HCL 1% 20 ML VIAL ONE (08:57)
[2019-05-30] MEDS ORDERED: LIDOCAINE-MPF 2% 5 ML VIAL IJ ONE (09:00)
[2019-05-30] MEDS ORDERED: IV LACTATED RINGERS SOLUTION 1,000 ML BAG IV ONE (09:00)
[2019-05-30] MEDS ORDERED: ONDANSETRON 4 MG/2 ML VIAL IV ONE (09:00)
[2019-05-30] MEDS ORDERED: METOCLOPRAMIDE HCL 10 MG/2 ML VIAL IV ONE (09:00)
[2019-05-30] MEDS ORDERED: SEVOFLURANE 250 ML BOTTLE IH ONE (09:00)
[2019-05-30] MEDS: ASCORBIC ACID 500 MG TABLET PO SCH (09:00)
[2019-05-30] MEDS ORDERED: IV NORMAL SALINE 1000 ML BAG IV ONE ×2 (09:00)
[2019-05-30] MEDS ORDERED: PROPOFOL 200 MG/20 ML BOTTLE IV ONE (09:00)
[2019-05-30] MEDS: ARGININE/GLUTAMINE/CALCIUM BMB 1 EACH POWD.PACK PO SCH ×2 (09:00→17:03)
[2019-05-30] MEDS: LISINOPRIL 20 MG TABLET PO SCH (09:00)
[2019-05-30] MEDS: GABAPENTIN 300 MG CAPSULE PO SCH ×3 (09:00→17:03)
[2019-05-30] MEDS: FUROSEMIDE 40 MG TABLET PO SCH ×3 (09:00→17:03)
[2019-05-30] MEDS: METOPROLOL TARTRATE 50 MG TABLET PO SCH ×2 (09:00→21:00)
[2019-05-30] MEDS: ZINC SULFATE 220 MG CAPSULE PO SCH (09:00)
[2019-05-30] MEDS ORDERED: CEFAZOLIN 1 G VIAL IM ONE (09:00)
[2019-05-30] MEDS ORDERED: GENTAMICIN SULFATE 0.1% OINT 15 GM TUBE TP ONE (09:39)
[2019-05-30] MEDS: CLOTRIMAZOLE/BETAMET DIPROP CREAM 15 GM TUBE TOP SCH ×2 (09:41→21:21)
[2019-05-30] MEDS: SODIUM HYPOCHLORITE 0.125% 473 ML BOTTLE TP SCH (09:41)
[2019-05-30 11:22] VITALS: BP 122/88
[2019-05-30] MEDS: HYDROCODONE/APAP 10-325 MG TABLET PO PRN (14:53)
[2019-05-30 15:18] VITALS: BP 144/71
[2019-05-30] MEDS ORDERED: POLYMYXIN B SULFATE 500,000 UNITS, BACITRACIN 50,000 UNITS, NORMAL SALINE 20 ML MC ONE ×3 (15:30)
--- NOTE | 2019-05-30 18:36 | NUR ---
PATIENT RESTED INTERMITTENTLY THROUGHOUT DAY. EKG DONE BEFORE THE PROCEDURE.PATIENT WAS TAKEN TO SURGERY TO HAVE BOTH LEGS DEBRIDED. PATIENT PLACED ON A WOUND VAC ON LEFT LOWER LEG. PATIENT RETURNED TO THE FLOOR WITHOUT COMPLICATIONS. PATIENT REPORTED PAIN, PAIN MEDICATION ADMINISTERED. SAFETY MEASURES PROVIDED. WILL ENDORSE TO ONCOMING NURSE.
[2019-05-30 20:20] VITALS: BP 140/69
[2019-05-30] MEDS: ARIPIPRAZOLE 5 MG TABLET PO SCH (21:16)
[2019-05-30] MEDS: ATORVASTATIN 10 MG TABLET PO SCH (21:16)
[2019-05-31] MEDS: MORPHINE SULFATE 4 MG/1 ML DISP.SYRIN IV PRN ×7 (02:29→21:54)
[2019-05-31] MEDS: CEFEPIME HCL 2 G in IV DEXTROSE 5% 100 ML IV SCH ×2 (03:52→16:28)
[2019-05-31 05:39] VITALS: BP 136/62
[2019-05-31] MEDS: ZINC SULFATE 220 MG CAPSULE PO SCH (08:12)
[2019-05-31] MEDS: GABAPENTIN 300 MG CAPSULE PO SCH ×3 (08:13→16:29)
[2019-05-31] MEDS: ASCORBIC ACID 500 MG TABLET PO SCH (08:13)
[2019-05-31] MEDS: FUROSEMIDE 40 MG TABLET PO SCH ×2 (08:13→16:28)
[2019-05-31] MEDS: METOPROLOL TARTRATE 50 MG TABLET PO SCH ×2 (08:14→20:09)
[2019-05-31] MEDS: LISINOPRIL 20 MG TABLET PO SCH (08:17)
[2019-05-31] MEDS: SODIUM HYPOCHLORITE 0.125% 473 ML BOTTLE TP SCH (08:18)
[2019-05-31] MEDS: ARGININE/GLUTAMINE/CALCIUM BMB 1 EACH POWD.PACK PO SCH ×2 (09:05→16:29)
[2019-05-31] MEDS: CLOTRIMAZOLE/BETAMET DIPROP CREAM 15 GM TUBE TOP SCH ×2 (09:09→20:10)
[2019-05-31] MEDS: AMMONIUM LACTATE 12% LOTION 225 GM BOTTLE TP SCH (09:09)
[2019-05-31] MEDS: CLOTRIMAZOLE 1% CREAM 30 GM TUBE TOP SCH (09:09)
--- NOTE | 2019-05-31 12:00 | NUR ---
PT RESTING COMFORTABLY. PT'S PAIN MANAGED WITH MEDICATION. NO SIGNS OF ACUTE DISTRESS OR SOB NOTED. BED LOCKED AND IN LOW POSITION. PT REFUSED BP MEDS. PT REFUSED LASIX. WILL CONTINUE TO MONITOR.
[2019-05-31 12:20] VITALS: BP 127/63
[2019-05-31] MEDS: HYDROCODONE/APAP 10-325 MG TABLET PO PRN ×2 (14:08→23:51)
[2019-05-31] MEDS: GENTAMICIN SULFATE 0.1% OINT 15 GM TUBE TOP SCH (14:23)
[2019-05-31 16:27] VITALS: BP 124/59
--- NOTE | 2019-05-31 18:00 | NUR ---
PT RESTING COMFORTABLY IN BED. NO ACUTE DISTRESS OR SOB NOTED. WOUND CARE DONE ORDERED. PT'S PAIN MANAGED WITH MEDICATION. BED LOCKED AND IN LOW POSITION. PT AMBULATES HALLWAY. PT PLEASANT AND COOPERATIVE. PT ALERT AND ORIENTED X3. WILL GIVE SHIFT CHANGE REPORT ACCORDINGLY.
[2019-05-31 19:50] VITALS: BP 115/55
[2019-05-31] MEDS: ATORVASTATIN 10 MG TABLET PO SCH (20:09)
[2019-05-31] MEDS: ARIPIPRAZOLE 5 MG TABLET PO SCH (20:09)
[2019-06-01] MEDS: MORPHINE SULFATE 4 MG/1 ML DISP.SYRIN IV PRN ×6 (01:09→20:58)
[2019-06-01] MEDS: CEFEPIME HCL 2 G in IV DEXTROSE 5% 100 ML IV SCH ×2 (04:01→15:16)
[2019-06-01 05:31] VITALS: BP 143/43
--- NOTE | 2019-06-01 08:00 | NUR ---
RECEIVED PT RESTING COMFORTABLY IN BED. NO ACUTE DISTRESS OR SOB NOTED. BED LOCKED AND IN LOW POSITION. PAIN MANAGED WITH MEDICATION. PICC LINE FLUSHED AND PATENT. CALL LIGHT WITHIN REACH. WILL CONTINUE TO MONITOR FOR SAFETY AND COMFORT.
[2019-06-01] MEDS: HYDROCODONE/APAP 10-325 MG TABLET PO PRN (08:03)
[2019-06-01] MEDS: FUROSEMIDE 40 MG TABLET PO SCH ×2 (08:22→16:47)
[2019-06-01] MEDS: METOPROLOL TARTRATE 50 MG TABLET PO SCH ×2 (08:22→21:00)
[2019-06-01] MEDS: LISINOPRIL 20 MG TABLET PO SCH (08:23)
[2019-06-01] MEDS: GABAPENTIN 300 MG CAPSULE PO SCH ×3 (08:45→16:54)
[2019-06-01] MEDS: ASCORBIC ACID 500 MG TABLET PO SCH (08:46)
[2019-06-01] MEDS: ZINC SULFATE 220 MG CAPSULE PO SCH (08:46)
[2019-06-01] MEDS: ARGININE/GLUTAMINE/CALCIUM BMB 1 EACH POWD.PACK PO SCH ×2 (09:17→16:55)
[2019-06-01 12:09] VITALS: BP 121/65
[2019-06-01 16:15] VITALS: BP 160/70
[2019-06-01] MEDS: CLOTRIMAZOLE 1% CREAM 30 GM TUBE TOP SCH (16:51)
[2019-06-01] MEDS: CLOTRIMAZOLE/BETAMET DIPROP CREAM 15 GM TUBE TOP SCH ×2 (16:52→21:11)
[2019-06-01] MEDS: AMMONIUM LACTATE 12% LOTION 225 GM BOTTLE TP SCH (16:52)
[2019-06-01] MEDS: GENTAMICIN SULFATE 0.1% OINT 15 GM TUBE TOP SCH (16:52)
[2019-06-01] MEDS: SODIUM HYPOCHLORITE 0.125% 473 ML BOTTLE TP SCH (16:53)
--- NOTE | 2019-06-01 18:00 | NUR ---
WOUND CARE TO BOTH LOWER EXTREMITIES FINISHED BY CHARGE NURSE SWAPNA, PT WAS OFFERED TO HAVE A DIFFERENT NURSE AFTER COMPLAINING SEVERAL TIMES OF RN SHAKING WHILE DOING WOUND CARE, TO WHICH PT AGREED. NO ACUTE DISTRESS OR SOB NOTED. PAIN MANAGED WITH MEDICATION. BED LOCKED AND IN LOW POSITION. PICC LINE DRESSING CHANGED BY HOMER RN. STERILITY KEPT THROUGH OUT PROCEDURE. WILL GIVE REPORT ACCORDINGLY.
--- NOTE | 2019-06-01 19:45 | NUR ---
Received patient in bed awake, complaints of pain level of 9. Will medicate appropriately. PICC line in right brachial flushing patent and intact. Safety protocols in place. Immediate needs attended. Call light within reach. Will continue to monitor.
[2019-06-01 20:14] VITALS: BP 133/68
[2019-06-01] MEDS: ATORVASTATIN 10 MG TABLET PO SCH (21:05)
[2019-06-01] MEDS: ARIPIPRAZOLE 5 MG TABLET PO SCH (21:05)
[2019-06-02] MEDS: MORPHINE SULFATE 4 MG/1 ML DISP.SYRIN IV PRN ×6 (00:02→20:48)
[2019-06-02] MEDS: HYDROCODONE/APAP 10-325 MG TABLET PO PRN ×2 (01:38→08:27)
[2019-06-02] MEDS: CEFEPIME HCL 2 G in IV DEXTROSE 5% 100 ML IV SCH ×2 (03:20→16:37)
[2019-06-02 04:33] VITALS: BP 142/74
--- NOTE | 2019-06-02 07:34 | NUR ---
NO ACUTE CHANGE IN PATIENT CONDITION, MEDICATED APPROPRIATELY WITH PRN PAIN MEDICATIONS. VITALS WITHIN NORMAL. NEEDS ATTENDED, CALL LIGHT WITHIN REACH. SAFETY PROTOCOLS IN PLACE. WILL ENDORSE TO ONCOMING SHIFT.
[2019-06-02] MEDS: ASCORBIC ACID 500 MG TABLET PO SCH (08:28)
[2019-06-02] MEDS: FUROSEMIDE 40 MG TABLET PO SCH ×2 (08:28→16:33)
[2019-06-02] MEDS: GABAPENTIN 300 MG CAPSULE PO SCH ×3 (08:28→16:33)
[2019-06-02] MEDS: ZINC SULFATE 220 MG CAPSULE PO SCH (08:30)
[2019-06-02] MEDS: CLOTRIMAZOLE/BETAMET DIPROP CREAM 15 GM TUBE TOP SCH ×2 (08:30→20:36)
[2019-06-02] MEDS: AMMONIUM LACTATE 12% LOTION 225 GM BOTTLE TP SCH (08:30)
[2019-06-02] MEDS: CLOTRIMAZOLE 1% CREAM 30 GM TUBE TOP SCH (08:30)
[2019-06-02] MEDS: SODIUM HYPOCHLORITE 0.125% 473 ML BOTTLE TP SCH (08:30)
[2019-06-02] MEDS: LISINOPRIL 20 MG TABLET PO SCH (09:00)
[2019-06-02] MEDS: METOPROLOL TARTRATE 50 MG TABLET PO SCH ×2 (09:00→20:48)
--- NOTE | 2019-06-02 10:30 | NUR ---
Pt received this morning. AAOx3, able to make needs known. VSS. Pt refused all BP meds with BP 123/76, 85. Pt reports 9/10 pain to BL LE, PRN pain medications administered as ordered. Right upper arm PICC flushed and patent. All comfort and safety measures implemented. Call light within reach. Will continue to monitor.
[2019-06-02 11:25] VITALS: BP 140/77
[2019-06-02] MEDS: ARGININE/GLUTAMINE/CALCIUM BMB 1 EACH POWD.PACK PO SCH ×2 (12:00→17:00)
[2019-06-02] MEDS: GENTAMICIN SULFATE 0.1% OINT 15 GM TUBE TOP SCH (12:00)
[2019-06-02] MEDS ORDERED: MORPHINE SULFATE 4 MG/1 ML DISP.SYRIN IV PRN (13:00)
[2019-06-02] MEDS ORDERED: HYDROCODONE/APAP 10-325 MG TABLET PO PRN (13:00)
--- NOTE | 2019-06-02 14:28 | NUR ---
Pt seen by MD regarding wound care, skin precautions implemented, wound care provided, new photos taken and placed in chart. Pt medicated for pain just prior to consult. Tolerated well. Will continue to monitor for safety.
[2019-06-02 15:32] VITALS: BP 131/67
--- NOTE | 2019-06-02 19:20 | NUR ---
RECEIVED PATIENT LYING IN BED. ASLEEP, BUT AROUSE TO VERBAL STIMULI. IN NO ACUTE DISTRESS. PICC LINE ON RIGHT UPPER ARM INTACT AND PATENT. DRESSING ON BLE DRY, CLEAN AND INTACT. NEEDS ASSESSED AND ATTENDED TO. SAFETY MEASURE INITIATED AND CALL RILEY WITHIN REACHED.
--- NOTE | 2019-06-02 19:32 | NUR ---
Pt concerned regarding pain relief and alteration to medications. Pt seen by pain specialist, new orders received, Pt teaching provided regarding adjustment to medications. All needs attended to promptly this shift. VSS. Will continue to monitor and endorse to oncoming shift mechanic.
[2019-06-02 19:58] VITALS: BP 109/47
[2019-06-02] MEDS: ATORVASTATIN 10 MG TABLET PO SCH (20:35)
[2019-06-02] MEDS: ARIPIPRAZOLE 5 MG TABLET PO SCH (20:35)
[2019-06-02] MEDS: OXYCODONE/APAP 5-325 MG TABLET PO PRN (23:11)
[2019-06-03] MEDS: CEFEPIME HCL 2 G in IV DEXTROSE 5% 100 ML IV SCH ×2 (03:15→16:18)
[2019-06-03 04:54] VITALS: BP 107/50
[2019-06-03] MEDS: MORPHINE SULFATE 4 MG/1 ML DISP.SYRIN IV PRN ×3 (05:02→21:37)
--- NOTE | 2019-06-03 06:10 | NUR ---
AAOX4. IN NO ACUTE DISTRESS. PICC LINE ON RIGHT UPPER ARM INTACT AND PATENT. NO ADVERSE EFFECT NOTED FROM IV ABX. DRESSING ON BLE REMAINS DRY, CLEAN AND INTACT. NEEDS ATTENDED TO AND MET. SAFETY MEASURE MAINTAINED AND CALL RILEY WITHIN REACHED.
--- NOTE | 2019-06-03 07:25 | NUR ---
RECEIVED PATIENT AWAKE AND ALERT IN BED. PATIENT REPORTING PAIN, PAIN MEDICATION ADMINISTERED. NO ACUTE DISTRESS NOTED. BED IN LOWEST POSITION, SIDE RAILS UP X2, CALL LIGHT WITHIN REACH WILL CONTINUE TO MONITOR.
[2019-06-03] MEDS: OXYCODONE/APAP 5-325 MG TABLET PO PRN ×3 (07:34→23:00)
[2019-06-03] MEDS: LISINOPRIL 20 MG TABLET PO SCH ×2 (09:00→09:13)
[2019-06-03] MEDS: FUROSEMIDE 40 MG TABLET PO SCH ×2 (09:00→16:19)
[2019-06-03] MEDS: METOPROLOL TARTRATE 50 MG TABLET PO SCH ×3 (09:00→21:00)
[2019-06-03] MEDS ORDERED: GABAPENTIN 300 MG CAPSULE PO SCH (09:00)
[2019-06-03] MEDS: ZINC SULFATE 220 MG CAPSULE PO SCH (09:12)
[2019-06-03] MEDS: ARGININE/GLUTAMINE/CALCIUM BMB 1 EACH POWD.PACK PO SCH ×2 (09:12→16:19)
[2019-06-03] MEDS: GABAPENTIN 400 MG CAPSULE PO SCH ×3 (09:12→16:19)
[2019-06-03] MEDS: ASCORBIC ACID 500 MG TABLET PO SCH (09:12)
[2019-06-03] MEDS: SODIUM HYPOCHLORITE 0.125% 473 ML BOTTLE TP SCH (09:14)
[2019-06-03] MEDS: CLOTRIMAZOLE/BETAMET DIPROP CREAM 15 GM TUBE TOP SCH ×2 (09:14→21:44)
[2019-06-03] MEDS: AMMONIUM LACTATE 12% LOTION 225 GM BOTTLE TP SCH (09:14)
[2019-06-03] MEDS: CLOTRIMAZOLE 1% CREAM 30 GM TUBE TOP SCH (09:15)
[2019-06-03] MEDS: GENTAMICIN SULFATE 0.1% OINT 15 GM TUBE TOP SCH (09:15)
[2019-06-03 11:24] VITALS: BP 140/72
[2019-06-03 15:44] VITALS: BP 144/80
--- NOTE | 2019-06-03 18:22 | NUR ---
PATIENT RESTED INTERMITTENTLY THROUGHOUT DAY. PROVIDED PATIENT WITH WOUND TREATMENT. PATIENT REPORTED PAIN, PAIN MEDICATION ADMINISTERED. SAFETY MEASURES PROVIDED. WILL ENDORSE TO ONCOMING NURSE.
[2019-06-03 20:38] VITALS: BP 122/62
[2019-06-03] MEDS: ATORVASTATIN 10 MG TABLET PO SCH (21:37)
[2019-06-03] MEDS: ARIPIPRAZOLE 5 MG TABLET PO SCH (21:37)
[2019-06-04] MEDS: CEFEPIME HCL 2 G in IV DEXTROSE 5% 100 ML IV SCH ×2 (04:38→15:25)
[2019-06-04] MEDS: MORPHINE SULFATE 4 MG/1 ML DISP.SYRIN IV PRN ×3 (05:40→23:21)
[2019-06-04 06:23] VITALS: BP 131/65
--- NOTE | 2019-06-04 07:31 | NUR ---
RECEIVED PATIENT IN BED, AOX4. DENIES SOB. RIGHT UPPER PICC LINE IV INTACT AND FLUSHING WELL. BILATERAL LOWER EXTREMITY PAIN AT THIS TIME. WILL ADMINISTER MEDICATIONS ORDERED. DRESSING TO BLE INTACT.. SAFETY AND FALL PRECAUTIONS IN PLACE. BED IN LOW POSITION AND LOCKED, CALL LIGHT IN REACH. WILL CONTINUE TO MONITOR.
[2019-06-04] MEDS: ZINC SULFATE 220 MG CAPSULE PO SCH (08:12)
[2019-06-04] MEDS: GABAPENTIN 400 MG CAPSULE PO SCH ×3 (08:12→18:03)
[2019-06-04] MEDS: ASCORBIC ACID 500 MG TABLET PO SCH (08:13)
[2019-06-04] MEDS: CLOTRIMAZOLE 1% CREAM 30 GM TUBE TOP SCH (08:15)
[2019-06-04] MEDS: AMMONIUM LACTATE 12% LOTION 225 GM BOTTLE TP SCH (08:16)
[2019-06-04] MEDS: CLOTRIMAZOLE/BETAMET DIPROP CREAM 15 GM TUBE TOP SCH ×2 (08:19→21:18)
[2019-06-04] MEDS: OXYCODONE/APAP 5-325 MG TABLET PO PRN ×2 (08:24→18:04)
[2019-06-04] MEDS: METOPROLOL TARTRATE 50 MG TABLET PO SCH ×2 (08:26→21:00)
[2019-06-04] MEDS: FUROSEMIDE 40 MG TABLET PO SCH ×2 (08:26→17:00)
[2019-06-04] MEDS: LISINOPRIL 20 MG TABLET PO SCH (08:27)
[2019-06-04 11:38] VITALS: BP 117/70
[2019-06-04] MEDS: SODIUM HYPOCHLORITE 0.125% 473 ML BOTTLE TP SCH (15:58)
[2019-06-04] MEDS: ARGININE/GLUTAMINE/CALCIUM BMB 1 EACH POWD.PACK PO SCH ×2 (15:58→17:33)
[2019-06-04] MEDS: GENTAMICIN SULFATE 0.1% OINT 15 GM TUBE TOP SCH (15:58)
[2019-06-04 16:16] VITALS: BP 121/59
--- NOTE | 2019-06-04 19:13 | NUR ---
PATIENT IN BED, AOX4. RT. UPPER PICC LINE 2 LUMEN FLUSHED. COMPLAINS OF PAIN TO BLE, MEDICATIONS GIVEN ORDERED. DRESSING CHANGED TO BLE ORDERED Q-SHIFT. VS STABLE THROUGHOUT THE SHIFT. SAFETY AND FALL PRECAUTIONS IN PLACE. BED LOW AND LOCKED. CALL LIGHT IN REACH. WILL REPORT TO ONCOMING NURSE.
[2019-06-04 20:00] VITALS: BP 121/60
[2019-06-04] MEDS: ATORVASTATIN 10 MG TABLET PO SCH (21:12)
[2019-06-04] MEDS: ARIPIPRAZOLE 5 MG TABLET PO SCH (21:12)
[2019-06-05 04:00] VITALS: BP 128/63
[2019-06-05] MEDS: OXYCODONE/APAP 5-325 MG TABLET PO PRN ×3 (04:32→19:46)
[2019-06-05] MEDS: FUROSEMIDE 40 MG TABLET PO SCH ×2 (09:00→14:00)
[2019-06-05] MEDS: LISINOPRIL 20 MG TABLET PO SCH (09:00)
[2019-06-05] MEDS: METOPROLOL TARTRATE 50 MG TABLET PO SCH ×2 (09:00→20:48)
[2019-06-05] MEDS: ARGININE/GLUTAMINE/CALCIUM BMB 1 EACH POWD.PACK PO SCH ×2 (09:00→17:46)
[2019-06-05] MEDS: GENTAMICIN SULFATE 0.1% OINT 15 GM TUBE TOP SCH (09:33)
[2019-06-05] MEDS: CLOTRIMAZOLE/BETAMET DIPROP CREAM 15 GM TUBE TOP SCH ×2 (09:34→20:54)
[2019-06-05] MEDS: AMMONIUM LACTATE 12% LOTION 225 GM BOTTLE TP SCH (09:34)
[2019-06-05] MEDS: CLOTRIMAZOLE 1% CREAM 30 GM TUBE TOP SCH (09:34)
[2019-06-05] MEDS: SODIUM HYPOCHLORITE 0.125% 473 ML BOTTLE TP SCH (09:35)
[2019-06-05] MEDS: ASCORBIC ACID 500 MG TABLET PO SCH (09:43)
[2019-06-05] MEDS: ZINC SULFATE 220 MG CAPSULE PO SCH (09:43)
[2019-06-05] MEDS: GABAPENTIN 400 MG CAPSULE PO SCH ×3 (09:44→17:46)
[2019-06-05] MEDS: MORPHINE SULFATE 4 MG/1 ML DISP.SYRIN IV PRN ×2 (09:47→17:47)
--- NOTE | 2019-06-05 11:09 | NUR ---
Update: Pain medication Morphine 4mg administered via IV on 06/02/19 at 1258pm just prior to dosage/time change by MD. Medication scanned and administered, but accidentally not saved in the system at the time. Corrected with pharmacy.
[2019-06-05 11:30] VITALS: BP 104/57
[2019-06-05 15:39] VITALS: BP 133/81
--- NOTE | 2019-06-05 18:51 | NUR ---
Patient complained of BLE pain; medicated appropriately. Dressing cleansed and changed. No s/s of acute distress at this time. Call light within reach. All needs attended. Will endorse care accordingly.
--- NOTE | 2019-06-05 19:30 | NUR ---
RECEIVED PATIENT AWAKE IN BED. PICC LINE DOUBLE LUMEN IN RIGHT BRACHIAL FLUSHING, PATENT, AND INTACT. IN NO APPARENT DISTRESS AT THE MOMENT. NO SHORTNESS OF BREATH. SAFETY PRECAUTIONS IN PLACE. CALL LIGHT WITHIN REACH. WILL MONITOR ACCORDINGLY.
[2019-06-05 20:08] VITALS: BP 142/74
[2019-06-05] MEDS: ATORVASTATIN 10 MG TABLET PO SCH (20:45)
[2019-06-05] MEDS: ARIPIPRAZOLE 5 MG TABLET PO SCH (20:45)
[2019-06-06] MEDS: MORPHINE SULFATE 4 MG/1 ML DISP.SYRIN IV PRN (01:50)
[2019-06-06] MEDS: OXYCODONE/APAP 5-325 MG TABLET PO PRN ×3 (04:29→17:34)
[2019-06-06 05:57] VITALS: BP 125/73
--- NOTE | 2019-06-06 06:03 | NUR ---
PATIENT SLEPT INTERMITTENTLY THROUGHOUT THE NIGHT COMPLAINING OF PAIN OF 8/9. MANAGED PAIN APPROPRIATELY WITH MEDICATIONS. NO ACUTE CHANGE IN PATIENT CONDITION. VITALS NORMAL. WILL ENDORSE TO ONCOMING SHIFT.
[2019-06-06 09:30] LABS: BASOPHILS # (AUTO) 0.1 K/uL (0.0-8.0); BASOPHILS % (AUTO) 0.7 % (0.0-2.0); EOSINOPHILS # (AUTO) 0.4 K/uL (0.0-0.7); EOSINOPHILS % (AUTO) 3.1 % (0.0-7.0); MONOCYTES # (AUTO) 0.7 K/uL (2.0-10.0)
[2019-06-06 09:36] LABS: CREATININE 1.1 mg/dL (0.6-1.3); HEMATOCRIT 29.9 % (36.7-47.1); HEMOGLOBIN 9.2 g/dL (12.5-16.3); LYMPHOCYTES # (AUTO) 1.5 K/uL (20.0-40.0); LYMPHOCYTES % (AUTO) 13.3 % (20.5-51.5); MAGNESIUM 2.3 mg/dL (1.8-2.4); MEAN CORPUSCULAR HEMOGLOBIN 26.4 uug (23.8-33.4); MEAN CORPUSCULAR HGB CONC 31 g/dL (32.5-36.3); MEAN CORPUSCULAR VOLUME 85.3 fL (73.0-96.2); MONOCYTES % (AUTO) 6.6 % (0.0-11.0); NEUTROPHILS # (AUTO) 8.6 K/uL (1.8-8.9); NEUTROPHILS % (AUTO) 76.3 % (38.5-71.5); PHOSPHOROUS 3.7 mg/dL (2.5-4.9); PLATELET COUNT (AUTO) 371 K/uL (152-348); POTASSIUM 3.5 mmol/L (3.5-5.1); WHITE BLOOD COUNT (AUTO) 11.2 K/uL (3.6-10.2)
[2019-06-06] MEDS: METOPROLOL TARTRATE 50 MG TABLET PO SCH ×2 (09:40→20:35)
[2019-06-06] MEDS: CLOTRIMAZOLE 1% CREAM 30 GM TUBE TOP SCH ×2 (09:41→09:44)
[2019-06-06] MEDS: SODIUM HYPOCHLORITE 0.125% 473 ML BOTTLE TP SCH (09:41)
[2019-06-06] MEDS: ASCORBIC ACID 500 MG TABLET PO SCH (09:41)
[2019-06-06] MEDS: FUROSEMIDE 40 MG TABLET PO SCH ×2 (09:41→17:31)
[2019-06-06] MEDS: ZINC SULFATE 220 MG CAPSULE PO SCH (09:41)
[2019-06-06] MEDS: LISINOPRIL 20 MG TABLET PO SCH (09:41)
[2019-06-06] MEDS: GABAPENTIN 400 MG CAPSULE PO SCH ×3 (09:41→17:31)
[2019-06-06] MEDS: AMMONIUM LACTATE 12% LOTION 225 GM BOTTLE TP SCH (09:42)
[2019-06-06] MEDS: GENTAMICIN SULFATE 0.1% OINT 15 GM TUBE TOP SCH (09:44)
[2019-06-06] MEDS: CLOTRIMAZOLE/BETAMET DIPROP CREAM 15 GM TUBE TOP SCH ×2 (09:44→20:40)
[2019-06-06] MEDS: ARGININE/GLUTAMINE/CALCIUM BMB 1 EACH POWD.PACK PO SCH ×2 (09:47→17:31)
[2019-06-06 11:10] VITALS: BP 138/66
[2019-06-06] MEDS ORDERED: CLOT30CR24 TOP (15:10)
[2019-06-06] MEDS ORDERED: HYDR-4354 PO (15:10)
[2019-06-06] MEDS ORDERED: FURO40TA5 PO (15:10)
[2019-06-06] MEDS ORDERED: GABA-536 PO (15:10)
[2019-06-06] MEDS ORDERED: OXYC-133 PO (15:11)
[2019-06-06 16:49] VITALS: BP 125/61
--- NOTE | 2019-06-06 17:37 | NUR ---
Patient alert and oriented, ambulating frequently. Wound care done on bilateral lower extremities per orders. PICC line removed per Phil Reid DNP. Patient has no IV access. Pain managed with PRN percocet. End of shift chart check done, will endorse care to oncoming shift.
--- NOTE | 2019-06-06 19:20 | NUR ---
Received patient lying in bed. Asleep but easily arouse to verbal stimuli. AOx4. In no acute distress. Denies any SOB at this time. Dressing intact to BLE. Needs assessed and attended to. Safety measure initiated and call arechiga within reached.
[2019-06-06 20:11] VITALS: BP 141/71
[2019-06-06] MEDS: ATORVASTATIN 10 MG TABLET PO SCH (20:34)
[2019-06-06] MEDS: ARIPIPRAZOLE 5 MG TABLET PO SCH (20:35)
[2019-06-07 05:09] VITALS: BP 134/64
--- NOTE | 2019-06-07 06:24 | NUR ---
AOx4. In no acute distress. No complain of pain. Denies any SOB at this time. Dressing intact to BLE. Needs attended to and met. Safety measure initiated and call arechiga within reached.
[2019-06-07] MEDS: METOPROLOL TARTRATE 50 MG TABLET PO SCH ×2 (09:33→21:00)
[2019-06-07] MEDS: FUROSEMIDE 40 MG TABLET PO SCH ×2 (09:33→16:03)
[2019-06-07] MEDS: CLOTRIMAZOLE/BETAMET DIPROP CREAM 15 GM TUBE TOP SCH ×2 (09:34→21:08)
[2019-06-07] MEDS: OXYCODONE/APAP 5-325 MG TABLET PO PRN ×3 (09:34→22:26)
[2019-06-07] MEDS: ASCORBIC ACID 500 MG TABLET PO SCH (09:35)
[2019-06-07] MEDS: GABAPENTIN 400 MG CAPSULE PO SCH ×3 (09:35→16:03)
[2019-06-07] MEDS: GENTAMICIN SULFATE 0.1% OINT 15 GM TUBE TOP SCH (09:35)
[2019-06-07] MEDS: SODIUM HYPOCHLORITE 0.125% 473 ML BOTTLE TP SCH (09:35)
[2019-06-07] MEDS: ZINC SULFATE 220 MG CAPSULE PO SCH (09:35)
[2019-06-07] MEDS: AMMONIUM LACTATE 12% LOTION 225 GM BOTTLE TP SCH (09:35)
[2019-06-07] MEDS: ARGININE/GLUTAMINE/CALCIUM BMB 1 EACH POWD.PACK PO SCH ×2 (09:36→16:04)
[2019-06-07] MEDS: LISINOPRIL 20 MG TABLET PO SCH (09:36)
[2019-06-07 11:14] VITALS: BP 107/62
[2019-06-07 15:08] VITALS: BP 112/56
[2019-06-07 20:00] VITALS: BP 125/64
--- NOTE | 2019-06-07 21:00 | NUR ---
Received report from FISH Isbell. Pt in stable condition, talkative. c/o of pain, pain med due at 2200. No dire needs kat
[2019-06-07] MEDS: ARIPIPRAZOLE 5 MG TABLET PO SCH (21:05)
[2019-06-07] MEDS: ATORVASTATIN 10 MG TABLET PO SCH (21:05)
[2019-06-08 05:22] VITALS: BP 133/59
[2019-06-08] MEDS: OXYCODONE/APAP 5-325 MG TABLET PO PRN ×3 (07:03→21:07)
--- NOTE | 2019-06-08 07:26 | NUR ---
This Am, pt showed me area of redness on his lower back thigh, not a new occurrence. Will endorse to oncoming nurse for further skin assessment
[2019-06-08] MEDS: ASCORBIC ACID 500 MG TABLET PO SCH (08:58)
[2019-06-08] MEDS: ZINC SULFATE 220 MG CAPSULE PO SCH (08:58)
[2019-06-08] MEDS: METOPROLOL TARTRATE 50 MG TABLET PO SCH ×2 (08:58→21:00)
[2019-06-08] MEDS: FUROSEMIDE 40 MG TABLET PO SCH ×2 (08:59→17:00)
[2019-06-08] MEDS: LISINOPRIL 20 MG TABLET PO SCH (08:59)
[2019-06-08] MEDS: GENTAMICIN SULFATE 0.1% OINT 15 GM TUBE TOP SCH (08:59)
[2019-06-08] MEDS: ARGININE/GLUTAMINE/CALCIUM BMB 1 EACH POWD.PACK PO SCH ×2 (08:59→17:00)
[2019-06-08] MEDS: GABAPENTIN 400 MG CAPSULE PO SCH ×3 (08:59→17:00)
[2019-06-08] MEDS: AMMONIUM LACTATE 12% LOTION 225 GM BOTTLE TP SCH (09:08)
[2019-06-08] MEDS: CLOTRIMAZOLE 1% CREAM 30 GM TUBE TOP SCH (09:08)
[2019-06-08] MEDS: CLOTRIMAZOLE/BETAMET DIPROP CREAM 15 GM TUBE TOP SCH ×2 (09:08→21:39)
[2019-06-08] MEDS: SODIUM HYPOCHLORITE 0.125% 473 ML BOTTLE TP SCH (09:09)
[2019-06-08 12:05] VITALS: BP 111/52
[2019-06-08 16:31] VITALS: BP 127/60
[2019-06-08 20:00] VITALS: BP 127/60
[2019-06-08] MEDS: ATORVASTATIN 10 MG TABLET PO SCH (21:06)
[2019-06-08] MEDS: ARIPIPRAZOLE 5 MG TABLET PO SCH (21:06)
[2019-06-09] MEDS: OXYCODONE/APAP 5-325 MG TABLET PO PRN ×4 (03:35→23:49)
[2019-06-09 04:00] VITALS: BP 113/70
--- NOTE | 2019-06-09 06:53 | NUR ---
DRESSING CHANGE DONE, PAIN MANAGED WITH PERCOCET AND TOLERATED WELL. NO ACUTE CHANGES
[2019-06-09 07:19] VITALS: BP 164/76
[2019-06-09] MEDS: LISINOPRIL 20 MG TABLET PO SCH ×2 (09:00→10:10)
[2019-06-09] MEDS: ZINC SULFATE 220 MG CAPSULE PO SCH (10:10)
[2019-06-09] MEDS: METOPROLOL TARTRATE 50 MG TABLET PO SCH ×2 (10:11→20:41)
[2019-06-09] MEDS: FUROSEMIDE 40 MG TABLET PO SCH ×2 (10:12→17:33)
[2019-06-09] MEDS: ASCORBIC ACID 500 MG TABLET PO SCH (10:12)
[2019-06-09] MEDS: GABAPENTIN 400 MG CAPSULE PO SCH ×3 (10:19→17:33)
[2019-06-09] MEDS: CLOTRIMAZOLE 1% CREAM 30 GM TUBE TOP SCH (10:22)
[2019-06-09] MEDS: ARGININE/GLUTAMINE/CALCIUM BMB 1 EACH POWD.PACK PO SCH ×2 (10:22→17:35)
[2019-06-09] MEDS: CLOTRIMAZOLE/BETAMET DIPROP CREAM 15 GM TUBE TOP SCH ×2 (10:23→20:43)
[2019-06-09] MEDS: SODIUM HYPOCHLORITE 0.125% 473 ML BOTTLE TP SCH (10:24)
[2019-06-09] MEDS: AMMONIUM LACTATE 12% LOTION 225 GM BOTTLE TP SCH (10:24)
[2019-06-09] MEDS: GENTAMICIN SULFATE 0.1% OINT 15 GM TUBE TOP SCH (10:25)
[2019-06-09 11:02] VITALS: BP 126/73
[2019-06-09 16:17] VITALS: BP 109/66
--- NOTE | 2019-06-09 19:30 | NUR ---
Received patient resting in bed, easily to arouse. No distress noted. Complains of pain to BLE, explained that pain medication is not yet due, patient understood. No complaints of SOB. Dressing noted to BLE. Safety measures initiated. Bed is low and locked, call light within reach. Will continue to monitor.
[2019-06-09 20:35] VITALS: BP 125/69
[2019-06-09] MEDS: ATORVASTATIN 10 MG TABLET PO SCH (20:41)
[2019-06-09] MEDS: ARIPIPRAZOLE 5 MG TABLET PO SCH (20:41)
--- NOTE | 2019-06-10 08:34 | NUR ---
Walking in the hallway, pleasant. BLE dressing clean, dry and intact. Coffee and breakfast served.
[2019-06-10] MEDS: LISINOPRIL 20 MG TABLET PO SCH (09:00)
[2019-06-10] MEDS: METOPROLOL TARTRATE 50 MG TABLET PO SCH (09:00)
[2019-06-10] MEDS: FUROSEMIDE 40 MG TABLET PO SCH (09:03)
[2019-06-10] MEDS: ASCORBIC ACID 500 MG TABLET PO SCH (09:05)
[2019-06-10] MEDS: GABAPENTIN 400 MG CAPSULE PO SCH ×2 (09:05→13:15)
[2019-06-10] MEDS: ZINC SULFATE 220 MG CAPSULE PO SCH (09:05)
[2019-06-10] MEDS: ARGININE/GLUTAMINE/CALCIUM BMB 1 EACH POWD.PACK PO SCH (09:07)
[2019-06-10] MEDS: AMMONIUM LACTATE 12% LOTION 225 GM BOTTLE TP SCH (09:08)
[2019-06-10] MEDS: SODIUM HYPOCHLORITE 0.125% 473 ML BOTTLE TP SCH (09:09)
[2019-06-10] MEDS: CLOTRIMAZOLE 1% CREAM 30 GM TUBE TOP SCH (09:10)
[2019-06-10] MEDS: GENTAMICIN SULFATE 0.1% OINT 15 GM TUBE TOP SCH (09:10)
[2019-06-10] MEDS: CLOTRIMAZOLE/BETAMET DIPROP CREAM 15 GM TUBE TOP SCH (09:12)
[2019-06-10] MEDS: OXYCODONE/APAP 5-325 MG TABLET PO PRN (09:18)
[2019-06-10 11:05] VITALS: BP 139/64
--- NOTE | 2019-06-10 14:35 | NUR ---
Social Work Discharge Planning Patient is alert and oriented x4. Patient is declining group home referrals and will sign the homeless waiver form. Patient was offered transportation to the [facility] but refused this.He was given the homeless referrals resource checklist ( copy placed in chart). Patient is not presenting with any suicidal or homicidal ideation and is able to navigate the streets. Patient wants to be transported to [facility] where he lives and shops. Patient is very aware of local resources and how to get his needs met. He will be given referrals for wound care via his pillowcase cleaner at [facility], Girl [phone]). Patient was given the contact information for his pillowcase cleaner at [facility]. Patient will go via taxi to his destination at [address] [place] [phone]. Patient is guarded but states he does his shopping there. Prior to this arrangement, patient sabotaged an opportunity for placement at a board and care with his demeanour. He has burned his bridges at many local facilities. Patient acknowledges that he does not trust anyone and prefers to be discharged to his own care. Patient received over 30 days of treatment at [facility].
--- NOTE | 2019-06-10 15:53 | NUR ---
With discharge order. Refused SNF. Refused Skilled Nursing, resources for homeless provided. Prescription and DC instruction given to patient, verbalized understanding. No IV site. ID band removed. Discharged to self via taxi with voucher provided per ambulatory in fair condition, not in distress, afebrile. Wound photos taken by prune washer nurse.
== END 2019-06-10 15:45 | disposition home or self-care (01) | DRG 197 ==
LOC: ER 19:18 → MEDSURG3 21:39
PROVIDERS: ADMIT Nurse Practitioner Acute Care; ATTEND Internal Medicine
PROC: 0JBN0ZZ Excision of Right Lower Leg Subcutaneous Tissue and Fascia, Open Approach (ICD-10-PCS; principal; 2019-05-14)
PROC: 0JBP0ZZ Excision of Left Lower Leg Subcutaneous Tissue and Fascia, Open Approach (ICD-10-PCS; principal; 2019-05-14)
PROC: 0HBRXZZ Excision of Toe Nail, External Approach (ICD-10-PCS; principal; 2019-05-14)
PROC: 02HV33Z Insertion of Infusion Device into Superior Vena Cava, Percutaneous Approach (ICD-10-PCS; 2019-05-17)
PROC: B548ZZA Ultrasonography of Superior Vena Cava, Guidance (ICD-10-PCS; 2019-05-17)
PROC: 3E043GC Introduction of Other Therapeutic Substance into Central Vein, Percutaneous Approach (ICD-10-PCS; 2019-05-21)
PROC: 0JBP0ZZ Excision of Left Lower Leg Subcutaneous Tissue and Fascia, Open Approach (ICD-10-PCS; 2019-05-30)
PROC: 0JBN0ZZ Excision of Right Lower Leg Subcutaneous Tissue and Fascia, Open Approach (ICD-10-PCS; 2019-05-30)
DX: I87.313 Chronic venous hypertension (idiopathic) with ulcer of bilateral lower extremity (principal); N17.0 Acute kidney failure with tubular necrosis; E43 Unspecified severe protein-calorie malnutrition; E11.51 Type 2 diabetes mellitus with diabetic peripheral angiopathy without gangrene; D68.59 Other primary thrombophilia; E11.65 Type 2 diabetes mellitus with hyperglycemia; I11.0 Hypertensive heart disease with heart failure; I50.32 Chronic diastolic (congestive) heart failure; E66.01 Morbid (severe) obesity due to excess calories; L03.116 Cellulitis of left lower limb; L03.115 Cellulitis of right lower limb; B35.1 Tinea unguium; I89.0 Lymphedema, not elsewhere classified; Z59.0 Homelessness; Z68.41 Body mass index [BMI] 40.0-44.9, adult; D63.8 Anemia in other chronic diseases classified elsewhere; E78.5 Hyperlipidemia, unspecified; B35.3 Tinea pedis; E44.0 Moderate protein-calorie malnutrition; I25.119 Atherosclerotic heart disease of native coronary artery with unspecified angina pectoris; B96.5 Pseudomonas (aeruginosa) (mallei) (pseudomallei) as the cause of diseases classified elsewhere; F31.9 Bipolar disorder, unspecified; Z74.09 Other reduced mobility; Z16.23 Resistance to quinolones and fluoroquinolones; Z16.19 Resistance to other specified beta lactam antibiotics; G89.4 Chronic pain syndrome; L97.828 Non-pressure chronic ulcer of other part of left lower leg with other specified severity; L97.818 Non-pressure chronic ulcer of other part of right lower leg with other specified severity; M41.9 Scoliosis, unspecified; M17.0 Bilateral primary osteoarthritis of knee; F11.20 Opioid dependence, uncomplicated; Z82.49 Family history of ischemic heart disease and other diseases of the circulatory system; Z85.028 Personal history of other malignant neoplasm of stomach; Z85.72 Personal history of non-Hodgkin lymphomas; Z87.01 Personal history of pneumonia (recurrent); I25.2 Old myocardial infarction
CPT/HCPCS: 36415; 70030-TC; 71045; 83735; 84100; 85025; 85730; 87070; 87075; 87077; 93005; A4217; A4649; A4663; G0378; J0690; J0692; J1170; J1644; J1815; J2250; J2270; J2405; J2765; J2997; J3010; J3370; J3490; J7030; J7040; J7050; J7060; J7120

== ENCOUNTER 2019-06-16 17:47 | Emergency (ER) | payer OTHER ==
[~2019-06-16] VITALS: Ht 175.3 cm; Wt 174.6 kg
[~2019-06-16 17:47] MED LIST changes: +CLOT30CR24 TOP; -FURO-151 PO; +FURO40TA5 PO; +GABA-536 PO; -GABA600T12 PO; -HYDR-4354 PO; +OXYC-133 PO; -SULF1TAB48 PO; -Silver Sulfadiazine 1% Cream TP
[2019-06-16] MEDS ORDERED: HYDROCODONE/APAP 10-325 MG TABLET ONE (18:45)
[2019-06-16] MEDS ORDERED: SILVER SULFADIAZINE 1% CREAM 50 GM TP ONE (18:45)
[2019-06-16] MEDS ORDERED: SILVER SULFADIAZINE 1% CREAM 25 GM TUBE TP ONE (18:45)
[2019-06-16] MEDS ORDERED: HYDROCODONE/APAP 10-325 MG TABLET PO ONE (18:45)
--- NOTE | 2019-06-16 19:05 | NUR ---
Assumed care from [facility] RN
--- NOTE | 2019-06-16 19:45 | NUR ---
Wound care done as ordered. Patient tolerated well.
--- NOTE | 2019-06-16 19:55 | NUR ---
Patient given written and verbal discharge instructions. Patient verbalizes understanding of instructions. Patient is ambulatory with steady gait. Refuses offer of residential placement. Patient given list of available shelters in surrounding area.
== END 2019-06-16 19:55 | disposition home or self-care (01) ==
LOC: ER 17:49
DX: I83.018 Varicose veins of right lower extremity with ulcer other part of lower leg (principal); I83.028 Varicose veins of left lower extremity with ulcer other part of lower leg; L97.811 Non-pressure chronic ulcer of other part of right lower leg limited to breakdown of skin; L97.821 Non-pressure chronic ulcer of other part of left lower leg limited to breakdown of skin; I25.10 Atherosclerotic heart disease of native coronary artery without angina pectoris; F31.9 Bipolar disorder, unspecified; K21.9 Gastro-esophageal reflux disease without esophagitis; I50.9 Heart failure, unspecified; I11.0 Hypertensive heart disease with heart failure; Z91.018 Allergy to other foods; Z59.0 Homelessness; Z79.891 Long term (current) use of opiate analgesic; Z79.899 Other long term (current) drug therapy
CPT/HCPCS: A4217; A4663

== ENCOUNTER 2019-07-11 14:31 | Emergency (ER) | payer OTHER ==
[~2019-07-11] VITALS: Ht 175.3 cm; Wt 174.6 kg
--- NOTE | 2019-07-11 15:50 | NUR ---
PATIENT WAS VERBALLY ABUSIVE AND WAS TRYING TO ELICIT A NEGATIVE RESPONSE FROM ME DURING THE TREATMENT OF HIS WOUNDS. PATIENT WAS CONSTANTLY STATING THAT SOMETHING HAD HAPPENED DURING MY CHILDHOOD. I TOLD THE PATIENT TO STOP THIS LINE OF CONVERSATION DURING THE WOUND CARE TREATMENT. LIMITATION OF BEHAVIOR WAS EMPHASIZED. WHEN I DID NOT RESPOND TO HIS PROVOCATIONS, PATIENT STARTED TO SPEAK IN A MUCH LOUDER AND THREATENING VOICE, TONE AND VOLUME. PATIENT PERSISTENTLY KEPT ON TRYING TO GET A NEGATIVE RESPONSE FROM ME DURING THE WOUND TREATMENT. I MADE THE PRIMARY NURSE MARY AWARE OF PATIENT'S ACTIONS AND BEHAVIOR. TREATMENT WAS COMPLETED. NO C/O PAIN WAS MADE BY THE PATIENT DURING THE WOUND CARE.
--- NOTE | 2019-07-11 15:55 | NUR ---
witnessed pt inapropriate behavior while Milad Villalpando was treating the pt care.
--- NOTE | 2019-07-11 16:03 | NUR ---
Patient discharged to home in stable conditon. Written and verbal after care instructions given. Patient verbalizes understanding of instructions.pt walks in steady gait.
== END 2019-07-11 16:20 | disposition home or self-care (01) ==
LOC: ER 14:31
DX: L97.929 Non-pressure chronic ulcer of unspecified part of left lower leg with unspecified severity (principal); L97.919 Non-pressure chronic ulcer of unspecified part of right lower leg with unspecified severity; I25.10 Atherosclerotic heart disease of native coronary artery without angina pectoris; F31.9 Bipolar disorder, unspecified; K21.9 Gastro-esophageal reflux disease without esophagitis; I25.2 Old myocardial infarction; I11.0 Hypertensive heart disease with heart failure; I50.9 Heart failure, unspecified; Z91.018 Allergy to other foods; Z59.0 Homelessness; Z79.899 Other long term (current) drug therapy
CPT/HCPCS: A4217; A4663

== ENCOUNTER 2020-10-29 17:43 | Emergency (ER) | payer MEDICARE, OTHER ==
[~2020-10-29] VITALS: Ht 167.6 cm; Wt 104.3 kg
[~2020-10-29 17:43] MED LIST changes: -LISI-603 PO; +LISI20TA30 PO
--- NOTE | 2020-10-29 17:55 | NUR ---
at bedside for assessment
[2020-10-29] MEDS ORDERED: SILVER SULFADIAZINE 1% CREAM 25 GM TUBE TP ONE (18:27)
[2020-10-29] MEDS ORDERED: SILVER SULFADIAZINE 1% CREAM 50 GM TP ONE (18:30)
--- NOTE | 2020-10-29 19:00 | NUR ---
Bilateral lower extremities cleansed with normal saline and pat dry, silvadene applied with xeroform per patient request, both legs wrapped in kerlix and coban, none skid socks applied
--- NOTE | 2020-10-29 19:08 | NUR ---
Patient discharged to home in stable condition. able to ambulate with steady gait, no signs of acute distress noted. Written and verbal after care instructions given. Patient verbalizes understanding of instructions. Stressed follow up or return to ER for worsening s/s.
[2020-10-29 19:10] VITALS: BP 132/66
== END 2020-10-29 19:00 | disposition home or self-care (01) ==
LOC: ER 17:43
DX: I87.313 Chronic venous hypertension (idiopathic) with ulcer of bilateral lower extremity (principal); L97.821 Non-pressure chronic ulcer of other part of left lower leg limited to breakdown of skin; L97.811 Non-pressure chronic ulcer of other part of right lower leg limited to breakdown of skin; Z59.0 Homelessness; E66.01 Morbid (severe) obesity due to excess calories; Z68.37 Body mass index [BMI] 37.0-37.9, adult; I89.0 Lymphedema, not elsewhere classified; C85.90 Non-Hodgkin lymphoma, unspecified, unspecified site; Z85.028 Personal history of other malignant neoplasm of stomach; F31.9 Bipolar disorder, unspecified; I11.0 Hypertensive heart disease with heart failure; I50.9 Heart failure, unspecified; Z79.899 Other long term (current) drug therapy; I25.2 Old myocardial infarction; M17.0 Bilateral primary osteoarthritis of knee; R73.03 Prediabetes
CPT/HCPCS: A4217; A4663

== ENCOUNTER 2020-10-31 16:53 | Emergency (ER) | payer BC, OTHER ==
[~2020-10-31] VITALS: Ht 167.6 cm; Wt 104.3 kg
[2020-10-31] MEDS ORDERED: GABA600T12 PO (18:46)
--- NOTE | 2020-10-31 19:07 | NUR ---
Patient discharged to home in stable condition. Written and verbal after care instructions given. Patient verbalizes understanding of instructions. Stressed follow up or return to ER for worsening s/s.
== END 2020-10-31 19:08 | disposition home or self-care (01) ==
LOC: ER 16:53
DX: I87.2 Venous insufficiency (chronic) (peripheral) (principal); L97.929 Non-pressure chronic ulcer of unspecified part of left lower leg with unspecified severity; L97.919 Non-pressure chronic ulcer of unspecified part of right lower leg with unspecified severity; E66.01 Morbid (severe) obesity due to excess calories; Z68.37 Body mass index [BMI] 37.0-37.9, adult; F31.9 Bipolar disorder, unspecified; C85.90 Non-Hodgkin lymphoma, unspecified, unspecified site; I25.10 Atherosclerotic heart disease of native coronary artery without angina pectoris; I70.209 Unspecified atherosclerosis of native arteries of extremities, unspecified extremity
CPT/HCPCS: A4217; A4663